=== PATIENT | female | born 1950 | race Caucasian/White ===

== ENCOUNTER 2017-05-02 19:11 | Emergency (ER) | payer MEDICARE ==
[~2017-05-02] VITALS: Ht 154.9 cm; Wt 72.1 kg
[~2017-05-02 19:11] MED LIST: ALPR.5T PO; ASPI-875 PO; ATEN25TA PO; BETA50CR5 TP; CEFD300C3 PO; CEFU500T5 PO; CHOL200035 PO; CLOT45CR46 TOP; CPR500T PO; CTLP20T PO; DOXY100C2 PO; ERGO400C PO; FAMO20TA5 PO; GBPN100C PO; HYDR-2889 PO; HYDR-3820 PO; HYDR-91 PO; HYOS0.1216 PO; METF-380 PO; MTF500T PO; NABU750T PO; OMEP10CA4 PO; OMG1KC; PHEN200T16 PO; PRAM0.257 PO; PRAS10TA6 PO; PRD10T PO; PRD20T PO; ROPI2TAB28 PO; ROPI3TAB2 PO; SLMFT1E INH; SULF1TAB35 PO; SULF1TAB38 PO; TEMA30CA PO; TRAM50TA2 PO; TRAZ150T42 PO; TRIA1CAP4 PO
[2017-05-02] MEDS ORDERED: RX-TRIMETH/SULFA. 160-800 MG (BACTRIM DS) TAB PPK#2 PO STA (20:46)
[2017-05-02] MEDS ORDERED: morphine INJ 10 MG/ML 1ML (SYR OR VIAL) IM STA (20:46)
[2017-05-02] MEDS ORDERED: CLINDAMYCIN 150 MG (CLEOCIN) CAP PO STA (20:46)
[2017-05-02] MEDS ORDERED: CLIN300C3 PO (20:52)
[2017-05-02] MEDS ORDERED: OXYC-197 PO (20:52)
[2017-05-02] MEDS ORDERED: SULF1TAB35 PO (20:52)
--- NOTE | 2017-05-02 20:53 | ED Integumentary General ---
General Chief Complaint: Skin/Wound Problems Stated Complaint: STOMACH RASH Nursing Triage Note: Pt. advises she has had a wound on her abdomen for approximately one week that is not improving. Source: patient Exam Limitations: no limitations History of Present Illness Time seen by provider: 20:51 Initial Comments 67-year-old female patient presents to the emergency department complains of abdominal wound for approximately one week. reports giving patient 300 mg cleocin this afternoon as well as hydrocodone 10/325 with improvement in symptoms. Denies fever. Timing/Duration: week, getting worse Location: torso (abdomen) Possible Cause: no cause identified Modifying Factors: worse with other (worse with palpation) Allergies and Home Medications Allergies Coded Allergies: No Known Drug Allergies (Unverified , 06/07/09) Home Medications Alprazolam 0.5 Mg Tablet, 1 TAB PO TID PRN, (Reported) Aspirin 81 Mg Tablet.dr, 81 MG PO HS, (Reported) Atenolol 25 Mg Tablet, 1 EACH PO HS, (Reported) Betamet Diprop/Prop Gly 50 Gm Cream.gm., 50 GM TP BID, #1 Prescribed by: ATUL MELENDEZ on 05/18/152103 Cholecalciferol (Vitamin D3) 2,000 Unit Capsule, 1,000 UNIT PO BID, (Reported) AT 1200 AND 2100 Clindamycin HCl 300 Mg Capsule, 300 MG PO QID, #40 Ref 0 Prescribed by: KEO COYLE on 05/02/172051 Gabapentin 100 Mg Cap, 300 MG PO 1200 AND 2100, (Reported) AT NOON AND 2100 Hydrocodone/Acetaminophen 1 Each Tablet, 1 EACH PO Q6H PRN for PAIN, #14 Ref 0 Prescribed by: KEO COYLE on 04/28/16 1514 Metformin Hcl 500 Mg Tablet, 2 TAB PO 0700 & 1700, (Reported) Omeprazole 10 Mg Capsule.dr, 20 MG PO DAILY, (Reported) Oxycodone HCl/Acetaminophen 1 Each Tablet, 1 EACH PO Q6H PRN for pain, #10 Ref 0 Prescribed by: KEO COYLE on 05/02/172051 Pramipexole Di-HCl 0.25 Mg Tablet, 0.25 MG PO QID, #180 (Reported) Salmeterol Xinaf/Fluticasone 1 Diskus Inhp, 1 PUFF INH BID, (Reported) Sulfamethoxazole/Trimethoprim 1 Each Tablet, 1 EACH PO BID, #20 Ref 0 Prescribed by: KEO COYLE on 05/02/172051 Triamterene/Hydrochlorothiazid 1 Each Capsule, 0.5 TAB PO HS, (Reported) Constitutional: No dizziness, No fever, No malaise, No weakness Respiratory: no symptoms reported Cardiovascular: no symptoms reported Gastrointestinal: see HPI, No abdominal pain, No diarrhea, No nausea, No vomiting, other (redness, swelling and wound of the abdominal wall) Genitourinary: no symptoms reported Skin: see HPI Psychiatric/Neurological: No Symptoms Reported All Other Systems Reviewed Negative Unless Noted: Yes (Negative excepted noted.) Past Qdrcuyk-Hylzkp-Hyholp Hx Patient Social History Alcohol Use: Denies Use Recreational Drug Use: No Smoking Status: Current Everyday Smoker Type Used: Cigars Recent Foreign Travel: No Contact w/Someone Who Travel: No Recent Infectious Disease Expo: No Recent Hopitalizations: No Immunizations Up To Date Tetanus Booster (TDap): Less than 5yrs Date of Pneumonia Vaccine: Oct 30, 2012 Date of Influenza Vaccine: Oct 19, 2013 Seasonal Allergies Seasonal Allergies: No Surgeries HX Surgeries: Yes Surgeries: CABG, Thyroidectomy Respiratory Hx Respiratory Disorders: Yes Respiratory Disorders: Asthma, Chronic Bronchitis, COPD Cardiovascular Hx Cardiac Disorders: Yes (CABG/STENTS. 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 Genitourinary Hx Genitourinary Disorders: No Gastrointestinal Hx Gastrointestinal Disorders: Yes Gastrointestinal Disorders: Gastroesophageal Reflux, Hiatal Hernia Musculoskeletal Hx Musculoskeletal Disorders: Yes (ARTHRITIS IN KNEES) Musculoskeletal Disorders: Arthritis Endocrine Hx Endocrine Disorders: Yes Endocrine Disorders: Hypothyroidsim, Diabetes, Non-Insulin dep HEENT HX ENT Disorders: No Cancer Hx Cancer: No Psychosocial Hx Psychiatric Problems: Yes Behavioral Health Disorders: Anxiety Integumentary HX Skin/Integumentary Disorder: Yes Skin/Integumentary Disorders: Eczema Blood Transfusions Hx Blood Disorders: No Reviewed Nursing Assessment Reviewed/Agree w Nursing PMH: Yes Family Medical History Significant Family History: No Pertinent Family Hx Physical Exam Vital Signs Vital Sign - Last 12Hours 05/02/17 05/02/17 20:38 21:52 Temp 98.8 Pulse 84 Resp 14 B/P (MAP) 138/64 Pulse Ox 98 O2 Delivery Room Air Capillary Refill : Less Than 3 Seconds General Appearance: WD/WN, no apparent distress Cardiovascular: regular rate, rhythm, no murmur Respiratory: lungs clear, normal breath sounds, no respiratory distress Gastrointestinal: normal bowel sounds, soft, other (supraumbilical region shows a 6x14 cm area of erythema, swelling, tenderness, and warmth with central ulcer. soft tissue tenderness noted.) Extremities: no pedal edema, normal capillary refill Neurologic/Psychiatric: alert, normal mood/affect, oriented x 3 Skin: warm/dry, No cyanosis, No cool, No diaphoresis, No damp, other ( supraumbilical region shows a 6x14 cm area of erythema, swelling, tenderness, and warmth with central ulcer. soft tissue tenderness noted.) Skin Problem Location: other (supraumbilical) Skin Problem Character: erythema, swelling, tenderness, warm, other (central ulcer with eschar) Progress/Results/Core Measures Results/Orders Micro Results Microbiology 05/02/17 Gram Stain - Final, Resulted 05/02/17 Wound Culture - Preliminary, Resulted Staphylococcus Aureus My Orders Orders - KEO COYLE Morphine Injection (Morphine Injection (05/02/17 20:46) Clindamycin Capsule (Cleocin Capsule) (05/02/17 20:46) Rx-Trimeth/Sulfameth Ds Tab (Rx-Bactrim/ (05/02/17 20:46) Wound Culture (05/02/17 20:48) Vital Signs/I&O Vital Sign - Last 12Hours 05/02/17 05/02/17 20:38 21:52 Temp 98.8 Pulse 84 89 Resp 14 14 B/P (MAP) 138/64 Pulse Ox 98 O2 Delivery Room Air Blood Pressure Mean: 88 Departure Communication Progress Notes Patient seen and evaluated. Plan for discharge to home with oral Cleocin, Bactrim, and Percocet for pain. Patient follow-up with her primary care physician Thursday or Thursday for recheck. Impression Impression: Primary Impression: Cellulitis Qualified Codes: L03.311 - Cellulitis of abdominal wall Disposition: HOME, SELF-CARE Condition: Improved Departure-Patient Inst. Decision time for Depature: 20:51 Referrals: KENDY MADISON DO (PCP/Family) Primary Care Physician Patient Instructions: Cellulitis (Skin Infection), Adult (DC) Add. Discharge Instructions: All discharge instructions reviewed with patient and/or family. Voiced understanding. Medications as instructed. Continue usual home medications. Ice pack or heating pad as needed for pain. Shower with antibacterial soap. Cover with a bandage. Follow-up with your primary care physician Thursday or Thursday for recheck, call first thing Thursday morning for appointment time. Return to the emergency department for worsened symptoms or any other concerns. Scripts Oxycodone HCl/Acetaminophen (Percocet 5-325 mg Tablet) 1 Each Tablet 1 EACH PO Q6H Y for pain, #10 TAB 0 Refills Prov: KEO COYLE 05/02/17 Sulfamethoxazole/Trimethoprim (Bactrim Ds Tablet) 1 Each Tablet 1 EACH PO BID, #20 TAB 0 Refills Prov: KEO COYLE 05/02/17 Clindamycin HCl (Cleocin HCl) 300 Mg Capsule 300 MG PO QID, #40 CAP 0 Refills Prov: KEO COYLE 05/02/17 KEO COYLE May 02, 2017 20:53
[2017-05-02 21:52] VITALS: BP 137/62
== END 2017-05-02 22:01 | disposition home or self-care (01) ==
LOC: EDUNIT# 19:11 → ER 19:13
DX: L03.311 Cellulitis of abdominal wall (principal); E11.9 Type 2 diabetes mellitus without complications; F17.210 Nicotine dependence, cigarettes, uncomplicated; Z79.84 Long term (current) use of oral hypoglycemic drugs; Z79.82 Long term (current) use of aspirin; Z79.899 Other long term (current) drug therapy
CPT/HCPCS: 87070; 87077; 87186; 87205; 96372; 99282

== ENCOUNTER 2017-05-05 05:56 | Day surgery (SDC) | payer MEDICARE ==
[~2017-05-05] VITALS: Ht 154.9 cm; Wt 72.1 kg
[~2017-05-05 05:56] MED LIST changes: +CLIN300C3 PO; +OXYC-197 PO
[2017-05-05 06:45] VITALS: BP 99/51
[2017-05-05] MEDS ORDERED: RT-ALBUTEROL SULF 2.5 MG/3 ML PRE-MIX VIAL ONE (06:46)
[2017-05-05] MEDS ORDERED: ceFAZolin 1,000 MG (ANCEF) VIAL ONE (06:51)
[2017-05-05] MEDS ORDERED: NS (IVPB) 0 ML ONE (06:51)
[2017-05-05] MEDS ORDERED: FAMOTIDINE 20MG/2ML IV (PEPCID) ONE (06:51)
[2017-05-05] MEDS ORDERED: proPOfol 200 MG/20 ML (DIPRIVAN) VIAL IV ONE (07:00)
[2017-05-05] MEDS ORDERED: fentaNYL INJECTION 100 MCG/2 ML AMP ONE (07:00)
[2017-05-05] MEDS ORDERED: ceFAZolin 1 GM/NS 50 ML IVPB IV ONE ×2 (07:30)
--- NOTE | 2017-05-05 07:40 | Progress Note-Pre Operative ---
Pre-Operative Progress Note H&P Reviewed The H&P was reviewed, patient examined and no changes noted. Date Seen by Provider: May 05, 2017 Time Seen by Provider: 07:39 Date H&P Reviewed: May 05, 2017 Time H&P Reviewed: 07:39 Pre-Operative Diagnosis: Abscess of abdominal wall JANESSA FLORES MD May 05, 2017 7:39 am
[2017-05-05] MEDS ORDERED: ONDANSETRON 4 MG/2 ML (SDV) Z0FRAN ONE (08:03)
[2017-05-05] MEDS ORDERED: LACTATED RINGERS 1,000 ML IV PRN (08:03)
[2017-05-05] MEDS ORDERED: SEVOFLURANE (ULTANE) 15 ML INHAL SOLN ONE (08:03)
[2017-05-05] MEDS ORDERED: FAMOTIDINE 20MG/2ML IV (PEPCID) IV ONE (08:15)
[2017-05-05] MEDS ORDERED: RT-ALBUTEROL SULF 2.5 MG/3 ML PRE-MIX VIAL INH ONE (08:15)
--- NOTE | 2017-05-05 08:28 | Progress Note-Post Operative ---
Post-Operative Progess Note Surgeon (s)/Career Coordinator (s) Surgeon JANESSA FLORES MD Career Coordinator: not applicable Pre-Operative Diagnosis Abscess of abdominal wall Post-Operative Diagnosis same Procedure & Operative Findings Date of Procedure 05/05/17 Procedure Performed/Findings incision and drainage Anesthesia Type Gen. Estimated Blood Loss Estimated blood loss (mL): minimal Specimens/Packing Specimens Removed pus for culture JANESSA FLORES MD May 05, 2017 8:28 am
--- NOTE | 2017-05-05 08:31 | Discharge Inst-Simple/Standard ---
Discharge Inst-Standard Discharge Medications New, Converted or Re-Newed RX: Other Patient Instructions/Follow Up Plan of Care/Instructions/FU: change dressing with ABDs pad once a day. May shower. Follow-up with me in a week Activity as Tolerated: Yes Discharge Diet: No Restrictions JANESSA FLORES MD May 05, 2017 8:31 am
--- NOTE | 2017-05-05 08:41 | Anesthesia-General Post-Op ---
General Patient Condition Mental Status/LOC: Same as Preop Cardiovascular: Satisfactory Nausea/Vomiting: Absent Respiratory: Satisfactory Pain: Controlled Complications: Absent Post Op Complications Complications None Follow Up Care/Instructions Patient Instructions None needed. Anesthesia/Patient Condition Patient Condition Patient is doing well, no complaints, stable vital signs, no apparent adverse anesthesia problems. No complications reported per nursing. D/C home per [facility] Criteria: CAS Israel DO May 05, 2017 08:41
--- NOTE | 2017-05-05 08:58 | OPERATIVE REPORT ---
DATE OF SERVICE: 05/05/2017 PREOPERATIVE DIAGNOSIS: Abscess, abdominal wall. POSTOPERATIVE DIAGNOSIS: Abscess, abdominal wall. OPERATION: Incision and drainage of abscess, abdominal wall. SURGEON: Janessa Flores MD ANESTHESIA: General anesthesia. BLOOD LOSS: Minimal. FLUIDS: 300 mL of crystalloid. TYPE OF WOUND: Type 4 (dirty wound). INDICATION FOR PROCEDURE: This lady presented with an area of cellulitis superior to the umbilicus with an early abscess formation. She was offered formal incision and drainage. Informed consent was obtained after reviewing the procedure in detail. DESCRIPTION OF PROCEDURE: She was placed supine on the operating room where general anesthesia was induced. A gram of Ancef was administered intravenously. After adequate antiseptic preparation, a 5 cm elliptical incision was made and the necrotic skin excised. The abscess cavity was entered and pus sent for culture and sensitivity. The cavity was then irrigated with saline and hemostasis was achieved using cautery. Two separate Callao drains were left in the cavity and secured with 2-0 silk sutures. A nonadherent dressing was then applied. She tolerated the procedure well, was extubated in the operating room and taken to the recovery room in stable condition. [place], sponges and instruments were correct at the end of the operation. Job ID: [id number] DocumentID: [id number] Dictated Date: 05/05/2017 08:23:49 Clinical Pharmacologist Date: 05/05/2017 08:57:41 Dictated By: JANESSA FLORES MD [facility]
[2017-05-05 09:10] VITALS: BP 111/48
[2017-05-05 09:40] VITALS: BP 108/50
[2017-05-05 10:00] VITALS: BP 108/50
== END 2017-05-05 10:00 | disposition home or self-care (01) ==
LOC: SDC 05:56
PROVIDERS: ATTEND Surgery
DX: L03.311 Cellulitis of abdominal wall (principal); E11.9 Type 2 diabetes mellitus without complications; K21.9 Gastro-esophageal reflux disease without esophagitis; J44.9 Chronic obstructive pulmonary disease, unspecified; G47.33 Obstructive sleep apnea (adult) (pediatric); F17.210 Nicotine dependence, cigarettes, uncomplicated; Z79.84 Long term (current) use of oral hypoglycemic drugs; Z79.82 Long term (current) use of aspirin; Z79.899 Other long term (current) drug therapy; Z95.1 Presence of aortocoronary bypass graft
CPT/HCPCS: 87070; 87075; 87077; 87081; 87186; 87205; 94640

== ENCOUNTER → 2017-12-23 | Outpatient (CLI) | payer MEDICARE, OTHER ==
--- NOTE | 2017-12-23 14:09 | Diagnostic Imaging Report ---
PROCEDURE: MRI lumbar spine. TECHNIQUE: Multiplanar, multisequence MRI of the lumbar spine was performed without contrast. INDICATION: Low back pain. COMPARISON: No prior studies are available for comparison. FINDINGS: Curvature of the lumbar spine is normal. There is minimal anterolisthesis of L3 on L4. The vertebral body heights are maintained. No acute compression fracture or geographic marrow lesion is identified. There is some generalized lumbar degenerative disc disease with variable disc space narrowing and desiccation. The conus is unremarkable at the L1 level. T12-L1: No central canal or neuroforaminal stenosis is identified. L1-L2: Unremarkable. L2-L3: No significant central canal or neuroforaminal stenosis is identified. L3-L4: There are hypertrophic facet degenerative changes and ligamentous thickening. There is also broad-based disc/osteophyte complex. Moderate narrowing of the central canal is identified to approximately 7 mm AP diameter. No significant neuroforaminal stenosis is seen. L4-L5: Broad-based disc/osteophyte complex is noted. There does appear to be mild central canal stenosis. There is also mild bilateral neuroforaminal narrowing due to far lateral disc/osteophyte complexes. L5-S1: Central canal is patent. No significant neuroforaminal stenosis is seen. The paraspinous tissues are unremarkable. IMPRESSION: Mild generalized lumbar degenerative disc and facet disease with mild central canal or neuroforaminal narrowing described level by level above. No acute compression fracture is detected. Dictated by: Dictated on workstation # [id number]
== END ==
LOC: RAD 11:32
PROVIDERS: ATTEND Internal Medicine
DX: M48.061 Spinal stenosis, lumbar region without neurogenic claudication (principal); M51.36 Other intervertebral disc degeneration, lumbar region; M51.26 Other intervertebral disc displacement, lumbar region; M89.38 Hypertrophy of bone, other site; M47.816 Spondylosis without myelopathy or radiculopathy, lumbar region
CPT/HCPCS: 72148

== ENCOUNTER → 2018-03-18 | Outpatient (CLI) | payer MEDICARE, OTHER ==
--- NOTE | 2018-03-18 14:30 | Diagnostic Imaging Report ---
INDICATION: Nodular thyroid disease. History of right-sided thyroidectomy. TECHNIQUE: Grayscale sonographic images of the thyroid gland. CORRELATION STUDY: None FINDINGS: RIGHT LOBE: Surgically absent. LEFT LOBE: 4.4 x 1.8 x 2.0 cm. In the mid aspect is a complex mixed solid and cystic perhaps multiseptated nodule measuring 15 x 11 x 14 mm. Vascular flow is symmetric to the solid component. There is slight more asymmetric solid component along its lateral aspect. A mixed heterogeneous but more solid appearing nodule is noted in the posterior mid aspect measuring 13 x 7 x 10 mm. In the mid aspect posteriorly and laterally is additional mixed solid cystic nodule measuring 12 x 12 x 10 mm. IMPRESSION: 1. Absent right lobe. 2. Mildly enlarged left lobe of thyroid gland. There are at least 3 nodules present. These demonstrate fairly similar echotexture and or mixed complex and cystic in nature. Slightly more dominant one noted centrally at 15 mm in size. Given multiplicity favors probable multinodular thyroid gland. However, given no priors for comparison, followup imaging in approximately 3-4 months would be recommended. 3. Addition, correlation with indication and findings for why the right lobe was resected would be helpful as well. (Normal gland size: 4-5 x 2 x 2 cm) Dictated by: Dictated on workstation # [id number]
== END ==
LOC: RAD 12:01
PROVIDERS: ATTEND Internal Medicine Endocrinology, Diabetes & Metabolism
DX: E04.2 Nontoxic multinodular goiter (principal); E89.0 Postprocedural hypothyroidism
CPT/HCPCS: 76536

== ENCOUNTER 2018-10-22 12:11 | Emergency (ER) | payer MEDICARE, OTHER ==
[~2018-10-22] VITALS: Ht 154.9 cm; Wt 62.1 kg
[~2018-10-22 12:11] MED LIST changes: -OXYC-197 PO; +OXYC1TAB87 PO
--- OUTSIDE RECORDS SUMMARY | 2018-10-22 12:17 | XMS REPORT | Continuity of Care Document ---
Author Author [facility] Organization [facility] Address Unknown Phone Unavailable Allergies Active Description Code Type Severity Reaction Onset Reported/Identified Relationship to Patient Clinical Status Yes No Known Drug Allergies [id number] Drug Allergy Mild N/A 06/07/2009 Yes No Known Allergies No Known Allergies Drug Allergy Unknown N/A 2013 Medications There is no data. Problems Date Dx Coded Attending Type Code Diagnosis Diagnosed By 12/16/2008 Ot 278.00 12/16/2008 Ot 327.23 12/16/2008 Ot 327.51 12/16/2008 Ot 496 05/27/2011 Ot 327.23 06/08/2011 Ot V45.81 06/08/2011 Ot V57.89 06/14/2011 Ot 327.23 11/17/2011 Ot 592.0 11/17/2011 Ot 599.0 11/17/2011 Ot 788.1 02/22/2012 Ot 346.90 02/22/2012 Ot 784.0 10/04/2012 Ot 211.3 BENIGN NEOPLASM LG BOWEL 10/04/2012 Ot 562.10 DIVERTICULOSIS COLON (W/O MENT OF HEMORR 10/04/2012 Ot V76.51 SCREEN MAL NEOP-COLON 12/11/2013 KEO DIANA Ot 692.9 DERMATITIS NOS 12/11/2013 KEO DIANA Ot 729.81 SWELLING OF LIMB 12/23/2013 JAS MCKNIGHT DO Ot 414.01 CORONARY ATHEROSCLEROSIS OF [place] CORON 12/23/2013 JAS MCKNIGHT DO Ot 786.50 CHEST PAIN NOS 03/30/2014 ALEX GUY MD Ot 724.9 BACK DISORDER NOS 03/30/2014 ALEX GUY MD Ot V57.1 PHYSICAL THERAPY NEC 10/12/2014 CARLTON MADISON CHAIN TESTING MACHINE OPERATOR Ot 486 11/06/2014 Ot V76.12 11/06/2014 Ot V76.12 11/06/2014 Ot V45.81 11/06/2014 Ot V57.89 11/06/2014 Ot 573.9 11/06/2014 Ot 592.0 11/06/2014 Ot 573.8 11/06/2014 Ot 592.0 11/06/2014 Ot V76.12 11/06/2014 Ot V72.84 11/06/2014 Ot 433.30 11/06/2014 CARLTON MADISON CHAIN TESTING MACHINE OPERATOR Ot 486 12/04/2014 TRINO BASHIR MD Ot 414.01 12/04/2014 TRINO BASHIR MD Ot 440.20 12/04/2014 TRINO BASHIR MD Ot 724.02 04/02/2015 JENNIFER ALMAGUER, MAHENDRA Redd Ot 682.2 CELLULITIS OF TRUNK 04/02/2015 JENNIFER ALMAGUER, MAHENDRA Redd Ot 911.4 INSECT BITE TRUNK 04/02/2015 MAHENDRA RODRIGUEZ MD Ot 919.4 INSECT BITE NEC 04/02/2015 JENNIFER ALMAGUER, MAHENDRA Redd Ot E000.8 OTHER EXTERNAL CAUSE STATUS 04/02/2015 JENNIFER ALMAGUER, MAHENDRA Redd Ot E906.4 NONVENOM ARTHROPOD BITE 04/30/2015 KENDY MADISON DO Ot V76.12 05/18/2015 ATUL MELENDEZ HEALTH INFORMATION TECH Ot 041.9 BACTERIAL INFECTION NOS 05/18/2015 ATUL MELENDEZ HEALTH INFORMATION TECH Ot 244.9 HYPOTHYROIDISM NOS 05/18/2015 ATUL MELENDEZ HEALTH INFORMATION TECH Ot 250.00 DIAB ABIODUN WO COMPL, TYPE II OR UNSPEC TY 05/18/2015 ATUL MELENDEZ HEALTH INFORMATION TECH Ot 305.1 TOBACCO USE DISORDER 05/18/2015 ATUL MELENDEZ APRN Ot 491.20 OBSTR CHRONIC BRONCHITIS, W/O EXACERBATI 05/18/2015 ATUL MELENDEZ HEALTH INFORMATION TECH Ot 493.20 CHRONIC OBSTRUCTIVE ASTHMA, NOS 05/18/2015 ATUL MELENDEZ APRN Ot 530.81 ESOPHAGEAL REFLUX 05/18/2015 ATUL MELENDEZ APRN Ot 553.3 DIAPHRAGMATIC HERNIA 05/18/2015 ATUL MELENDEZ HEALTH INFORMATION TECH Ot 686.9 LOCAL SKIN INFECTION NOS 05/18/2015 ATUL MELENDEZ HEALTH INFORMATION TECH Ot 690.10 SEBORRHEIC DERMATITIS,NOS 05/18/2015 ATUL MELENDEZ HEALTH INFORMATION TECH Ot 782.1 NONSPECIF SKIN ERUPT NEC 05/22/2015 Ot V76.12 05/22/2015 Ot 401.9 05/22/2015 Ot 496 05/22/2015 Ot 611.8 05/22/2015 Ot V76.12 05/22/2015 Ot V76.12 05/22/2015 Ot V76.12 05/22/2015 Ot V76.12 05/22/2015 Ot V45.81 05/22/2015 Ot V57.89 05/22/2015 Ot V72.84 05/22/2015 Ot 592.9 05/23/2015 KENDY MADISON DO Ot V76.12 08/05/2015 ATUL MELENDEZ HEALTH INFORMATION TECH Ot 682.2 CELLULITIS OF TRUNK 08/15/2015 KENDY MADISON DO Ot V76.12 08/15/2015 KENDY MADISON DO Ot V76.12 08/15/2015 KENDY MADISON DO Ot V76.12 08/21/2015 KENDY MADISON DO Ot V76.12 04/28/2016 KENDY MADISON DO Ot V76.12 OTH SCREEN MAMMO-MALIGN NEOPLASM OF [place] 04/28/2016 KEO DIANA Ot G89.29 OTHER CHRONIC PAIN 04/28/2016 KEO DIANA Ot M25.561 PAIN IN RIGHT KNEE 04/28/2016 KEO DIANA Ot Z76.0 ENCOUNTER FOR ISSUE OF REPEAT PRESCRIPTI 05/01/2016 KEO DIANA Ot G89.29 OTHER CHRONIC PAIN 05/01/2016 KEO DIANA Ot M25.561 PAIN IN RIGHT KNEE 05/01/2016 KEO DIANA Ot Z76.0 ENCOUNTER FOR ISSUE OF REPEAT PRESCRIPTI 08/01/2016 KEO DIANA Ot G89.29 OTHER CHRONIC PAIN 08/01/2016 KEO DIANA Ot M25.561 PAIN IN RIGHT KNEE 08/01/2016 KEO DIANA Ot Z76.0 ENCOUNTER FOR ISSUE OF REPEAT PRESCRIPTI 08/02/2016 KEO DIANA Ot G89.29 OTHER CHRONIC PAIN 08/02/2016 KEO DIANA Ot M25.561 PAIN IN RIGHT KNEE 08/02/2016 KEO DIANA Ot Z76.0 ENCOUNTER FOR ISSUE OF REPEAT PRESCRIPTI 11/04/2016 KENDY MADISON DO Ot V76.12 OTH SCREEN MAMMO-MALIGN NEOPLASM OF [place] 11/05/2016 KENDY MADISON DO, Ot M17.0 BILATERAL PRIMARY OSTEOARTHRITIS OF KNEE 11/18/2016 KENDY MADISON DO Ot M17.0 BILATERAL PRIMARY OSTEOARTHRITIS OF KNEE 05/02/2017 KEO DIANA Ot E11.9 TYPE 2 DIABETES MELLITUS WITHOUT COMPLIC 05/02/2017 KEO DIANA Ot F17.210 NICOTINE DEPENDENCE, CIGARETTES, UNCOMPL 05/02/2017 KEO DIANA Ot L03.311 CELLULITIS OF ABDOMINAL WALL 05/02/2017 KEO DIANA Ot R21 RASH AND OTHER NONSPECIFIC SKIN ERUPTION 05/02/2017 KEO DIANA Ot Z79.82 SOFTWARE TEST MANAGER (CURRENT) USE OF ASPIRIN 05/02/2017 KEO DIANA Ot Z79.84 SOFTWARE TEST MANAGER (CURRENT) USE OF ORAL HYPOGLYC 05/02/2017 KEO DIANA Ot Z79.899 OTHER GROUP HOME (CURRENT) DRUG THERAPY 05/05/2017 JANESSA FLORES MD Ot E11.9 TYPE 2 DIABETES MELLITUS WITHOUT COMPLIC 05/05/2017 JANESSA FLORES MD Ot F17.210 NICOTINE DEPENDENCE, CIGARETTES, UNCOMPL 05/05/2017 JANESSA FLORES MD Ot G47.33 OBSTRUCTIVE SLEEP APNEA (ADULT) (PEDIATR 05/05/2017 JANESSA FLORES MD Ot J44.9 CHRONIC OBSTRUCTIVE PULMONARY DISEASE, U 05/05/2017 JANESSA FLORSE MD Ot K21.9 GASTRO-ESOPHAGEAL REFLUX DISEASE WITHOUT 05/05/2017 JANESSA FLORES MD Ot L03.311 CELLULITIS OF ABDOMINAL WALL 05/05/2017 JANESSA FLORES MD Ot Z79.82 GROUP HOME (CURRENT) USE OF ASPIRIN 05/05/2017 JANESSA FLORES MD Ot Z79.84 GROUP HOME (CURRENT) USE OF ORAL HYPOGLYC 05/05/2017 JANESSA FLORES MD Ot Z79.899 OTHER GROUP HOME (CURRENT) DRUG THERAPY 05/05/2017 JANESSA FLORES MD Ot Z95.1 PRESENCE OF AORTOCORONARY BYPASS GRAFT 05/07/2017 KEO DIANA Ot E11.9 TYPE 2 DIABETES MELLITUS WITHOUT COMPLIC 05/07/2017 KEO DIANA Ot F17.210 NICOTINE DEPENDENCE, CIGARETTES, UNCOMPL 05/07/2017 KEO DIANA Ot L03.311 CELLULITIS OF ABDOMINAL WALL 05/07/2017 KEO DIANA Ot R21 RASH AND OTHER NONSPECIFIC SKIN ERUPTION 05/07/2017 KEO DIANA Ot Z79.82 SOFTWARE TEST MANAGER (CURRENT) USE OF ASPIRIN 05/07/2017 KEO DIANA Ot Z79.84 GROUP HOME (CURRENT) USE OF ORAL HYPOGLYC 05/07/2017 KEO DIANA Ot Z79.899 OTHER GROUP HOME (CURRENT) DRUG THERAPY 05/08/2017 KEO DIANA Ot E11.9 TYPE 2 DIABETES MELLITUS WITHOUT COMPLIC 05/08/2017 KEO DIANA Ot F17.210 NICOTINE DEPENDENCE, CIGARETTES, UNCOMPL 05/08/2017 KEO DIANA Ot L03.311 CELLULITIS OF ABDOMINAL WALL 05/08/2017 KEO DIANA Ot R21 RASH AND OTHER NONSPECIFIC SKIN ERUPTION 05/08/2017 KEO DIANA Ot Z79.82 SOFTWARE TEST MANAGER (CURRENT) USE OF ASPIRIN 05/08/2017 KEO DIANA Ot Z79.84 SOFTWARE TEST MANAGER (CURRENT) USE OF ORAL HYPOGLYC 05/08/2017 EKO DIANA Ot Z79.899 OTHER SOFTWARE TEST MANAGER (CURRENT) DRUG THERAPY 06/05/2017 JANESSA FLORES MD Ot E11.9 TYPE 2 DIABETES MELLITUS WITHOUT COMPLIC 06/05/2017 JANESSA FLORES MD Ot F17.210 NICOTINE DEPENDENCE, CIGARETTES, UNCOMPL 06/05/2017 JANESSA FLORES MD Ot G47.33 OBSTRUCTIVE SLEEP APNEA (ADULT) (PEDIATR 06/05/2017 SANDRA ALMAGUER, JANESSA Ibanez Ot J44.9 CHRONIC OBSTRUCTIVE PULMONARY DISEASE, U 06/05/2017 JANESSA FLORES MD Ot K21.9 GASTRO-ESOPHAGEAL REFLUX DISEASE WITHOUT 06/05/2017 JANESSA FLORES MD Ot L03.311 CELLULITIS OF ABDOMINAL WALL 06/05/2017 JANESSA FLORES MD Ot Z79.82 SOFTWARE TEST MANAGER (CURRENT) USE OF ASPIRIN 06/05/2017 JANESSA FLORES MD Ot Z79.84 SOFTWARE TEST MANAGER (CURRENT) USE OF ORAL HYPOGLYC 06/05/2017 JANESSA FLORES MD, Ot Z79.899 OTHER SOFTWARE TEST MANAGER (CURRENT) DRUG THERAPY 06/05/2017 JANESSA FLORES MD Ot Z95.1 PRESENCE OF AORTOCORONARY BYPASS GRAFT 07/01/2017 JANESSA FLORES MD Ot E11.9 TYPE 2 DIABETES MELLITUS WITHOUT COMPLIC 07/01/2017 JANESSA FLORES MD Ot F17.210 NICOTINE DEPENDENCE, CIGARETTES, UNCOMPL 07/01/2017 JANESSA FLORES MD, Ot G47.33 OBSTRUCTIVE SLEEP APNEA (ADULT) (PEDIATR 07/01/2017 JANESSA FLORES MD, Ot J44.9 CHRONIC OBSTRUCTIVE PULMONARY DISEASE, U 07/01/2017 JANESSA FLORES MD, Ot K21.9 GASTRO-ESOPHAGEAL REFLUX DISEASE WITHOUT 07/01/2017 JANESSA FLORES MD Ot L03.311 CELLULITIS OF ABDOMINAL WALL 07/01/2017 JANESSA FLORES MD Ot Z79.82 SOFTWARE TEST MANAGER (CURRENT) USE OF ASPIRIN 07/01/2017 JANESSA FLORES MD Ot Z79.84 GROUP HOME (CURRENT) USE OF ORAL HYPOGLYC 07/01/2017 JANESSA FLORES MD, Ot Z79.899 OTHER GROUP HOME (CURRENT) DRUG THERAPY 07/01/2017 JANESSA FLORES MD Ot Z95.1 PRESENCE OF AORTOCORONARY BYPASS GRAFT 08/18/2017 Thania ALMAGUER, Jasen Redd R93.6 ABNORMAL FINDINGS ON DIAGNOSTIC IMAGING 12/22/2017 Ot V76.12 OTH SCREEN MAMMO-MALIGN NEOPLASM OF [place] 12/22/2017 Ot V72.84 EXAM PRE- OPERATIVE NOS 12/22/2017 Ot 433.30 MULT BILTRAL ARTERY OCCLUSION WO CEREBRA 12/22/2017 CARLTON MADISON Ot 486 PNEUMONIA, ORGANISM NOS 12/22/2017 TRINO BASHIR MD Ot 414.01 CORONARY ATHEROSCLEROSIS OF [place] CORON 12/22/2017 TRINO BASHIR MD Ot 440.20 ATHEROSCLEROSIS [place] ARTERIES EXTREMIT 12/22/2017 TRINO BASHIR MD Ot 724.02 SPINAL STENOSIS, LUMBAR REG, W/OUT NEURO 12/22/2017 KENDY MADISON DO Ot V76.12 OTH SCREEN MAMMO-MALIGN NEOPLASM OF [place] 12/22/2017 KENDY MADISON DO Ot M17.0 BILATERAL PRIMARY OSTEOARTHRITIS OF KNEE 12/24/2017 KENDY MADISON DO Ot M47.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/O MYELOPATHY OR RADICULOPA 12/24/2017 KENDY MADISON DO Ot M48.061 SPINAL STENOSIS, LUMBAR REGION WITHOUT N 12/24/2017 KENDY MADISON DO Ot M51.26 OTHER INTERVERTEBRAL DISC DISPLACEMENT, 12/24/2017 MADISON DOKENDY Ot M51.36 OTHER INTERVERTEBRAL DISC DEGENERATION, 12/24/2017 KENDY MADISON DO Ot M89.38 HYPERTROPHY OF BONE, OTHER SITE 12/29/2017 KENDY MADISON DO Ot M47.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/O MYELOPATHY OR RADICULOPA 12/29/2017 KENDY MADISON DO Ot M48.061 SPINAL STENOSIS, LUMBAR REGION WITHOUT N 12/29/2017 KENDY MADISON DO Ot M51.26 OTHER INTERVERTEBRAL DISC DISPLACEMENT, 12/29/2017 MADISON DOKENDY Ot M51.36 OTHER INTERVERTEBRAL DISC DEGENERATION, 12/29/2017 MADISON DOKENDY Ot M89.38 HYPERTROPHY OF BONE, OTHER SITE 01/13/2018 GRICELDA DOKENDY Ot M47.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/O MYELOPATHY OR RADICULOPA 01/13/2018 KENDY MADISON DO Ot M48.061 SPINAL STENOSIS, LUMBAR REGION WITHOUT N 01/13/2018 MADISON KENDY MANUEL Ot M51.26 OTHER INTERVERTEBRAL DISC DISPLACEMENT, 01/13/2018 MADISON DOKENDY Ot M51.36 OTHER INTERVERTEBRAL DISC DEGENERATION, 01/13/2018 KENDY MADISON DO Ot M89.38 HYPERTROPHY OF BONE, OTHER SITE 01/13/2018 KENDY MADISON DO Ot M47.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/O MYELOPATHY OR RADICULOPA 01/13/2018 GRICELDA DOKENDY Ot M48.061 SPINAL STENOSIS, LUMBAR REGION WITHOUT N 01/13/2018 MADISON DOKENDY Ot M51.26 OTHER INTERVERTEBRAL DISC DISPLACEMENT, 01/13/2018 MADISON KENDY MANUEL Ot M51.36 OTHER INTERVERTEBRAL DISC DEGENERATION, 01/13/2018 KENDY MADISON DO Ot M89.38 HYPERTROPHY OF BONE, OTHER SITE 02/17/2018 KENDY MADISON DO, Ot M47.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/O MYELOPATHY OR RADICULOPA 02/17/2018 KENDY MADISON DO Ot M48.061 SPINAL STENOSIS, LUMBAR REGION WITHOUT N 02/17/2018 KENDY MADISON DO Ot M51.26 OTHER INTERVERTEBRAL DISC DISPLACEMENT, 02/17/2018 KENDY MADISON DO Ot M51.36 OTHER INTERVERTEBRAL DISC DEGENERATION, 02/17/2018 KENDY MADISON DO Ot M89.38 HYPERTROPHY OF BONE, OTHER SITE 02/17/2018 KENDY MADISON DO, Ot M47.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/O MYELOPATHY OR RADICULOPA 02/17/2018 KENDY MADISON DO, Ot M48.061 SPINAL STENOSIS, LUMBAR REGION WITHOUT N 02/17/2018 KENDY MDAISON DO, Ot M51.26 OTHER INTERVERTEBRAL DISC DISPLACEMENT, 02/17/2018 KENDY MADISON DO, Ot M51.36 OTHER INTERVERTEBRAL DISC DEGENERATION, 02/17/2018 KENDY MADISON DO, Ot M89.38 HYPERTROPHY OF BONE, OTHER SITE 03/19/2018 CHERY JORDAN MD Ot E04.2 NONTOXIC MULTINODULAR GOITER 03/19/2018 CHERY JORDAN MD Ot E89.0 POSTPROCEDURAL HYPOTHYROIDISM 03/30/2018 CHERY JORDAN MD Ot E04.2 NONTOXIC MULTINODULAR GOITER 03/30/2018 CHERY JORDAN MD Ot E89.0 POSTPROCEDURAL HYPOTHYROIDISM 03/30/2018 Ot V76.12 03/30/2018 Ot 592.9 URINARY CALCULUS NOS 03/30/2018 CHERY JORDAN MD Ot E04.2 NONTOXIC MULTINODULAR GOITER 03/30/2018 CHERY JORDAN MD Ot E89.0 POSTPROCEDURAL HYPOTHYROIDISM 07/29/2018 KENDY MADISON DO Ot M47.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/O MYELOPATHY OR RADICULOPA 07/29/2018 KENDY MADISON DO Ot M48.061 SPINAL STENOSIS, LUMBAR REGION WITHOUT N 07/29/2018 KENDY MADISON DO Ot M51.26 OTHER INTERVERTEBRAL DISC DISPLACEMENT, 07/29/2018 KENDY MADISON DO Ot M51.36 OTHER INTERVERTEBRAL DISC DEGENERATION, 07/29/2018 KENDY MADISON DO Ot M89.38 HYPERTROPHY OF BONE, OTHER SITE 07/29/2018 KENDY MADISON DO Ot M47.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/O MYELOPATHY OR RADICULOPA 07/29/2018 KENDY MADISON DO Ot M48.061 SPINAL STENOSIS, LUMBAR REGION WITHOUT N 07/29/2018 KENDY MADISON DO Ot M51.26 OTHER INTERVERTEBRAL DISC DISPLACEMENT, 07/29/2018 KENDY MADISON DO Ot M51.36 OTHER INTERVERTEBRAL DISC DEGENERATION, 07/29/2018 KENDY MADISON DO Ot M89.38 HYPERTROPHY OF BONE, OTHER SITE 10/04/2018 KENDY MADISON DO Ot M47.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/O MYELOPATHY OR RADICULOPA 10/04/2018 KENDY MADISON DO Ot M48.061 SPINAL STENOSIS, LUMBAR REGION WITHOUT N 10/04/2018 KENDY MADISON DO Ot M51.26 OTHER INTERVERTEBRAL DISC DISPLACEMENT, 10/04/2018 KENDY MADISON DO Ot M51.36 OTHER INTERVERTEBRAL DISC DEGENERATION, 10/04/2018 KENDY MADISON DO Ot M89.38 HYPERTROPHY OF BONE, OTHER SITE Procedures Code Description [place] [address] ULTRASOUND SOFT TISSUES HEAD & NECK JEANETTE MARSH 10/02/2016 Results Test Result Range Gram stain microscopy - 05/02/17 20:40 GRAM STAIN RESULT NO WBC'S OR BACTERIA OBSERVED NRG Bacteria identification in wound by culture - 05/02/17 20:40 Bacteria identification in wound by culture [id number] NRG FREE TEXT EXTERNAL SENSITIVITY REPORTED 05/04/17 8:05 NRG QUANTITY OF GROWTH Moderate Growth NRG CALL POSITIVES (F1 HELP) CALLED TO [facility]/ JOEY SPARKS 05/04/17 8:10 BY [facility] Bacterial susceptibility panel - 05/02/17 20:40 Oxacillin susceptibility test by minimum inhibitory concentration > = NRG Gentamicin susceptibility test by minimum inhibitory concentration < = NRG Clindamycin susceptibility test by minimum inhibitory concentration <= NRG Erythromycin susceptibility test by minimum inhibitory concentration >= NRG Trimethoprim/sulfamethoxazole susceptibility test by minimum inhibitoryconcentration <= NRG Vancomycin susceptibility test by minimum inhibitory concentration 1 NRG Levofloxacin susceptibility test by minimum inhibitory concentration <= NRG Rifampin susceptibility test by minimum inhibitory concentration <= NRG Tetracycline susceptibility test by minimum inhibitory concentration <= NRG Methicillin resistant Staphylococcus aureus (MRSA) screening culture - 06:30 Methicillin resistant Staphylococcus aureus (MRSA) screening culture NEG NRG Bacteria identification in isolate by anaerobe culture - 05/05/17 08:05 Bacteria identification in isolate by anaerobe culture NOANA NRG Gram stain microscopy - 05/05/17 08:05 GRAM STAIN RESULT MODERATE # WBC'S, NO BACTERIA OBSERVED NRG Bacteria identification in wound by culture - 05/05/17 08:05 Bacteria identification in wound by culture [id number] NRG FREE TEXT EXTERNAL SENSITIVITY REPORTED 05/06 16:10 NRG QUANTITY OF GROWTH Abundant Growth NRG MRSA AGAR MRSA isolated (Screening test for MRSA is positive) NRG CALL POSITIVES (F1 HELP) CALLED TO [facility] 05/06 14:10 NRG Bacterial susceptibility panel - 05/05/17 08:05 Oxacillin susceptibility test by minimum inhibitory concentration > = NRG Gentamicin susceptibility test by minimum inhibitory concentration < = NRG Clindamycin susceptibility test by minimum inhibitory concentration <= NRG Erythromycin susceptibility test by minimum inhibitory concentration >= NRG Trimethoprim/sulfamethoxazole susceptibility test by minimum inhibitoryconcentration <= NRG Vancomycin susceptibility test by minimum inhibitory concentration 1 NRG Levofloxacin susceptibility test by minimum inhibitory concentration 0.25 NRG Rifampin susceptibility test by minimum inhibitory concentration <= NRG Tetracycline susceptibility test by minimum inhibitory concentration <= NRG CREATININE BEDSIDE - 08/18/17 11:03 METHOD Bedside CREATININE 1.1 mg/dL 0.6-1.0 CBC W/DIFF - 08/31/17 09:15 EOSINOPHIL # 0.1 k/cumm 0.1-0.5 EOSINOPHIL % 2 % 2-4 GRANULOCYTE # 5.2 k/cumm 2.0-9.0 GRANULOCYTE % 72 % 50-75 LYMPHOCYTE # 1.3 k/cumm 1.0-4.0 LYMPHOCYTE % 17 % 20-30 MEAN CELL HGB 29.1 pg 27.0-33.0 MEAN CELL HGB CONCENTRATION 31.4 g/dL 32.0-37.0 MEAN CELL VOLUME 92.8 fl 80.0-100.0 MONOCYTE # 0.7 k/cumm 0.1-1.0 MONOCYTE % 9 % 4-6 RED BLOOD CELL 4.46 m/cumm 4.00-6.00 RED CELL DISTRIBUTION WIDTH 14.2 % 11.0-15.6 WHITE BLOOD CELL 7.3 k/cumm 5.0-10.0 HEMOGLOBIN 13.0 gm/dL 12.0-16.0 HEMATOCRIT 41.4 % 37.0-47.0 PLATELET COUNT 160 k/cumm 150-450 PROTHROMBIN TIME WITH INR - 08/31/17 09:15 INTERNATIONAL NORMAL RATIO 1.1 0.9-1.1 PROTHROMBIN TIME 12.5 sec 10.0-12.8 METABOLIC PANEL, BASIC - 08/31/17 09:15 POTASSIUM 4.0 mmol/L 3.5-5.3 EST GFR (MDRD) 50 mL/min > 59 ANION GAP 8 mmol/L 5-15 EST CrCl (CG) 47 mL/min > 59 GLUCOSE 105 mg/dL 70-99 CALCIUM 9.7 mg/dL 8.5-10.1 BLOOD UREA NITROGEN 28 mg/dL 7-20 CREATININE 1.1 mg/dL 0.6-1.0 SODIUM 141 mmol/L 135-148 CHLORIDE 104 mmol/L 98-110 CARBON DIOXIDE 29 mmol/L 21-32 LIPID PANEL - 08/31/17 09:15 CHOLESTEROL/HDL RATIO 3.3 < 5.0 LDL CHOLESTEROL 120 mg/dL < 100 VLDL CHOLESTEROL 28 mg/dL < 30 TRIGLYCERIDES 140 mg/dL < 150 CHOLESTEROL 212 mg/dL < 200 HDL CHOLESTEROL 64 mg/dL > 39 Encounters ACCT No. Visit Date/Time Discharge Status Pt. Type Provider Facility Loc./Unit Complaint [id number] 08/31/2017 07:51:00 08/31/2017 16:00:00 DIS Outpatient Casandra ALMAGUER, Dimitry Barbosa [facility] E.CVLO [id number] 08/18/2017 10:29:00 08/18/2017 10:29:00 DIS Outpatient Thania ALMAGUER, Jasen Jesus [facility] E.RAC [id number] 05/18/2017 11:00:36 05/18/2017 23:59:59 CLS Outpatient Yanira Martínez [facility] [id number] 03/18/2018 12:01:00 03/18/2018 23:59:59 CLS Outpatient CHERY JORDAN MD [facility] RAD NODULAR THYROID DESEASE [id number] 12/23/2017 11:32:00 12/23/2017 23:59:59 CLS Outpatient GRICELDA MANUEL KENDY Fawad [facility] RAD M54.5 [id number] 08/04/2017 07:36:00 08/04/2017 23:59:59 CLS Preadmit KENDY MADISON DO [facility] RAD VERIFY DX [id number] 05/05/2017 05:56:00 05/05/2017 10:00:00 DIS Outpatient SANDRA ALMAGUER, JANESSA Ibanez [facility] ABDOMINAL WOUND ABSCESS [id number] 05/02/2017 19:13:00 05/02/2017 22:01:00 DIS Emergency KEO DIANA [facility] ER STOMACH RASH POSS SPIDER BITE [id number] 11/04/2016 09:54:00 11/04/2016 23:59:59 CLS Outpatient KENDY MADISON DO [facility] RAD M17.0 [id number] 04/28/2016 12:57:00 04/28/2016 15:29:00 DIS Emergency KEO DIANA [facility] ER PAIN IN LEGS [id number] 08/05/2015 10:53:00 08/05/2015 11:40:00 DIS Emergency ATUL MELENDEZ HEALTH INFORMATION TECH [facility] ER ABSCESS [id number] 05/18/2015 20:38:00 05/18/2015 21:23:00 DIS Emergency ATUL MELENDEZ HEALTH INFORMATION TECH [facility] ER RASH [id number] 04/26/2015 09:10:00 04/26/2015 23:59:59 CLS Outpatient KENDY MADISON DO [facility] RAD SCREENING [id number] 04/02/2015 14:22:00 04/02/2015 15:12:00 DIS Emergency MAHENDRA RODRIGUEZ MD [facility] ER TICK BITE [id number] 11/09/2014 06:46:00 11/09/2014 23:59:59 CLS Outpatient TRINO BASHIR MD [facility] RAD CAD,PVD,BP [id number] 09/18/2014 17:04:00 09/18/2014 23:59:59 CLS Outpatient CARLTON MADISON CHAIN TESTING MACHINE OPERATOR [facility] RAD PNEUMONIA [id number] 03/14/2014 10:43:00 03/30/2014 15:50:00 DIS Outpatient ALEX GUY MD [facility] REHAB BACK PAIN [id number] 12/23/2013 06:45:00 12/23/2013 09:17:00 DIS Emergency JAS MCKNIGHT DO K [facility] ER CP [id number] 12/11/2013 10:45:00 12/11/2013 13:03:00 DIS Emergency LEONIDES PAKEO [facility] ER SWOLLEN HANDS [id number] 05/22/2015 14:25:00 Document Registration [id number] 05/22/2015 14:25:00 Document Registration [id number] 05/22/2015 14:25:00 Document Registration [id number] 05/22/2015 14:25:00 Document Registration [id number] 05/22/2015 14:25:00 Document Registration [id number] 05/22/2015 14:25:00 Document Registration [id number] 05/11/2013 14:25:00 Document Registration [id number] 11/18/2012 09:00:00 Document Registration [id number] 10/04/2012 14:18:00 Document Registration [id number] 09/30/2012 07:18:00 Document Registration [id number] 09/15/2012 09:09:00 Document Registration [id number] 04/08/2012 08:54:00 Document Registration [id number] 03/04/2012 08:30:00 Document Registration [id number] 02/22/2012 17:41:00 Document Registration [id number] 11/17/2011 11:56:00 Document Registration [id number] 06/13/2011 21:07:00 Document Registration [id number] 06/09/2011 09:00:00 Document Registration [id number] 05/26/2011 20:28:00 Document Registration [id number] 05/16/2011 09:35:00 Document Registration [id number] 04/02/2011 11:36:00 Document Registration [id number] 03/07/2010 09:11:00 Document Registration [id number] 02/22/2009 09:07:00 Document Registration [id number] 12/15/2008 19:12:00 Document Registration [id number] 11/19/2006 06:03:00 Document Registration [id number] 10/08/2016 00:00:00 DIS Document Registration
--- NOTE | 2018-10-22 12:23 | ED General ---
General Stated Complaint: DIZZINESS/NOT EATING Source of Information: Patient, Family Exam Limitations: No Limitations History of Present Illness Date Seen by Provider: Oct 22, 2018 Time Seen by Provider: 12:21 Initial Comments To ER by private vehicle accompanied by family with reports of 1 month of poor appetite, sleeping "all the time", intermittent nausea without vomiting. Just prior to this her sister and her states that he feels as though she is depressed because she does not leave her bedroom and he has to force fluids down her to keep her from getting hydrated but she otherwise has no appetite. Patient does report that she feels depressed. Timing/Duration: Constant, Other (one month) Severity: Moderate Allergies and Home Medications Allergies Coded Allergies: No Known Drug Allergies (Unverified , 06/07/09) Home Medications Aspirin 81 Mg Tablet.dr, 81 MG PO HS, (Reported) Atenolol 25 Mg Tablet, 1 EACH PO HS, (Reported) Cholecalciferol (Vitamin D3) 2,000 Unit Capsule, 1,000 UNIT PO BID, (Reported) AT 1200 AND 2100 Gabapentin 100 Mg Cap, 300 MG PO 1200 AND 2100, (Reported) AT NOON AND 2100 Hydrocodone/Acetaminophen 1 Each Tablet, 1 EACH PO Q6H PRN for PAIN Prescribed by: KEO COYLE on 04/28/16 1514 Metformin Hcl 500 Mg Tablet, 2 TAB PO 0700 & 1700, (Reported) Omeprazole 10 Mg Capsule.dr, 20 MG PO DAILY, (Reported) Ondansetron 4 Mg Tab.rapdis, 4 MG PO Q4H PRN for NAUSEA/VOMITING Prescribed by: ATUL MELENDEZ on 10/22/18 1414 Sulfamethoxazole/Trimethoprim 1 Each Tablet, 1 EACH PO BID Prescribed by: ATUL MELENDEZ on 10/22/18 1416 Triamterene/Hydrochlorothiazid 1 Each Capsule, 0.5 TAB PO HS, (Reported) Patient Home Medication List Home Medication List Reviewed: Yes Review of Systems Review of Systems Constitutional: see HPI, malaise EENTM: see HPI Respiratory: no symptoms reported Cardiovascular: no symptoms reported Gastrointestinal: nausea Genitourinary: no symptoms reported Musculoskeletal: no symptoms reported Skin: no symptoms reported Psychiatric/Neurological: No Symptoms Reported Past Gstjihg-Gsjjhm-Wnflvn Hx Patient Social History Type Used: Cigars Recent Foreign Travel: No Contact w/Someone Who Travel: No Recent Hopitalizations: No Immunizations Up To Date Tetanus Booster (TDap): Less than 5yrs Date of Pneumonia Vaccine: Oct 30, 2012 Date of Influenza Vaccine: Oct 19, 2013 Seasonal Allergies Seasonal Allergies: No Past Medical History Surgeries: Yes CABG, Thyroidectomy Respiratory: Yes Asthma, Chronic Bronchitis, COPD Cardiac: Yes (CABG/STENTS. 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 0.0oz. 72.666144gb; 30.0 BMI Method:Stated General Appearance: No Apparent Distress, WD/WN, Chronically ill (unkempt) Eyes: Bilateral Eye Normal Inspection, Bilateral Eye PERRL, Bilateral Eye EOMI HEENT: PERRL/EOMI, Normal ENT Inspection Respiratory: Normal Breath Sounds, No Accessory Muscle Use, No Respiratory Distress Cardiovascular: Regular Rate, Rhythm Gastrointestinal: Normal Bowel Sounds, Non Tender, Soft Extremity: Normal Capillary Refill, Normal Inspection Neurologic/Psychiatric: Alert, Oriented x3 Skin: Normal Color, Warm/Dry Progress/Results/Core Measures Suspected Sepsis SIRS Temperature: Pulse: Respiratory Rate: Laboratory Tests 10/22/18 12:25: White Blood Count 9.5 Blood Pressure / Mean: Laboratory Tests 10/22/18 12:25: Creatinine 2.01H, Platelet Count 220, Total Bilirubin 0.4 Results/Orders Lab Results Laboratory Tests Test 10/22/18 12:25 10/22/18 12:45 Range/Units White Blood Count 9.5 4.3-11.0 10^3/uL Red Blood Count 4.93 4.35-5.85 10^6/uL Hemoglobin 14.8 11.5-16.0 G/DL Hematocrit 45 35-52 % Mean Corpuscular Volume 91 80-99 FL Mean Corpuscular Hemoglobin 30 25-34 PG Mean Corpuscular Hemoglobin Concent 33 32-36 G/DL Red Cell Distribution Width 12.7 10.0-14.5 % Platelet Count 220 130-400 10^3/uL Mean Platelet Volume 12.6 H 7.4-10.4 FL Neutrophils (%) (Auto) 75 42-75 % Lymphocytes (%) (Auto) 14 12-44 % Monocytes (%) (Auto) 10 0-12 % Eosinophils (%) (Auto) 1 0-10 % Basophils (%) (Auto) 0 0-10 % Neutrophils # (Auto) 7.2 1.8-7.8 X 10^3 Lymphocytes # (Auto) 1.3 1.0-4.0 X 10^3 Monocytes # (Auto) 0.9 0.0-1.0 X 10^3 Eosinophils # (Auto) 0.1 0.0-0.3 10^3/uL Basophils # (Auto) 0.0 0.0-0.1 10^3/uL Sodium Level 139 135-145 MMOL/L Potassium Level 4.7 3.6-5.0 MMOL/L Chloride Level 102 98-107 MMOL/L Carbon Dioxide Level 20 L 21-32 MMOL/L Anion Gap 17 H 5-14 MMOL/L Blood Urea Nitrogen 38 H 7-18 MG/DL Creatinine 2.01 H 0.60-1.30 MG/DL Estimat Glomerular Filtration Rate 25 BUN/Creatinine Ratio 19 Glucose Level 111 H 70-105 MG/DL Calcium Level 10.4 H 8.5-10.1 MG/DL Corrected Calcium 8.5-10.1 MG/DL Total Bilirubin 0.4 0.1-1.0 MG/DL Aspartate Amino Transf (AST/SGOT) 13 5-34 U/L Alanine Aminotransferase (ALT/SGPT) 18 0-55 U/L Alkaline Phosphatase 75 40-136 U/L Total Protein 7.5 6.4-8.2 GM/DL Albumin 4.7 H 3.2-4.5 GM/DL Lipase 37 8-78 U/L Urine Color YELLOW Urine Clarity CLEAR Urine pH 5 5-9 Urine Specific [place] 1.020 1.016-1.022 Urine Protein 1+ H NEGATIVE Urine Glucose (UA) NEGATIVE NEGATIVE Urine Ketones NEGATIVE NEGATIVE Urine Nitrite NEGATIVE NEGATIVE Urine Bilirubin NEGATIVE NEGATIVE Urine Urobilinogen NORMAL NORMAL MG/DL Urine Leukocyte Esterase 2+ H NEGATIVE Urine RBC (Auto) 1+ H NEGATIVE Urine RBC RARE /HPF Urine WBC 10-25 H /HPF Urine Squamous Epithelial Cells 25-50 H /HPF Urine Renal Epithelial Cells NONE /HPF Urine Crystals NONE /LPF Urine Bacteria MODERATE H /HPF Urine Casts PRESENT /LPF Urine Hyaline Casts 10-25 H /LPF Urine Mucus NEGATIVE /LPF Urine Culture Indicated YES My Orders Orders - ATUL MELENDEZ BUSINESS OBJECTS ARCHITECT Cbc With Automated Diff (10/22/18 12:19) Comprehensive Metabolic Panel (10/22/18 12:19) Lipase (10/22/18 12:19) Ua Culture If Indicated (10/22/18 12:19) Iv Heplock-Insert (Order) (10/22/18 12:19) Ns Iv 1000 Ml (Sodium Chloride 0.9%) (10/22/18 12:30) Ondansetron Injection (Zofran Injectio (10/22/18 12:30) Ct Abdomen/Pelvis Wo (10/22/18 13:08) Lactated Ringers (Lr 1000 Ml Iv Solution (10/22/18 13:15) Urine Culture (10/22/18 12:45) Sulfamethoxazole/Trimet Ds Tab (Bactrim (10/22/18 14:15) Medications Given in ED Current Medications Medications Dose Ordered Sig/Alejandra Route Start Time Stop Time Status Last Admin Dose Admin Ondansetron HCl 8 mg ONCE ONCE IVP 10/22/18 12:30 10/22/18 12:31 DC 10/22/18 12:36 8 MG Trimethoprim/ Sulfamethoxazole 1 ea ONCE ONCE PO 10/22/18 14:15 10/22/18 14:16 DC 10/22/18 14:40 1 EA Vital Signs/I&O 10/22/18 10/22/18 12:15 14:55 Temp 97.2 Pulse 71 67 Resp 22 14 B/P (MAP) 114/91 (99) 126/58 (80) Pulse Ox 98 96 O2 Delivery Room Air Capillary Refill : Diagnostic Imaging Diagonstic Imaging: Xray Plain Films/CT/US/NM/MRI: chest Comments NAME: [facility] REC#: [id number] PT STATUS: REG ER : 1950 PHYSICIAN: ATUL MELENDEZ BUSINESS OBJECTS ARCHITECT ADMIT DATE: 10/22/18/ER Draft Date of Exam:10/22/18 CT ABDOMEN/PELVIS WO PROCEDURE: CT abdomen and pelvis without contrast. TECHNIQUE: Multiple contiguous axial images were obtained through the abdomen and pelvis without the use of intravenous contrast. INDICATION: Mid-upper abdominal pain. Inability to eat. COMPARISON: Multiple priors, most recent is a CTA performed on 11/09/2014. FINDINGS: Absence of intravenous contrast decreases sensitivity for detection of focal lesions and vascular pathology. LOWER THORAX: Unchanged scarring in the lateral right lung base and lingula. No change in 3 mm left lower lobe pulmonary nodule dating back to 2012, thus presumed benign. No pleural effusion. Visualized heart is normal in size. Patient is status post CABG. LIVER: No suspicious change in 2.1 cm low-attenuation lesion in the posterior right hepatic lobe, previously characterized as an hemangioma on contrast-enhanced CT. The liver is otherwise normal. GALLBLADDER: Normal CT appearance. BILE DUCTS: No biliary ductal dilatation. SPLEEN: Unchanged calcified granuloma in the central spleen. PANCREAS: Mildly atrophic, otherwise unremarkable. No pancreatic ductal dilatation. ADRENAL GLANDS: No nodules. KIDNEYS AND URETERS: No hydronephrosis. There is a 7 mm calculus in the lower pole of the right kidney. There is a punctate somewhat amorphous calcification in the lower pole the left kidney, also likely representing a calyceal calculus. The visualized ureters are normal. STOMACH AND BOWEL: Stomach is physiologically-distended. No bowel obstruction. No inflammatory changes. APPENDIX: Not visualized. No pericecal inflammation. PELVIC ORGANS/BLADDER: Bladder appears normal, within limits of underdistension. Uterus Is absent. No pelvic mass. PERITONEUM AND RETROPERITONEUM: No pneumoperitoneum. No abdominal free fluid or loculated collection. LYMPH NODES: No lymphadenopathy. VESSELS: Severe atherosclerotic calcification. Abdominal aorta is nonaneurysmal. ABDOMINAL WALL: Unremarkable. BONES: Multilevel degenerative changes involve the spine. No acute osseous abnormality. IMPRESSION: No acute abdominal or pelvic pathology to account for the patient's pain. Nonobstructing bilateral renal stones, as detailed above. Dictated on workstation # [id number] Dict: 10/22/18 1321 Trans: 10/22/18 1343 [facility] [id number] Interpreted by: MUSTAPHA MILLER DO Electronically signed by: Departure Communication (Admissions) [id number]-she is feeling much better at this time, no nausea. I'll prescribe Zofran ODT at home. She received 1 L of normal saline bolus, I'll give another liter of LR as a bolus then we will discharge to home and encourage fluids. I will provide her with the number to [facility] in case she is interested in pursuing [facility] behavioral health treatment. She and her family are all in agreement with this plan. Impression Primary Impression: Nausea Additional Impressions: Depression Qualified Codes: F32.9 - Major depressive disorder, single episode, unspecified Acute renal insufficiency Urinary tract infection Qualified Codes: N30.01 - Acute cystitis with hematuria Disposition: HOME, SELF-CARE Condition: Stable Departure-Patient Inst. Referrals: KENDY MADISON DO (PCP/Family) Primary Care Physician Patient Instructions: Depression, Adult (DC), Urinary Tract Infection, Adult ( DC) Add. Discharge Instructions: 1. Use the nausea medication as directed. If you're interested in pursuing inpatient mental health treatment for your depression at [facility] Senior behavioral health unit, call and asked to speak with the senior behavioral health unit to make an appointment for evaluation. Return to the emergency room for any concerns. Drink plenty of fluids over the next few days. Scripts Sulfamethoxazole/Trimethoprim (Bactrim Ds Tablet) 1 Each Tablet 1 EACH PO BID, #10 TAB Prov: ATUL MELENDEZ APRN 10/22/18 Ondansetron (Ondansetron Odt) 4 Mg Tab.rapdis 4 MG PO Q4H PRN for NAUSEA/VOMITING, #14 TAB Prov: TAUL MELENDEZ APRN 10/22/18 Copy Copies To 1: KENDY MADISON PETER J APRN Oct 22, 2018 12:23
[2018-10-22] MEDS ORDERED: ONDANSETRON 4 MG/2 ML (SDV) Z0FRAN IVP ONE (12:30)
[2018-10-22] MEDS ORDERED: NS IV 1000 ML 1,000 ML IV SCH (12:30)
[2018-10-22 12:44] LABS: BASOPHILS % (AUTO) 0 % (0-10); EOSINOPHILS # (AUTO) 0.1 10^3/uL (0.0-0.3); EOSINOPHILS % (AUTO) 1 % (0-10); HEMATOCRIT 45 % (35-52); HEMOGLOBIN 14.8 G/DL (11.5-16.0); LYMPHOCYTES # (AUTO) 1.3 X 10^3 (1.0-4.0); LYMPHOCYTES % (AUTO) 14 % (12-44); MEAN CORPUSCULAR HEMOGLOBIN 30 PG (25-34); MEAN CORPUSCULAR HGB CONC 33 G/DL (32-36); MEAN CORPUSCULAR VOLUME 91 FL (80-99); MEAN PLATELET VOLUME 12.6 FL (7.4-10.4); MONOCYTES # (AUTO) 0.9 X 10^3 (0.0-1.0); MONOCYTES % (AUTO) 10 % (0-12); NEUTROPHILS # (AUTO) 7.2 X 10^3 (1.8-7.8); NEUTROPHILS % (AUTO) 75 % (42-75); PLATELET COUNT 220 10^3/uL (130-400); RED BLOOD COUNT 4.93 10^6/uL (4.35-5.85); RED CELL DISTRIBUTION WIDTH 12.7 % (10.0-14.5); WHITE BLOOD COUNT 9.5 10^3/uL (4.3-11.0)
[2018-10-22 13:05] LABS: BILIRUBIN,URINE NEGATIVE (NEGATIVE); CLARITY,URINE CLEAR; COLOR,URINE YELLOW; GLUCOSE, URINE (UA) NEGATIVE (NEGATIVE); KETONES,URINE NEGATIVE (NEGATIVE); LEUKOCYTE ESTERASE ,URINE 2+ (NEGATIVE); NITRITE,URINE NEGATIVE (NEGATIVE); PH,URINE 5 (5-9); PROTEIN,URINE 1+ (NEGATIVE); UROBILINOGEN,URINE NORMAL (NORMAL)
[2018-10-22 13:07] LABS: ALANINE AMINOTRANSFERASE 18 U/L (0-55); ALBUMIN 4.7 GM/DL (3.2-4.5); ALKALINE PHOSPHATASE 75 U/L (40-136); BILIRUBIN,TOTAL 0.4 MG/DL (0.1-1.0); BUN/CREATININE RATIO 19; CALCIUM 10.4 MG/DL (8.5-10.1); CARBON DIOXIDE 20 MMOL/L (21-32); CHLORIDE 102 MMOL/L (98-107); CREATININE SERUM 2.01 MG/DL (0.60-1.30); GFR ESTIMATED 25; GLUCOSE 111 MG/DL (70-105); LIPASE 37 U/L (8-78); POTASSIUM 4.7 MMOL/L (3.6-5.0); SODIUM 139 MMOL/L (135-145); TOTAL PROTEIN 7.5 GM/DL (6.4-8.2)
[2018-10-22] MEDS ORDERED: LACTATED RINGERS 1,000 ML IV SCH (13:15)
[2018-10-22 13:29] LABS: BACTERIA,URINE MODERATE /HPF; RBC,URINE RARE /HPF; SQUAMOUS EPITHELIAL CELL,UR 25-50 /HPF
--- NOTE | 2018-10-22 13:43 | Diagnostic Imaging Report ---
PROCEDURE: CT abdomen and pelvis without contrast. TECHNIQUE: Multiple contiguous axial images were obtained through the abdomen and pelvis without the use of intravenous contrast. INDICATION: Mid-upper abdominal pain. Inability to eat. COMPARISON: Multiple priors, most recent is a CTA performed on 11/09/2014. FINDINGS: Absence of intravenous contrast decreases sensitivity for detection of focal lesions and vascular pathology. LOWER THORAX: Unchanged scarring in the lateral right lung base and lingula. No change in 3 mm left lower lobe pulmonary nodule dating back to 2012, thus presumed benign. No pleural effusion. Visualized heart is normal in size. Patient is status post CABG. LIVER: Unchanged 2.1 cm low-attenuation lesion in the posterior right hepatic lobe, previously characterized as an hemangioma on contrast-enhanced CT. The liver is otherwise normal. GALLBLADDER: Normal CT appearance. BILE DUCTS: No biliary ductal dilatation. SPLEEN: Unchanged calcified granuloma in the central spleen. PANCREAS: Mildly atrophic, otherwise unremarkable. No pancreatic ductal dilatation. ADRENAL GLANDS: No nodules. KIDNEYS AND URETERS: No hydronephrosis. There is a 7 mm calculus in the lower pole of the right kidney. There is a punctate somewhat amorphous calcification in the lower pole the left kidney, also likely representing a calyceal calculus. The visualized ureters are normal. STOMACH AND BOWEL: Stomach is physiologically-distended. No bowel obstruction. No inflammatory changes. APPENDIX: Not visualized. No pericecal inflammation. PELVIC ORGANS/BLADDER: Bladder appears normal, within limits of underdistension. Uterus Is absent. No pelvic mass. PERITONEUM AND RETROPERITONEUM: No pneumoperitoneum. No abdominal free fluid or loculated collection. LYMPH NODES: No lymphadenopathy. VESSELS: Severe atherosclerotic calcification. Abdominal aorta is nonaneurysmal. ABDOMINAL WALL: Unremarkable. BONES: Multilevel degenerative changes involve the spine. No acute osseous abnormality. IMPRESSION: No acute abdominal or pelvic pathology to account for the patient's pain. Nonobstructing bilateral renal stones, as detailed above. Dictated by: Dictated on workstation # [id number]
[2018-10-22] MEDS ORDERED: ONDA4TAB11 PO (14:14)
[2018-10-22] MEDS ORDERED: TRIM/SULFAMETH 160/800 (SEPTRA DS) TAB PO ONE (14:15)
[2018-10-22] MEDS ORDERED: SULF1TAB35 PO (14:16)
[2018-10-22 14:55] VITALS: BP 126/58
== END 2018-10-22 15:07 | disposition home or self-care (01) ==
LOC: EDUNIT# 12:11 → ER 12:11
DX: J44.9 Chronic obstructive pulmonary disease, unspecified (principal); F32.9 Major depressive disorder, single episode, unspecified; N39.0 Urinary tract infection, site not specified; N28.9 Disorder of kidney and ureter, unspecified; K21.9 Gastro-esophageal reflux disease without esophagitis; M17.0 Bilateral primary osteoarthritis of knee; E03.9 Hypothyroidism, unspecified; E11.9 Type 2 diabetes mellitus without complications; F41.9 Anxiety disorder, unspecified; Z87.19 Personal history of other diseases of the digestive system; Z79.82 Long term (current) use of aspirin; Z95.5 Presence of coronary angioplasty implant and graft; Z90.710 Acquired absence of both cervix and uterus; Z79.84 Long term (current) use of oral hypoglycemic drugs; Z95.1 Presence of aortocoronary bypass graft; Z90.89 Acquired absence of other organs
CPT/HCPCS: 36415; 74176; 80053; 81000; 83690; 85025; 87088; 96361; 96374

== ENCOUNTER 2018-11-01 16:49 | Emergency (ER) | payer MEDICARE ==
[~2018-11-01] VITALS: Ht 154.9 cm; Wt 64.9 kg
[~2018-11-01 16:49] MED LIST changes: +ONDA4TAB11 PO
--- NOTE | 2018-11-01 17:13 | ED Fall/Injury ---
General Chief Complaint: Trauma-Non Activation Stated Complaint: FALL/TAILBONE PAIN Nursing Triage Note: PATIENT HERE WITH FAMILY WITH CONCERNS AFTER A FALL THAT TOOK PLACE SOMETIME LAST WEEK. SHE FELL BACKWARDS ON TO A CONCRETE FLOOR AND HAS HAD PAIN IN HER LOWER BACK/TAILBONE REGION EVER SINCE. THEY ARE CONCERNS SOMETHING IS BROKEN. Source: patient, family Exam Limitations: no limitations History of Present Illness Date Seen by Provider: Nov 01, 2018 Time Seen by Provider: 17:10 Initial Comments To ER by family with reports of a fall last week and subsequent sacral pain. She was seen here a week ago for frequent falls, poor appetite and diagnosed with depression and urinary tract infection. Since being evaluated she has not yet fallen again, she does have some new bruising to the sacral area from one of the previous falls and pain. Occurred: last week Severity: moderate Injuries/Pain Location: back Context: lost balance Loss of Consciousness: no loss of consciousness Allergies and Home Medications Allergies Coded Allergies: No Known Drug Allergies (Unverified , 06/07/09) Home Medications Aspirin 81 Mg Tablet.dr, 81 MG PO HS, (Reported) Atenolol 25 Mg Tablet, 1 EACH PO HS, (Reported) Cholecalciferol (Vitamin D3) 2,000 Unit Capsule, 1,000 UNIT PO BID, (Reported) AT 1200 AND 2100 Gabapentin 100 Mg Cap, 300 MG PO 1200 AND 2100, (Reported) AT NOON AND 2100 Hydrocodone/Acetaminophen 1 Each Tablet, 1 EACH PO Q6H PRN for PAIN Prescribed by: KEO COYLE on 04/28/16 1514 Metformin Hcl 500 Mg Tablet, 2 TAB PO 0700 & 1700, (Reported) Omeprazole 10 Mg Capsule.dr, 20 MG PO DAILY, (Reported) Ondansetron 4 Mg Tab.rapdis, 4 MG PO Q4H PRN for NAUSEA/VOMITING Prescribed by: ATUL MELENDEZ on 10/22/18 1414 Sulfamethoxazole/Trimethoprim 1 Each Tablet, 1 EACH PO BID Prescribed by: ATUL MELENDEZ on 10/22/18 1416 Triamterene/Hydrochlorothiazid 1 Each Capsule, 0.5 TAB PO HS, (Reported) Patient Home Medication List Home Medication List Reviewed: Yes Review of Systems Review of Systems Constitutional: see HPI Eyes: No Symptoms Reported Ears, Nose, Mouth, Throat: no symptoms reported Respiratory: no symptoms reported Cardiovascular: no symptoms reported Genitourinary: no symptoms reported Musculoskeletal: see HPI, back pain Skin: no symptoms reported Psychiatric/Neurological: No Symptoms Reported Past Cglmjqj-Leyowu-Hnpxaz Hx Patient Social History Alcohol Use: Denies Use Recreational Drug Use: No Smoking Status: Former Smoker Type Used: Cigarettes 2nd Hand Smoke Exposure: Yes Recent Foreign Travel: No Contact w/Someone Who Travel: No Recent Infectious Disease Expo: No Recent Hopitalizations: No Immunizations Up To Date Tetanus Booster (TDap): Less than 5yrs Date of Pneumonia Vaccine: Oct 30, 2012 Date of Influenza Vaccine: Oct 19, 2013 Seasonal Allergies Seasonal Allergies: No Past Medical History Surgeries: Yes CABG, Thyroidectomy Respiratory: Yes Asthma, Chronic Bronchitis, COPD Cardiac: Yes (CABG/STENTS. 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 0oz. 64.637382qo; 30.0 BMI Method:Stated General Appearance: WD/WN, no apparent distress HEENT: PERRL/EOMI, normal ENT inspection Respiratory: no respiratory distress, no accessory muscle use Gastrointestinal: normal bowel sounds, soft Extremities: other (there is a palm sized area of ecchymosis purplish in color to the left sacroiliac region with tenderness to palpation.) Neurologic/Psychiatric: alert, normal mood/affect, oriented x 3 Skin: normal color, warm/dry [place] Coma Score Best Eye Response: (4) Open Spontaneously Best Verbal Response: (5) Oriented Best Motor Response: (6) Obeys Commands [place] Total: 15 Progress/Results/Core Measures Results/Orders My Orders Orders - ATUL MELENDEZ APRN Ct Lumbar Spine Wo (11/01/18 16:56) Vital Signs/I&O 11/01/18 16:59 Temp 98.0 Pulse 90 Resp 20 B/P (MAP) 138/97 (111) Pulse Ox 97 Blood Pressure Mean: 111 Departure Impression Primary Impression: Sacral contusion Qualified Codes: S30.0XXA - Contusion of lower back and pelvis, initial encounter Disposition: 01 HOME, SELF-CARE Condition: Stable Departure-Patient Inst. Decision time for Depature: 17:34 Referrals: KENDY MADISON DO (PCP/Family) Primary Care Physician Patient Instructions: Contusion (DC) Add. Discharge Instructions: 1. Return to ER for any concerns 2. Follow-up with your doctor next week. All discharge instructions reviewed with patient and/or family. Voiced understanding. ATUL MELNEDEZ WASH BOX OPERATOR Nov 01, 2018 17:13
--- NOTE | 2018-11-01 17:42 | Diagnostic Imaging Report ---
PROCEDURE: CT lumbar spine without contrast. TECHNIQUE: Multiple contiguous axial images were obtained through the lumbar spine without the use of intravenous contrast. Sagittal and coronal reformations were then performed. INDICATION: Fall one week prior, low back pain. COMPARISON: Comparison is made with a CT of the abdomen and pelvis from October 22, 2018. FINDINGS: There is a grade 1 anterolisthesis demonstrated of L3 on L4, which appears secondary to facet arthropathy. There is no evidence of a pars defect. Alignment is otherwise normal. The vertebral body heights appear maintained. There are no CT findings of an acute lumbar fracture. The visualized bones of the pelvis also are unremarkable. By CT imaging, there is no significant lower thoracic canal stenosis. Within the lumbar spine, there appears to be a likely moderate if not severe canal stenosis at L3-4 due to a disc extrusion, facet arthropathy, and ligamentous thickening. At L4-5, there appears to be bsxq-[id number]-ybeopned central canal stenosis. There is no significant canal stenosis at L5-S1. No findings of high-grade neural foraminal stenosis evident. Paraspinal soft tissues are unremarkable. There are advanced atherosclerotic calcifications present within the aorta which is normal in caliber. The kidneys appear nonobstructed. There is a nonobstructive stone in the right kidney. Lung bases appear clear. IMPRESSION: 1. Grade 1 anterolisthesis of L3 on L4 secondary to facet arthropathy. Alignment is otherwise normal. The vertebral body heights are maintained. There is no acute lumbar spine fracture evident. 2. Degenerative disc disease and facet arthropathy with most significant canal and lateral recess stenosis appearing at L3-4 and L4-5. This could be further assessed with MRI if clinically indicated and if the patient has no clinical contraindications. 3. Advanced aortic atherosclerosis. Nonobstructive right renal calculi are present. Dictated by: Dictated on workstation # [id number]
[2018-11-01 17:50] VITALS: BP 138/97
--- OUTSIDE RECORDS SUMMARY | 2018-11-01 21:31 | XMS REPORT | Continuity of Care Document ---
Author Author [facility] Organization [facility] Address Unknown Phone Unavailable Allergies Active Description Code Type Severity Reaction Onset Reported/Identified Relationship to Patient Clinical Status Yes No Known Drug Allergies [id number] Drug Allergy Mild N/A 06/07/2009 Yes No [...] MCKNIGHT DO Ot 414.01 CORONARY ATHEROSCLEROSIS OF [place] CORON 12/23/2013 JAS MCKNIGHT DO Ot 786.50 CHEST PAIN NOS 03/30/2014 ALEX GUY MD Ot 724.9 BACK DISORDER NOS 03/30/2014 ALEX GUY MD Ot V57.1 PHYSICAL THERAPY NEC 10/12/2014 CARLTON MADISON EMT DISPATCHER Ot 486 11/06/2014 Ot V76.12 11/06/2014 Ot V76.12 11/06/2014 Ot V45.81 11/06/2014 Ot V57.89 11/06/2014 Ot 573.9 11/06/2014 Ot 592.0 11/06/2014 Ot 573.8 11/06/2014 Ot 592.0 11/06/2014 Ot V76.12 11/06/2014 Ot V72.84 11/06/2014 Ot 433.30 11/06/2014 CARLTON MADISON EMT DISPATCHER Ot 486 12/04/2014 TRINO BASHIR MD Ot [...] MADISON DO Ot V76.12 05/18/2015 ATUL MELENDEZ SPECIALIZED DEVELOPER Ot 041.9 BACTERIAL INFECTION NOS 05/18/2015 ATUL MELENDEZ SPECIALIZED DEVELOPER Ot 244.9 HYPOTHYROIDISM NOS 05/18/2015 ATUL MELENDEZ SPECIALIZED DEVELOPER Ot 250.00 DIAB ABIODUN WO COMPL, TYPE II OR UNSPEC TY 05/18/2015 ATUL MELENDEZ SPECIALIZED DEVELOPER Ot 305.1 TOBACCO USE DISORDER 05/18/2015 ATUL MELENDEZ APRN Ot 491.20 OBSTR CHRONIC BRONCHITIS, W/O EXACERBATI 05/18/2015 ATUL MELENDEZ SPECIALIZED DEVELOPER Ot 493.20 CHRONIC OBSTRUCTIVE ASTHMA, NOS 05/18/2015 ATUL MELENDEZ APRN Ot 530.81 ESOPHAGEAL REFLUX 05/18/2015 ATUL MELENDEZ APRN Ot 553.3 DIAPHRAGMATIC HERNIA 05/18/2015 ATUL MELENDEZ SPECIALIZED DEVELOPER Ot 686.9 LOCAL SKIN INFECTION NOS 05/18/2015 ATUL MELENDEZ SPECIALIZED DEVELOPER Ot 690.10 SEBORRHEIC DERMATITIS,NOS 05/18/2015 ATUL MELENDEZ SPECIALIZED DEVELOPER Ot 782.1 NONSPECIF SKIN ERUPT NEC 05/22/2015 Ot V76.12 05/22/2015 Ot 401.9 05/22/2015 Ot 496 05/22/2015 Ot 611.8 05/22/2015 Ot V76.12 05/22/2015 Ot V76.12 05/22/2015 Ot V76.12 05/22/2015 Ot V76.12 05/22/2015 Ot V45.81 05/22/2015 Ot V57.89 05/22/2015 Ot V72.84 05/22/2015 Ot 592.9 05/23/2015 KENDY MADISON DO Ot V76.12 08/05/2015 ATUL MELENDEZ SPECIALIZED DEVELOPER Ot 682.2 CELLULITIS OF TRUNK 08/15/2015 KENDY [...] SKIN ERUPTION 05/02/2017 KEO DIANA Ot Z79.82 NURSE INFORMATICS EDUCATOR (CURRENT) USE OF ASPIRIN 05/02/2017 KEO DIANA Ot Z79.84 NURSE INFORMATICS EDUCATOR (CURRENT) USE OF ORAL HYPOGLYC 05/02/2017 KEO DIANA Ot Z79.899 OTHER PENITENTIARY (CURRENT) DRUG THERAPY 05/05/2017 JANESSA FLORES MD Ot E11.9 TYPE 2 DIABETES MELLITUS WITHOUT COMPLIC 05/05/2017 JANESSA FLORES MD Ot F17.210 NICOTINE DEPENDENCE, CIGARETTES, UNCOMPL 05/05/2017 JANESSA FLORES MD Ot G47.33 OBSTRUCTIVE SLEEP APNEA (ADULT) (PEDIATR 05/05/2017 JANESSA FLORES MD Ot J44.9 CHRONIC OBSTRUCTIVE PULMONARY DISEASE, U 05/05/2017 JANESSA FLORES MD Ot K21.9 GASTRO-ESOPHAGEAL REFLUX DISEASE WITHOUT 05/05/2017 JANESSA FLORES MD Ot L03.311 CELLULITIS OF ABDOMINAL WALL 05/05/2017 JANESSA FLORES MD Ot Z79.82 PENITENTIARY (CURRENT) USE OF ASPIRIN 05/05/2017 JANESSA FLORES MD Ot Z79.84 PENITENTIARY (CURRENT) USE OF ORAL HYPOGLYC 05/05/2017 JANESSA FLORES MD Ot Z79.899 OTHER PENITENTIARY (CURRENT) DRUG THERAPY 05/05/2017 JANESSA FLORES MD Ot Z95.1 PRESENCE OF AORTOCORONARY BYPASS GRAFT 05/07/2017 KEO DIANA Ot E11.9 TYPE 2 DIABETES MELLITUS WITHOUT COMPLIC 05/07/2017 KEO DIANA Ot F17.210 NICOTINE DEPENDENCE, CIGARETTES, UNCOMPL 05/07/2017 KEO DIANA Ot L03.311 CELLULITIS OF ABDOMINAL WALL 05/07/2017 KEO DIANA Ot R21 RASH AND OTHER NONSPECIFIC SKIN ERUPTION 05/07/2017 KEO DIANA Ot Z79.82 NURSE INFORMATICS EDUCATOR (CURRENT) USE OF ASPIRIN 05/07/2017 KEO DIANA Ot Z79.84 PENITENTIARY (CURRENT) USE OF ORAL HYPOGLYC 05/07/2017 KEO DIANA Ot Z79.899 OTHER PENITENTIARY (CURRENT) DRUG THERAPY 05/08/2017 KEO DIANA Ot E11.9 TYPE 2 DIABETES MELLITUS WITHOUT COMPLIC 05/08/2017 KEO DIANA Ot F17.210 NICOTINE DEPENDENCE, CIGARETTES, UNCOMPL 05/08/2017 KEO DIANA Ot L03.311 CELLULITIS OF ABDOMINAL WALL 05/08/2017 KEO DIANA Ot R21 RASH AND OTHER NONSPECIFIC SKIN ERUPTION 05/08/2017 KEO DIANA Ot Z79.82 NURSE INFORMATICS EDUCATOR (CURRENT) USE OF ASPIRIN 05/08/2017 KEO DIANA Ot Z79.84 NURSE INFORMATICS EDUCATOR (CURRENT) USE OF ORAL HYPOGLYC 05/08/2017 KEO DIANA Ot Z79.899 OTHER NURSE INFORMATICS EDUCATOR (CURRENT) DRUG THERAPY 06/05/2017 JANESSA FLORES MD [...] WALL 06/05/2017 JANESSA FLORES MD Ot Z79.82 NURSE INFORMATICS EDUCATOR (CURRENT) USE OF ASPIRIN 06/05/2017 JANESSA FLORES MD Ot Z79.84 NURSE INFORMATICS EDUCATOR (CURRENT) USE OF ORAL HYPOGLYC 06/05/2017 JANESSA FLORES MD, Ot Z79.899 OTHER NURSE INFORMATICS EDUCATOR (CURRENT) DRUG THERAPY 06/05/2017 JANESSA FLORES MD [...] WALL 07/01/2017 JANESSA FLORES MD Ot Z79.82 NURSE INFORMATICS EDUCATOR (CURRENT) USE OF ASPIRIN 07/01/2017 JANESSA FLORES MD Ot Z79.84 PENITENTIARY (CURRENT) USE OF ORAL HYPOGLYC 07/01/2017 JANESSA FLORES MD, Ot Z79.899 OTHER PENITENTIARY (CURRENT) DRUG THERAPY 07/01/2017 JANESSA FLORES MD [...] BASHIR MD Ot 414.01 CORONARY ATHEROSCLEROSIS OF [place] CORON 12/22/2017 TRINO BASHIR MD Ot 440.20 ATHEROSCLEROSIS [place] ARTERIES EXTREMIT 12/22/2017 TRINO BASHIR MD Ot [...] LUMBAR REGION WITHOUT N 02/17/2018 KENDY MADISON DO, Ot M51.26 OTHER INTERVERTEBRAL DISC DISPLACEMENT, [...] Procedures Code [place] [address] ULTRASOUND SOFT TISSUES HEAD & NECK JEANETTE MARSH 10/02/2016 Results Test Result Range Gram stain microscopy - 05/02/17 20:40 GRAM STAIN RESULT NO WBC'S OR BACTERIA OBSERVED NRG Bacteria identification in wound by culture - 05/02/17 20:40 Bacteria identification in wound by culture [id number] NRG FREE TEXT EXTERNAL SENSITIVITY REPORTED 05/04/17 8:05 NRG QUANTITY OF GROWTH Moderate Growth NRG CALL POSITIVES (F1 HELP) CALLED TO [facility]/ JOEY SPARKS 05/04/17 8:10 BY [facility] Bacterial susceptibility panel - 05/02/17 20:40 Oxacillin [...] 08:05 Bacteria identification in wound by culture [id number] NRG FREE TEXT EXTERNAL SENSITIVITY REPORTED 05/06 [...] 200 HDL CHOLESTEROL 64 mg/dL > 39 Complete blood count (CBC) with automated white blood cell (WBC) differential - 10/22/18 12:25 Blood leukocytes automated count (number/volume) 9.5 10*3/uL 4.3-11.0 Blood erythrocytes automated count (number/volume) 4.93 10*6/uL 4.35-5.85 Venous blood hemoglobin measurement (mass/volume) 14.8 g/dL 11.5-16.0 Blood hematocrit (volume fraction) 45 % 35-52 Automated erythrocyte mean corpuscular volume 91 [foz_us] 80-99 Automated erythrocyte mean corpuscular hemoglobin (mass per erythrocyte) 30 pg 25-34 Automated erythrocyte mean corpuscular hemoglobin concentration measurement ( mass/volume) 33 g/dL 32-36 Automated erythrocyte distribution width ratio 12.7 % 10.0-14.5 Automated blood platelet count (count/volume) 220 10*3/uL 130-400 Automated blood platelet mean volume measurement 12.6 [foz_us] 7.4-10.4 Automated blood neutrophils/100 leukocytes 75 % 42-75 Automated blood lymphocytes/100 leukocytes 14 % 12-44 Blood monocytes/100 leukocytes 10 % 0-12 Automated blood eosinophils/100 leukocytes 1 % 0-10 Automated blood basophils/100 leukocytes 0 % 0-10 Blood neutrophils automated count (number/volume) 7.2 10*3 1.8-7.8 Blood lymphocytes automated count (number/volume) 1.3 10*3 1.0-4.0 Blood monocytes automated count (number/volume) 0.9 10*3 0.0-1.0 Automated eosinophil count 0.1 10*3/uL 0.0-0.3 Automated blood basophil count (count/volume) 0.0 10*3/uL 0.0-0.1 Comprehensive metabolic panel - 10/22/18 12:25 Serum or plasma sodium measurement (moles/volume) 139 mmol/L 135-145 Serum or plasma potassium measurement (moles/volume) 4.7 mmol/L 3.6-5.0 Serum or plasma chloride measurement (moles/volume) 102 mmol/L 98-107 Carbon dioxide 20 mmol/L 21-32 Serum or plasma anion gap determination (moles/volume) 17 mmol/L 5-14 Serum or plasma urea nitrogen measurement (mass/volume) 38 mg/dL 7-18 Serum or plasma creatinine measurement (mass/volume) 2.01 mg/dL 0.60-1.30 Serum or plasma urea nitrogen/creatinine mass ratio 19 NRG Serum or plasma creatinine measurement with calculation of estimated glomerular filtration rate 25 NRG Serum or plasma glucose measurement (mass/volume) 111 mg/dL 70-105 Serum or plasma calcium measurement (mass/volume) 10.4 mg/dL 8.5-10.1 Serum or plasma total bilirubin measurement (mass/volume) 0.4 mg/dL 0.1-1.0 Serum or plasma alkaline phosphatase measurement (enzymatic activity/volume) 75 U/L 40-136 Serum or plasma aspartate aminotransferase measurement (enzymatic activity/ volume) 13 U/L 5-34 Serum or plasma alanine aminotransferase measurement (enzymatic activity/volume ) 18 U/L 0-55 Serum or plasma protein measurement (mass/volume) 7.5 g/dL 6.4-8.2 Serum or plasma albumin measurement (mass/volume) 4.7 g/dL 3.2-4.5 Lipase - 10/22/18 12:25 Lipase 37 U/L 8-78 Complete urinalysis with reflex to culture - 10/22/18 12:45 Urine color determination YELLOW NRG Urine clarity determination CLEAR NRG Urine pH measurement by test strip 5 5-9 Specific gravity of urine by test strip 1.020 1.016- 1.022 Urine protein assay by test strip, semi-quantitative 1+ NEGATIVE Urine glucose detection by automated test strip NEGATIVE NEGATIVE Erythrocytes detection in urine sediment by light microscopy 1+ NEGATIVE Urine ketones detection by automated test strip NEGATIVE NEGATIVE Urine nitrite detection by test strip NEGATIVE NEGATIVE Urine total bilirubin detection by test strip NEGATIVE NEGATIVE Urine urobilinogen measurement by automated test strip (mass/volume) NORMAL NORMAL Urine leukocyte esterase detection by dipstick 2+ NEGATIVE Automated urine sediment erythrocyte count by microscopy (number/high power field) RARE NRG Automated urine sediment leukocyte count by microscopy (number/high power field ) [HPF] NRG Bacteria detection in urine sediment by light microscopy MODERATE NRG Squamous epithelial cells detection in urine sediment by light microscopy 25-50 NRG Crystals detection in urine sediment by light microscopy NONE NRG Casts detection in urine sediment by light microscopy PRESENT NRG Mucus detection in urine sediment by light microscopy NEGATIVE NRG Complete urinalysis with reflex to culture YES NRG Hyaline casts detection in urine sediment by light microscopy 10-25 NRG Renal epithelial cells detection in urine sediment by light microscopy NONE NRG Bacterial urine culture - 10/22/18 12:45 Bacterial urine culture NG NRG Encounters ACCT No. Visit Date/Time Discharge Status Pt. Type Provider Facility Loc./Unit Complaint [id number] 08/31/2017 07:51:00 08/31/2017 16:00:00 DIS Outpatient Casandra ALMAGUER, Dimitry Barbosa [facility] E.RAMIROLO [id number] 08/18/2017 10:29:00 08/18/2017 10:29:00 DIS Outpatient Thania ALMAGUER, Jasen Lee [facility] ELINA [id number] 05/18/2017 11:00:36 05/18/2017 23:59:59 CLS Outpatient Yanira Martínez [facility] [id number] 03/18/2018 12:01:00 03/18/2018 23:59:59 CLS Outpatient CHERY JORDAN MD [facility] RAD NODULAR THYROID DESEASE [id number] 12/23/2017 11:32:00 12/23/2017 23:59:59 CLS Outpatient KENDY MADISON DO [facility] RAD M54.5 [id number] 08/04/2017 07:36:00 08/04/2017 23:59:59 CLS Preadmit KENDY MADISON DO [facility] RAD VERIFY DX [id number] 05/05/2017 05:56:00 05/05/2017 10:00:00 DIS Outpatient SANDRA ALMAGUER, JANESSA Ibanez [facility] ABDOMINAL WOUND ABSCESS [id number] 05/02/2017 19:13:00 05/02/2017 22:01:00 DIS Emergency KEO DIANA [facility] ER STOMACH RASH POSS SPIDER BITE [id number] 11/04/2016 09:54:00 11/04/2016 23:59:59 CLS Outpatient KENDY MADISON DO [facility] RAD M17.0 [id number] 04/28/2016 12:57:00 04/28/2016 15:29:00 DIS Emergency KEO DIANA [facility] ER PAIN IN LEGS [id number] 08/05/2015 10:53:00 08/05/2015 11:40:00 DIS Emergency ATUL MELENDEZ SPECIALIZED DEVELOPER [facility] ER ABSCESS [id number] 05/18/2015 20:38:00 05/18/2015 21:23:00 DIS Emergency ATUL MELENDEZ SPECIALIZED DEVELOPER [facility] ER RASH [id number] 04/26/2015 09:10:00 04/26/2015 23:59:59 CLS Outpatient KENDY MADISON DO [facility] RAD SCREENING [id number] 04/02/2015 14:22:00 04/02/2015 15:12:00 DIS Emergency JENNIFER ALMAGUER, MAHENDRA Redd [facility] ER TICK BITE [id number] 11/09/2014 06:46:00 11/09/2014 23:59:59 CLS Outpatient MCKAY ALMAGUER, TRINO Conn [facility] RAD CAD,PVD,BP [id number] 09/18/2014 17:04:00 09/18/2014 23:59:59 CLS Outpatient CARLTON MADISON EMT DISPATCHER [facility] RAD PNEUMONIA [id number] 03/14/2014 10:43:00 03/30/2014 15:50:00 DIS Outpatient MALENA ALMAGUER, ALEX Simmons [facility] REHAB BACK PAIN [id number] 12/23/2013 06:45:00 12/23/2013 09:17:00 DIS Emergency JAS MCKNIGHT DO [facility] ER CP [id number] 12/11/2013 10:45:00 12/11/2013 13:03:00 DIS Emergency KEO DIANA [facility] ER SWOLLEN HANDS [id number] 10/22/2018 12:47:00 Document Registration [id number] 05/22/2015 14:25:00 Document Registration [id number] 05/22/2015 14:25:00 Document Registration [id number] 05/22/2015 14:25:00 Document Registration [id number] 05/22/2015 14:25:00 Document Registration [id number] 05/22/2015 14:25:00 Document Registration [id number] 05/22/2015 14:25:00 Document Registration [id number] 05/11/2013 14:25:00 Document Registration [id number] 11/18/2012 09:00:00 Document Registration [id number] 10/04/2012 14:18:00 Document Registration [id number] 09/30/2012 07:18:00 Document Registration [id number] 09/15/2012 09:09:00 Document Registration [id number] 04/08/2012 08:54:00 Document Registration [id number] 03/04/2012 08:30:00 Document Registration [id number] 02/22/2012 17:41:00 Document Registration [id number] 11/17/2011 11:56:00 Document Registration [id number] 06/13/2011 21:07:00 Document Registration [id number] 06/09/2011 09:00:00 Document Registration [id number] 05/26/2011 20:28:00 Document Registration [id number] 05/16/2011 09:35:00 Document Registration [id number] 04/02/2011 11:36:00 Document Registration [id number] 03/07/2010 09:11:00 Document Registration [id number] 02/22/2009 09:07:00 Document Registration [id number] 12/15/2008 19:12:00 Document Registration [id number] 11/19/2006 06:03:00 Document Registration [id number] 10/08/2016 00:00:00 DIS Document Registration
== END 2018-11-01 17:50 | disposition home or self-care (01) ==
LOC: EDUNIT# 16:49 → ER 16:50
DX: S30.0XXA Contusion of lower back and pelvis, initial encounter (principal); J44.9 Chronic obstructive pulmonary disease, unspecified; K21.9 Gastro-esophageal reflux disease without esophagitis; E03.9 Hypothyroidism, unspecified; R40.2142 Coma scale, eyes open, spontaneous, at arrival to emergency department; R40.2252 Coma scale, best verbal response, oriented, at arrival to emergency department; R40.2362 Coma scale, best motor response, obeys commands, at arrival to emergency department; E11.9 Type 2 diabetes mellitus without complications; Z90.710 Acquired absence of both cervix and uterus; Z95.5 Presence of coronary angioplasty implant and graft; Z79.82 Long term (current) use of aspirin; Z79.84 Long term (current) use of oral hypoglycemic drugs; Z87.891 Personal history of nicotine dependence; Z95.1 Presence of aortocoronary bypass graft; Z90.89 Acquired absence of other organs; Z91.81 History of falling; W19.XXXA Unspecified fall, initial encounter
CPT/HCPCS: 72131

== ENCOUNTER 2019-02-06 21:47 | Inpatient (IN) | payer MEDICARE ==
[~2019-02-06] VITALS: Ht 154.9 cm; Wt 60.8 kg
--- OUTSIDE RECORDS SUMMARY | 2019-02-06 21:53 | XMS REPORT | Continuity of Care Document ---
Author Author [facility] Organization [facility] Address Unknown Phone Unavailable Allergies Active Description Code Type Severity Reaction Onset Reported/Identified Relationship to Patient Clinical Status Yes No Known Drug Allergies [id number] Drug Allergy Mild N/A 06/07/2009 Yes No [...] MCKNIGHT DO Ot 414.01 CORONARY ATHEROSCLEROSIS OF [place] CORON 12/23/2013 JAS MCKNIGHT DO Ot 786.50 CHEST PAIN NOS 03/30/2014 ALEX GUY MD Ot 724.9 BACK DISORDER NOS 03/30/2014 ALEX GUY MD Ot V57.1 PHYSICAL THERAPY NEC 10/12/2014 CARLTON MADISON PACKAGING SUPERVISOR Ot 486 11/06/2014 Ot V76.12 11/06/2014 Ot V76.12 11/06/2014 Ot V45.81 11/06/2014 Ot V57.89 11/06/2014 Ot 573.9 11/06/2014 Ot 592.0 11/06/2014 Ot 573.8 11/06/2014 Ot 592.0 11/06/2014 Ot V76.12 11/06/2014 Ot V72.84 11/06/2014 Ot 433.30 11/06/2014 CARLTON MADISON PACKAGING SUPERVISOR Ot 486 12/04/2014 TRINO BASHIR MD Ot [...] MADISON DO Ot V76.12 05/18/2015 ATUL MELENDEZ CHAIRMAN AND CHIEF EXECUTIVE OFFICER Ot 041.9 BACTERIAL INFECTION NOS 05/18/2015 ATUL MELENDEZ CHAIRMAN AND CHIEF EXECUTIVE OFFICER Ot 244.9 HYPOTHYROIDISM NOS 05/18/2015 ATUL MELENDEZ CHAIRMAN AND CHIEF EXECUTIVE OFFICER Ot 250.00 DIAB ABIODUN WO COMPL, TYPE II OR UNSPEC TY 05/18/2015 ATUL MELENDEZ CHAIRMAN AND CHIEF EXECUTIVE OFFICER Ot 305.1 TOBACCO USE DISORDER 05/18/2015 ATUL MELENDEZ APRN Ot 491.20 OBSTR CHRONIC BRONCHITIS, W/O EXACERBATI 05/18/2015 ATUL MELENDEZ CHAIRMAN AND CHIEF EXECUTIVE OFFICER Ot 493.20 CHRONIC OBSTRUCTIVE ASTHMA, NOS 05/18/2015 ATUL MELENDEZ APRN Ot 530.81 ESOPHAGEAL REFLUX 05/18/2015 ATUL MELENDEZ APRN Ot 553.3 DIAPHRAGMATIC HERNIA 05/18/2015 ATUL EMLENDEZ CHAIRMAN AND CHIEF EXECUTIVE OFFICER Ot 686.9 LOCAL SKIN INFECTION NOS 05/18/2015 ATUL MELENDEZ CHAIRMAN AND CHIEF EXECUTIVE OFFICER Ot 690.10 SEBORRHEIC DERMATITIS,NOS 05/18/2015 ATUL MELENDEZ CHAIRMAN AND CHIEF EXECUTIVE OFFICER Ot 782.1 NONSPECIF SKIN ERUPT NEC 05/22/2015 Ot V76.12 05/22/2015 Ot 401.9 05/22/2015 Ot 496 05/22/2015 Ot 611.8 05/22/2015 Ot V76.12 05/22/2015 Ot V76.12 05/22/2015 Ot V76.12 05/22/2015 Ot V76.12 05/22/2015 Ot V45.81 05/22/2015 Ot V57.89 05/22/2015 Ot V72.84 05/22/2015 Ot 592.9 05/23/2015 KENDY MADISON DO Ot V76.12 08/05/2015 ATUL MELENDEZ CHAIRMAN AND CHIEF EXECUTIVE OFFICER Ot 682.2 CELLULITIS OF TRUNK 08/15/2015 KENDY [...] SKIN ERUPTION 05/02/2017 KEO DIANA Ot Z79.82 RESTAURANT CREW MEMBER (CURRENT) USE OF ASPIRIN 05/02/2017 KEO DIANA Ot Z79.84 RESTAURANT CREW MEMBER (CURRENT) USE OF ORAL HYPOGLYC 05/02/2017 KEO DIANA Ot Z79.899 OTHER LONG-TERM (CURRENT) DRUG THERAPY 05/05/2017 JANESSA FLORES MD [...] WALL 05/05/2017 JANESSA FLORES MD Ot Z79.82 LONG-TERM (CURRENT) USE OF ASPIRIN 05/05/2017 JANESSA FLORES MD Ot Z79.84 LONG-TERM (CURRENT) USE OF ORAL HYPOGLYC 05/05/2017 JANESSA FLORES MD Ot Z79.899 OTHER LONG-TERM (CURRENT) DRUG THERAPY 05/05/2017 JANESSA FLORES MD Ot Z95.1 PRESENCE OF AORTOCORONARY BYPASS GRAFT 05/07/2017 KEO DIANA Ot E11.9 TYPE 2 DIABETES MELLITUS WITHOUT COMPLIC 05/07/2017 KEO DIANA Ot F17.210 NICOTINE DEPENDENCE, CIGARETTES, UNCOMPL 05/07/2017 KEO DIANA Ot L03.311 CELLULITIS OF ABDOMINAL WALL 05/07/2017 KEO DIANA Ot R21 RASH AND OTHER NONSPECIFIC SKIN ERUPTION 05/07/2017 KEO DIANA Ot Z79.82 RESTAUR[employer]W MEMBER (CURRENT) USE OF ASPIRIN 05/07/2017 KEO DIANA Ot Z79.84 LONG-TERM (CURRENT) USE OF ORAL HYPOGLYC 05/07/2017 KEO DIANA Ot Z79.899 OTHER LONG-TERM (CURRENT) DRUG THERAPY 05/08/2017 KEO DIANA Ot E11.9 TYPE 2 DIABETES MELLITUS WITHOUT COMPLIC 05/08/2017 KEO DIANA Ot F17.210 NICOTINE DEPENDENCE, CIGARETTES, UNCOMPL 05/08/2017 KEO DIANA Ot L03.311 CELLULITIS OF ABDOMINAL WALL 05/08/2017 KEO DIANA Ot R21 RASH AND OTHER NONSPECIFIC SKIN ERUPTION 05/08/2017 KEO DIANA Ot Z79.82 RESTAURANT CREW MEMBER (CURRENT) USE OF ASPIRIN 05/08/2017 EKO DIANA Ot Z79.84 RESTAURANT CREW MEMBER (CURRENT) USE OF ORAL HYPOGLYC 05/08/2017 KEO DIANA Ot Z79.899 OTHER RESTAURANT CREW MEMBER (CURRENT) DRUG THERAPY 06/05/2017 JANESSA FLORES MD [...] WALL 06/05/2017 JANESSA FLORES MD Ot Z79.82 RESTAURANT CREW MEMBER (CURRENT) USE OF ASPIRIN 06/05/2017 JANESSA FLORES MD Ot Z79.84 RESTAURANT CREW MEMBER (CURRENT) USE OF ORAL HYPOGLYC 06/05/2017 JANESSA FLORES MD, Ot Z79.899 OTHER RESTAURANT CREW MEMBER (CURRENT) DRUG THERAPY 06/05/2017 JANESSA FLORES MD [...] WALL 07/01/2017 JANESSA FLORES MD Ot Z79.82 RESTAURANT CREW MEMBER (CURRENT) USE OF ASPIRIN 07/01/2017 JANESSA FLORES MD Ot Z79.84 LONG-TERM (CURRENT) USE OF ORAL HYPOGLYC 07/01/2017 JANESSA FLORES MD, Ot Z79.899 OTHER LONG-TERM (CURRENT) DRUG THERAPY 07/01/2017 JANESSA FLORES MD [...] BASHIR MD Ot 414.01 CORONARY ATHEROSCLEROSIS OF [place] CORON 12/22/2017 TRINO BASHIR MD Ot 440.20 ATHEROSCLEROSIS [place] ARTERIES EXTREMIT 12/22/2017 TRINO BASHIR MD Ot [...] Ot M51.26 OTHER INTERVERTEBRAL DISC DISPLACEMENT, 07/29/2018 MADISON DOKENDY Ot M51.36 OTHER INTERVERTEBRAL DISC DEGENERATION, 07/29/2018 KENDY MADISON DO Ot M89.38 HYPERTROPHY OF BONE, OTHER SITE 07/29/2018 KENDY MADISON DO Ot M47.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/O MYELOPATHY OR RADICULOPA 07/29/2018 KENDY MADISON DO Ot M48.061 SPINAL STENOSIS, LUMBAR REGION WITHOUT N 07/29/2018 KENDY MADISON DO Ot M51.26 OTHER INTERVERTEBRAL DISC DISPLACEMENT, 07/29/2018 MADISONKENDY RAM DO Ot M51.36 OTHER INTERVERTEBRAL DISC DEGENERATION, 07/29/2018 MADISONKENDY RAM DO Ot M89.38 HYPERTROPHY OF BONE, OTHER SITE 10/04/2018 MADISONKENDY RAM DO Ot M47.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/O MYELOPATHY OR RADICULOPA 10/04/2018 KENDY MADISON DO Ot M48.061 SPINAL STENOSIS, LUMBAR REGION WITHOUT N 10/04/2018 KENDY MADISON DO Ot M51.26 OTHER INTERVERTEBRAL DISC DISPLACEMENT, 10/04/2018 KENDY MADISON DO Ot M51.36 OTHER INTERVERTEBRAL DISC DEGENERATION, 10/04/2018 KENDY MADISON DO Ot M89.38 HYPERTROPHY OF BONE, OTHER SITE 10/22/2018 ATUL MELENDEZ APRN Ot E03.9 HYPOTHYROIDISM, UNSPECIFIED 10/22/2018 ATUL MELENDEZ APRN Ot E11.9 TYPE 2 DIABETES MELLITUS WITHOUT COMPLIC 10/22/2018 ATUL MELENDEZ APRN Ot F32.9 MAJOR DEPRESSIVE DISORDER, SINGLE EPISOD 10/22/2018 ATUL MELENDEZ APRN Ot F41.9 ANXIETY DISORDER, UNSPECIFIED 10/22/2018 ATUL MELENDEZ APRN Ot J44.9 CHRONIC OBSTRUCTIVE PULMONARY DISEASE, U 10/22/2018 ATUL MELENDEZ APRN Ot K21.9 GASTRO-ESOPHAGEAL REFLUX DISEASE WITHOUT 10/22/2018 ATUL MELENDEZ APRN Ot M17.0 BILATERAL PRIMARY OSTEOARTHRITIS OF KNEE 10/22/2018 ATUL MELENDEZ APRN Ot N28.9 DISORDER OF KIDNEY AND URETER, UNSPECIFI 10/22/2018 ATUL MELENDEZ APRN Ot N39.0 URINARY TRACT INFECTION, SITE NOT SPECIF 10/22/2018 ATUL MELENDEZ APRN Ot R11.0 NAUSEA 10/22/2018 ATUL MELENDEZ APRN Ot Z79.82 LONG-TERM (CURRENT) USE OF ASPIRIN 10/22/2018 ATUL MELENDEZ APRN Ot Z79.84 LONG-TERM (CURRENT) USE OF ORAL HYPOGLYC 10/22/2018 ATUL MELENDEZ APRN Ot Z87.19 PERSONAL HISTORY OF OTHER DISEASES OF 10/22/2018 ATUL MELENDEZ APRN Ot Z90.710 ACQUIRED ABSENCE OF BOTH CERVIX AND UTER 10/22/2018 ATUL MELENDEZ APRN Ot Z90.89 ACQUIRED ABSENCE OF OTHER ORGANS 10/22/2018 ATUL MELENDEZ APRN Ot Z95.1 PRESENCE OF AORTOCORONARY BYPASS GRAFT 10/22/2018 ATUL MELENDEZ APRN Ot Z95.5 PRESENCE OF CORONARY ANGIOPLASTY IMPLANT 10/26/2018 ATUL MELENDEZ APRN Ot E03.9 HYPOTHYROIDISM, UNSPECIFIED 10/26/2018 ATUL MELENDEZ APRN Ot E11.9 TYPE 2 DIABETES MELLITUS WITHOUT COMPLIC 10/26/2018 ATUL MELENDEZ APRN Ot F32.9 MAJOR DEPRESSIVE DISORDER, SINGLE EPISOD 10/26/2018 ATUL MELENDEZ APRN Ot F41.9 ANXIETY DISORDER, UNSPECIFIED 10/26/2018 ATUL MELENDEZ APRN Ot J44.9 CHRONIC OBSTRUCTIVE PULMONARY DISEASE, U 10/26/2018 ATUL MELENDEZ APRN Ot K21.9 GASTRO-ESOPHAGEAL REFLUX DISEASE WITHOUT 10/26/2018 ATUL MELENDEZ APRN Ot M17.0 BILATERAL PRIMARY OSTEOARTHRITIS OF KNEE 10/26/2018 ATUL MELENDEZ APRN Ot N28.9 DISORDER OF KIDNEY AND URETER, UNSPECIFI 10/26/2018 ATUL MELENDEZ APRN Ot N39.0 URINARY TRACT INFECTION, SITE NOT SPECIF 10/26/2018 ATUL MELENDEZ APRN Ot R11.0 NAUSEA 10/26/2018 ATUL MELENDEZ APRN Ot Z79.82 LONG-TERM (CURRENT) USE OF ASPIRIN 10/26/2018 ATUL MELENDEZ APRN Ot Z79.84 LONG-TERM (CURRENT) USE OF ORAL HYPOGLYC 10/26/2018 ATUL MELENDEZ APRN Ot Z87.19 PERSONAL HISTORY OF OTHER DISEASES OF 10/26/2018 ATUL MELENDEZ APRN Ot Z90.710 ACQUIRED ABSENCE OF BOTH CERVIX AND UTER 10/26/2018 ATUL MELENDEZ APRN Ot Z90.89 ACQUIRED ABSENCE OF OTHER ORGANS 10/26/2018 ATUL MELENDEZ APRN Ot Z95.1 PRESENCE OF AORTOCORONARY BYPASS GRAFT 10/26/2018 ATUL MELENDEZ APRN Ot Z95.5 PRESENCE OF CORONARY ANGIOPLASTY IMPLANT 11/01/2018 ATUL MELENDEZ APRN Ot E03.9 HYPOTHYROIDISM, UNSPECIFIED 11/01/2018 ATUL MELENDEZ APRN Ot E11.9 TYPE 2 DIABETES MELLITUS WITHOUT COMPLIC 11/01/2018 ATUL MELENDEZ APRN Ot F32.9 MAJOR DEPRESSIVE DISORDER, SINGLE EPISOD 11/01/2018 ATUL MELENDEZ APRN Ot F41.9 ANXIETY DISORDER, UNSPECIFIED 11/01/2018 ATUL MELENDEZ APRN Ot J44.9 CHRONIC OBSTRUCTIVE PULMONARY DISEASE, U 11/01/2018 ATUL MELENDEZ APRN Ot K21.9 GASTRO-ESOPHAGEAL REFLUX DISEASE WITHOUT 11/01/2018 ATUL MELENDEZ APRN Ot M17.0 BILATERAL PRIMARY OSTEOARTHRITIS OF KNEE 11/01/2018 ATUL MELENDEZ APRN Ot N28.9 DISORDER OF KIDNEY AND URETER, UNSPECIFI 11/01/2018 ATUL MELENDEZ APRN Ot N39.0 URINARY TRACT INFECTION, SITE NOT SPECIF 11/01/2018 ATUL MELENDEZ APRN Ot R11.0 NAUSEA 11/01/2018 ATUL MELENDEZ APRN Ot Z79.82 RESTAUR[employer] MEMBER (CURRENT) USE OF ASPIRIN 11/01/2018 ATUL MELENDEZ APRN Ot Z79.84 RESTAURANT CREW MEMBER (CURRENT) USE OF ORAL HYPOGLYC 11/01/2018 ATUL MELENDEZ APRN Ot Z87.19 PERSONAL HISTORY OF OTHER DISEASES OF TH 11/01/2018 ATUL MELENDEZ APRN Ot Z90.710 ACQUIRED ABSENCE OF BOTH CERVIX AND UTER 11/01/2018 ATUL MELENDEZ APRN Ot Z90.89 ACQUIRED ABSENCE OF OTHER ORGANS 11/01/2018 ATUL MELENDEZ APRN Ot Z95.1 PRESENCE OF AORTOCORONARY BYPASS GRAFT 11/01/2018 ATUL MELENDEZ APRN Ot Z95.5 PRESENCE OF CORONARY ANGIOPLASTY IMPLANT 11/01/2018 ATUL MELENDEZ APRN Ot E03.9 HYPOTHYROIDISM, UNSPECIFIED 11/01/2018 ATUL MELENDEZ APRN Ot E11.9 TYPE 2 DIABETES MELLITUS WITHOUT COMPLIC 11/01/2018 ATUL MELENDEZ APRN Ot J44.9 CHRONIC OBSTRUCTIVE PULMONARY DISEASE, U 11/01/2018 ATUL MELENDEZ APRN Ot K21.9 GASTRO-ESOPHAGEAL REFLUX DISEASE WITHOUT 11/01/2018 ATUL MELENDEZ APRN Ot M53.3 SACROCOCCYGEAL DISORDERS, NOT ELSEWHERE 11/01/2018 ATUL MELENDEZ APRN Ot R40.2142 COMA SCALE, EYES OPEN, SPONTANEOUS, EMR 11/01/2018 ATUL MELENDEZ APRN Ot R40.2252 COMA SCALE, BEST VERBAL RESPONSE, ORIENT 11/01/2018 ATUL MELENDEZ APRN Ot R40.2362 COMA SCALE, BEST MOTOR RESPONSE, OBEYS C 11/01/2018 ATUL MELENDEZ APRN Ot S30.0XXA CONTUSION OF LOWER BACK AND PELVIS, INIT 11/01/2018 ATUL MELENDEZ APRN Ot W19.XXXA UNSPECIFIED FALL, INITIAL ENCOUNTER 11/01/2018 ATUL MELENDEZ APRN Ot Z79.82 RESTAUR[employer]BER (CURRENT) USE OF ASPIRIN 11/01/2018 ATUL MELENDEZ APRN Ot Z79.84 LONG-TERM (CURRENT) USE OF ORAL HYPOGLYC 11/01/2018 ATUL MELENDEZ APRN Ot Z87.891 PERSONAL HISTORY OF NICOTINE DEPENDENCE 11/01/2018 ATUL MELENDEZ APRN Ot Z90.710 ACQUIRED ABSENCE OF BOTH CERVIX AND UTER 11/01/2018 ATUL MELENDEZ APRN Ot Z90.89 ACQUIRED ABSENCE OF OTHER ORGANS 11/01/2018 ATUL MELENDEZ APRN Ot Z91.81 HISTORY OF FALLING 11/01/2018 ATUL MELENDEZ APRN Ot Z95.1 PRESENCE OF AORTOCORONARY BYPASS GRAFT 11/01/2018 ATUL MELENDEZ APRN Ot Z95.5 PRESENCE OF CORONARY ANGIOPLASTY IMPLANT Procedures Code [place] [address] ULTRASOUND SOFT TISSUES HEAD & NECK JEANETTE MARSH 10/02/2016 Results Test Result Range Gram stain microscopy - 05/02/17 20:40 GRAM STAIN RESULT NO WBC'S OR BACTERIA OBSERVED NRG Bacteria identification in wound by culture - 05/02/17 20:40 Bacteria identification in wound by culture [id number] NRG FREE TEXT EXTERNAL SENSITIVITY REPORTED 05/04/17 8:05 NRG QUANTITY OF GROWTH Moderate Growth NRG CALL POSITIVES (F1 HELP) CALLED TO [place]/ JOEY SPARKS 05/04/17 8:10 BY ABRAHAM NRG Bacterial susceptibility panel - 05/02/17 20:40 Oxacillin [...] 08:05 Bacteria identification in wound by culture [id number] NRG FREE TEXT EXTERNAL SENSITIVITY REPORTED 05/06 16:10 NRG QUANTITY OF GROWTH Abundant Growth NRG MRSA AGAR MRSA isolated (Screening test for MRSA is positive) NRG CALL POSITIVES (F1 HELP) CALLED TO RESERVE 05/06 14:10 NRG Bacterial susceptibility panel - [...] Status Pt. Type Provider Facility Loc./Unit Complaint [id number] 08/31/2017 07:51:00 08/31/2017 16:00:00 DIS Outpatient Casandra ALMAGUER, Dimitry Barbosa [facility] E.CVLO [id number] 08/18/2017 10:29:00 08/18/2017 10:29:00 DIS Outpatient Thania ALMAGUER, Jasen Lee [facility] E.RAC [id number] 05/18/2017 11:00:36 05/18/2017 23:59:59 CLS Outpatient Yanira Martínez [facility] [id number] 11/01/2018 16:50:00 11/01/2018 17:50:00 DIS Emergency ATUL MELENDEZ APRN [facility] ER FALL/TAILBONE PAIN [id number] 10/22/2018 12:11:00 10/22/2018 15:07:00 DIS Emergency ATUL MELENDEZ CHAIRMAN AND CHIEF EXECUTIVE OFFICER [facility] ER DIZZINESS/NOT EATING [id number] 03/18/2018 12:01:00 03/18/2018 23:59:59 CLS Outpatient CHERY JORDAN MD [facility] RAD NODULAR THYROID DESEASE [id number] 12/23/2017 11:32:00 12/23/2017 23:59:59 CLS Outpatient KENDY MADISON DO [facility] RAD M54.5 [id number] 08/04/2017 07:36:00 08/04/2017 23:59:59 CLS Preadmit KENDY MADISON DO [facility] RAD VERIFY DX [id number] 05/05/2017 05:56:00 05/05/2017 10:00:00 DIS Outpatient SANDRA ALMAGUER, [facility] ABSCESS [id number] 05/02/2017 19:13:00 05/02/2017 22:01:00 DIS Emergency KEO DIANA [facility] ER STOMACH RASH POSS SPIDER BITE [id number] 11/04/2016 09:54:00 11/04/2016 23:59:59 CLS Outpatient GRICELDA MANUEL, KENDY Celestin [facility] RAD M17.0 [id number] 04/28/2016 12:57:00 04/28/2016 15:29:00 DIS Emergency KEO DIANA [facility] ER PAIN IN LEGS [id number] 08/05/2015 10:53:00 08/05/2015 11:40:00 DIS Emergency ATUL MELENDEZ CHAIRMAN AND CHIEF EXECUTIVE OFFICER [facility] ER ABSCESS [id number] 05/18/2015 20:38:00 05/18/2015 21:23:00 DIS Emergency ATUL MELENDEZ CHAIRMAN AND CHIEF EXECUTIVE OFFICER [facility] ER RASH [id number] 04/26/2015 09:10:00 04/26/2015 23:59:59 CLS Outpatient GRICELDA KENDY MANUEL Fawad [facility] RAD SCREENING [id number] 04/02/2015 14:22:00 04/02/2015 15:12:00 DIS Emergency MAHENDRA RODRIGUEZ MD [facility] ER TICK BITE [id number] 11/09/2014 06:46:00 11/09/2014 23:59:59 CLS Outpatient TRINO BASHIR MD [facility] RAD CAD,PVD,BP [id number] 09/18/2014 17:04:00 09/18/2014 23:59:59 CLS Outpatient CARLTON MADISON PACKAGING SUPERVISOR [facility] RAD PNEUMONIA [id number] 03/14/2014 10:43:00 03/30/2014 15:50:00 DIS Outpatient ALEX GUY MD [facility] REHAB BACK PAIN [id number] 12/23/2013 06:45:00 12/23/2013 09:17:00 DIS Emergency JAS MCKNIGHT DO [facility] ER CP [id number] 12/11/2013 10:45:00 12/11/2013 13:03:00 DIS Emergency KEO DIANA [facility] ER SWOLLEN HANDS [id number] 05/22/2015 14:25:00 Document Registration [id number] 05/22/2015 14:25:00 Document Registration [id number] 05/22/2015 14:25:00 Document Registration [id number] 05/22/2015 14:25:00 Document Registration [id number] 05/22/2015 14:25:00 Document Registration [id number] 05/22/2015 14:25:00 Document Registration [id number] 05/11/2013 14:25:00 Document Registration [id number] 11/18/2012 09:00:00 Document Registration [id number] 10/04/2012 14:18:00 Document Registration [id number] 09/30/2012 07:18:00 Document Registration [id number] 09/15/2012 09:09:00 Document Registration [id number] 04/08/2012 08:54:00 Document Registration [id number] 03/04/2012 08:30:00 Document Registration [id number] 02/22/2012 17:41:00 Document Registration [id number] 11/17/2011 11:56:00 Document Registration [id number] 06/13/2011 21:07:00 Document Registration [id number] 06/09/2011 09:00:00 Document Registration [id number] 05/26/2011 20:28:00 Document Registration [id number] 05/16/2011 09:35:00 Document Registration [id number] 04/02/2011 11:36:00 Document Registration [id number] 03/07/2010 09:11:00 Document Registration [id number] 02/22/2009 09:07:00 Document Registration [id number] 12/15/2008 19:12:00 Document Registration [id number] 11/19/2006 06:03:00 Document Registration [id number] 10/08/2016 00:00:00 DIS Document Registration
[2019-02-06 22:36] LABS: BASOPHILS % (AUTO) 0 % (0-10); EOSINOPHILS % (AUTO) 0 % (0-10); HEMATOCRIT 40 % (35-52); HEMOGLOBIN 13.2 G/DL (11.5-16.0); LYMPHOCYTES # (AUTO) 0.4 X 10^3 (1.0-4.0); LYMPHOCYTES % (AUTO) 7 % (12-44); MEAN CORPUSCULAR HEMOGLOBIN 30 PG (25-34); MEAN CORPUSCULAR HGB CONC 33 G/DL (32-36); MEAN CORPUSCULAR VOLUME 91 FL (80-99); MEAN PLATELET VOLUME 12.7 FL (7.4-10.4); MONOCYTES # (AUTO) 0.7 X 10^3 (0.0-1.0); MONOCYTES % (AUTO) 11 % (0-12); NEUTROPHILS % (AUTO) 82 % (42-75); PLATELET COUNT 160 10^3/uL (130-400); RED CELL DISTRIBUTION WIDTH 14.4 % (10.0-14.5)
[2019-02-06 22:46] LABS: ALBUMIN 4.3 GM/DL (3.2-4.5); BILIRUBIN,TOTAL 0.3 MG/DL (0.1-1.0); CREATININE SERUM 2.3 MG/DL (0.60-1.30); POTASSIUM 3.6 MMOL/L (3.6-5.0); TOTAL PROTEIN 6.9 GM/DL (6.4-8.2)
[2019-02-06 22:58] LABS: BAND NEUTROPHILS 5 %; BASOPHILS % (MANUAL) 0 %; EOSINOPHILS % (MANUAL) 0 %; LYMPHOCYTES % (MANUAL) 2 %; MONOCYTES % (MANUAL) 8 %; NEUTROPHILS % (MANUAL) 81 %; RBC MORPH NORMAL; REACTIVE LYMPHOCYTES 4 %
--- NOTE | 2019-02-06 23:18 | NUR ---
Pt up to bedside commode x1 assist
[2019-02-06 23:47] LABS: BILIRUBIN,URINE NEGATIVE (NEGATIVE); CLARITY,URINE VERY CLOUDY; COLOR,URINE YELLOW; GLUCOSE, URINE (UA) NEGATIVE (NEGATIVE); KETONES,URINE NEGATIVE (NEGATIVE); LEUKOCYTE ESTERASE ,URINE 3+ (NEGATIVE); NITRITE,URINE NEGATIVE (NEGATIVE); PH,URINE 5 (5-9); PROTEIN,URINE 2+ (NEGATIVE); UROBILINOGEN,URINE NORMAL (NORMAL)
[2019-02-06 23:58] LABS: BACTERIA,URINE MODERATE /HPF
[2019-02-06 23:59] LABS: AMORPHOUS SEDIMENT,UR FEW AMOR URATES /LPF; YEAST,URINE FEW /HPF
[2019-02-07] VITALS (8 sets, daily range): BP systolic 93–130; BP diastolic 50–65
[2019-02-07] MEDS ORDERED: ACETAMINOPHEN 500 MG TAB (TYLENOL) PO STA (00:11)
[2019-02-07] MEDS ORDERED: OSELTAMIVIR 30 MG (TAMIFLU) CAPSULE PO ONE (00:15)
--- NOTE | 2019-02-07 00:23 | NUR ---
PER DR NUÑEZ PT TOOK OWN HOME MEDS INCLUDING TYLENOL.
--- NOTE | 2019-02-07 00:28 | ED General ---
General Chief Complaint: Fever-Adult/Adol Stated Complaint: WEAKNESS Nursing Triage Note: PT C/O FEVER AND TWO FALLS TODAY. PT DENIES LOC, PAIN, AND HITTING HEAD. PT IS A/O TO PERSON AND PLACE. Nursing Sepsis Screen: No Definite Risk Source of Information: Patient, EMS, Family Exam Limitations: No Limitations History of Present Illness Date Seen by Provider: Feb 06, 2019 Time Seen by Provider: 22:29 Initial Comments Here by EMS with report of 2 falls today. Denies loss of consciousness or hitting her head. Also noted to have fever of 103. Apparently is very weak and has been intermittently confused. is concerned. She has been increasingly incontinent over the last week of urine. Does have foul-smelling urine odor. No report of vomiting or diarrhea. No report of chest pain. Timing/Duration: 1-2 Days Severity: Moderate Modifying Factors: improves with Rest Associated Systoms: No Chest Pain; Cough, Fever/Chills; No Headaches, No Nausea /Vomiting; Shortness of Air, Weakness Allergies and Home Medications Allergies Coded Allergies: No Known Drug Allergies (Unverified , 06/07/09) Home Medications Acetaminophen 500 Mg Tablet, 1,000 MG PO BID, (Reported) Albuterol Sulfate 2.5 Mg/3 Ml Vial.neb, 2.5 MG NEB Q4H PRN for SHORTNESS OF BREATH, (Reported) Alprazolam 0.5 Mg Tablet, 0.5 MG PO TID PRN for ANXIETY, (Reported) Aspirin 81 Mg Tablet.dr, 81 MG PO HS, (Reported) Atenolol 25 Mg Tablet, 25 MG PO HS, (Reported) Atorvastatin Calcium 20 Mg Tablet, 20 MG PO HS, (Reported) Clopidogrel Bisulfate 75 Mg Tablet, 75 MG PO HS, (Reported) Cyanocobalamin (Vitamin B-12) 1,000 Mcg Tablet, 1,000 MCG PO DAILY, (Reported) Fluticasone/Salmeterol 1 Each Blst.w.dev, 1 PUFF INH BID, (Reported) Gabapentin 300 Mg Capsule, 300 MG PO BID, (Reported) Hydrocodone/Acetaminophen 1 Each Tablet, 1 TAB PO Q6H PRN for PAIN-MODERATE, ( Reported) Metformin HCl 500 Mg Tablet, 1,000 MG PO BID, (Reported) TAKES 2 (500MG) TABLETS Omeprazole 20 Mg Capsule.dr, 20 MG PO DAILY, (Reported) Sertraline HCl 50 Mg Tablet, 50 MG PO DAILY, (Reported) Triamterene/Hydrochlorothiazid 1 Each Tablet, 1 TAB PO HS, (Reported) Patient Home Medication List Home Medication List Reviewed: Yes Review of Systems Review of Systems Constitutional: see HPI, chills, fever EENTM: nose congestion; No throat pain Respiratory: cough (mild); No short of breath Cardiovascular: No chest pain, No edema Gastrointestinal: No abdominal pain, No nausea, No vomiting Genitourinary: frequency, incontinence : No Musculoskeletal: joint pain, muscle pain Skin: No change in color, No lesions Psychiatric/Neurological: Denies Headache; Weakness Hematologic/Lymphatic: No Symptoms Reported All Other Systems Reviewed Negative Unless Noted: Yes Past Sbydqfs-Boeduj-Bvuheo Hx Past Med/Social Hx: Reviewed Nursing Past Med/Soc Hx Patient Social History Alcohol Use: Denies Use Recreational Drug Use: No Smoking Status: Current Everyday Smoker Type Used: Cigarettes 2nd Hand Smoke Exposure: Yes Recent Foreign Travel: No Contact w/Someone Who Travel: No Recent Infectious Disease Expo: Yes Recent Hopitalizations: No Immunizations Up To Date Tetanus Booster (TDap): Less than 5yrs Date of Pneumonia Vaccine: Oct 30, 2012 Date of Influenza Vaccine: Oct 19, 2013 Seasonal Allergies Seasonal Allergies: No Past Medical History Surgeries: Yes CABG, Thyroidectomy Respiratory: Yes Asthma, Chronic Bronchitis, COPD Cardiac: Yes (CABG/STENTS. 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 Gastrointestinal: Yes Gastroesophageal Reflux, Hiatal Hernia Musculoskeletal: Yes (ARTHRITIS IN KNEES) Arthritis Endocrine: Yes Hypothyroidsim, Diabetes, Non-Insulin dep Cancer: No Psychosocial: Yes Anxiety Integumentary: Yes Eczema Blood Disorders: No Family Medical History Reviewed Nursing Family Hx No Pertinent Family Hx Physical Exam-Suspected Sepsis Physical Exam Vital Signs Vital Signs - First Documented 02/06/19 02/07/19 21:52 16:30 Temp 102.6 Pulse 87 Resp 18 B/P (MAP) 142/80 (100) Pulse Ox 96 O2 Delivery Room Air FiO2 28 Capillary Refill : Less Than 3 Seconds Blood Pressure Mean: 100 Height, Weight, BMI Height: 5'1.00" Weight: 160lbs. 0oz. 72.698192pd; 30.0 BMI Method:Stated General Appearance: No Apparent Distress, WD/WN HEENT: PERRL/EOMI, TMs Normal, Pharyngeal Erythema, Other (bilateral nasal congestion) Neck: Non Tender, Supple Respiratory: Lungs Clear, Normal Breath Sounds Cardiovascular: Regular Rate, Rhythm, No Murmur Gastrointestinal: Non Tender, Soft Back: Normal Inspection, No CVA Tenderness, No Vertebral Tenderness Extremity: Normal Range of Motion, Non Tender Neurologic/Psychiatric: Alert, Oriented x3, Motor Weakness (global) Skin: normal color, warm/dry Focused Exam Lactate Level 02/06/19 21:58: Lactic Acid Level 1.54 Lactic Acid Level Progress/Results/Core Measures Suspected Sepsis Recent Fever Within 48 Hours: Yes Infection Criteria Present: Suspected New Infection New/Unexplained Altered Menta: Yes Sepsis Screen: No Definite Risk SIRS Temperature:102.6 Pulse: 87 Respiratory Rate: 18 Laboratory Tests 02/06/19 21:58: White Blood Count 6.0 02/07/19 05:41: White Blood Count 4.8 02/08/19 05:43: White Blood Count 1.8L Blood Pressure 142 /80 Mean: 100 02/06/19 21:58: Lactic Acid Level 1.54 Laboratory Tests 02/06/19 21:58: Creatinine 2.30H, Platelet Count 160, Total Bilirubin 0.3 02/07/19 05:41: Creatinine 2.05H, Platelet Count 140, Total Bilirubin 0.2 02/08/19 05:43: Creatinine 1.10, Platelet Count 104L Results/Orders Lab Results Laboratory Tests Test 02/06/19 21:58 02/06/19 23:33 02/07/19 05:30 02/07/19 05:41 Range/Units White Blood Count 6.0 4.8 4.3-11.0 10^3/uL Red Blood Count 4.40 3.81 L 4.35-5.85 10^6/uL Hemoglobin 13.2 11.5 11.5-16.0 G/DL Hematocrit 40 35 35-52 % Mean Corpuscular Volume 91 92 80-99 FL Mean Corpuscular Hemoglobin 30 30 25-34 PG Mean Corpuscular Hemoglobin Concent 33 33 32-36 G/DL Red Cell Distribution Width 14.4 14.1 10.0-14.5 % Platelet Count 160 140 130-400 10^3/uL Mean Platelet Volume 12.7 H 12.3 H 7.4-10.4 FL Neutrophils (%) (Auto) 82 H 77 H 42-75 % Lymphocytes (%) (Auto) 7 L 11 L 12-44 % Monocytes (%) (Auto) 11 12 0-12 % Eosinophils (%) (Auto) 0 0 0-10 % Basophils (%) (Auto) 0 0 0-10 % Neutrophils # (Auto) 5.0 3.7 1.8-7.8 X 10^3 Lymphocytes # (Auto) 0.4 L 0.5 L 1.0-4.0 X 10^3 Monocytes # (Auto) 0.7 0.6 0.0-1.0 X 10^3 Eosinophils # (Auto) 0.0 0.0 0.0-0.3 10^3/uL Basophils # (Auto) 0.0 0.0 0.0-0.1 10^3/uL Neutrophils % (Manual) 81 % Lymphocytes % (Manual) 2 % Monocytes % (Manual) 8 % Eosinophils % (Manual) 0 % Basophils % (Manual) 0 % Band Neutrophils 5 % Reactive Lymphocytes 4 % Blood Morphology Comment NORMAL Sodium Level 136 138 135-145 MMOL/L Potassium Level 3.6 3.6 3.6-5.0 MMOL/L Chloride Level 102 108 H 98-107 MMOL/L Carbon Dioxide Level 19 L 17 L 21-32 MMOL/L Anion Gap 15 H 13 5-14 MMOL/L Blood Urea Nitrogen 34 H 34 H 7-18 MG/DL Creatinine 2.30 H 2.05 H 0.60-1.30 MG/DL Estimat Glomerular Filtration Rate 21 24 BUN/Creatinine Ratio 15 17 Glucose Level 101 94 70-105 MG/DL Lactic Acid Level 1.54 0.50-2.00 MMOL/L Calcium Level 9.0 8.2 L 8.5-10.1 MG/DL Corrected Calcium 8.8 8.4 L 8.5-10.1 MG/DL Total Bilirubin 0.3 0.2 0.1-1.0 MG/DL Aspartate Amino Transf (AST/SGOT) 21 16 5-34 U/L Alanine Aminotransferase (ALT/SGPT) 11 9 0-55 U/L Alkaline Phosphatase 79 65 40-136 U/L C-Reactive Protein High Sensitivity 3.64 H 0.00-0.50 MG/DL Total Protein 6.9 5.7 L 6.4-8.2 GM/DL Albumin 4.3 3.7 3.2-4.5 GM/DL Urine Color YELLOW Urine Clarity VERY CLOUDY H Urine pH 5 5-9 Urine Specific [place] 1.015 L 1.016-1.022 Urine Protein 2+ H NEGATIVE Urine Glucose (UA) NEGATIVE NEGATIVE Urine Ketones NEGATIVE NEGATIVE Urine Nitrite NEGATIVE NEGATIVE Urine Bilirubin NEGATIVE NEGATIVE Urine Urobilinogen NORMAL NORMAL MG/DL Urine Leukocyte Esterase 3+ H NEGATIVE Urine RBC (Auto) 3+ H NEGATIVE Urine RBC 2-5 H /HPF Urine WBC 2-5 /HPF Urine Squamous Epithelial Cells 5-10 /HPF Urine Crystals PRESENT H /LPF Urine Amorphous Sediment FEW KELVIN URATES H /LPF Urine Bacteria MODERATE H /HPF Urine Casts NONE /LPF Urine Mucus MODERATE H /LPF Urine Yeast FEW H /HPF Urine Culture Indicated YES Glucometer 96 70-110 MG/DL Test 02/07/19 11:24 02/07/19 14:32 02/07/19 15:56 02/07/19 22:17 Range/Units Glucometer 105 97 111 H 193 H 70-110 MG/DL Test 02/08/19 02:16 02/08/19 05:43 Range/Units Glucometer 185 H 70-110 MG/DL White Blood Count 1.8 L 4.3-11.0 10^3/uL Red Blood Count 3.99 L 4.35-5.85 10^6/uL Hemoglobin 11.9 11.5-16.0 G/DL Hematocrit 37 35-52 % Mean Corpuscular Volume 92 80-99 FL Mean Corpuscular Hemoglobin 30 25-34 PG Mean Corpuscular Hemoglobin Concent 33 32-36 G/DL Red Cell Distribution Width 13.7 10.0-14.5 % Platelet Count 104 L 130-400 10^3/uL Mean Platelet Volume 12.4 H 7.4-10.4 FL Neutrophils (%) (Auto) 79 H 42-75 % Lymphocytes (%) (Auto) 17 12-44 % Monocytes (%) (Auto) 5 0-12 % Eosinophils (%) (Auto) 0 0-10 % Basophils (%) (Auto) 0 0-10 % Neutrophils # (Auto) 1.4 L 1.8-7.8 X 10^3 Lymphocytes # (Auto) 0.3 L 1.0-4.0 X 10^3 Monocytes # (Auto) 0.1 0.0-1.0 X 10^3 Eosinophils # (Auto) 0.0 0.0-0.3 10^3/uL Basophils # (Auto) 0.0 0.0-0.1 10^3/uL Sodium Level 144 135-145 MMOL/L Potassium Level 3.5 L 3.6-5.0 MMOL/L Carbon Dioxide Level 18 L 21-32 MMOL/L Anion Gap 15 H 5-14 MMOL/L Blood Urea Nitrogen 24 H 7-18 MG/DL Creatinine 1.10 0.60-1.30 MG/DL Estimat Glomerular Filtration Rate 49 BUN/Creatinine Ratio 22 Glucose Level 145 H 70-105 MG/DL Calcium Level 8.6 8.5-10.1 MG/DL Micro Results Microbiology 02/06/19 Blood Culture - Preliminary, Resulted No growth 02/06/19 Blood Culture - Preliminary, Resulted No growth 02/06/19 Influenza Types A,B Antigen (SCOTTY) - Final, Complete My Orders Orders - CLAUS NUÑEZ MD Cbc With Automated Diff (02/06/19 22:29) Comprehensive Metabolic Panel (02/06/19 22:29) Hs C Reactive Protein (02/06/19 22:29) Ua Culture If Indicated (02/06/19 22:29) Influenza A And B Antigens (02/06/19 22:29) Ct Head Wo (02/06/19 22:29) Lactic Acid Analyzer (02/06/19 22:32) Blood Culture (02/06/19 22:32) Manual Differential (02/06/19 21:58) Urine Culture (02/06/19 23:33) Oseltamivir 30 Mg Capsule (Tamiflu 30 Mg (02/07/19 00:15) Acetaminophen Tablet (Tylenol Tablet) (02/07/19 00:11) Ceftriaxone For Iv Use (Rocephin For I (02/07/19 00:30) Chest 1 View, Ap/Pa Only (02/07/19 00:28) Ns Iv 1000 Ml (Sodium Chloride 0.9%) (02/07/19 00:32) Medications Given in ED Vital Signs/I&O 02/07/19 02/07/19 02/07/19 02/07/19 19:02 20:30 22:54 23:50 Temp 97.1 96.7 Pulse 60 56 Resp 16 20 B/P (MAP) 103/55 (71) 130/61 (84) Pulse Ox 94 97 95 O2 Delivery Nasal Cannula Nasal Cannula Nasal Cannula Nasal Cannula O2 Flow Rate 2.00 2.00 2.00 2.00 02/08/19 02/08/19 02:20 02:35 Temp 97.2 Pulse 61 Resp 16 B/P (MAP) 147/66 (93) Pulse Ox 96 96 O2 Delivery Nasal Cannula Nasal Cannula O2 Flow Rate 2.00 2.00 Capillary Refill : Less Than 3 Seconds Blood Pressure Mean: 100 Progress Note : Progress Note Seen and evaluated. IV, labs, UA, CT head given that she is on Plavix and has history of 2 falls and influenza screen ordered. Blood cultures and lactic acid ordered due to elevated temperature. Monitor patient. Rocephin 1 g IV, Tamiflu 30 mg by mouth for renal dosing adjustments for positive influenza A and normal saline 1 L bolus ordered. Patient was to get Tylenol 1 g by mouth but had Tylenol and hydrocodone/APAP tablet from home that she is going to take with her night meds so this was not administered. We will hold her metformin given her renal dysfunction as well as her Mobic. Patient to be admitted. Initiated admission proceedings at 0023. Dr. Gui beebe. 0100 discussed case with her and she accepts patient for admission. Patient and family agree with plan. Diagnostic Imaging Diagonstic Imaging: CT Plain Films/CT/US/NM/MRI: head Comments No evidence of skull fracture or intracranial hemorrhage. There are ethmoid sinus opacities. Microvascular white matter disease most prominent in the left frontoparietal subcortical white matter and centrum semiovale region. Reviewed: Reviewed Night [facility] Study Departure Impression Primary Impression: Influenza Additional Impressions: UTI (urinary tract infection) Qualified Codes: N30.00 - Acute cystitis without hematuria Acute renal failure Qualified Codes: N17.9 - Acute kidney failure, unspecified Disposition: ADMITTED INPATIENT Condition: Stable Admissions Decision to Admit Reason: Admit from ER (General) Decision to Admit/Date: Feb 07, 2019 Time/Decision to Admit Time: 00:23 Departure-Patient Inst. Referrals: KENDY MADISON DO (PCP/Family) Primary Care Physician CLAUS NUÑEZ MD Feb 07, 2019 00:28
[2019-02-07] MEDS ORDERED: cefTRIAXone FOR IV USE 1,000 MG in WATER (STERILE) FOR INJECTION 10 ML IV ONE (00:30)
[2019-02-07] MEDS ORDERED: NS IV 1000 ML 1,000 ML IV ONE (00:32)
--- OUTSIDE RECORDS SUMMARY | 2019-02-07 01:17 | XMS REPORT | Continuity of Care Document ---
Author Author [facility] Organization [facility] Address Unknown Phone Unavailable Allergies Active Description Code Type Severity Reaction Onset Reported/Identified Relationship to Patient Clinical Status Yes No Known Drug Allergies [id number] Drug Allergy Mild N/A 06/07/2009 Yes No [...] MCKNIGHT DO Ot 414.01 CORONARY ATHEROSCLEROSIS OF [place] CORON 12/23/2013 JAS MCKNIGHT DO Ot 786.50 CHEST PAIN NOS 03/30/2014 ALEX GUY MD Ot 724.9 BACK DISORDER NOS 03/30/2014 ALEX GUY MD Ot V57.1 PHYSICAL THERAPY NEC 10/12/2014 CARLTON MADISON TERRAZZO MECHANIC HELPER Ot 486 11/06/2014 Ot V76.12 11/06/2014 Ot V76.12 11/06/2014 Ot V45.81 11/06/2014 Ot V57.89 11/06/2014 Ot 573.9 11/06/2014 Ot 592.0 11/06/2014 Ot 573.8 11/06/2014 Ot 592.0 11/06/2014 Ot V76.12 11/06/2014 Ot V72.84 11/06/2014 Ot 433.30 11/06/2014 CARLTON MADISON TERRAZZO MECHANIC HELPER Ot 486 12/04/2014 TRINO BASHIR MD Ot [...] MADISON DO Ot V76.12 05/18/2015 ATUL MELENDEZ ROBOT PROGRAMMER Ot 041.9 BACTERIAL INFECTION NOS 05/18/2015 ATUL MELENDEZ ROBOT PROGRAMMER Ot 244.9 HYPOTHYROIDISM NOS 05/18/2015 ATUL MELENDEZ ROBOT PROGRAMMER Ot 250.00 DIAB ABIODUN WO COMPL, TYPE II OR UNSPEC TY 05/18/2015 ATUL MELENDEZ ROBOT PROGRAMMER Ot 305.1 TOBACCO USE DISORDER 05/18/2015 ATUL MELENDEZ APRN Ot 491.20 OBSTR CHRONIC BRONCHITIS, W/O EXACERBATI 05/18/2015 ATUL MELENDEZ ROBOT PROGRAMMER Ot 493.20 CHRONIC OBSTRUCTIVE ASTHMA, NOS 05/18/2015 ATUL MELENDEZ APRN Ot 530.81 ESOPHAGEAL REFLUX 05/18/2015 ATUL MELENDEZ APRN Ot 553.3 DIAPHRAGMATIC HERNIA 05/18/2015 ATUL MELENDEZ ROBOT PROGRAMMER Ot 686.9 LOCAL SKIN INFECTION NOS 05/18/2015 ATUL MELENDEZ ROBOT PROGRAMMER Ot 690.10 SEBORRHEIC DERMATITIS,NOS 05/18/2015 ATUL MELENDEZ ROBOT PROGRAMMER Ot 782.1 NONSPECIF SKIN ERUPT NEC 05/22/2015 Ot V76.12 05/22/2015 Ot 401.9 05/22/2015 Ot 496 05/22/2015 Ot 611.8 05/22/2015 Ot V76.12 05/22/2015 Ot V76.12 05/22/2015 Ot V76.12 05/22/2015 Ot V76.12 05/22/2015 Ot V45.81 05/22/2015 Ot V57.89 05/22/2015 Ot V72.84 05/22/2015 Ot 592.9 05/23/2015 KENDY MADISON DO Ot V76.12 08/05/2015 ATUL MELENDEZ ROBOT PROGRAMMER Ot 682.2 CELLULITIS OF TRUNK 08/15/2015 KENDY MADISON DO Ot V76.12 08/15/2015 KENDY MADISON DO Ot V76.12 08/15/2015 KENDY MADISON DO Ot V76.12 08/21/2015 EKNDY MADISON DO Ot V76.12 04/28/2016 KENDY MADISON [...] SKIN ERUPTION 05/02/2017 KEO DIANA Ot Z79.82 [employer]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 [employer]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 PRESIDENT [employer] SAL[employer] (CURRENT) USE OF ASPIRIN 05/02/2017 KEO DIANA Ot 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 (CURRENT) USE OF ORAL HYPOGLYC 05/02/2017 KEO DIANA Ot Z79.899 OTHER [facility] (CURRENT) DRUG THERAPY 05/05/2017 JANESSA FLORES MD [...] WALL 05/05/2017 JANESSA FLORES MD Ot Z79.82 [facility] (CURRENT) USE OF ASPIRIN 05/05/2017 JANESSA FLORES MD Ot Z79.84 [facility] (CURRENT) USE OF ORAL HYPOGLYC 05/05/2017 JANESSA FLORES MD Ot Z79.899 OTHER [facility] (CURRENT) DRUG THERAPY 05/05/2017 JANESSA FLORES MD Ot Z95.1 PRESENCE OF AORTOCORONARY BYPASS GRAFT 05/07/2017 KEO DIANA Ot E11.9 TYPE 2 DIABETES MELLITUS WITHOUT COMPLIC 05/07/2017 KEO DIANA Ot F17.210 NICOTINE DEPENDENCE, CIGARETTES, UNCOMPL 05/07/2017 KEO DIANA Ot L03.311 CELLULITIS OF ABDOMINAL WALL 05/07/2017 KEO DIANA Ot R21 RASH AND OTHER NONSPECIFIC SKIN ERUPTION 05/07/2017 KEO DIANA Ot Z79.82 [employer]IONAL [employer]ICE [employer]IDENT [employer] SAL[employer] (CURRENT) USE OF ASPIRIN 05/07/2017 KEO DIANA Ot Z79.84 [facility] (CURRENT) USE OF ORAL HYPOGLYC 05/07/2017 KEO DIANA Ot Z79.899 OTHER [facility] (CURRENT) DRUG THERAPY 05/08/2017 KEO DIANA Ot E11.9 TYPE 2 DIABETES MELLITUS WITHOUT COMPLIC 05/08/2017 KEO DIANA Ot F17.210 NICOTINE DEPENDENCE, CIGARETTES, UNCOMPL 05/08/2017 KEO DIANA Ot L03.311 CELLULITIS OF ABDOMINAL WALL 05/08/2017 KEO DIANA Ot R21 RASH AND OTHER NONSPECIFIC SKIN ERUPTION 05/08/2017 KEO DIANA Ot Z79.82 [employer]IONAL [employer] (CURRENT) USE OF ASPIRIN 05/08/2017 KOE DIANA Ot 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[employer] (CURRENT) USE OF ORAL HYPOGLYC 05/08/2017 KEO DIANA Ot Z79.899 OTHER REGIONAL VICE [employer]IDENT [employer] SAL[employer] (CURRENT) DRUG THERAPY 06/05/2017 JANESSA FLORES MD [...] WALL 06/05/2017 JANESSA FLORES MD Ot Z79.82 REGIONAL VICE [employer] SAL[employer] (CURRENT) USE OF ASPIRIN 06/05/2017 JANESSA FLORES MD Ot 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[employer] (CURRENT) USE OF ORAL HYPOGLYC 06/05/2017 JANESSA FLORES MD, Ot Z79.899 OTHER REGIONAL VICE [employer]IDENT [employer] SAL[employer] (CURRENT) DRUG THERAPY 06/05/2017 JANESSA FLORES MD [...] WALL 07/01/2017 JANESSA FLORES MD Ot Z79.82 REGIONAL VICE [employer] (CURRENT) USE OF ASPIRIN 07/01/2017 JANESSA FLORES MD Ot Z79.84 [facility] (CURRENT) USE OF ORAL HYPOGLYC 07/01/2017 JANESSA FLORES MD, Ot Z79.899 OTHER [facility] (CURRENT) DRUG THERAPY 07/01/2017 JANESSA FLORES MD [...] BASHIR MD Ot 414.01 CORONARY ATHEROSCLEROSIS OF [place] CORON 12/22/2017 TRINO BASHIR MD Ot 440.20 ATHEROSCLEROSIS [place] ARTERIES EXTREMIT 12/22/2017 TRINO BASHIR MD Ot [...] NAUSEA 10/22/2018 ATUL MELENDEZ APRN Ot Z79.82 [facility] (CURRENT) USE OF ASPIRIN 10/22/2018 ATUL MELENDEZ APRN Ot Z79.84 [facility] (CURRENT) USE OF ORAL HYPOGLYC 10/22/2018 ATUL [...] NAUSEA 10/26/2018 ATUL MELENDEZ APRN Ot Z79.82 [facility] (CURRENT) USE OF ASPIRIN 10/26/2018 ATUL MELENDEZ APRN Ot Z79.84 [facility] (CURRENT) USE OF ORAL HYPOGLYC 10/26/2018 ATUL [...] NAUSEA 11/01/2018 ATUL MELENDEZ APRN Ot Z79.82 [employer]IONAL [employer] (CURRENT) USE OF ASPIRIN 11/01/2018 ATUL MELENDEZ APRN Ot 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[employer] (CURRENT) USE OF ORAL HYPOGLYC 11/01/2018 ATUL [...] ENCOUNTER 11/01/2018 ATUL MELENDEZ APRN Ot Z79.82 REGIONAL [employer]ICE [employer] (CURRENT) USE OF ASPIRIN 11/01/2018 ATUL MELENDEZ APRN Ot Z79.84 [facility] (CURRENT) USE OF ORAL HYPOGLYC 11/01/2018 ATUL [...] Procedures Code Description [place] [address] ULTRASOUND SOFT TISSUES HEAD & NECK JEANETTE MARSH 10/02/2016 Results Test Result Range Gram stain microscopy - 05/02/17 20:40 GRAM STAIN RESULT NO WBC'S OR BACTERIA OBSERVED NRG Bacteria identification in wound by culture - 05/02/17 20:40 Bacteria identification in wound by culture [id number] NRG FREE TEXT EXTERNAL SENSITIVITY REPORTED 05/04/17 [...] 08:05 Bacteria identification in wound by culture [id number] NRG FREE TEXT EXTERNAL SENSITIVITY REPORTED 05/06 16:10 NRG QUANTITY OF GROWTH Abundant Growth NRG MRSA AGAR MRSA isolated (Screening test for MRSA is positive) NRG CALL POSITIVES (F1 HELP) CALLED TO [facility] 05/06 14:10 NRG Bacterial susceptibility panel - [...] Status Pt. Type Provider Facility Loc./Unit Complaint [id number] 08/31/2017 07:51:00 08/31/2017 16:00:00 DIS Outpatient Casandra ALMAGUER, Dimitry Barbosa [facility] E.CVLO [id number] 08/18/2017 10:29:00 08/18/2017 10:29:00 DIS Outpatient Thania ALMAGUER, Jasen Lee [facility] E.RAC [id number] 05/18/2017 11:00:36 05/18/2017 23:59:59 CLS Outpatient Yanira Martínez [facility] [id number] 11/01/2018 16:50:00 11/01/2018 17:50:00 DIS Emergency ATUL MELENDEZ APRN [facility] ER FALL/TAILBONE PAIN [id number] 10/22/2018 12:11:00 10/22/2018 15:07:00 DIS Emergency ATUL MELENDEZ ROBOT PROGRAMMER [facility] ER DIZZINESS/NOT EATING [id number] 03/18/2018 12:01:00 03/18/2018 23:59:59 CLS Outpatient CHERY JORDAN MD [facility] RAD NODULAR THYROID DESEASE [id number] 12/23/2017 11:32:00 12/23/2017 23:59:59 CLS Outpatient KENDY MADISON DO [facility] RAD M54.5 [id number] 08/04/2017 07:36:00 08/04/2017 23:59:59 CLS Preadmit KENDY MADISON DO [facility] RAD VERIFY DX [id number] 05/05/2017 05:56:00 05/05/2017 10:00:00 DIS Outpatient SANDRA ALMAGUER[facility]SCESS [id number] 05/02/2017 19:13:00 05/02/2017 22:01:00 DIS Emergency KOE DIANA [facility] ER STOMACH RASH POSS SPIDER BITE [id number] 11/04/2016 09:54:00 11/04/2016 23:59:59 CLS Outpatient GRICELDA MANUEL, KENDY Celestin [facility] RAD M17.0 [id number] 04/28/2016 12:57:00 04/28/2016 15:29:00 DIS Emergency KEO DIANA [facility] ER PAIN IN LEGS [id number] 08/05/2015 10:53:00 08/05/2015 11:40:00 DIS Emergency ATUL MELENDEZ ROBOT PROGRAMMER [facility] ER ABSCESS [id number] 05/18/2015 20:38:00 05/18/2015 21:23:00 DIS Emergency ATUL MELENDEZ ROBOT PROGRAMMER [facility] ER RASH [id number] 04/26/2015 09:10:00 04/26/2015 23:59:59 CLS Outpatient GRICELDA KENDY MANUEL Fawad [facility] RAD SCREENING [id number] 04/02/2015 14:22:00 04/02/2015 15:12:00 DIS Emergency MAHENDRA RODRIGUEZ MD [facility] ER TICK BITE [id number] 11/09/2014 06:46:00 11/09/2014 23:59:59 CLS Outpatient TRINO BASHIR MD [facility] RAD CAD,PVD,BP [id number] 09/18/2014 17:04:00 09/18/2014 23:59:59 CLS Outpatient CARLTON MADISON TERRAZZO MECHANIC HELPER [facility] RAD PNEUMONIA [id number] 03/14/2014 10:43:00 03/30/2014 15:50:00 DIS Outpatient ALEX GUY MD [facility] REHAB BACK PAIN [id number] 12/23/2013 06:45:00 12/23/2013 09:17:00 DIS Emergency JAS MCKNIGHT DO [facility] ER CP [id number] 12/11/2013 10:45:00 12/11/2013 13:03:00 DIS Emergency KEO DIANA [facility] ER SWOLLEN HANDS [id number] 05/22/2015 14:25:00 Document Registration [id number] 05/22/2015 14:25:00 Document Registration [id number] 05/22/2015 14:25:00 Document Registration [id number] 05/22/2015 14:25:00 Document Registration [id number] 05/22/2015 14:25:00 Document Registration [id number] 05/22/2015 14:25:00 Document Registration [id number] 05/11/2013 14:25:00 Document Registration [id number] 11/18/2012 09:00:00 Document Registration [id number] 10/04/2012 14:18:00 Document Registration [id number] 09/30/2012 07:18:00 Document Registration [id number] 09/15/2012 09:09:00 Document Registration [id number] 04/08/2012 08:54:00 Document Registration [id number] 03/04/2012 08:30:00 Document Registration [id number] 02/22/2012 17:41:00 Document Registration [id number] 11/17/2011 11:56:00 Document Registration [id number] 06/13/2011 21:07:00 Document Registration [id number] 06/09/2011 09:00:00 Document Registration [id number] 05/26/2011 20:28:00 Document Registration [id number] 05/16/2011 09:35:00 Document Registration [id number] 04/02/2011 11:36:00 Document Registration [id number] 03/07/2010 09:11:00 Document Registration [id number] 02/22/2009 09:07:00 Document Registration [id number] 12/15/2008 19:12:00 Document Registration [id number] 11/19/2006 06:03:00 Document Registration [id number] 10/08/2016 00:00:00 DIS Document Registration
--- NOTE | 2019-02-07 01:25 | NUR ---
JAVIER FRANK Vern admitted to room 425-1, with an admitting diagnosis of UTI, INFLUENZA A; ACUTE RENAL FAILURE, on 02/07/19 from ER via BED, accompanied by [employer]. JAVIER FRANK introduced to surroundings, call light, bed controls, phone, TV, temperature control, lights, meal times, smoking policy, visitor policy, side rail policy, bathrooms and showers. Patient Rights given to patient in the handbook. JAVIER FRANK verbalizes understanding that [facility] is not responsible for the loss or damage to any personal effects or valuables that are kept in the patients possession during their hospitalization.
[2019-02-07] MEDS ORDERED: ONDANSETRON 4 MG/2 ML (SDV) Z0FRAN IV PRN (02:45)
[2019-02-07] MEDS ORDERED: fentaNYL INJECTION 100 MCG/2 ML AMP INJ PRN (02:45)
[2019-02-07] MEDS: NS IV 1000 ML 1,000 ML IV SCH ×3 (02:48→22:31)
[2019-02-07] MEDS: cefTRIAXone 1,000 MG/SWFI 10 ML IV PUSH IV SCH ×2 (02:48)
[2019-02-07] MEDS: inSUlin ASPART (NovoLOG) 1 UNIT/0.01 ML (CHARGE PER UNIT) SC SCH ×4 (05:34→22:27)
[2019-02-07 05:51] LABS: BASOPHILS % (AUTO) 0 % (0-10); EOSINOPHILS % (AUTO) 0 % (0-10); HEMATOCRIT 35 % (35-52); HEMOGLOBIN 11.5 G/DL (11.5-16.0); LYMPHOCYTES # (AUTO) 0.5 X 10^3 (1.0-4.0); LYMPHOCYTES % (AUTO) 11 % (12-44); MEAN CORPUSCULAR HEMOGLOBIN 30 PG (25-34); MEAN CORPUSCULAR HGB CONC 33 G/DL (32-36); MEAN CORPUSCULAR VOLUME 92 FL (80-99); MEAN PLATELET VOLUME 12.3 FL (7.4-10.4); MONOCYTES # (AUTO) 0.6 X 10^3 (0.0-1.0); MONOCYTES % (AUTO) 12 % (0-12); NEUTROPHILS # (AUTO) 3.7 X 10^3 (1.8-7.8); NEUTROPHILS % (AUTO) 77 % (42-75); PLATELET COUNT 140 10^3/uL (130-400); RED CELL DISTRIBUTION WIDTH 14.1 % (10.0-14.5); WHITE BLOOD COUNT 4.8 10^3/uL (4.3-11.0)
[2019-02-07 06:22] LABS: ALBUMIN 3.7 GM/DL (3.2-4.5); BILIRUBIN,TOTAL 0.2 MG/DL (0.1-1.0); CALCIUM 8.2 MG/DL (8.5-10.1); CREATININE SERUM 2.05 MG/DL (0.60-1.30); POTASSIUM 3.6 MMOL/L (3.6-5.0); TOTAL PROTEIN 5.7 GM/DL (6.4-8.2)
--- NOTE | 2019-02-07 06:45 | Diagnostic Imaging Report ---
INDICATION: Fall, chronic lung disease, coronary artery disease. COMPARISON: 09/18/2014. FINDINGS: Single view of the chest demonstrates chronic interstitial changes primarily in the lung bases. Chronic blunting of the right costophrenic angle is present. The heart is slightly enlarged without overt pulmonary edema. There is no pneumothorax, effusion or focal infiltrate. Sternal wires are midline. IMPRESSION: No acute cardiopulmonary findings. Dictated by: Dictated on workstation # [id number]
--- NOTE | 2019-02-07 09:20 | Diagnostic Imaging Report ---
PROCEDURE: CT head without contrast. TECHNIQUE: Multiple contiguous axial images were obtained through the brain without the use of intravenous contrast. INDICATION: Traumatic head injury sustained during fall. COMPARISON: None. FINDINGS: BRAIN: No parenchymal hemorrhage, midline shift or mass effect. [place]aman-white matter differentiation is intact. No acute infarct. Mild periventricular and subcortical low-density white matter changes. Mild prominence of the ventricles and sulci consistent with cortical and cerebellar parenchymal volume loss. EXTRA-AXIAL SPACES: No subdural or epidural collections. ORBITS AND PARANASAL SINUSES: Visualized orbits and globes are intact. There is mucosal thickening in the ethmoid air cells and an air-fluid in the right sphenoid sinus. Minimal mucosal thickening is also demonstrated in the left maxillary sinus. The remaining visualized paranasal sinuses and mastoid air cells are clear. CALVARIUM AND SOFT TISSUES: The calvarium is intact. No fractures or suspicious bony lesions. The extracranial soft tissues are unremarkable. IMPRESSION: No acute intracranial pathology. Chronic changes consisting of age-related volume loss and mild nonspecific white matter disease, most commonly attributed to small vessel ischemic change. Sinus disease as detailed above. Findings are in agreement with initial teleradiology report. Dictated by: Dictated on workstation # [id number]
[2019-02-07] MEDS: OSELTAMIVIR 30 MG (TAMIFLU) CAPSULE PO SCH ×2 (09:53→21:03)
[2019-02-07] MEDS: CLOPIDOGREL 75 MG (PLAVIX) TABLET PO SCH (09:53)
[2019-02-07] MEDS ORDERED: CHOL10003 PO (10:35)
[2019-02-07] MEDS ORDERED: ALBU2.5V4 NEB (10:35)
[2019-02-07] MEDS ORDERED: GABA-488 PO (10:35)
[2019-02-07] MEDS ORDERED: FLUT1DIS28 INH (10:35)
[2019-02-07] MEDS ORDERED: SERT50TA9 PO (10:35)
[2019-02-07] MEDS ORDERED: ASPI-983 PO (10:35)
[2019-02-07] MEDS ORDERED: TRIA1TAB5 PO (10:35)
[2019-02-07] MEDS ORDERED: OMEP20CA12 PO (10:35)
[2019-02-07] MEDS ORDERED: HYDR-3820 PO (10:35)
[2019-02-07] MEDS ORDERED: ATOR20TA66 PO (10:35)
[2019-02-07] MEDS ORDERED: ALPR0.5T7 PO (10:35)
[2019-02-07] MEDS ORDERED: ATEN25TA PO (10:35)
[2019-02-07] MEDS ORDERED: CLOP75TA28 PO (10:35)
[2019-02-07] MEDS ORDERED: METF-397 PO (10:35)
[2019-02-07] MEDS ORDERED: ACET-2267 PO (10:49)
[2019-02-07] MEDS ORDERED: CYAN10006 PO (10:49)
--- NOTE | 2019-02-07 10:51 | NUR ---
PATIENT HAD HER MEDICATIONS BOTTLES AND A PILL SADDLE LINING STITCHER IN HER ROOM. I UPDATED THE MED REC WITH THOSE WELL COMPARING WITH THE EXT MED HX. SHE TAKES TYLENOL, ASPIRIN, AND B12 OTC.
--- NOTE | 2019-02-07 11:21 | History & Physical-Hospitalist ---
History of Present Illness HPI/Chief Complaint Pt is 69yoCF with a PMH of NIDDMII, CKD, HTN, and COPD who presented to the ER with CC of weakness and falls. She is a very poor historian and most history comes from her son who is at bedside. He states that over the past 4-5 months she has been falling more about 1x/week. She states she has a walker but does not use and doesn't know why she doesn't use it. She does not use a cane either. She complains of significant weakness as well. She fell again yesterday and her called EMS to bring her to the ER for evaluation. She was found to be febrile on arrival and tested positive for the flu. She also had a UTI. This morning she states that she is feeling slightly better but still weak. She also complains of wheezing. Source: patient Exam Limitations: no limitations Date Seen 02/07/19 Time Seen by a Provider: 11:16 Attending Physician Gill Messer MD PCP Neo Mcgill DO Referring Physician Date of Admission Feb 07, 2019 at 00:23 Home Medications & Allergies Home Medications Reviewed patient Home Medication Reconciliation performed by pharmacy medication reconciliations tire and lube technician and/or nursing. Patients Allergies have been reviewed. Allergies Allergies Coded Allergies No Known Drug Allergies (Unverified06/07/09) Past Fyolwqp-Vvpcec-Rknrxg Hx Past Med/Social Hx: Reviewed Nursing Past Med/Soc Hx Patient Social History Marrital Status: Alcohol Use: Denies Use Recreational Drug Use: No Smoking Status: Current Everyday Smoker Cigaretts per day: 20 Type Used: Cigarettes 2nd Hand Smoke Exposure: Yes Recent Foreign Travel: No Contact w/other who traveled: No Recent Hopitalizations: No Recent Infectious Disease Expo: Yes (Influenza A) Immunizations Up To Date Tetanus Booster (TDap): Less than 5yrs Date of Pneumonia Vaccine: Oct 30, 2012 Date of Influenza Vaccine: Sep 30, 2018 Seasonal Allergies Seasonal Allergies: No Past Medical History Surgeries: CABG, Thyroidectomy Hysterectomy Gastrointestinal: Gastroesophageal Reflux, Hiatal Hernia Musculoskeletal: Arthritis Endocrine: Hypothyroidsim, Diabetes, Non-Insulin dep Psychosocial: Anxiety Skin/Integumentary: Eczema History of Blood Disorders: No Family History Reviewed Nursing Family Hx Alzheimer's disease 19 MOTHER FH: cancer G8 SISTER FH: heart disease 19 FATHER Kidney disease 19 MOTHER Myocardial infarction G8 BROTHER No Pertinent Family Hx Review of Systems Constitutional: fever, malaise, weakness EENTM: no symptoms reported Respiratory: cough, wheezing Cardiovascular: no symptoms reported Gastrointestinal: no symptoms reported Genitourinary: frequency, incontinence Musculoskeletal: muscle weakness Skin: no symptoms reported Psychiatric/Neurological: See HPI, Weakness All Other Systems Reviewed Negative Unless Noted: Yes (Negative excepted noted.) Physical Exam Physical Exam Vital Signs Vital Signs - First Documented 02/06/19 21:52 Temp 102.6 Pulse 87 Resp 18 B/P (MAP) 142/80 (100) Pulse Ox 96 O2 Delivery Room Air Capillary Refill : Less Than 3 Seconds Height, Weight, BMI Height: 5'1.00" Weight: 134lbs. 0.0oz. [id number]; 25.3 BMI Method:Stated General Appearance: No Apparent Distress, WD/WN, Chronically ill Eyes: Right Eye Normal Inspection, Right Eye PERRL HEENT: PERRL/EOMI, Moist Mucous Membranes; No Scleral Icterus (L), No Scleral Icterus (R) Neck: Full Range of Motion, Normal Inspection, Non Tender Respiratory: No Accessory Muscle Use, No Respiratory Distress, Wheezing Cardiovascular: Regular Rate, Rhythm, No JVD, No Murmur, Normal Peripheral Pulses Gastrointestinal: Normal Bowel Sounds, Non Tender, Soft Extremity: Normal Range of Motion, Non Tender, No Calf Tenderness, No Pedal Edema Neurologic/Psychiatric: Alert, Oriented x3 Skin: Normal Color, Warm/Dry Lymphatic: No Adenopathy Results Results/Procedures Labs Laboratory Tests 02/06/19 21:58 02/07/19 05:41 Patient resulted labs reviewed. Imaging: Reviewed Imaging Report Assessment/Plan Admission Diagnosis UTI and Influenza with LIBERTAD Admission Status: Inpatient Order (span 2 midnights) Reason for Inpatient Admission: Needs IV abx, await cultures Diagnosis/Problems Diagnosis/Problems (1) UTI (urinary tract infection) Status: Acute Assessment & Plan: Sepsis due to UTI Does not meet severe criteria Continue IV abx Await cultures Qualifiers: Urinary tract infection type: acute cystitis Hematuria presence: without hematuria Qualified Codes: N30.00 - Acute cystitis without hematuria (2) Influenza Status: Acute Assessment & Plan: Continue renally dosed Tamiflu (3) COPD (chronic obstructive pulmonary disease) Assessment & Plan: 1ppd smoker Continue home advair Significant wheezing with oxygen requirement Start steroids Consult pulm MAT protocol Qualifiers: COPD type: COPD with acute lower respiratory infection Qualified Codes: J44.0 - Chronic obstructive pulmonary disease with acute lower respiratory infection (4) CAD (coronary artery disease) Status: Chronic Assessment & Plan: Cotinue home ASA and Plavix Continue Statin Qualifiers: Coronary Disease-Associated Artery/Lesion type: [place] artery [place] vs. transplanted heart: [place] heart Associated angina: without angina Qualified Codes: I25.10 - Atherosclerotic heart disease of [place] coronary artery without angina pectoris (5) CKD (chronic kidney disease) Assessment & Plan: baseline Creatinine 2 in Novemeber Back to baseline today Trend Continue IVF Qualifiers: Chronic kidney disease stage: stage 3 (moderate) Qualified Codes: N18.3 - Chronic kidney disease, stage 3 (moderate) (6) Falls frequently Status: Chronic Assessment & Plan: Worsened over the past few months PT/OT consulted Has walker- but does not use it (7) Essential (primary) hypertension Assessment & Plan: BP well controlled Hold home meds (8) Non-insulin dependent type 2 diabetes mellitus Assessment & Plan: SSI ordered (9) Tobacco abuse Assessment & Plan: Smoking cessation encouraged Clinical Quality Measures DVT/VTE Risk/Contraindication: Risk Factor Score Per Nursin RFS Level Per Nursing on Admit: 4+=Very High EMERY DAUGHERTY MD Feb 07, 2019 11:20
[2019-02-07] MEDS ORDERED: ALPRAZolam 0.5 MG (XANAX) TAB PO PRN (11:30)
[2019-02-07] MEDS ORDERED: methylPREDNISolone 40 MG/ML (Solu-MEDROL) VIAL IV SCH (14:15)
--- NOTE | 2019-02-07 14:20 | Occupational Therapy Eval ---
OT Evaluation-General/PLF Medical Diagnosis Admission Date Feb 07, 2019 at 00:23 Medical Diagnosis: Sepsis secondary to UTI, flu Onset Date: Feb 07, 2019 Therapy Diagnosis Therapy Diagnosis: Weakness Height/Weight Height (Feet): 5 Height (Inches): 1.00 Weight (Pounds): 134 Weight (Ounces): 0.0 Precautions Precautions/Isolations: Fall Prevention, Standard Precautions, Pressure Ulcer Safety Interventions: Bed Exit Alarm Weight Bear Status Weight Bearing Restriction: Weight Bearing/Tolerated Referral Physician: Dr. Messer Referral Reason: Activity Tolerance, Self Care, Evaluation/Treatment, Strengthening/ROM Medical History Additional Medical History CABG, Thyroidectomy, hiatal hernia, arthritis, diabetes Current History Pt. became ill at home. Sustained two falls. Came to ER with UTI. Reviewed History: Yes Social History Home: Single Level Current Living Status: Spouse Entry Into Home: Level Entry ADL-Prior Level of Function Therapy Code Descriptions/Definitions Functional [place] Measure: 0=Not Assessed/NA 4=Minimal Assistance 1=Total Assistance 5=Supervision or Setup 2=Maximal Assistance 6=Modified [place] 3=Moderate Assistance 7=Complete [place] Therapy Quality Codes: 6 Independent with activity with or without an assistive device 5 Patient requires set up or clean up by helper. Patient completes activity by themselves 4 Supervision or touching assist (CGA). [place] provide cues , steadying assist 3 The helper provides less than half the effort to complete the activity 2 The helper provides more than half the effort to complete the activity 1 Dependent. The helper does all the effort to complete an activity 7 Patient refused to complete or attempt activity 9 The patient did not perform the activity before the current illness or injury 88 Not attempted due to Medical conditions or safety concerns Functional Abilities and Goals: Independent: Patient completed the activities by him/herself, with or without an assistive device, with no assistance from a helper. Needed Some Help: Patient needed partial assistance from another person to complete activities. Dependent: A helper completed the activities for the patient. Unknown: Not Applicable: ADL PLOF Comments Pt. was independent with daily tasks. Does not use walker for ambulation. Self Care: Independent Functional Cognition: Independent Drive Self: No OT Current Status Subjective Pt. states that she does not feel well. Does not report pain. Appearance Pt. in bed. Agrees to work with OT. Mental Status/Objective Patient Orientation: Person, Place Attachments: IV, Oxygen Current Hand Dominance: Right Upper Extremity ROM WFL ADL-Treatment Therapy Code Descriptions/Definitions Functional [place] Measure: 0=Not Assessed/NA 4=Minimal Assistance 1=Total Assistance 5=Supervision or Setup 2=Maximal Assistance 6=Modified [place] 3=Moderate Assistance 7=Complete [place] Therapy Quality Codes: 6 Independent with activity with or without an assistive device 5 Patient requires set up or clean up by helper. Patient completes activity by themselves 4 Supervision or touching assist (CGA). [place] provide cues , steadying assist 3 The helper provides less than half the effort to complete the activity 2 The helper provides more than half the effort to complete the activity 1 Dependent. The helper does all the effort to complete an activity 7 Patient refused to complete or attempt activity 9 The patient did not perform the activity before the current illness or injury 88 Not attempted due to Medical conditions or safety concerns Grooming (FIM): 3 (Pt. attempts to brush hair, but overall requires mod assist to do it adequately.) Lower Body Dressing (FIM): 1 (Dependent to don slipper socks.) Transfers (B, C, W/C) (FIM): 3 (Pt. requires mod assist for supine-sit. Pt. requires constant min assist for balance while seated on side of bed, as she is continually leaning. Mod assist for sit-stand and to take steps toward HOB. Min assist sit-supine.) Other Treatments OT offers to assist pt. with brushing teeth. Pt. states that she doesn't have teeth and declines cleaning mouth/brushing gums. Education OT Patient Education: Correct positioning, Energy conservation, Modified ADL techniques, Progress toward Goal/Update tx plan, Purpose of tx/functional activities, Reviewed precautions, Rehab process, Transfer techniques Teaching Recipient: Patient Teaching Methods: Demonstration, Discussion Response to Teaching: Verbalize Understanding, Return Demonstration OT Short Term Goals Short Term Goals Time Frame: Feb 14, 2019 Eating(FIM): 5 Grooming(FIM): 4 Bathing(FIM): 3 Upper Body Dressing(FIM): 4 Lower Body Dressing(FIM): 4 Toileting(FIM): 4 Transfers (B,C,W/C) (FIM): 4 Toilet/Commode Transfer(FIM): 4 Additional Short Term Goals: 1-Demonstrate ADL Tasks, 2-Verbalize Understanding , 3-ImproveStrength/Rafat 1=Demonstrate adherence to instructed precautions during ADL tasks. 2=Patient will verbalize/demonstrate understanding of assistive devices/ modifications for ADL. 3=Patient will improve strength/tolerance for activity to enable patient to perform ADL's. OT Prison Goals Prison Goals Time Frame: Feb 21, 2019 Eating (FIM): 7 Grooming(FIM): 5 Bathing(FIM): 4 Upper Body Dressing(FIM): 5 Lower Body Dressing(FIM): 5 Toileting(FIM): 6 Transfers (B,C,W/C) (FIM): 6 Toilet/Commode Transfer(FIM): 6 Shower Transfer(FIM): 4 Additional Goals: 1-Demonstrate ADL Tasks, 2-Verbalize Understanding, 3- ImproveStrength/Rafat 1=Demonstrate adherence to instructed precautions during ADL tasks. 2=Patient will verbalize/demonstrate understanding of assistive devices/ modifications for ADL. 3=Patient will improve strength/tolerance for activity to enable patient to perform ADL's. OT Education/Plan Problem List/Assessment Assessment: Decreased Activ Tolerance, Decreased UE Strength, Dependent Transfers, Impaired Bed Mobility, Impaired Funct Balance, Impaired I ADL's, Impaired Self-Care Skills Discharge Recommendations Plan/Recommendations: Continue POC Therapy D/C Recommendations: Home w/ Family Support, Occupational Therapy Home Care, Scheduled Assistance Equpiment Recommendations-D/C: Hip Kit Treatment Plan/Plan of Care Treatment,Training & Education: Yes Patient would benefit from OT for education, treatment and training to promote independence in ADL's, mobility, safety and/or upper extremity function for ADL' s. Plan of Care: ADL Retraining, Functional Mobility, UE Funct Exercise/Act Treatment Duration: Feb 21, 2019 Frequency: 5 times per week Estimated Hrs Per Day: .5 hour per day Agreement: Yes Rehab Potential: Fair Time/GCodes Start Time: 12:15 Stop Time: 12:37 Total Time Billed (hr/min): 22 Billed Treatment Time 1, RONAL SOOD OT Feb 07, 2019 14:20
--- NOTE | 2019-02-07 14:25 | NUR ---
Pastoral care visit.
--- NOTE | 2019-02-07 14:33 | Physical Therapy Evaluation ---
PT Evaluation-General Medical Diagnosis Admission Date Feb 07, 2019 at 00:23 Medical Diagnosis: UTI, influenza A, acute renal failure Onset Date: Feb 06, 2019 Therapy Diagnosis Therapy Diagnosis: impaired mobility, strength, endurance Height/Weight Height (Feet): 5 Height (Inches): 1.00 Weight (Pounds): 134 Weight (Ounces): 0.0 Precautions Precautions/Isolations: Fall Prevention, Standard Precautions, Pressure Ulcer Weight Bear Status Right Lower Extremity: Right Weight Bearing/Tolerated Left Lower Extremity: Left Weight Bearing/Tolerated Referral Physician: Gege Soni MD Reason for Referral: Evaluation/Treatment Medical History Pertinent Medical History: Arthritis, DM, GERD, Hypothroidism, Smoking Additional Medical History hiatal hernia, anxiety, eczema, surg (CABG, thyroidectomy, hysterectomy) Reviewed History: Yes Social History Current Living Status: Spouse Entry Into Home: Stairs With Railing PT Steps Into Home: 2 Prior/Core FIM Prior Level of Function Therapy Code Descriptions/Definitions Functional [place] Measure: 0=Not Assessed/NA 4=Minimal Assistance 1=Total Assistance 5=Supervision or Setup 2=Maximal Assistance 6=Modified [place] 3=Moderate Assistance 7=Complete [place] Therapy Quality Codes: 6 Independent with activity with or without an assistive device 5 Patient requires set up or clean up by helper. Patient completes activity by themselves 4 Supervision or touching assist (CGA). [place] provide cues , steadying assist 3 The helper provides less than half the effort to complete the activity 2 The helper provides more than half the effort to complete the activity 1 Dependent. The helper does all the effort to complete an activity 7 Patient refused to complete or attempt activity 9 The patient did not perform the activity before the current illness or injury 88 Not attempted due to Medical conditions or safety concerns Functional Abilities and Goals: Independent: Patient completed the activities by him/herself, with or without an assistive device, with no assistance from a helper. Needed Some Help: Patient needed partial assistance from another person to complete activities. Dependent: A helper completed the activities for the patient. Unknown: Not Applicable: Bed Mobility: 6 Transfers (B,C,W/C) (FIM): 6 Gait: 6 Indoor Mobility (Ambulation): Independent Stairs: Independent Patient stats she uses a rolling walker on occasion PT Evaluation-Current Subjective Patient in bed pre tx, agrees to PT, has no complaints of pain. Patient is emotional and weeping. Pt/Family Goals to be independent at home Objective Patient Orientation: Person, Confused Attachments: Oxygen, IV ROM/Strength ROM Lower Extremities WNL Strength Lower Extremities 4/5 gross bilateral lower extremities Neuromuscular (Tone, Coordination, Reflexes) NT Sensory Vision: Functional Hearing: Functional Sensation Right Lower Extremit: Intact Sensation Left Lower Extremity: Intact Transfers Therapy Code Descriptions/Definitions Functional [place] Measure: 0=Not Assessed/NA 4=Minimal Assistance 1=Total Assistance 5=Supervision or Setup 2=Maximal Assistance 6=Modified [place] 3=Moderate Assistance 7=Complete [place] Transfers (B, C, W/C) (FIM): 4 Scootin Rollin Supine to/from Sit: 4 Sit to/from Stand: 5 Gait Mode of Locomotion: Walk Anticipated Mode of Locomotion: Walk Gait (FIM): 1 Distance: 20' Gait Level of Assist: 4 Gait Persons Needed: 1 Gait Assistive Device: FWW Comments/Gait Description CGA, patient needs cues for safety and she tends to get out from behind the walker impulsively. Patient had to use the restroom, hurried to restroom. Needed brief changed and then back to bed. Balance Sitting Static: Fair Sitting Dynamic: Fair Standing Static: Fair Standing Dynamic: Fair Treatment supine exercises x15 (AP, HS) Assessment/Needs impaired mobility, strength, endurance, can be impulsive, needs cues for safety Rehab Potential: Fair PT Short Term Goals Short Term Goals Time Frame: Feb 14, 2019 Transfers (B,C,W/C) (FIM): 5 Gait (FIM): 2 Gait Distance Comment: 50' Gait Level of Assist: 5 Gait Assistive Device: FWW PT Plan Problem List Problem List: Activity Tolerance, Functional Strength, Safety, Balance, Gait, Transfer, Bed Mobility Treatment/Plan Treatment Plan: Continue Plan of Care Treatment Plan: Bed Mobility, Education, Functional Activity Rafat, Functional Strength, Gait, Safety, Therapeutic Exercise, Transfers Treatment Duration: Feb 14, 2019 Frequency: 6 times per week Estimated Hrs Per Day: .25 hour per day (15-30') Patient and/or Family Agrees t: Yes Safety Risks/Education Patient Education: Gait Training, Transfer Techniques, Correct Positioning, Safety Issues Teaching Recipient: Patient Teaching Methods: Demonstration, Discussion Response to Teaching: Reinforcement Needed Discharge Recommendations Plan Patient will perform bed mobility and transfer training, balance and endurance training, functional strengthening, stair training, gait training, and education , to improve functional mobility and independence at home. Therapy D/C Recommendations: Home w/ Family Support, Mcfp (TCU/NH) Time/GCodes Time In: 1320 Time Out: 1340 Total Billed Treatment Time: 20 Total Billed Treatment 1 visit JONATHAN Cohen' PATRICK MAIN PT Feb 07, 2019 14:33
[2019-02-07] MEDS: HYDROcodone/APAP 10 MG/325 MG (LORTAB) TAB PO PRN ×2 (15:00→21:15)
--- NOTE | 2019-02-07 16:35 | Pulmonary Consultation ---
History of Present Illness History of Present Illness Date of Consultation 02/07/19 16:29 Time Seen by Provider: 16:33 Date of Admission History of Present Illness 69yo poor historian with hx of NIDDM, CKD, HTN, COPD presented to ED secondary to worsening weakness leading to falls. Pt has been falling about 1 x /wk over the last 4-5mo. While in the ED pt was found to have influenza A and UTI. I am consulted for COPD and wheezing. Allergies and Home Medications Allergies Coded Allergies: No Known Drug Allergies (Unverified , 06/07/09) Home Medications Acetaminophen 500 Mg Tablet, 1,000 MG PO BID, (Reported) Albuterol Sulfate 2.5 Mg/3 Ml Vial.neb, 2.5 MG NEB Q4H PRN for SHORTNESS OF BREATH, (Reported) Alprazolam 0.5 Mg Tablet, 0.5 MG PO TID PRN for ANXIETY, (Reported) Aspirin 81 Mg Tablet.dr, 81 MG PO HS, (Reported) Atenolol 25 Mg Tablet, 25 MG PO HS, (Reported) Atorvastatin Calcium 20 Mg Tablet, 20 MG PO HS, (Reported) Clopidogrel Bisulfate 75 Mg Tablet, 75 MG PO HS, (Reported) Cyanocobalamin (Vitamin B-12) 1,000 Mcg Tablet, 1,000 MCG PO DAILY, (Reported) Fluticasone/Salmeterol 1 Each Blst.w.dev, 1 PUFF INH BID, (Reported) Gabapentin 300 Mg Capsule, 300 MG PO BID, (Reported) Hydrocodone/Acetaminophen 1 Each Tablet, 1 TAB PO Q6H PRN for PAIN-MODERATE, ( Reported) Metformin HCl 500 Mg Tablet, 1,000 MG PO BID, (Reported) TAKES 2 (500MG) TABLETS Omeprazole 20 Mg Capsule.dr, 20 MG PO DAILY, (Reported) Sertraline HCl 50 Mg Tablet, 50 MG PO DAILY, (Reported) Triamterene/Hydrochlorothiazid 1 Each Tablet, 1 TAB PO HS, (Reported) Past Hrqbenw-Tmrxnz-Ozscam Hx Past Med/Social Hx: Reviewed Nursing Past Med/Soc Hx Patient Social History Alcohol Use: Denies Use Recreational Drug Use: No Smoking Status: Current Everyday Smoker Type Used: Cigarettes 2nd Hand Smoke Exposure: Yes Recent Foreign Travel: No Contact w/Someone Who Travel: No Recent Infectious Disease Expo: Yes (Influenza A) Recent Hopitalizations: No Immunizations Up To Date Tetanus Booster (TDap): Less than 5yrs Date of Pneumonia Vaccine: Oct 30, 2012 Date of Influenza Vaccine: Sep 30, 2018 Seasonal Allergies Seasonal Allergies: No Past Medical History Surgeries: Yes CABG, Thyroidectomy Respiratory: Yes Asthma, Chronic Bronchitis, COPD Cardiac: Yes (CABG/STENTS. 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 0.0oz. 60.649828lt; 25.3 BMI Method:Stated Exam Exam Vital Signs Date Time Temp Pulse Resp B/P (MAP) Pulse Ox O2 Delivery O2 Flow Rate FiO2 02/07/19 15:58 97.6 69 16 116/56 (76) 94 Nasal Cannula 2.00 02/07/19 12:00 99.0 71 18 100/65 (77) 98 Nasal Cannula 2.00 02/07/19 09:27 Nasal Cannula 2.00 02/07/19 08:00 99.2 61 18 115/52 (73) 100 Nasal Cannula 2.00 02/07/19 03:50 98.2 66 18 102/50 (67) 97 Nasal Cannula 2.00 02/07/19 01:25 99.9 72 20 93/52 (66) 98 Nasal Cannula 2.00 02/07/19 01:25 98 Nasal Cannula 2.00 02/07/19 01:25 99.9 72 20 93/52 98 Nasal Cannula 2.00 02/06/19 21:52 102.6 87 18 142/80 (100) 96 Room Air I & O 02/07/19 07:00 Intake Total 1310 ml Output Total 100 ml Balance 1210 ml Height & Weight Height: 5'1.00" Weight: 134lbs. 0.0oz. 60.026260wp; 25.3 BMI Method:Stated General Appearance: No Apparent Distress, WD/WN, Chronically ill HEENT: PERRL/EOMI, Moist Mucous Membranes; No Scleral Icterus (L), No Scleral Icterus (R) Neck: Full Range of Motion, Normal Inspection, Non Tender Respiratory: No Accessory Muscle Use, No Respiratory Distress, Wheezing Cardiovascular: Regular Rate, Rhythm, No JVD, No Murmur, Normal Peripheral Pulses Capillary Refill: Less Than 3 Seconds Extremity: Normal Range of Motion, Non Tender, No Calf Tenderness, No Pedal Edema Neurologic/Psychiatric: Alert, Oriented x3 Skin: Normal Color, Warm/Dry Lymphatic: No Adenopathy Results Lab Laboratory Tests 02/06/19 21:58 02/07/19 05:41 Assessment/Plan Assessment/Plan COPDAE -Solumedrol -SVNS -Oxygen -Will have pt do out patient pulmonary rehab, PFT UTI -Continue Abx Influenza with dehydration -IVF Weakness/multiple falls - Tobacco use -Education CAD hx CKD -Monitor Debility/frequent falls -PT/OT NIDDM VANNESA GARNER DO Feb 07, 2019 16:35
[2019-02-07] MEDS: RT-ALBUTEROL/IPRATROPIUM 3 ML (DUONEB) VIAL INH PRN (16:59)
[2019-02-07] MEDS: RT-ALBUTEROL/IPRATROPIUM 3 ML (DUONEB) VIAL INH SCH ×2 (19:14→22:52)
[2019-02-07] MEDS ORDERED: ADVAIR HFA 45/21 MCG INHALER 8 GM IH SCH (20:00)
[2019-02-07] MEDS ORDERED: RT-ADVAIR HFA 115/21 MCG PER PUFF IH SCH (20:00)
[2019-02-07] MEDS ORDERED: CLOPIDOGREL 75 MG (PLAVIX) TABLET PO SCH (21:00)
[2019-02-07] MEDS ORDERED: TRIAMTERENE/HCTZ 75-50 (MAXZIDE,DYAZIDE) TABLET PO SCH (21:00)
[2019-02-07] MEDS: ATORVASTATIN 20 MG (LIPITOR) TABLET PO SCH (21:03)
[2019-02-07] MEDS: methylPREDNISolone 40 MG/ML (Solu-MEDROL) VIAL IV SCH (21:03)
[2019-02-07] MEDS: ATENOLOL 25 MG (TENORMIN) TAB PO SCH (21:03)
[2019-02-07] MEDS: ACETAMINOPHEN 500 MG TAB (TYLENOL) PO SCH ×2 (21:03→21:06)
[2019-02-07] MEDS: GABAPENTIN 300 MG (NEURONTIN) CAP PO SCH (21:03)
[2019-02-07] MEDS: ASPIRIN E.C. 81 MG (ECOTRIN) TAB PO SCH (21:03)
[2019-02-08] MEDS: cefTRIAXone 1,000 MG/SWFI 10 ML IV PUSH IV SCH ×2 (02:09)
[2019-02-08 02:20] VITALS: BP 147/66
[2019-02-08] MEDS: ATENOLOL 25 MG (TENORMIN) TAB PO SCH ×2 (02:26→20:08)
[2019-02-08] MEDS: methylPREDNISolone 40 MG/ML (Solu-MEDROL) VIAL IV SCH ×4 (02:29→20:01)
[2019-02-08] MEDS: RT-ALBUTEROL/IPRATROPIUM 3 ML (DUONEB) VIAL INH SCH ×6 (02:34→22:36)
[2019-02-08 06:08] LABS: BASOPHILS % (AUTO) 0 % (0-10); EOSINOPHILS % (AUTO) 0 % (0-10); HEMATOCRIT 37 % (35-52); HEMOGLOBIN 11.9 G/DL (11.5-16.0); LYMPHOCYTES # (AUTO) 0.3 X 10^3 (1.0-4.0); LYMPHOCYTES % (AUTO) 17 % (12-44); MEAN CORPUSCULAR HEMOGLOBIN 30 PG (25-34); MEAN CORPUSCULAR HGB CONC 33 G/DL (32-36); MEAN CORPUSCULAR VOLUME 92 FL (80-99); MEAN PLATELET VOLUME 12.4 FL (7.4-10.4); MONOCYTES # (AUTO) 0.1 X 10^3 (0.0-1.0); MONOCYTES % (AUTO) 5 % (0-12); NEUTROPHILS # (AUTO) 1.4 X 10^3 (1.8-7.8); NEUTROPHILS % (AUTO) 79 % (42-75); PLATELET COUNT 104 10^3/uL (130-400); RED CELL DISTRIBUTION WIDTH 13.7 % (10.0-14.5); WHITE BLOOD COUNT 1.8 10^3/uL (4.3-11.0)
[2019-02-08 06:19] LABS: CALCIUM 8.6 MG/DL (8.5-10.1); CREATININE SERUM 1.1 MG/DL (0.60-1.30); POTASSIUM 3.5 MMOL/L (3.6-5.0)
[2019-02-08] MEDS: inSUlin ASPART (NovoLOG) 1 UNIT/0.01 ML (CHARGE PER UNIT) SC SCH ×4 (06:30→21:49)
[2019-02-08 07:57] VITALS: BP 154/68
[2019-02-08] MEDS: RT-ALBUTEROL/IPRATROPIUM 3 ML (DUONEB) VIAL INH PRN (08:18)
[2019-02-08] MEDS: ADVAIR HFA 45/21 MCG INHALER 8 GM IH SCH ×2 (08:19→19:26)
--- NOTE | 2019-02-08 09:26 | Progress Note-Hospitalist ---
Subjective HPI/CC On Admission Date Seen by Provider: Feb 08, 2019 Time Seen by Provider: 09:20 Pt is 69yoCF with a PMH of NIDDMII, CKD, HTN, and COPD who presented to the ER with CC of weakness and falls. She is a very poor historian and most history comes from her son who is at bedside. He states that over the past 4-5 months she has been falling more about 1x/week. She states she has a walker but does not use and doesn't know why she doesn't use it. She does not use a cane either. She complains of significant weakness as well. She fell again yesterday and her called EMS to bring her to the ER for evaluation. She was found to be febrile on arrival and tested positive for the flu. She also had a UTI. This morning she states that she is feeling slightly better but still weak. She also complains of wheezing. Subjective/Events-last exam Pt reports feeling better today. Focused Exam Lactate Level 02/06/19 21:58: Lactic Acid Level 1.54 Objective Exam Vital Signs Vital Signs Date Time Temp Pulse Resp B/P (MAP) Pulse Ox O2 Delivery O2 Flow Rate FiO2 02/08/19 08:18 95 Nasal Cannula 2.00 02/08/19 07:57 97.8 57 18 154/68 (96) 02/07/19 16:30 28 Capillary Refill : Less Than 3 Seconds General Appearance: No Apparent Distress, WD/WN HEENT: Other Respiratory: Lungs Clear, Normal Breath Sounds Cardiovascular: Regular Rate, Rhythm, No Murmur Gastrointestinal: Normal Bowel Sounds, Non Tender, Soft Neurologic/Psychiatric: Alert, Oriented x3 (poor recall) Skin: Normal Color, Warm/Dry Lymphatic: No Adenopathy Results/Procedures Lab Laboratory Tests 02/08/19 05:43 Patient resulted labs reviewed. Imaging: Reviewed Imaging Report Assessment/Plan Assessment and Plan Assess & Plan/Chief Complaint UTI Diagnosis/Problems Diagnosis/Problems (1) UTI (urinary tract infection) Status: Acute Assessment & Plan: Sepsis due to UTI Does not meet severe criteria Continue IV abx BC with NGTD Urine culture with GNR- await ID and sensitivities Qualifiers: Urinary tract infection type: acute cystitis Hematuria presence: without hematuria Qualified Codes: N30.00 - Acute cystitis without hematuria (2) Influenza Status: Acute Assessment & Plan: Continue Tamiflu (3) COPD (chronic obstructive pulmonary disease) Assessment & Plan: 1ppd smoker Continue home advair Wheezing much improved Continue steroids Consulted pulm MAT protocol Qualifiers: COPD type: COPD with acute lower respiratory infection Qualified Codes: J44.0 - Chronic obstructive pulmonary disease with acute lower respiratory infection (4) CAD (coronary artery disease) Status: Chronic Assessment & Plan: Cotinue home ASA and Plavix Continue Statin Qualifiers: Coronary Disease-Associated Artery/Lesion type: [place] artery [place] vs. transplanted heart: [place] heart Associated angina: without angina Qualified Codes: I25.10 - Atherosclerotic heart disease of [place] coronary artery without angina pectoris (5) CKD (chronic kidney disease) Status: Chronic Assessment & Plan: Appears to have had LIBERTAD in Novemeber Creatinine now 1.1 Acute kidney injury resolved Will DC IVF Qualifiers: Chronic kidney disease stage: stage 2 (mild) Qualified Codes: N18.2 - Chronic kidney disease, stage 2 (mild) (6) Falls frequently Status: Chronic Assessment & Plan: Worsened over the past few months PT/OT consulted Has walker- but does not use it Discussed option for rehab with her today and at first she agreed if she were accepted and then immediately asked ot DC home I am unsure her ability to recall- may be due to acute illness ST consulted for cognitive assessment Was able to get to commode on her own today- may be able to go home with HH and family support if continues to improve (7) Essential (primary) hypertension Assessment & Plan: BP well controlled Hold home meds (8) Non-insulin dependent type 2 diabetes mellitus Assessment & Plan: SSI ordered (9) Tobacco abuse Assessment & Plan: Smoking cessation encouraged Clinical Quality Measures DVT/VTE Risk/Contraindication: Risk Factor Score Per Nursin RFS Level Per Nursing on Admit: 4+=Very High EMERY DAUGHERTY MD Feb 08, 2019 09:25
[2019-02-08] MEDS: GABAPENTIN 300 MG (NEURONTIN) CAP PO SCH ×2 (09:38→20:01)
[2019-02-08] MEDS: PANTOPRAZOLE 20 MG TABLET (PROTONIX) PO SCH (09:38)
[2019-02-08] MEDS: OSELTAMIVIR 30 MG (TAMIFLU) CAPSULE PO SCH ×2 (09:38→20:01)
[2019-02-08] MEDS: CLOPIDOGREL 75 MG (PLAVIX) TABLET PO SCH (09:39)
[2019-02-08] MEDS: ACETAMINOPHEN 500 MG TAB (TYLENOL) PO SCH ×2 (09:39→20:03)
[2019-02-08] MEDS: SERTRALINE 50 MG (ZOLOFT) TABLET PO SCH (09:39)
[2019-02-08] MEDS: HYDROcodone/APAP 10 MG/325 MG (LORTAB) TAB PO PRN (10:31)
--- NOTE | 2019-02-08 10:35 | Occupational Ther Daily Note ---
OT Current Status-Daily Note Subjective Pt in bed, states she is feeling better today, wants to go home soon. Denied pain at this time. Mental Status/Objective Therapy Code Descriptions/Definitions Functional [place] Measure: 0=Not Assessed/NA 4=Minimal Assistance 1=Total Assistance 5=Supervision or Setup 2=Maximal Assistance 6=Modified [place] 3=Moderate Assistance 7=Complete [place] ADL-Treatment Pt supine to sit with SBA. Pt sat EOB with good balance during ADL tasks. Pt combed hair and washed face with set up. Pt declined to shower at this time, states her family is bringing her shampoo and other shower stuff and would like to wait until they arrive. Pt demonstrated ability to doff/don sock with SBA. Sit to stand with SBA. Pt demonstrated ability to transfer to BSC with SBA using FWW. No LOB noted during mobility. Pt transferred back to bed, sit to supine with SBA. Pt resting in bed with needs met and bed alarm on after session. Grooming (FIM): 5 Lower Body Dressing (FIM): 5 (socks only) Toilet/Commode Transfer (FIM): 5 Education OT Patient Education: Safety issues Teaching Recipient: Patient Teaching Methods: Discussion Response to Teaching: Verbalize Understanding OT Short Term Goals Short Term Goals Time Frame: Feb 14, 2019 Eating(FIM): 5 Grooming(FIM): 4 Bathing(FIM): 3 Upper Body Dressing(FIM): 4 Lower Body Dressing(FIM): 4 Toileting(FIM): 4 Transfers (B,C,W/C) (FIM): 5 Toilet/Commode Transfer(FIM): 4 Additional Short Term Goals: 1-Demonstrate ADL Tasks, 2-Verbalize Understanding , 3-ImproveStrength/Rafat 1=Demonstrate adherence to instructed precautions during ADL tasks. 2=Patient will verbalize/demonstrate understanding of assistive devices/ modifications for ADL. 3=Patient will improve strength/tolerance for activity to enable patient to perform ADL's. OT Flow Manager Goals Shelter Goals Time Frame: Feb 21, 2019 Eating (FIM): 7 Grooming(FIM): 5 Bathing(FIM): 4 Upper Body Dressing(FIM): 5 Lower Body Dressing(FIM): 5 Toileting(FIM): 6 Transfers (B,C,W/C) (FIM): 6 Toilet/Commode Transfer(FIM): 6 Shower Transfer(FIM): 4 Additional Goals: 1-Demonstrate ADL Tasks, 2-Verbalize Understanding, 3- ImproveStrength/Rafat 1=Demonstrate adherence to instructed precautions during ADL tasks. 2=Patient will verbalize/demonstrate understanding of assistive devices/ modifications for ADL. 3=Patient will improve strength/tolerance for activity to enable patient to perform ADL's. OT Education/Plan Discharge Recommendations Plan/Recommendations: Continue POC Treatment Plan/Plan of Care Patient would benefit from OT for education, treatment and training to promote independence in ADL's, mobility, safety and/or upper extremity function for ADL' s. Plan of Care: ADL Retraining, Functional Mobility, UE Funct Exercise/Act Treatment Duration: Feb 21, 2019 Frequency: 5 times per week Estimated Hrs Per Day: .5 hour per day Agreement: Yes Rehab Potential: Fair Time/GCodes Start Time: 09:46 Stop Time: 10:01 Total Time Billed (hr/min): 15 Billed Treatment Time 1 visit, ADL(15minutes) ADRI SANCHEZ OT Feb 08, 2019 10:35
[2019-02-08 11:28] VITALS: BP 128/58
--- NOTE | 2019-02-08 11:28 | ST Cognitive Linguistic Eval ---
Speech Evaluation-General Medical Diagnosis UTI, influenza A, acute renal failure Onset Date: Feb 06, 2019 Therapy Diagnosis Therapy Diagnosis: Cognitive-communication Precautions Precautions/Isolations: Fall Prevention, Standard Precautions, Pressure Ulcer Referral Referring Physician: Dr. Messer Reason for Referral: Evaluation/Treatment Medical History Pertinent Medical History: Arthritis, DM, GERD, Hypothroidism, Smoking Reviewed History: Yes Social History Current Living Status: Spouse Speech PLF-Current Status Prior Level of Function Patient lives at home with her . Prior to this hospitalization the patient was independent for her daily needs. Subjective Patient was pleasant and attentive during the cognitive evaluation. Language Eval: Auditory Comprehends Simple Yes/No Ques: Functional Indent/Objects Multiple [place]: Functional Follows 1-Step Commands: Functional Follows Complex Directions: Mild Follows General Conversations: Functional Language Eval: Verbal Language Completes Spontaneous Greeting: Functional Produces Auto, Serial Info: Functional Imitates Simple Words/Phrases: Functional Word Finding: Functional Requests Basic Needs: Functional States Basic Personal Info: Functional Expresses Complex Ideas: Mild Objective Cognitive Domain Attention: WNL Memory: WNL Problem Solving: Mild Executive Functions: WNL The patient completed the evaluation without difficulty except for locating her bedside telephone. She demo following directions and ordered her breakfast without assistance once she found the telephone. Objective Formal/Standardized Tests [facility] Cognitive/Communication Results Memory: Immediate 3/3, Delayed with cues 2/3, Orientation: 5/5, Problem Solving : Simple 5/5, Complex 4/5 Oral Motor/Speech Production Within Functional Limits Impression Patient is a pleasant 69 year old female who was admitted to the hospital due to UTI, influenza A and renal failure. The patient had been more confused according to the notes, however it appears most of her cognitive issues have resolved. The patient was attentive during the evaluation and scored within functional range for most cognitive areas. She was noted to have a slight deficit in problem solving and executive functions. She demo utilization of the hospital phone to order her breakfast without assistance. The patient is not recommended for skilled therapy services at this time. Speech-Plan Patient/Family Goals Patient/Family Goals: The patient plans to return home with her upon hospital discharge. Treatment Plan Speech Therapy Treatment Plan: Discontinue ST No skilled ST services are warranted at this time. Treatment Duration: Feb 08, 2019 Frequency: 1 time per week Estimated Hrs Per Day: .25 hour per day Rehab Potential: Fair Barriers to Learning: Patient's current illnesses which are anticipated to resolve. Pt/Family Agrees to Plan: Yes Safety Risks/Education Teaching Recipient: Patient Teaching Methods: Discussion Response to Teaching: Verbalize Understanding Education Topics Provided: Patient's safety within her room. Time Speech Therapy Time In: 10:05 Speech Therapy Time Out: 10:20 Total Billed Time: 15 Billed Treatment Time 1, SPSNDCOMNENITA Malik Feb 08, 2019 11:28
--- NOTE | 2019-02-08 11:31 | Physical Therapy Daily Note ---
PT Daily Note-Current Subjective Pt laying Supine in bed upon arrival. Pt agrees to Ex for PT. Pain Location: No Pain Reported Mental Status Patient Orientation: Person, Place, Situation Attachments: Oxygen, IV Transfers Therapy Code Descriptions/Definitions Functional [place] Measure: 0=Not Assessed/NA 4=Minimal Assistance 1=Total Assistance 5=Supervision or Setup 2=Maximal Assistance 6=Modified [place] 3=Moderate Assistance 7=Complete [place] Therapy Quality Codes: 6 Independent with activity with or without an assistive device 5 Patient requires set up or clean up by helper. Patient completes activity by themselves 4 Supervision or touching assist (CGA). [place] provide cues , steadying assist 3 The helper provides less than half the effort to complete the activity 2 The helper provides more than half the effort to complete the activity 1 Dependent. The helper does all the effort to complete an activity 7 Patient refused to complete or attempt activity 9 The patient did not perform the activity before the current illness or injury 88 Not attempted due to Medical conditions or safety concerns Weight Bearing Right Lower Extremity: Right Weight Bearing/Tolerated Left Lower Extremity: Left Weight Bearing/Tolerated Exercises Supine Ex: Ankle pumps, Quad Set, Glut sets, Straight leg raise, Hip abd/add Supine Reps: 15 Treatments Pt completes Supine Ex in bed with rest breaks as needed. SPINNING SUPERVISOR also gives pt ed. over importance for changing positions in bed & seated for both prevent of Pneumonia & pressure sores. Pt resting at end of tx with all needs met. Assessment Current Status: Good Progress Pt is improving with strength & activity tolerance. PT Short Term Goals Short Term Goals Time Frame: Feb 14, 2019 Transfers (B,C,W/C) (FIM): 5 Gait (FIM): 2 Gait Distance Comment: 50' Gait Level of Assist: 5 Gait Assistive Device: FWW PT Plan Problem List Problem List: Activity Tolerance, Functional Strength, Safety, Balance, Gait, Transfer Treatment/Plan Treatment Plan: Continue Plan of Care Treatment Plan: Bed Mobility, Education, Functional Activity Rafat, Functional Strength, Gait, Safety, Therapeutic Exercise, Transfers Treatment Duration: Feb 14, 2019 Frequency: 6 times per week Estimated Hrs Per Day: .25 hour per day (15-30') Patient and/or Family Agrees t: Yes Safety Risks/Education Patient Education: Transfer Techniques, Correct Positioning, Safety Issues Teaching Recipient: Patient Teaching Methods: Discussion Response to Teaching: Verbalize Understanding Time/GCodes Time In: 1053 Time Out: 1113 Total Billed Treatment Time: 20 Total Billed Treatment 1, EX (20m) G Codes Necessary: LAURIE Cadena PTA Feb 08, 2019 11:31
--- NOTE | 2019-02-08 15:33 | NUR ---
ARU NOTE: Per request of Dr. Soni, clinical information was evaluated to determine if patient would be appropriate for ARU placement. Per review of therapy notes, by CL (Jimmy) patient had weak performance with therapy yesterday; however, has regained more strength today. OT reports patient at supervision level with activities. Patient also reported to therapy that she would be interested in ARU placement, but that she also wants to work towards a home plan. CL submitted clinical information to patient's insurance provider to determine if they are willing to approve ARU placement; however, [facility] often denies ARU authorizations. CL will continue to follow.
[2019-02-08 16:01] VITALS: BP 118/56
--- NOTE | 2019-02-08 16:20 | Pulmonary Progress Note ---
Subjective Time Seen by a Provider: 16:19 Subjective/Events-last exam pt feels improved. Sepsis Event Evaluation Height, Weight, BMI Height: 5'1.00" Weight: 134lbs. 0.0oz. 60.129906kv; 25.3 BMI Method:Stated Focused Exam Lactate Level 02/06/19 21:58: Lactic Acid Level 1.54 Exam Exam Vital Signs Date Time Temp Pulse Resp B/P (MAP) Pulse Ox O2 Delivery O2 Flow Rate FiO2 02/08/19 16:01 97.4 66 18 118/56 (76) 97 Nasal Cannula 2.00 02/08/19 11:28 98.2 64 16 128/58 (81) 98 Nasal Cannula 2.00 02/08/19 08:25 Nasal Cannula 2.00 02/08/19 08:18 95 Nasal Cannula 2.00 02/08/19 07:57 97.8 57 18 154/68 (96) 97 Nasal Cannula 2.00 02/08/19 02:35 96 Nasal Cannula 2.00 02/08/19 02:20 97.2 61 16 147/66 (93) 96 Nasal Cannula 2.00 02/07/19 23:50 96.7 56 20 130/61 (84) 95 Nasal Cannula 2.00 02/07/19 22:54 97 Nasal Cannula 2.00 02/07/19 20:30 Nasal Cannula 2.00 02/07/19 19:02 97.1 60 16 103/55 (71) 94 Nasal Cannula 2.00 02/07/19 16:30 69 96 28 I & O 02/08/19 07:00 Intake Total 1980 ml Output Total 1125 ml Balance 855 ml Height & Weight Height: 5'1.00" Weight: 134lbs. 0.0oz. 60.689840zc; 25.3 BMI Method:Stated General Appearance: No Apparent Distress, WD/WN HEENT: Other Respiratory: Lungs Clear, Normal Breath Sounds Cardiovascular: Regular Rate, Rhythm, No Murmur Capillary Refill: Less Than 3 Seconds Neurologic/Psychiatric: Alert, Oriented x3 (poor recall) Skin: Normal Color, Warm/Dry Lymphatic: No Adenopathy Results Lab Laboratory Tests 02/06/19 21:58 02/07/19 05:41 02/08/19 05:43 Assessment/Plan Assessment/Plan COPDAE -Solumedrol -SVNS -Oxygen -Will have pt do out patient pulmonary rehab, PFT UTI -Continue Abx Influenza with dehydration -IVF Weakness/multiple falls - Tobacco use -Education CAD hx CKD -Monitor Debility/frequent falls -PT/OT VANNESA BERNABE DO Feb 08, 2019 16:20
[2019-02-08 20:00] VITALS: BP 142/65
[2019-02-08] MEDS: ASPIRIN E.C. 81 MG (ECOTRIN) TAB PO SCH (20:01)
[2019-02-08] MEDS: ATORVASTATIN 20 MG (LIPITOR) TABLET PO SCH (20:01)
[2019-02-09] MEDS: HYDROcodone/APAP 10 MG/325 MG (LORTAB) TAB PO PRN ×2 (00:05→08:48)
[2019-02-09 00:38] VITALS: BP 150/67
[2019-02-09] MEDS: methylPREDNISolone 40 MG/ML (Solu-MEDROL) VIAL IV SCH (02:35)
[2019-02-09] MEDS: cefTRIAXone 1,000 MG/SWFI 10 ML IV PUSH IV SCH ×2 (02:36)
[2019-02-09] MEDS: RT-ALBUTEROL/IPRATROPIUM 3 ML (DUONEB) VIAL INH SCH ×4 (02:39→10:43)
[2019-02-09 04:49] LABS: BASOPHILS % (AUTO) 0 % (0-10); EOSINOPHILS % (AUTO) 0 % (0-10); HEMATOCRIT 36 % (35-52); HEMOGLOBIN 11.6 G/DL (11.5-16.0); LYMPHOCYTES # (AUTO) 0.5 X 10^3 (1.0-4.0); LYMPHOCYTES % (AUTO) 10 % (12-44); MEAN CORPUSCULAR HEMOGLOBIN 30 PG (25-34); MEAN CORPUSCULAR HGB CONC 33 G/DL (32-36); MEAN CORPUSCULAR VOLUME 91 FL (80-99); MEAN PLATELET VOLUME 12.4 FL (7.4-10.4); MONOCYTES # (AUTO) 0.4 X 10^3 (0.0-1.0); MONOCYTES % (AUTO) 8 % (0-12); NEUTROPHILS # (AUTO) 3.7 X 10^3 (1.8-7.8); NEUTROPHILS % (AUTO) 82 % (42-75); PLATELET COUNT 125 10^3/uL (130-400); RED CELL DISTRIBUTION WIDTH 13.8 % (10.0-14.5); WHITE BLOOD COUNT 4.5 10^3/uL (4.3-11.0)
[2019-02-09 05:10] LABS: CALCIUM 8.9 MG/DL (8.5-10.1); CREATININE SERUM 1.03 MG/DL (0.60-1.30); POTASSIUM 3.4 MMOL/L (3.6-5.0)
[2019-02-09] MEDS: inSUlin ASPART (NovoLOG) 1 UNIT/0.01 ML (CHARGE PER UNIT) SC SCH ×2 (05:11→11:12)
[2019-02-09] MEDS: ADVAIR HFA 45/21 MCG INHALER 8 GM IH SCH (06:53)
[2019-02-09 07:38] VITALS: BP 138/63
--- NOTE | 2019-02-09 07:41 | Pulmonary Progress Note ---
Subjective Time Seen by a Provider: 07:41 Subjective/Events-last exam PT is doing much better. She is on RA currently. Sepsis Event Evaluation Height, Weight, BMI Height: 5'1.00" Weight: 134lbs. 0.0oz. 60.024583io; 25.3 BMI Method:Stated Focused Exam Lactate Level 02/06/19 21:58: Lactic Acid Level 1.54 Exam Exam Vital Signs Date Time Temp Pulse Resp B/P (MAP) Pulse Ox O2 Delivery O2 Flow Rate FiO2 02/09/19 06:53 95 Room Air 02/09/19 06:47 93 Room Air 02/09/19 02:51 97 Nasal Cannula 0.50 02/09/19 00:38 97.9 73 20 150/67 (94) 98 Nasal Cannula 1.00 02/08/19 22:36 98 Nasal Cannula 1.00 02/08/19 20:05 Nasal Cannula 1.00 02/08/19 20:00 98.7 74 18 142/65 (90) 98 Nasal Cannula 2.00 02/08/19 19:25 97 Nasal Cannula 2.00 02/08/19 16:01 97.4 66 18 118/56 (76) 97 Nasal Cannula 2.00 02/08/19 11:28 98.2 64 16 128/58 (81) 98 Nasal Cannula 2.00 02/08/19 08:25 Nasal Cannula 2.00 02/08/19 08:18 95 Nasal Cannula 2.00 02/08/19 07:57 97.8 57 18 154/68 (96) 97 Nasal Cannula 2.00 I & O 02/09/19 07:00 Intake Total 1220 ml Output Total 900 ml Balance 320 ml Height & Weight Height: 5'1.00" Weight: 134lbs. 0.0oz. 60.176010cr; 25.3 BMI Method:Stated General Appearance: No Apparent Distress, WD/WN HEENT: Other Respiratory: Lungs Clear, Normal Breath Sounds Cardiovascular: Regular Rate, Rhythm, No Murmur Capillary Refill: Less Than 3 Seconds Neurologic/Psychiatric: Alert, Oriented x3 (poor recall) Skin: Normal Color, Warm/Dry Lymphatic: No Adenopathy Results Lab Laboratory Tests 02/08/19 05:43 02/09/19 04:30 Assessment/Plan Assessment/Plan COPDAE -Solumedrol - change to prednisone taper -SVNS -Pt is on RA -Will have pt do out patient pulmonary rehab, PFT UTI -Continue Abx Influenza with dehydration -IVF -Tamiflu Weakness/multiple falls - Tobacco use -Education CAD hx CKD -Monitor Debility/frequent falls -PT/OT NIDDM Pt is ok for discharge from pulmonary standpoint. VANNESA GARNER DO Feb 09, 2019 07:41
[2019-02-09] MEDS ORDERED: predniSONE 10 MG TAB PO SCH (07:44)
--- NOTE | 2019-02-09 08:29 | Discharge Summary-Hospitalist ---
Diagnosis/Chief Complaint Date of Admission Feb 07, 2019 at 00:23 Date of Discharge Discharge Date: Feb 09, 2019 Admission Diagnosis UTI and Influenza with LIBERTAD Discharge Diagnosis (1) UTI (urinary tract infection) Status: Acute Assessment & Plan: Sepsis due to UTI Does not meet severe criteria Continue IV abx BC with NGTD Urine culture with e coli sensitive to cephalosporins (2) Influenza Status: Acute Assessment & Plan: Continue Tamiflu (3) COPD (chronic obstructive pulmonary disease) Assessment & Plan: 1ppd smoker Continue home advair Wheezing much improved Continue steroids Consulted pulm MAT protocol (4) CAD (coronary artery disease) Status: Chronic Assessment & Plan: Cotinue home ASA and Plavix Continue Statin (5) CKD (chronic kidney disease) Status: Chronic Assessment & Plan: Appears to have had LIBERTAD in Novemeber Creatinine now 1.1 Acute kidney injury resolved Will DC IVF (6) Falls frequently Status: Chronic Assessment & Plan: Worsened over the past few months PT/OT consulted Has walker- but does not use it (7) Essential (primary) hypertension Assessment & Plan: BP well controlled (8) Non-insulin dependent type 2 diabetes mellitus Assessment & Plan: SSI ordered (9) Tobacco abuse Assessment & Plan: Smoking cessation encouraged Discharge Summary Procedures/Consulations Dr Hou- Pul Discharge Physical Exam Allergies: Coded Allergies: No Known Drug Allergies (Unverified , 06/07/09) Vitals & I&Os Vital Signs Date Time Temp Pulse Resp B/P (MAP) Pulse Ox O2 Delivery O2 Flow Rate FiO2 02/09/19 11:43 72 18 138/63 94 Room Air 0.50 02/09/19 07:38 98.3 02/07/19 16:30 28 General Appearance: No Apparent Distress, WD/WN Respiratory: Lungs Clear, No Respiratory Distress Cardiovascular: Regular Rate, Rhythm, No Murmur Neurologic/Psychiatric: Alert, Oriented x3 Hospital Course Pt was admitted due to generalized weakness and falls and was found to have both a UTI and Flu A. She was treated with abx for her UTI and Tamiflu for the flu. She was found to have significant wheezing on presentation as well and pulmonology was consulted for management of presumed COPD. She is to follow up with Dr Hou as an outpatient and was referred to pulmonary rehab. She was discharged home in stable condition with home health to continue therapy. Labs (last 24 hrs) Microbiology 02/06/19 Blood Culture - Preliminary, Resulted No growth 02/06/19 Influenza Types A,B Antigen (SCOTTY) - Final, Complete 02/06/19 Urine Culture - Final, Complete Escherichia coli Patient resulted labs reviewed. Pending Labs Discussion & Recommendations Discharge Planning: >30 minutes discharge planning Discharge Home Medications: Active Scripts Active Prednisone 10 Mg Tab.ds.pk 10 Mg PO DAILY Take 6 tabs(60mg)daily,decrease by 1 tab(10mg)every other day. Keflex (Cephalexin) 500 Mg Capsule 500 Mg PO BID Tamiflu (Oseltamivir Phosphate) 30 Mg Capsule 30 Mg PO BID Reported Tylenol Extra Strength (Acetaminophen) 500 Mg Tablet 1,000 Mg PO BID Vitamin B-12 (Cyanocobalamin (Vitamin B-12)) 1,000 Mcg Tablet 1,000 Mcg PO DAILY Omeprazole 20 Mg Capsule.dr 20 Mg PO DAILY Atenolol 25 Mg Tablet 25 Mg PO HS Alprazolam 0.5 Mg Tablet 0.5 Mg PO TID PRN Atorvastatin Calcium 20 Mg Tablet 20 Mg PO HS Gabapentin 300 Mg Capsule 300 Mg PO BID Metformin HCl 500 Mg Tablet 1,000 Mg PO BID TAKES 2 (500MG) TABLETS Advair 100-50 Diskus (Fluticasone/Salmeterol) 1 Each Blst.w.dev 1 Puff INH BID Sertraline HCl 50 Mg Tablet 50 Mg PO DAILY Clopidogrel (Clopidogrel Bisulfate) 75 Mg Tablet 75 Mg PO HS Albuterol Sulfate 2.5 Mg/3 Ml Vial.neb 2.5 Mg NEB Q4H PRN Hydrocodon-Acetaminophn 10-325 (Hydrocodone/Acetaminophen) 1 Each Tablet 1 Tab PO Q6H PRN Aspirin EC (Aspirin) 81 Mg Tablet.dr 81 Mg PO HS Instructions to patient/family Please see electronic discharge instructions given to patient. Clinical Quality Measures DVT/VTE Risk/Contraindication: Risk Factor Score Per Nursin RFS Level Per Nursing on Admit: 4+=Very High Problem Qualifiers (1) UTI (urinary tract infection): Urinary tract infection type: acute cystitis Hematuria presence: without hematuria Qualified Codes: N30.00 - Acute cystitis without hematuria (2) COPD (chronic obstructive pulmonary disease): COPD type: COPD with acute lower respiratory infection Qualified Codes: J44.0 - Chronic obstructive pulmonary disease with acute lower respiratory infection (3) CAD (coronary artery disease): Coronary Disease-Associated Artery/Lesion type: [place] artery [place] vs. transplanted heart: rincon heart Associated angina: without angina Qualified Codes: I25.10 - Atherosclerotic heart disease of rin[place] coronary artery without angina pectoris (4) CKD (chronic kidney disease): Chronic kidney disease stage: stage 2 (mild) Qualified Codes: N18.2 - Chronic kidney disease, stage 2 (mild) EMERY DAUGHERTY MD Feb 09, 2019 08:29
--- NOTE | 2019-02-09 08:31 | D/C HH Face to Face Order ---
D/C Face to Face Orders Instructions for Patient Via [facility], Patient Instructions/FollowUp: Please continue to take your medications as written. Please follow up with your PCP and with Dr Hou as scheduled. Physician to follow Patient: Dr Mcgill Discharge Diet for Home: No Restrictions Patient Data-Allergies,Ht & Wt Patient Allergies: Coded Allergies: No Known Drug Allergies (Unverified , 06/07/09) Height (Feet): 5 Height (Inches): 1.00 Weight (Pounds): 134 Weight (Ounces): 0.0 Home Health Need/Face to Face Date of Face to Face: Feb 09, 2019 Clinical Findings: Generalized weakness and fatigue I have seen Pt [id number]: Yes Discharged To: Home Diagnosis/Conditions: Influenza, UTI, COPD Patient is Homebound due to: Ramón fall risk due to instabilty, Muscle weakness Homebound Status Due to the above stated illness, injury or surgical procedure (medical condition or diagnosis) and associated clinical findings, the patient is homebound because of his/her inability to leave home except with aid of a supportive device and/or person AND leaving the home requires a considerable and taxing effort or is medically contraindicated. Pt req the following assistanc: Aid of another person, Walker Home Health Nursing Orders Home Health Services Order: Nursing Services, [place] Hand-Evaluate & Treat, Physical Therapy-Evaluate & Treat Home Health Infusion Therapy Line Start Date: Feb 06, 2019 Line Type: Peripheral IV Site Location: Wrist Therapy Orders Therapy Orders: OT (must have SN or PT order), Physical Therapy Therapy Specific Orders: Eval assistive deivces, Teach strategies/cognitive deficits, Teach enviro modifications/safety, Gait training, Increase strength/ endurance Certify Stmt I certify that this patient is under my care and that I, a nurse practitioner or a physician; a marketing assistant retail division working with me, had a face to face encounter that - meets the physician face to face encounter requirements with this patient as dated. EMERY DAUGHERTY MD Feb 08, 2019 20:58
[2019-02-09] MEDS ORDERED: PRED10TA22 PO (08:37)
[2019-02-09] MEDS ORDERED: OSEL30CA PO (08:37)
[2019-02-09] MEDS ORDERED: CEPH-507 PO (08:37)
[2019-02-09] MEDS: GABAPENTIN 300 MG (NEURONTIN) CAP PO SCH (08:47)
[2019-02-09] MEDS: SERTRALINE 50 MG (ZOLOFT) TABLET PO SCH (08:47)
[2019-02-09] MEDS: CLOPIDOGREL 75 MG (PLAVIX) TABLET PO SCH (08:47)
[2019-02-09] MEDS: PANTOPRAZOLE 20 MG TABLET (PROTONIX) PO SCH (08:48)
[2019-02-09] MEDS: ACETAMINOPHEN 500 MG TAB (TYLENOL) PO SCH (08:48)
--- NOTE | 2019-02-09 08:51 | NUR ---
Patient did have to stop and rest for 1min due to hip pain. patient done well during walk. no indication for O2 sats remained 92-96% during walk. Addendum: 02/09/19 at 0851 by ESTEFANY NIETO RT Amended: Links added.
--- NOTE | 2019-02-09 08:52 | NUR ---
Patient did have to stop and rest for 1min due to hip pain. patient done well during walk. no indication for O2 sats remained 92-96% during walk on RA. Addendum: 02/09/19 at 0853 by ESTEFANY NIETO RT Amended: Links added.
[2019-02-09] MEDS: OSELTAMIVIR 30 MG (TAMIFLU) CAPSULE PO SCH (09:02)
--- NOTE | 2019-02-09 10:57 | Physical Therapy Daily Note ---
PT Daily Note-Current Subjective Pt sitting in recliner upon arrival. Pt agrees to PT. Pt is to DC today. Pain Location: No Pain Reported Mental Status Patient Orientation: Person, Place, Time, Situation Pt is no longer on O2. Transfers Therapy Code Descriptions/Definitions Functional [place] Measure: 0=Not Assessed/NA 4=Minimal Assistance 1=Total Assistance 5=Supervision or Setup 2=Maximal Assistance 6=Modified [place] 3=Moderate Assistance 7=Complete [place] Therapy Quality Codes: 6 Independent with activity with or without an assistive device 5 Patient requires set up or clean up by helper. Patient completes activity by themselves 4 Supervision or touching assist (CGA). [place] provide cues , steadying assist 3 The helper provides less than half the effort to complete the activity 2 The helper provides more than half the effort to complete the activity 1 Dependent. The helper does all the effort to complete an activity 7 Patient refused to complete or attempt activity 9 The patient did not perform the activity before the current illness or injury 88 Not attempted due to Medical conditions or safety concerns Weight Bearing Right Lower Extremity: Right Weight Bearing/Tolerated Left Lower Extremity: Left Weight Bearing/Tolerated Treatments Pt is to DC today. 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 Pt feels comfortable with both Supine & Seated EX of 15 reps 2-3x/day. Pt resting in recliner at end of tx with all needs met. Assessment Current Status: Good Progress Pt has improved with both safety & independence of tasks including ambulation. Pt is no longer needing O2. PT Short Term Goals Short Term Goals Time Frame: Feb 14, 2019 Transfers (B,C,W/C) (FIM): 5 Gait (FIM): 2 Gait Distance Comment: 50' Gait Level of Assist: 5 Gait Assistive Device: FWW PT Plan Problem List Problem List: Activity Tolerance Treatment/Plan Treatment Plan: Continue Plan of Care Treatment Plan: Bed Mobility, Education, Functional Activity [place], Functional Strength, Gait, Safety, Therapeutic Exercise, Transfers Treatment Duration: Feb 14, 2019 Frequency: 6 times per week Estimated Hrs Per Day: .25 hour per day (15-30') Patient and/or Family Agrees t: Yes Safety Risks/Education Patient Education: Correct Positioning, Safety Issues Teaching Recipient: Patient Teaching Methods: Discussion Response to Teaching: Verbalize Understanding Time/GCodes Time In: 902 Time Out: 916 Total Billed Treatment Time: 14 Total Billed Treatment 1, FA (14m) G Codes Necessary: LAURIE Cadena PTA Feb 09, 2019 10:57
--- NOTE | 2019-02-09 11:22 | NUR ---
CM/SS, respond to referral. HHC: Discussed agencies with patient. Coordinated referral with preferred, [facility], for RN, PT, OT. Patient will return home with her spouse and daughter who can assist with her care. Patient identifies no other post hospital care needs.
[2019-02-09 11:43] VITALS: BP 138/63
== END 2019-02-09 11:45 | disposition home health service (06) | DRG 872 ==
LOC: EDUNIT# 21:47 → ER 21:48 → 4TH 02-07 00:23
PROVIDERS: ADMIT Internal Medicine; ATTEND Internal Medicine
DX: A41.9 Sepsis, unspecified organism (principal); N39.0 Urinary tract infection, site not specified; J11.1 Influenza due to unidentified influenza virus with other respiratory manifestations; J44.1 Chronic obstructive pulmonary disease with (acute) exacerbation; N17.9 Acute kidney failure, unspecified; I12.9 Hypertensive chronic kidney disease with stage 1 through stage 4 chronic kidney disease, or unspecified chronic kidney disease; N18.3 Chronic kidney disease, stage 3 (moderate); F17.210 Nicotine dependence, cigarettes, uncomplicated; E86.0 Dehydration; K21.9 Gastro-esophageal reflux disease without esophagitis; E03.9 Hypothyroidism, unspecified; E11.9 Type 2 diabetes mellitus without complications; F41.9 Anxiety disorder, unspecified; I25.10 Atherosclerotic heart disease of native coronary artery without angina pectoris; R29.6 Repeated falls; R53.81 Other malaise; B96.20 Unspecified Escherichia coli [E. coli] as the cause of diseases classified elsewhere; Z95.1 Presence of aortocoronary bypass graft; Z79.02 Long term (current) use of antithrombotics/antiplatelets
CPT/HCPCS: 36415; 70450; 71045; 80048; 80053; 81000; 82962; 83605; 85007; 85025; 85027; 86141; 87040; 87077; 87088; 87186; 87804; 94640; 94760; 94761

== ENCOUNTER → 2019-02-22 | Outpatient (CLI) | payer MEDICARE ==
[~2019-02-22] MED LIST changes: +ACET-2267 PO; +ALBU2.5V4 NEB; +ALPR0.5T7 PO; +ASPI-983 PO; +ATOR20TA66 PO; +CEPH-507 PO; +CHOL10003 PO; +CLOP75TA28 PO; +CYAN10006 PO; +FLUT1DIS28 INH; +GABA-488 PO; +METF-397 PO; +OMEP20CA12 PO; +OSEL30CA PO; +PRED10TA22 PO; +SERT50TA9 PO; +TRIA1TAB5 PO
--- NOTE | 2019-02-22 14:13 | Diagnostic Imaging Report ---
PROCEDURE: US Thyroid. TECHNIQUE: Multiple real-time grayscale images were obtained of the thyroid in various projections. INDICATION: Thyroid nodules, thyroidectomy. COMPARISON: 03/18/2018 FINDINGS: Again seen are multiple mixed echogenic nodules in the left thyroid lobe. Many of these have a cystic and solid appearance. The largest is 12 mm. The appearance is unchanged from the prior examination. There is no suspicious lesion that would indicate malignancy. The isthmus is grossly normal. The right thyroid is surgically absent. Left thyroid lobe measures 48 x 23 x 24 mm. IMPRESSION: Stable left-sided thyroid nodules likely benign. No inflammation identified. Dictated by: Dictated on workstation # [id number]
== END ==
LOC: RAD 11:33
PROVIDERS: ATTEND Internal Medicine
DX: J09.X2 Influenza due to identified novel influenza A virus with other respiratory manifestations (principal); E04.2 Nontoxic multinodular goiter; G25.81 Restless legs syndrome; E89.0 Postprocedural hypothyroidism
CPT/HCPCS: 76536

== ENCOUNTER 2019-05-03 10:00 | Outpatient (RCR) | payer MEDICARE ==
[2019-02-28 08:28] VITALS: BP 93/50
[2019-03-24 09:00] VITALS: BP 130/70
[2019-03-24 09:35] VITALS: BP 110/70
[2019-03-31 09:00] VITALS: BP 115/40
[2019-03-31 09:45] VITALS: BP 120/60
[2019-04-05 09:00] VITALS: BP 130/60
[2019-04-05 10:00] VITALS: BP 90/54
[2019-04-07 09:05] VITALS: BP 122/60
[2019-04-07 10:02] VITALS: BP_SYST 100; BP_SYST 128; BP_DIAS 60
[2019-04-12 09:00] VITALS: BP 130/60
[2019-04-12 10:00] VITALS: BP 116/70
[2019-04-14 09:00] VITALS: BP 130/50
[2019-04-14 10:00] VITALS: BP 100/52
[~2019-05-03] VITALS: Ht 154.9 cm; Wt 62.8 kg
[2019-05-03 09:00] VITALS: BP 122/68
[2019-05-03 10:00] VITALS: BP 100/52
[2019-05-05 08:53] VITALS: BP 96/53
[2019-05-05 09:45] VITALS: BP 97/50
[2019-05-12 08:55] VITALS: BP 102/61
[2019-05-12 09:50] VITALS: BP 115/50
[2019-05-17 08:55] VITALS: BP 100/50
[2019-05-17 09:40] VITALS: BP 118/60
[2019-05-24 08:50] VITALS: BP 128/60
[2019-05-24 09:50] VITALS: BP 98/45
[2019-05-26 08:00] VITALS: BP 124/59
[2019-05-26 09:15] VITALS: BP 97/52
[2019-05-31 08:00] VITALS: BP 115/60
[2019-05-31 09:04] VITALS: BP 100/50
== END 2019-05-29 | disposition home or self-care (01) ==
LOC: PULM 10:00
PROVIDERS: ATTEND Family Medicine
DX: J44.0 Chronic obstructive pulmonary disease with (acute) lower respiratory infection (principal)

== ENCOUNTER 2019-06-23 08:00 | Outpatient (RCR) | payer MEDICARE ==
[2019-06-09 08:00] VITALS: BP 110/50
[2019-06-09 09:10] VITALS: BP 110/50
[2019-06-14 08:00] VITALS: BP 123/58
[2019-06-14 09:05] VITALS: BP 100/60
[2019-06-21 08:00] VITALS: BP 118/74
[2019-06-21 09:30] VITALS: BP 108/56
[2019-06-23 08:00] VITALS: BP 120/60
[~2019-06-23 08:00] MED LIST changes: +CYAN-41 PO; -CYAN10006 PO; -OMEP20CA12 PO; +OMEP20CA13 PO
[2019-06-23 09:30] VITALS: BP 120/60
== END 2019-09-07 | disposition home or self-care (01) ==
LOC: PULM 08:00
PROVIDERS: ATTEND Family Medicine
DX: J44.0 Chronic obstructive pulmonary disease with (acute) lower respiratory infection (principal); J22 Unspecified acute lower respiratory infection

== ENCOUNTER 2020-02-16 19:07 | Inpatient (IN) | payer MEDICARE ==
[~2020-02-16] VITALS: Ht 154 cm; Wt 67.0 kg
[~2020-02-16 19:07] MED LIST changes: +ACHYD1T PO; -HYDR-3820 PO; -OMEP20CA13 PO; +OMEP20CA18 PO
[2020-02-16] MEDS ORDERED: RT-ALBUTEROL/IPRATROPIUM 3 ML (DUONEB) VIAL ONE (19:11)
[2020-02-16] MEDS ORDERED: RT-ALBUTEROL/IPRATROPIUM 3 ML (DUONEB) VIAL INH ONE ×2 (19:30→19:45)
[2020-02-16] MEDS ORDERED: RT-ALBUTEROL SULF 2.5 MG/3 ML PRE-MIX VIAL INH STA (19:31)
--- NOTE | 2020-02-16 19:31 | ED General ---
General Chief Complaint: General Problems/Pain Stated Complaint: WEAKNESS / FEVER Nursing Triage Note: per EMS, pt has had weakness x 1 month, family states pt was also incont today Nursing Sepsis Screen: No Definite Risk Source of Information: Patient, EMS, Old Records Exam Limitations: No Limitations History of Present Illness Date Seen by Provider: Feb 16, 2020 Time Seen by Provider: 19:09 Initial Comments This 70-year-old woman presents to the emergency room via EMS because of weakness, shortness of breath, fever, and wheezing. She has been ill intermittently for several months according to family and progressively weaker. Today she is unable to get up and had incontinence. She is diabetic and EMS reports blood sugar of 73. EMS noted some subtle facial drooping on the right but no one is certain when that may have started. She has no facial weakness when asked to smile. She does not seem to have any other focal deficits. She has a history of COPD, diabetes, coronary artery disease, and hypertension. She denies any pain. Temperature for EMS was 101.4. She received a hydrocodone and metformin before coming to the emergency room. She is alert and oriented but drowsy. She has not been out of the house in many days. She has no known contacts with ill individuals or individuals at risk or under investigation for coronavirus. Allergies and Home Medications Allergies Coded Allergies: No Known Drug Allergies (Unverified , 06/07/09) Home Medications Acetaminophen 500 Mg Tablet, 1,000 MG PO BID, (Reported) Albuterol Sulfate 2.5 Mg/3 Ml Vial.neb, 2.5 MG NEB Q4H PRN for SHORTNESS OF BREATH, (Reported) Alprazolam 0.5 Mg Tablet, 0.5 MG PO TID PRN for ANXIETY, (Reported) Aspirin 81 Mg Tablet.dr, 81 MG PO HS, (Reported) Atenolol 25 Mg Tablet, 25 MG PO HS, (Reported) Atorvastatin Calcium 20 Mg Tablet, 20 MG PO HS, (Reported) Cephalexin 500 Mg Capsule, 500 MG PO BID Prescribed by: EMERY DAUGHERTY on 02/09/19 0837 Clopidogrel Bisulfate 75 Mg Tablet, 75 MG PO HS, (Reported) Cyanocobalamin (Vitamin B-12) 1,000 Mcg Tablet, 1,000 MCG PO DAILY, (Reported) Fluticasone/Salmeterol 1 Each Blst.w.dev, 1 PUFF INH BID, (Reported) Gabapentin 300 Mg Capsule, 300 MG PO BID, (Reported) Hydrocodone Bit/Acetaminophen 1 Each Tablet, 1 TAB PO Q6H PRN for PAIN-MODERATE, (Reported) Metformin HCl 500 Mg Tablet, 1,000 MG PO BID, (Reported) TAKES 2 (500MG) TABLETS Omeprazole 20 Mg Capsule.dr, 20 MG PO DAILY, (Reported) Oseltamivir Phosphate 30 Mg Capsule, 30 MG PO BID Prescribed by: EMERY DAUGHERTY on 02/09/19836 Prednisone 10 Mg Tab.ds.pk, 10 MG PO DAILY Take 6 tabs(60mg)daily,decrease by 1 tab(10mg)every other day. Prescribed by: EMERY DAUGHERTY on 02/09/19836 Sertraline HCl 50 Mg Tablet, 50 MG PO DAILY, (Reported) Patient Home Medication List Home Medication List Reviewed: Yes Review of Systems Review of Systems Constitutional: see HPI EENTM: no symptoms reported Respiratory: see HPI Cardiovascular: no symptoms reported Gastrointestinal: no symptoms reported Genitourinary: see HPI : No Musculoskeletal: no symptoms reported Skin: no symptoms reported Psychiatric/Neurological: See HPI Hematologic/Lymphatic: No Symptoms Reported Immunological/Allergic: no symptoms reported Past Xumotpi-Pxcxxa-Jakfor Hx Past Med/Social Hx: Reviewed and Corrections made Patient Social History Alcohol Use: Denies Use Recreational Drug Use: No Type Used: Cigarettes 2nd Hand Smoke Exposure: Yes Recent Foreign Travel: No Contact w/Someone Who Travel: No Recent Infectious Disease Expo: No Recent Hopitalizations: No Immunizations Up To Date Tetanus Booster (TDap): Less than 5yrs Date of Pneumonia Vaccine: Oct 30, 2012 Date of Influenza Vaccine: Sep 30, 2018 Seasonal Allergies Seasonal Allergies: No Past Medical History Surgeries: Yes CABG, Thyroidectomy Respiratory: Yes Asthma, Chronic Bronchitis, COPD Cardiac: Yes (CABG/STENTS. CAROTID DISEASE) Peripheral Vascular (carotid stenosis) Neurological: No : No [employer] History: Hysterectomy Gastrointestinal: Yes Gastroesophageal Reflux, Hiatal Hernia Musculoskeletal: Yes (ARTHRITIS IN KNEES) Arthritis Endocrine: Yes Hypothyroidsim, Diabetes, Non-Insulin dep Cancer: No Psychosocial: Yes Anxiety Integumentary: Yes Eczema Blood Disorders: No Family Medical History Alzheimer's disease 19 MOTHER FH: cancer G8 SISTER FH: heart disease 19 FATHER Kidney disease 19 MOTHER Myocardial infarction G8 BROTHER No Pertinent Family Hx Physical Exam Vital Signs Vital Signs - First Documented 02/16/20 02/16/20 02/16/20 02/16/20 19:11 20:07 21:17 21:50 Temp 38.0 Pulse 86 Resp 14 B/P (MAP) 143/55 Pulse Ox 91 O2 Delivery Room Air O2 Flow Rate 2.00 Capillary Refill : Less Than 3 Seconds Height, Weight, BMI Height: 5'1.00" Weight: 141lbs. 8.0oz. 62.748228qd; 30.00 BMI Method:Stated General Appearance: WD/WN, Mild Distress (respiratory), Other (lethargic) HEENT: PERRL/EOMI, Normal ENT Inspection, Other (mucous membranes somewhat moist) Neck: Normal Inspection; No JVD Respiratory: Accessory Muscle Use; No Crackles; Wheezing Cardiovascular: Regular Rate, Rhythm, No Edema, No Murmur Gastrointestinal: Normal Bowel Sounds, Non Tender, Soft Extremity: Normal Inspection, No Pedal Edema Neurologic/Psychiatric: Alert, Oriented x3, No Motor/Sensory Deficits, Normal Mood/Affect, Other (possible facial droop on the right that resolves when patient smiles) Skin: Normal Color, Warm/Dry Focused Exam Lactate Level 02/16/20 19:17: Lactic Acid Level 1.73 Lactic Acid Level Progress/Results/Core Measures Suspected Sepsis Recent Fever Within 48 Hours: No Infection Criteria Present: Suspected New Infection New/Unexplained Altered Menta: No Sepsis Screen: No Definite Risk SIRS Temperature: Pulse: 86 Respiratory Rate: 14 Laboratory Tests 02/16/20 19:17: White Blood Count 7.0 Blood Pressure / Mean: 02/16/20 19:17: Lactic Acid Level 1.73 Laboratory Tests 02/16/20 19:17: Creatinine 1.16, INR Comment 0.9, Platelet Count 140, Total Bilirubin 0.4 Results/Orders Lab Results Laboratory Tests Test 02/16/20 19:17 02/16/20 19:24 02/16/20 21:10 Range/Units White Blood Count 7.0 4.3-11.0 10^3/uL Red Blood Count 4.26 L 4.35-5.85 10^6/uL Hemoglobin 12.2 11.5-16.0 G/DL Hematocrit 38 35-52 % Mean Corpuscular Volume 90 80-99 FL Mean Corpuscular Hemoglobin 29 25-34 PG Mean Corpuscular Hemoglobin Concent 32 32-36 G/DL Red Cell Distribution Width 15.6 H 10.0-14.5 % Platelet Count 140 130-400 10^3/uL Mean Platelet Volume 12.2 H 7.4-10.4 FL Neutrophils (%) (Auto) 82 H 42-75 % Lymphocytes (%) (Auto) 8 L 12-44 % Monocytes (%) (Auto) 9 0-12 % Eosinophils (%) (Auto) 1 0-10 % Basophils (%) (Auto) 0 0-10 % Neutrophils # (Auto) 5.7 1.8-7.8 X 10^3 Lymphocytes # (Auto) 0.6 L 1.0-4.0 X 10^3 Monocytes # (Auto) 0.6 0.0-1.0 X 10^3 Eosinophils # (Auto) 0.1 0.0-0.3 10^3/uL Basophils # (Auto) 0.0 0.0-0.1 10^3/uL Prothrombin Time 12.8 12.2-14.7 SEC INR Comment 0.9 0.8-1.4 Activated Partial Thromboplast Time 32 24-35 SEC Sodium Level 140 135-145 MMOL/L Potassium Level 4.1 3.6-5.0 MMOL/L Chloride Level 103 98-107 MMOL/L Carbon Dioxide Level 24 21-32 MMOL/L Anion Gap 13 5-14 MMOL/L Blood Urea Nitrogen 21 H 7-18 MG/DL Creatinine 1.16 0.60-1.30 MG/DL Estimat Glomerular Filtration Rate 46 BUN/Creatinine Ratio 18 Glucose Level 91 70-105 MG/DL Lactic Acid Level 1.73 0.50-2.00 MMOL/L Calcium Level 9.4 8.5-10.1 MG/DL Corrected Calcium 9.3 8.5-10.1 MG/DL Total Bilirubin 0.4 0.1-1.0 MG/DL Aspartate Amino Transf (AST/SGOT) 14 5-34 U/L Alanine Aminotransferase (ALT/SGPT) 14 0-55 U/L Alkaline Phosphatase 79 40-136 U/L C-Reactive Protein High Sensitivity 6.72 H 0.00-0.50 MG/DL B-Type Natriuretic Peptide 87.0 <100.0 PG/ML Total Protein 6.7 6.4-8.2 GM/DL Albumin 4.1 3.2-4.5 GM/DL Procalcitonin 0.07 <0.10 NG/ML Glucometer 92 70-110 MG/DL Urine Color YELLOW Urine Clarity CLEAR Urine pH 5.0 5-9 Urine Specific [place] 1.025 H 1.016-1.022 Urine Protein NEGATIVE NEGATIVE Urine Glucose (UA) NEGATIVE NEGATIVE Urine Ketones NEGATIVE NEGATIVE Urine Nitrite NEGATIVE NEGATIVE Urine Bilirubin NEGATIVE NEGATIVE Urine Urobilinogen 0.2 < = 1.0 MG/DL Urine Leukocyte Esterase NEGATIVE NEGATIVE Urine RBC (Auto) NEGATIVE NEGATIVE Urine RBC 0-2 /HPF Urine WBC 0-2 /HPF Urine Crystals PRESENT H /LPF Urine Amorphous Sediment RARE KELVIN URATES H /LPF Urine Bacteria TRACE /HPF Urine Casts NONE /LPF Urine Mucus NEGATIVE /LPF Urine Culture Indicated CULTURE PENDING Micro Results Microbiology 02/16/20 Influenza Types A,B Antigen (SCOTTY) - Final, Complete My Orders Orders - MIKEL MARS MD Albuterol/Ipra Inhalation Soln (Duoneb I (02/16/20 19:11) Cbc With Automated Diff (02/16/20 19:17) Comprehensive Metabolic Panel (02/16/20 19:17) Blood Culture (02/16/20 19:17) Sputum Culture (02/16/20:17) Urinalysis (02/16/20 19:17) Urine Culture (02/16/20 19:17) Protime With Inr (02/16/20:17) Partial Thromboplastin Time (02/16/20 19:17) Chest 1 View, Ap/Pa Only (02/16/20 19:17) Ed Iv/Invasive Line Start (02/16/20 19:17) Ed Iv/Invasive Line Start (02/16/20 19:17) Vital Signs Adult Sepsis Patie Q15M (02/16/20 19:17) O2 (02/16/20 19:17) Remove Rings In Anticipation O (02/16/20 19:17) Lactic Acid Analyzer (02/16/20 19:17) Influenza A And B Antigens (02/16/20 19:17) BNP (02/16/20 19:17) Hs C Reactive Protein (02/16/20 19:17) Procalcitonin (Pct) (02/16/20 19:17) Albuterol/Ipra Inhalation Soln (Duoneb I (02/16/20 19:30) Svn Small Volume Nebulizer (02/16/20 19:18) Accucheck Stat ONCE (02/16/20 19:18) Albuterol Pre-Mix Nebs (Rt) (Proventil (02/16/20 19:31) Albuterol/Ipra Inhalation Soln (Duoneb I (02/16/20 19:45) Svn Small Volume Nebulizer (02/16/20 19:31) Methylprednisolone Sod Succ (Solu-Medrol (02/16/20 19:45) Acetaminophen Tablet (Tylenol Tablet) (02/16/20 19:45) Ct Head Wo-R/O Stroke (02/16/20 19:41) Ty Cath (02/16/20 19:42) Ceftriaxone For Iv Use (Rocephin For I (02/16/20 21:45) Azithromycin Tablet (Zithromax Tablet) (02/16/20 22:00) Medications Given in ED Current Medications Medications Dose Ordered Sig/Alejandra Route Start Time Stop Time Status Last Admin Dose Admin Acetaminophen 500 mg ONCE ONCE PO 02/16/20 19:45 02/16/20 19:46 DC 02/16/20 19:55 500 MG Albuterol/ Ipratropium 3 ml ONCE ONCE INH 02/16/20 19:30 02/16/20 19:31 DC 02/16/20 19:40 3 ML Methylprednisolone Sodium Succinate 125 mg ONCE ONCE IVP 02/16/20 19:45 02/16/20 19:46 DC 02/16/20 19:54 125 MG Vital Signs/I&O 02/16/20 02/16/20 02/16/20 02/16/20 19:11 19:55 20:07 20:10 Temp 38.0 38.0 Pulse 86 Resp 14 B/P (MAP) Pulse Ox 91 92 O2 Delivery Room Air Room Air 02/16/20 02/16/20 02/16/20 02/16/20 21:17 21:50 22:14 22:37 Temp 36.8 36.8 37.4 Pulse 125 113 117 Resp 19 23 20 B/P (MAP) 143/55 117/43 (84) 132/58 Pulse Ox 92 95 97 95 O2 Delivery Room Air Nasal Cannula Nasal Cannula Nasal Cannula O2 Flow Rate 2.00 2.00 2.00 02/16/20 23:01 Pulse 111 Capillary Refill : Less Than 3 Seconds Point of Care Testing Finger Stick Blood Glucose: 92 Blood Glucose Action Taken: RN NOTIFIED Progress Note #1: Time: 19:51 Progress Note Patient received a DuoNeb treatment which did not improve her wheezing much. She is going to now receive an hour-long treatment along with Solu-Medrol 125 mg IV. Septic workup is underway. Progress Note #2: Progress Note No source of infection was identified. Patient appears to be having a severe COPD exacerbation. Steroids and an hour-long nebulizer treatment did improve her breathing significantly. Case was reviewed with Dr. Waters who requested Rocephin and azithromycin be administered as part of the COPD exacerbation treatment. Patient also received Tylenol 500 mg in the ER to follow the acetaminophen she received with her hydrocodone just prior to arrival. She was afebrile at the time of transfer to the floor. She was borderline hypoxic during her ER visit nasal cannula oxygen was applied. CT of the head demonstrated no acute abnormalities. Patient's son did remark she has a history of carotid artery disease which is monitored by her truck switcher. They could not recall who her truck switcher is. Diagnostic Imaging Diagonstic Imaging: Xray Plain Films/CT/US/NM/MRI: chest Comments Chest x-ray viewed by me and report reviewed. See report below: NAME: JAVIER FRANK [facility] REC#: [id number] PT STATUS: REG ER : 1950 PHYSICIAN: MIKEL MARS MD ADMIT DATE: 02/16/20/ER Signed Date of Exam:02/16/20 CHEST 1 VIEW, AP/PA ONLY INDICATION: Weakness. Difficulty breathing. EXAMINATION: Upright chest was obtained. FINDINGS: Normal heart size and vascularity. There is some basilar hyperexpansion which may be secondary to COPD. No mass or infiltrate is seen. There is minimal blunting of the right costophrenic angle which could be due to scarring or small effusion. There are changes of prior median sternotomy. IMPRESSION: No acute abnormality is seen with no change from 02/07/2019. Dictated by: Dictated on workstation # [id number] Dict: 02/16/202033 Trans: 02/16/202100 [facility] [id number] Interpreted by: NAHID GROSSMAN MD Electronically signed by: NAHID GROSSMAN MD 02/16/202100 Diagonstic Imaging: CT Plain Films/CT/US/NM/MRI: head Comments CT head viewed by me and report reviewed. See report below: NAME: JAVIER FRANK [facility] REC#: [id number] PT STATUS: REG ER : 1950 PHYSICIAN: MIKEL MARS MD ADMIT DATE: 02/16/20/ER Signed Date of Exam:02/16/20 CT HEAD WO-R/O STROKE PROCEDURE: CT head w/o contrast, r/o stroke. TECHNIQUE: Multiple contiguous axial images were obtained through the brain without the use of intravenous contrast. Auto Exposure Controls were utilized during the CT exam to meet ALARA standards for radiation dose reduction. INDICATION: Weakness for one month. Incontinence. FINDINGS: There is mild cortical atrophy. Mild prominence of the ventricles which may be related to the atrophy but normal pressure hydrocephalus is a possibility there is no acute parenchymal hemorrhage, edema or mass. There is no extra-axial mass or hemorrhage. IMPRESSION: Mildly prominent ventricles which may be related to normal pressure hydrocephalus. The ventricular size appears similar to a CT from 02/06/2019. No acute abnormality is evident. Dictated by: Dictated on workstation # [id number] Dict: 02/16/202141 Trans: 02/16/202153 [facility] [id number] Interpreted by: NAHID GROSSMAN MD Electronically signed by: NAHID GROSSMAN MD 02/16/202153 Departure Communication (Admissions) Time/Spoke to Admitting Phy: 21:44 Dr. Waters Impression Primary Impression: COPD exacerbation Additional Impressions: Hypoxia Febrile illness Generalized weakness Mouth droop Disposition: ADMITTED INPATIENT Condition: Improved Admissions Decision to Admit Reason: Admit from ER (General) Decision to Admit/Date: Feb 16, 2020 Time/Decision to Admit Time: 19:15 Departure-Patient Inst. Referrals: KENDY MADISON DO (PCP/Family) Primary Care Physician Copy Copies To 1: KENDY MADISON JOSHUA T MD Feb 16, 2020 19:31
[2020-02-16 19:33] LABS: BASOPHILS % (AUTO) 0 % (0-10); EOSINOPHILS # (AUTO) 0.1 10^3/uL (0.0-0.3); EOSINOPHILS % (AUTO) 1 % (0-10); HEMATOCRIT 38 % (35-52); HEMOGLOBIN 12.2 G/DL (11.5-16.0); LYMPHOCYTES # (AUTO) 0.6 X 10^3 (1.0-4.0); LYMPHOCYTES % (AUTO) 8 % (12-44); MEAN CORPUSCULAR HEMOGLOBIN 29 PG (25-34); MEAN CORPUSCULAR HGB CONC 32 G/DL (32-36); MEAN CORPUSCULAR VOLUME 90 FL (80-99); MEAN PLATELET VOLUME 12.2 FL (7.4-10.4); MONOCYTES # (AUTO) 0.6 X 10^3 (0.0-1.0); MONOCYTES % (AUTO) 9 % (0-12); NEUTROPHILS # (AUTO) 5.7 X 10^3 (1.8-7.8); NEUTROPHILS % (AUTO) 82 % (42-75); PLATELET COUNT 140 10^3/uL (130-400); RED CELL DISTRIBUTION WIDTH 15.6 % (10.0-14.5)
[2020-02-16] MEDS ORDERED: ACETAMINOPHEN 500 MG TAB (TYLENOL) PO ONE (19:45)
[2020-02-16] MEDS ORDERED: methylPREDNISolone 125 MG (Solu-MEDROL) VIAL IVP ONE (19:45)
[2020-02-16 19:47] LABS: INR 0.9 (0.8-1.4); PROTHROMBIN TIME PATIENT 12.8 SEC (12.2-14.7)
[2020-02-16 20:00] LABS: ALBUMIN 4.1 GM/DL (3.2-4.5); BILIRUBIN,TOTAL 0.4 MG/DL (0.1-1.0); CALCIUM 9.4 MG/DL (8.5-10.1); CREATININE SERUM 1.16 MG/DL (0.60-1.30); POTASSIUM 4.1 MMOL/L (3.6-5.0); TOTAL PROTEIN 6.7 GM/DL (6.4-8.2)
--- NOTE | 2020-02-16 20:37 | Diagnostic Imaging Report ---
INDICATION: Weakness. Difficulty breathing. EXAMINATION: Upright chest was obtained. FINDINGS: Normal heart size and vascularity. There is some basilar hyperexpansion which may be secondary to COPD. No mass or infiltrate is seen. There is minimal blunting of the right costophrenic angle which could be due to scarring or small effusion. There are changes of prior median sternotomy. IMPRESSION: No acute abnormality is seen with no change from 02/07/2019. Dictated by: Dictated on workstation # [id number]
[2020-02-16 21:17] LABS: BILIRUBIN,URINE NEGATIVE (NEGATIVE); CLARITY,URINE CLEAR; COLOR,URINE YELLOW; GLUCOSE, URINE (UA) NEGATIVE (NEGATIVE); KETONES,URINE NEGATIVE (NEGATIVE); LEUKOCYTE ESTERASE ,URINE NEGATIVE (NEGATIVE); NITRITE,URINE NEGATIVE (NEGATIVE); PROTEIN,URINE NEGATIVE (NEGATIVE)
[2020-02-16 21:26] LABS: AMORPHOUS SEDIMENT,UR RARE AMOR URATES /LPF; BACTERIA,URINE TRACE /HPF; RBC,URINE 0-2 /HPF; WBC,URINE 0-2 /HPF
[2020-02-16] MEDS ORDERED: cefTRIAXone FOR IV USE 1,000 MG in WATER (STERILE) FOR INJECTION 10 ML IV ONE (21:45)
--- NOTE | 2020-02-16 21:48 | Diagnostic Imaging Report ---
PROCEDURE: CT head w/o contrast, r/o stroke. TECHNIQUE: Multiple contiguous axial images were obtained through the brain without the use of intravenous contrast. Auto Exposure Controls were utilized during the CT exam to meet ALARA standards for radiation dose reduction. INDICATION: Weakness for one month. Incontinence. FINDINGS: There is mild cortical atrophy. Mild prominence of the ventricles which may be related to the atrophy but normal pressure hydrocephalus is a possibility there is no acute parenchymal hemorrhage, edema or mass. There is no extra-axial mass or hemorrhage. IMPRESSION: Mildly prominent ventricles which may be related to normal pressure hydrocephalus. The ventricular size appears similar to a CT from 02/06/2019. No acute abnormality is evident. Dictated by: Dictated on workstation # [id number]
[2020-02-16] MEDS ORDERED: AZITHROMYCIN 250 MG TAB (ZITHROMAX) PO ONE (22:00)
--- NOTE | 2020-02-16 22:25 | NUR ---
JAVIER FRANK Vern admitted to room 415-1, with an admitting diagnosis of COPD EXACERBATION,FEBRILE ILLNESS on 02/16/20 from [facility] via [facility], accompanied by STAFF.JAVIER FRANK introduced to surroundings, call light, bed controls, phone, TV, temperature control, lights, meal times, smoking policy, visitor policy, side rail policy, bathrooms and showers. Patient Rights given to patient in the handbook. JAVIER FRANK verbalizes understanding that [facility] is not responsible for the loss or damage to any personal effects or valuables that are kept in the patients possession during their hospitalization. JAVIER FRANK verbalizes understanding of Interdisciplinary Patient Education. Patient and/or family were informed about the Rapid Response Team and its purpose.
[2020-02-16 22:37] VITALS: BP 132/58
[2020-02-16] MEDS ORDERED: NS IV 1000 ML 1,000 ML ONE (23:29)
[2020-02-16] MEDS ORDERED: ACETAMINOPHEN 500 MG TAB (TYLENOL) PO PRN (23:30)
[2020-02-16] MEDS ORDERED: NS IV 1000 ML 1,000 ML IV SCH (23:30)
[2020-02-16] MEDS ORDERED: ONDANSETRON 4 MG/2 ML (SDV) Z0FRAN IV PRN (23:30)
[2020-02-16] MEDS ORDERED: RT-ALBUTEROL SULF 2.5 MG/3 ML PRE-MIX VIAL IH PRN (23:45)
[2020-02-17] VITALS: BP 144/73
[2020-02-17] MEDS: methylPREDNISolone 40 MG/ML (Solu-MEDROL) VIAL IV SCH ×2 (01:42→08:08)
[2020-02-17] MEDS ORDERED: RT-ALBUTEROL/IPRATROPIUM 3 ML (DUONEB) VIAL IH SCH ×2 (02:00→09:00)
[2020-02-17] MEDS: HYDROcodone/APAP 5 MG/325 MG (LORTAB) TAB PO PRN ×2 (03:14→08:08)
[2020-02-17 04:00] VITALS: BP 128/68
[2020-02-17 05:06] LABS: BASOPHILS % (AUTO) 0 % (0-10); EOSINOPHILS % (AUTO) 0 % (0-10); HEMATOCRIT 37 % (35-52); HEMOGLOBIN 11.6 G/DL (11.5-16.0); LYMPHOCYTES # (AUTO) 0.2 X 10^3 (1.0-4.0); LYMPHOCYTES % (AUTO) 3 % (12-44); MEAN CORPUSCULAR HEMOGLOBIN 29 PG (25-34); MEAN CORPUSCULAR HGB CONC 32 G/DL (32-36); MEAN CORPUSCULAR VOLUME 91 FL (80-99); MEAN PLATELET VOLUME 11.9 FL (7.4-10.4); MONOCYTES # (AUTO) 0.1 X 10^3 (0.0-1.0); MONOCYTES % (AUTO) 1 % (0-12); NEUTROPHILS % (AUTO) 96 % (42-75); PLATELET COUNT 135 10^3/uL (130-400); RED CELL DISTRIBUTION WIDTH 15.4 % (10.0-14.5); WHITE BLOOD COUNT 7.3 10^3/uL (4.3-11.0)
[2020-02-17 05:26] LABS: CALCIUM 8.8 MG/DL (8.5-10.1); CREATININE SERUM 1.35 MG/DL (0.60-1.30); POTASSIUM 4.4 MMOL/L (3.6-5.0)
[2020-02-17] MEDS: inSUlin ASPART (NovoLOG) 1 UNIT/0.01 ML (CHARGE PER UNIT) SC SCH ×2 (06:40→12:51)
[2020-02-17] MEDS ORDERED: metFORMIN 500 MG (GLUCOPHAGE) TAB PO SCH (07:00)
[2020-02-17 08:00] VITALS: BP 136/66
[2020-02-17] MEDS ORDERED: AZITHROMYCIN 250 MG TAB (ZITHROMAX) PO SCH (09:00)
[2020-02-17] MEDS ORDERED: CLOPIDOGREL 75 MG (PLAVIX) TABLET PO SCH (09:00)
[2020-02-17 12:00] VITALS: BP 156/74
[2020-02-17] MEDS ORDERED: PRED10TA22 PO (12:21)
--- NOTE | 2020-02-17 13:00 | NUR ---
IV DC, SITE WITHOUT REDNESS OR SWELLING, TELEMETRY DC, PATIENT WANTING TO GO HOME, STEINER DC, CATHIE WELL, PATIENT 94 PERCENT ON ROOM AIR
--- NOTE | 2020-02-17 13:50 | NUR ---
CM/SS: Visit with pt as to plan for discharge Plan: Pt will return home; with [facility] Summary: Visit with pt as to plan for discharge. She reports she is ok with home care is offered the star ratings, and determines she would like [facility]. Pt's spouse returns to hospital and reports that they prefer outpatient physical therapy, as they have three small dogs. Upon making the referral to outpatient services notified that they are no longer taking patients Spouse calls back to say that they have a daughter that works at a penitentiary and can work with the pt. A son calls and shares with physician that he wants pt to stay here for a few days and that the home is full of smoke. Physician makes son aware that pt can return home today, as there is not anything here that is being done that can not be done at home. Spouse calls back and seems to be ok with home care coming to the home to teach daughter how to work with pt related to physical therapy. Referral made to [facility]. Addendum: 02/17/20 at 1437 by KYLE ROE SS Son here and expresses concern as to pt not following through with with plan. He is encouraged to have pt do what is needed to get stronger, working with physical therapy. He and step dad do not get along.
--- NOTE | 2020-02-17 14:16 | Discharge Summary ---
Discharge Summary Reconcile Patient Problems Problems Reviewed?: Yes Instructions for Patient [employer], Assessment/Instructions Take medications as prescribed. Complete her taper of steroids for COPD exacerbation. Participate in therapies. Follow-up with your primary care physician. Physician to follow Patient: Artem Discharge Diet for Home: No Restrictions Hospital Course Date of Admission: Feb 16, 2020 at 21:44 Admission Diagnosis : Acute exacerbation of COPD Family Physician/Provider: Neo Mcgill DO Date of Discharge: 02/17/20 Discharge Diagnosis: Acute exacerbation of COPD Hospital Course: Emilia Alcaraz is a 70-year-old female who presented with shortness of breath and was admitted with acute exacerbation of COPD. She was started on steroids and breathing treatments and improved.. She will complete a course of steroids as an outpatient. She did not require any supplemental oxygen while hospitalized. She did appear to be debilitated and was set up with home health on discharge. She was discharged in stable condition. Labs and Pending Lab Test: Laboratory Tests 02/16/20 19:17: White Blood Count 7.0, Red Blood Count 4.26L, Hemoglobin 12.2, Hematocrit 38, Mean Corpuscular Volume 90, Mean Corpuscular Hemoglobin 29, Mean Corpuscular Hemoglobin Concent 32, Red Cell Distribution Width 15.6H, Platelet Count 140, Mean Platelet Volume 12.2H, Neutrophils (%) (Auto) 82H, Lymphocytes (%) (Auto) 8L, Monocytes (%) (Auto) 9, Eosinophils (%) (Auto) 1, Basophils (%) (Auto) 0, Neutrophils # (Auto) 5.7, Lymphocytes # (Auto) 0.6L, Monocytes # (Auto) 0.6, Eosinophils # (Auto) 0.1, Basophils # (Auto) 0.0, Prothrombin Time 12.8, INR Comment 0.9, Activated Partial Thromboplast Time 32, Sodium Level 140, Potassium Level 4.1, Chloride Level 103, Carbon Dioxide Level 24, Anion Gap 13, Blood Urea Nitrogen 21H, Creatinine 1.16, Estimat Glomerular Filtration Rate 46, BUN/Creatinine Ratio 18, Glucose Level 91, Lactic Acid Level 1.73, Calcium Level 9.4, Corrected Calcium 9.3, Total Bilirubin 0.4, Aspartate Amino Transf (AST/SGOT) 14, Alanine Aminotransferase (ALT/SGPT) 14, Alkaline Phosphatase 79, C-Reactive Protein High Sensitivity 6.72H, B-Type Natriuretic Peptide 87.0, Total Protein 6.7, Albumin 4.1, Procalcitonin 0.07 02/16/20 19:24: Glucometer 92 02/16/20 21:10: Urine Color YELLOW, Urine Clarity CLEAR, Urine pH 5.0, Urine Specific [place] 1.025H, Urine Protein NEGATIVE, Urine Glucose (UA) NEGATIVE, Urine Ketones NEGATIVE, Urine Nitrite NEGATIVE, Urine Bilirubin NEGATIVE, Urine Urobilinogen 0.2, Urine Leukocyte Esterase NEGATIVE, Urine RBC (Auto) NEGATIVE, Urine RBC 0- 2, Urine WBC 0-2, Urine Crystals PRESENTH, Urine Amorphous Sediment RARE KELVIN URATESH, Urine Bacteria TRACE, Urine Casts NONE, Urine Mucus NEGATIVE, Urine Culture Indicated CULTURE PENDING 02/17/20 04:45: White Blood Count 7.3, Red Blood Count 4.04L, Hemoglobin 11.6, Hematocrit 37, Mean Corpuscular Volume 91, Mean Corpuscular Hemoglobin 29, Mean Corpuscular Hemoglobin Concent 32, Red Cell Distribution Width 15.4H, Platelet Count 135, Mean Platelet Volume 11.9H, Neutrophils (%) (Auto) 96H, Lymphocytes (%) (Auto) 3L, Monocytes (%) (Auto) 1, Eosinophils (%) (Auto) 0, Basophils (%) (Auto) 0, Neutrophils # (Auto) 7.0, Lymphocytes # (Auto) 0.2L, Monocytes # (Auto) 0.1, Eosinophils # (Auto) 0.0, Basophils # (Auto) 0.0, Sodium Level 141, Potassium Level 4.4, Chloride Level 104, Carbon Dioxide Level 20L, Anion Gap 17H, Blood Urea Nitrogen 25H, Creatinine 1.35H, Estimat Glomerular Filtration Rate 39, BUN/Creatinine Ratio 19, Glucose Level 216H, Calcium Level 8.8, Procalcitonin 0.08 02/17/20 11:19: Glucometer 135H Microbiology 02/16/20 Influenza Types A,B Antigen (SCOTTY) - Final, Complete Home Meds Active Prednisone 10 Mg Tab.ds.pk 10 Mg PO DAILY Take 6 tabs(60mg)daily,decrease by 1 tab(10MG)daily. Reported Tylenol Extra Strength (Acetaminophen) 500 Mg Tablet 1,000 Mg PO BID Vitamin B-12 (Cyanocobalamin (Vitamin B-12)) 1,000 Mcg Tablet 1,000 Mcg PO DAILY Omeprazole 20 Mg Capsule.dr 20 Mg PO DAILY Atenolol 25 Mg Tablet 25 Mg PO HS Alprazolam 0.5 Mg Tablet 0.5 Mg PO TID PRN Atorvastatin Calcium 20 Mg Tablet 20 Mg PO HS Gabapentin 300 Mg Capsule 300 Mg PO BID Metformin HCl 500 Mg Tablet 1,000 Mg PO BID TAKES 2 (500MG) TABLETS Advair 100-50 Diskus (Fluticasone/Salmeterol) 1 Each Blst.w.dev 1 Puff INH BID Sertraline HCl 50 Mg Tablet 50 Mg PO DAILY Clopidogrel (Clopidogrel Bisulfate) 75 Mg Tablet 75 Mg PO HS Albuterol Sulfate 2.5 Mg/3 Ml Vial.neb 2.5 Mg NEB Q4H PRN HYDROcodone/APAP 10/325 TABLET (Acetaminophen/Hydrocodone Bitart) 1 Each Tablet 1 Tab PO Q6H PRN Aspirin EC (Aspirin) 81 Mg Tablet. 81 Mg PO HS Patient Allergies: Coded Allergies: No Known Drug Allergies (Unverified , 06/07/09) Height (Feet): 5 Height (Inches): 1.00 Weight (Pounds): 141 Weight (Ounces): 8.0 Home Health Need/Face to Face Date of Face to Face: Feb 17, 2020 Clinical Findings: Generalized weakness and fatigue, Instability, Shortness of breath, Unsteady gait I have seen Pt [id number]: Yes Discharged To: Home Diagnosis/Conditions: COPD, debility Problems/Diagnosis/Condition: (1) COPD exacerbation (2) Debility Patient is Homebound due to: Muscle weakness, Shortness of breath/distress Homebound Status Due to the above stated illness, injury or surgical procedure (medical condition or diagnosis) and associated clinical findings, the patient is homebound because of his/her inability to leave home except with aid of a supportive device and/or person AND leaving the home requires a considerable and taxing effort or is medically contraindicated. Pt req the following assistanc: Aid of another person Home Health Nursing Orders Home Health Services Order: Nursing Services, Executive Services Administrator-Evaluate & Treat, Physical Therapy-Evaluate & Treat Home Health Infusion Therapy Line Start Date: Feb 16, 2020 Certify Stmt I certify that this patient is under my care and that I, a nurse practitioner or a physician; a circulation assistant working with me, had a face to face encounter that - meets the physician face to face encounter requirements with this patient as dated. Discharge Physical Exam General: Alert, Cooperative, No Acute Distress HEENT: Atraumatic, EOMI, Mucous Memb Moist/[place] Lungs: Other (Wheezing, no respiratory distress) Heart: Regular Rate, Normal S1, Normal S2, No Murmurs Abdomen: Normal Bowel Sounds, Soft, No Tenderness Extremities: No Edema, No Tenderness/Swelling Skin: No Rashes, No Significant Lesion Neuro: Normal Speech Psych/Mental Status: Mood NL CARA BARBER MD Feb 17, 2020 14:16
--- NOTE | 2020-02-17 14:39 | Occ Therapy Progress Note ---
Therapy Progress Note OT evaluation received and chart reviewed. OT visited with pt who reports no concerns with ADLs such as bathing and dressing upon returning home. Pt reports she is waiting to discharge today. Due to pt reporting she is at [facility], no skilled OT services are indicated at this time. 1, visit 1436 ANGIE TAPIA OT Feb 17, 2020 14:39
--- NOTE | 2020-02-17 14:45 | Physical Therapy Evaluation ---
PT Evaluation-General Medical Diagnosis Admission Date Feb 16, 2020 at 21:44 Medical Diagnosis: COPD/febrile illness Onset Date: Feb 16, 2020 Therapy Diagnosis Therapy Diagnosis: debility Height/Weight Height (Feet): 5 Height (Inches): 1.00 Weight (Pounds): 141 Weight (Ounces): 8.0 Precautions Precautions/Isolations: Fall Prevention, Standard Precautions Weight Bear Status Right Lower Extremity: Right Weight Bearing/Tolerated Left Lower Extremity: Left Weight Bearing/Tolerated Referral Physician: Sabina Reason for Referral: Evaluation/Treatment Medical History Pertinent Medical History: Arthritis, DM, GERD, Hypothroidism, Smoking Current History EMS secondary to weakness x 1 month Reviewed History: Yes Social History Home: Single Level Current Living Status: Spouse Prior Prior Level of Function SCALE: Activities may be completed with or without assistive devices. 7-Ehstjgcyvo-ibrpzen completes the activity by him/herself with no assistance from a helper. 5-Set-up or Clean-up Assistance-helper sets up or cleans up; patient completes activity. [place] assists only prior to or following the activity. 4-Supervision or Touching Assistance-helper provides verbal cues and/or touching/steadying and/or contact guard assistance as patient completes activity. Assistance may be provided throughout the activity or intermittently. 3-Partial/Moderate Assistance-helper does LESS THAN HALF the effort. [place] lifts, holds or supports trunk or limbs, but provides less than half the effort. 2-Substantial/Maximal Assistance-helper does MORE THAN HALF the effort. [place] lifts or holds trunk or limbs and provides more than half the effort. 4-Vwkeymzcp-kvvpqi does ALL the effort. Patient does none of the effort to complete the activity. Or, the assistance of 2 or more helpers is required for the patient to complete the activity. If activity was not attempted, code reason: 7-Patient Refused. 9-Not Applicable-not attempted and the patient did not perform the activity before the current illness, exacerbation or injury. 10-Not Attempted due to Environmental Limitations-(lack of equipment, weather restraints, etc.). 88-Not Attempted due to Medical Conditions or Safety Concerns. Bed Mobility: 6 Transfers (B,C,W/C): 6 Gait: 6 Stairs: 6 Indoor Mobility (Ambulation): Independent Stairs: Independent Prior Devices Use: Walker (PRN) PT Evaluation-Current Subjective Patient reports she is going home today. Agrees to PT. Pain Numeric Pain Scale: 0-No Pain Location: No Pain Reported Objective Patient Orientation: Normal For Age ROM/Strength ROM Lower Extremities bilateral LE WFL Strength Lower Extremities 4/5 grossly bilateral LE Integumentary/Posture Integumentary refer to nursing notes Bowel Incontinence: No Bladder Incontinence: No Posture WFL Neuromuscular (Tone, Coordination, Reflexes) grossly intact Sensory Vision: Functional Hearing: Functional Sensation Right Lower Extremit: Impaired Sensation Left Lower Extremity: Impaired Transfers Roll Left to Right (QC): 6 Sit to Lying (QC): 6 Lying to Sitting/Side of Bed(Q: 6 Sit to Stand (QC): 6 Chair/Twc-rn-Qlfab Xfer(QC): 6 Gait Does the Patient Walk?: Yes Mode of Locomotion: Walk Anticipated Mode of Locomotion: Walk Walk 10 feet (QC): 6 Walk 50 ft with 2 Turns(QC): 6 Walk 150 ft (QC): 6 Distance: 250' Gait Assistive Device: FWW Comments/Gait Description safe and functional with no deviation/patient ambulate in room independently without AD Balance Sitting Static: Normal Sitting Dynamic: Normal Standing Static: Normal Standing Dynamic: Normal Assessment/Needs 70 y.o. female, is currently at independent OF with all gross motor skills and does not require skilled therapy intervention. Rehab Potential: Fair Post Rehab Potential-Barriers: compliance PT Plan Treatment/Plan Treatment Plan: Discontinue PT Treatment Duration: Feb 17, 2020 Frequency: 1 time per week Estimated Hrs Per Day: .25 hour per day Patient and/or Family Agrees t: Yes Discharge Recommendations Therapy Discharge Recommendati: Home & Family Time/GCodes Time In: 1420 Time Out: 1430 Total Billed Treatment Time: 10 Total Billed Treatment 1 visit EVLowC 10min DUNG METCALF PT Feb 17, 2020 14:45
[2020-02-17 14:55] VITALS: BP 156/74
--- NOTE | 2020-02-17 14:57 | NUR ---
DISMISSED PER W/C, FAMILY AT BEDSIDE, DISCHARGE INSTRUCTIONS GIVEN, VERBALIZED UNDERSTANDING, INSTRUCTED ON NEW PRESCRIPTION, INSTRUCTED ON HOME HEALTH
[2020-02-17] MEDS ORDERED: predniSONE 20 MG TAB PO NR (17:00)
[2020-02-17] MEDS ORDERED: cefTRIAXone 1,000 MG/SWFI 10 ML IV PUSH IV SCH ×2 (22:00)
[2020-02-18] MEDS ORDERED: predniSONE 20 MG TAB PO SCH (07:00)
== END 2020-02-17 15:01 | disposition home health service (06) | DRG 192 ==
LOC: EDUNIT# 19:07 → ER 19:09 → 4TH 21:44
PROVIDERS: ADMIT Internal Medicine; ATTEND Internal Medicine
DX: J44.1 Chronic obstructive pulmonary disease with (acute) exacerbation (principal); R09.02 Hypoxemia; R50.9 Fever, unspecified; R53.1 Weakness; R29.810 Facial weakness; E11.51 Type 2 diabetes mellitus with diabetic peripheral angiopathy without gangrene; I25.10 Atherosclerotic heart disease of native coronary artery without angina pectoris; I10 Essential (primary) hypertension; E89.0 Postprocedural hypothyroidism; I65.29 Occlusion and stenosis of unspecified carotid artery; K21.9 Gastro-esophageal reflux disease without esophagitis; K44.9 Diaphragmatic hernia without obstruction or gangrene; M17.0 Bilateral primary osteoarthritis of knee; R32 Unspecified urinary incontinence; F41.9 Anxiety disorder, unspecified; L30.9 Dermatitis, unspecified; Z95.1 Presence of aortocoronary bypass graft; Z95.5 Presence of coronary angioplasty implant and graft; Z87.891 Personal history of nicotine dependence; Z79.84 Long term (current) use of oral hypoglycemic drugs
CPT/HCPCS: 36415; 51702; 70450; 71045; 80048; 80053; 81000; 82962; 83605; 83880; 84145; 85025; 85610; 85730; 86141; 87040; 87088; 87804; 94640; 94644; 94760

== ENCOUNTER → 2020-05-30 | Outpatient (CLI) | payer MEDICARE ==
--- NOTE | 2020-05-30 12:39 | Diagnostic Imaging Report ---
PROCEDURE: US carotid duplex, bilateral. TECHNIQUE: Multiple real-time grayscale images were obtained over the carotid arteries in various projections, bilaterally. Additional spectral analysis and color Doppler duplex images were also obtained. INDICATION: Bilateral carotid artery disease. FINDINGS: There is moderate plaque in both carotid bulbs. There is plaque in the proximal right internal carotid artery with elevated velocities proximally reaching 200 cm/s. There appears to be occlusion of the left internal carotid artery, with no identifiable flow. Both vertebral arteries demonstrate antegrade flow. Complex hypoechoic nodule in left lobe of thyroid is noted measuring 1.7 x 1.2 x 1.5 cm. This is slightly larger when compared with prior examination from 02/22/2019 where nodule measured approximately 1.3 cm. IMPRESSION: 1. Significant bilateral carotid plaque. There are elevated velocities in the right internal carotid artery consistent with greater than 70% diameter stenosis. In addition, there is an occlusion of the left internal carotid artery. 2. Slight increase in size of complex nodule in left lobe of the thyroid when compared with exam from 02/22/2019. Parameters based on the consensus panel Zaman-Scale and Doppler ultrasound criteria published September 2003, Radiology, Volume 229. DOPPLER (peak systolic velocity M/S Right Left CCA 0.78 0.73 ICA Proximal 2.0 OCCLUDED ICA Mid 1.12 OCCLUDED ICA Distal 1.08 OCCLUDED RATIO 2.56 ECA 1.65 1.5 VERT 0.63 0.76 Dictated by: Dictated on workstation # [id number]
== END ==
LOC: RAD 10:51
PROVIDERS: ATTEND Nurse Practitioner
DX: I65.23 Occlusion and stenosis of bilateral carotid arteries (principal); I77.89 Other specified disorders of arteries and arterioles; E04.1 Nontoxic single thyroid nodule
CPT/HCPCS: 93880

== ENCOUNTER → 2020-06-15 | Outpatient (CLI) | payer MEDICARE ==
[2020-06-15 11:07] LABS: CREATININE SERUM 1.78 MG/DL (0.60-1.30)
== END ==
LOC: LAB 10:00
PROVIDERS: ATTEND Nurse Practitioner
DX: I65.23 Occlusion and stenosis of bilateral carotid arteries (principal)
CPT/HCPCS: 36415; 82565; 84520

== ENCOUNTER → 2020-06-19 | Outpatient (CLI) | payer MEDICARE ==
[2020-06-19 09:48] LABS: CREATININE SERUM 1.75 MG/DL (0.60-1.30)
== END ==
LOC: RAD 06-15 09:55
PROVIDERS: ATTEND Nurse Practitioner
DX: Z53.9 Procedure and treatment not carried out, unspecified reason (principal); I65.23 Occlusion and stenosis of bilateral carotid arteries
CPT/HCPCS: 36415; 82565; 84520

== ENCOUNTER → 2020-07-19 | Outpatient (CLI) | payer MEDICARE ==
[2020-07-19 10:15] LABS: CREATININE SERUM 1.53 MG/DL (0.60-1.30)
--- NOTE | 2020-07-19 14:07 | Diagnostic Imaging Report ---
PROCEDURE: US Renal Bilateral. TECHNIQUE: Multiple real-time grayscale images were obtained over the kidneys in various projections bilaterally. INDICATION: Chronic kidney disease, stage IV. Right kidney measures 9.9 x 3.6 x 4.3 cm. The left kidney measures 7.7 x 4.3 x 4.4 cm. Cortical thickness and echogenicity is normal on the right. There appears to be some cortical thickening of the left kidney. No calculi or hydronephrosis is detected. Ureteral jets were not visualized in the urinary bladder. IMPRESSION: The left kidney is small and does show some cortical thinning. No hydronephrosis is identified. Dictated by: Dictated on workstation # [id number]
--- NOTE | 2020-07-19 15:25 | Diagnostic Imaging Report ---
PROCEDURE: US Bilateral lower extremity arterial. TECHNIQUE: Multiple real-time grayscale images are obtained through both lower extremity arterial systems with color Doppler imaging and color Doppler spectral analysis. INDICATION: Claudication. FINDINGS: There is monophasic waveforms throughout bilateral lower extremity arterial systems. There is diffuse atherosclerotic plaquing present. Velocities are fairly symmetric bilaterally. No high-grade stenosis or occlusion is identified. No fluid collection or mass is detected. IMPRESSION: Bilateral lower extremity arterial atherosclerotic disease. No high-grade stenosis or occlusion is detected. There are monophasic waveforms bilaterally. This can be seen with more proximal disease. Dictated by: Dictated on workstation # [id number]
== END ==
LOC: RAD 09:18
PROVIDERS: ATTEND Internal Medicine
DX: I73.9 Peripheral vascular disease, unspecified (principal); I70.213 Atherosclerosis of native arteries of extremities with intermittent claudication, bilateral legs; N27.9 Small kidney, unspecified
CPT/HCPCS: 36415; 76770; 82565; 84520; 93925

== ENCOUNTER 2020-07-28 16:11 | Emergency (ER) | payer MEDICARE ==
[~2020-07-28] VITALS: Ht 157.7 cm; Wt 68.0 kg
[2020-07-28 18:26] LABS: BASOPHILS % (AUTO) 0 % (0-10); EOSINOPHILS # (AUTO) 0.2 10^3/uL (0.0-0.3); EOSINOPHILS % (AUTO) 3 % (0-10); HEMATOCRIT 40 % (35-52); HEMOGLOBIN 12.4 G/DL (11.5-16.0); LYMPHOCYTES # (AUTO) 1.6 X 10^3 (1.0-4.0); LYMPHOCYTES % (AUTO) 17 % (12-44); MEAN CORPUSCULAR HEMOGLOBIN 29 PG (25-34); MEAN CORPUSCULAR HGB CONC 31 G/DL (32-36); MEAN CORPUSCULAR VOLUME 92 FL (80-99); MEAN PLATELET VOLUME 13.1 FL (7.4-10.4); MONOCYTES # (AUTO) 0.7 X 10^3 (0.0-1.0); MONOCYTES % (AUTO) 8 % (0-12); NEUTROPHILS # (AUTO) 6.6 X 10^3 (1.8-7.8); NEUTROPHILS % (AUTO) 72 % (42-75); PLATELET COUNT 160 10^3/uL (130-400); RED CELL DISTRIBUTION WIDTH 15.2 % (10.0-14.5); WHITE BLOOD COUNT 9.1 10^3/uL (4.3-11.0)
[2020-07-28 18:31] LABS: ALBUMIN 4.1 GM/DL (3.2-4.5); POTASSIUM 3.7 MMOL/L (3.6-5.0)
[2020-07-28 18:32] LABS: CALCIUM 9.2 MG/DL (8.5-10.1)
[2020-07-28 18:33] LABS: TOTAL PROTEIN 6.8 GM/DL (6.4-8.2)
[2020-07-28 18:35] LABS: BILIRUBIN,TOTAL 0.3 MG/DL (0.1-1.0)
[2020-07-28 18:37] LABS: CREATININE SERUM 1.29 MG/DL (0.60-1.30)
--- NOTE | 2020-07-28 18:59 | ED Fall/Injury ---
General Chief Complaint: Trauma-Non Activation Stated Complaint: FALL Nursing Triage Note: FALL Source: patient Exam Limitations: no limitations (KAJAL BECKETT MED STUDENT) History of Present Illness Date Seen by Provider: Jul 28, 2020 Time Seen by Provider: 18:21 Initial Comments This is a 70 YO female who presents to the ED after fall this morning. Pt states she does not remember the mechanism of the fall, but knows that she fell into the back of her chair on her right side. States she is having some right flank pain that she rates as a 5/10, but denies LOC, head injury, or any other injury. She normally ambulates with a walker and says she has arthritis in her knees. She denies weakness, headache, nausea, vomiting, or dizziness. Occurred: this morning Loss of Consciousness: no loss of consciousness Associated Symptoms (Fall): No Dizziness, No Headache, No Nausea/Vomiting (KAJAL BECKETT MED STUDENT) Allergies and Home Medications Allergies Coded Allergies: No Known Drug Allergies (Unverified , 06/07/09) Home Medications Acetaminophen 500 Mg Tablet, 1,000 MG PO BID, (Reported) Albuterol Sulfate 2.5 Mg/3 Ml Vial.neb, 2.5 MG NEB Q4H PRN for SHORTNESS OF BREATH, (Reported) Alprazolam 0.5 Mg Tablet, 0.5 MG PO TID PRN for ANXIETY, (Reported) Aspirin 81 Mg Tablet.dr, 81 MG PO HS, (Reported) Atenolol 25 Mg Tablet, 25 MG PO HS, (Reported) Atorvastatin Calcium 20 Mg Tablet, 20 MG PO HS, (Reported) Cephalexin 500 Mg Capsule, 500 MG PO TID Prescribed by: MIKEL ANDERSON on 07/28/202049 Clopidogrel Bisulfate 75 Mg Tablet, 75 MG PO HS, (Reported) Cyanocobalamin (Vitamin B-12) 1,000 Mcg Tablet, 1,000 MCG PO DAILY, (Reported) Fluticasone/Salmeterol 1 Each Blst.w.dev, 1 PUFF INH BID, (Reported) Gabapentin 300 Mg Capsule, 300 MG PO BID, (Reported) Hydrocodone Bit/Acetaminophen 1 Each Tablet, 1 TAB PO Q6H PRN for PAIN-MODERATE, (Reported) Metformin HCl 500 Mg Tablet, 1,000 MG PO BID, (Reported) TAKES 2 (500MG) TABLETS Omeprazole 20 Mg Capsule.dr, 20 MG PO DAILY, (Reported) Prednisone 10 Mg Tab.ds.pk, 10 MG PO DAILY Take 6 tabs(60mg)daily,decrease by 1 tab(10MG)daily. Prescribed by: CARA BARBER on 02/17/20 1221 Sertraline HCl 50 Mg Tablet, 50 MG PO DAILY, (Reported) Patient Home Medication List Home Medication List Reviewed: Yes (MIKEL MARS MD) Review of Systems Review of Systems Constitutional: see HPI Eyes: See HPI Ears, Nose, Mouth, Throat: see HPI Respiratory: see HPI Cardiovascular: no symptoms reported Gastrointestinal: see HPI Genitourinary: no symptoms reported Musculoskeletal: see HPI Skin: no symptoms reported Psychiatric/Neurological: See HPI (KAJAL BECKETT) All Other Systems Reviewed Negative Unless Noted: Yes (KAJAL BECKETT) Past Qondeyn-Sfdlpn-Bfxudl Hx Past Med/Social Hx: Reviewed Nursing Past Med/Soc Hx (MIKEL MARS MD) Patient Social History Alcohol Use: Denies Use Recreational Drug Use: No Smoking Status: Current Everyday Smoker Type Used: Cigarettes 2nd Hand Smoke Exposure: Yes Recent Foreign Travel: No Contact w/Someone Who Travel: No Recent Infectious Disease Expo: No Recent Hopitalizations: No (KAJAL BECKETT) Immunizations Up To Date Tetanus Booster (TDap): Unknown PED Vaccines UTD: Yes Date of Pneumonia Vaccine: Oct 30, 2012 Date of Influenza Vaccine: Sep 30, 2018 (KAJAL BECKETT) Seasonal Allergies Seasonal Allergies: No (KAJAL BECKETT) Past Medical History Surgeries: Yes CABG, Thyroidectomy Respiratory: Yes Asthma, Chronic Bronchitis, COPD Cardiac: Yes (CABG/STENTS. 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 Gastrointestinal: Yes Gastroesophageal Reflux, Hiatal Hernia Musculoskeletal: Yes (ARTHRITIS IN KNEES) Arthritis Endocrine: Yes Hypothyroidsim, Diabetes, Non-Insulin dep Cancer: No Psychosocial: Yes Anxiety Integumentary: Yes Eczema Blood Disorders: No (KAJAL BECKETT) Family Medical History Alzheimer's disease 19 MOTHER FH: cancer G8 SISTER FH: heart disease 19 FATHER Kidney disease 19 MOTHER Myocardial infarction G8 BROTHER No Pertinent Family Hx (KAJAL BECKETT) Physical Exam Vital Signs Vital Signs - First Documented 07/28/20 16:25 Temp 36.8 Pulse 76 Resp 20 B/P (MAP) 136/70 (92) Pulse Ox 95 O2 Delivery Room Air (MIKEL MARS MD) Vital Signs Capillary Refill : Less Than 3 Seconds (KAJAL BECKETT MED STUDENT) Height, Weight, BMI Height: 5'1.00" Weight: 141lbs. 8.0oz. 62.760942st; 27.00 BMI Method:Stated General Appearance: WD/WN, mild distress HEENT: TMs normal, other (dry mucous membranes; constricted pupils bilaterally) Neck: supple, normal inspection Cardiovascular: regular rate, rhythm, no murmur Respiratory: wheezing, other (decreased air movement; crackles in the right lower lung base) Gastrointestinal: non tender, soft; No guarding, No rebound Back: other (large ecchymosis with tenderness to the right flank; no crepitus) Extremities: normal range of motion, normal inspection Neurologic/Psychiatric: no motor/sensory deficits, alert, normal mood/affect, oriented x 3, other (normal 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 writer strength bilaterally) Skin: normal color, warm/dry Lymphatic: no adenopathy (KAJAL BECKETT MED STUDENT) [place] Coma Score Best Eye Response: (4) Open Spontaneously Best Verbal Response: (5) Oriented Best Motor Response: (6) Obeys Commands (KAJAL BECKETT STUDENT) Progress/Results/Core Measures Results/Orders Lab Results Laboratory Tests Test 07/28/20 17:13 07/28/20 20:02 Range/Units White Blood Count 9.1 4.3-11.0 10^3/uL Red Blood Count 4.34 L 4.35-5.85 10^6/uL Hemoglobin 12.4 11.5-16.0 G/DL Hematocrit 40 35-52 % Mean Corpuscular Volume 92 80-99 FL Mean Corpuscular Hemoglobin 29 25-34 PG Mean Corpuscular Hemoglobin Concent 31 L 32-36 G/DL Red Cell Distribution Width 15.2 H 10.0-14.5 % Platelet Count 160 130-400 10^3/uL Mean Platelet Volume 13.1 H 7.4-10.4 FL Neutrophils (%) (Auto) 72 42-75 % Lymphocytes (%) (Auto) 17 12-44 % Monocytes (%) (Auto) 8 0-12 % Eosinophils (%) (Auto) 3 0-10 % Basophils (%) (Auto) 0 0-10 % Neutrophils # (Auto) 6.6 1.8-7.8 X 10^3 Lymphocytes # (Auto) 1.6 1.0-4.0 X 10^3 Monocytes # (Auto) 0.7 0.0-1.0 X 10^3 Eosinophils # (Auto) 0.2 0.0-0.3 10^3/uL Basophils # (Auto) 0.0 0.0-0.1 10^3/uL Sodium Level 144 135-145 MMOL/L Potassium Level 3.7 3.6-5.0 MMOL/L Chloride Level 105 98-107 MMOL/L Carbon Dioxide Level 26 21-32 MMOL/L Anion Gap 13 5-14 MMOL/L Blood Urea Nitrogen 24 H 7-18 MG/DL Creatinine 1.29 0.60-1.30 MG/DL Estimat Glomerular Filtration Rate 41 BUN/Creatinine Ratio 19 Glucose Level 98 70-105 MG/DL Calcium Level 9.2 8.5-10.1 MG/DL Corrected Calcium 9.1 8.5-10.1 MG/DL Total Bilirubin 0.3 0.1-1.0 MG/DL Aspartate Amino Transf (AST/SGOT) 17 5-34 U/L Alanine Aminotransferase (ALT/SGPT) 16 0-55 U/L Alkaline Phosphatase 99 40-136 U/L C-Reactive Protein High Sensitivity 1.99 H 0.00-0.50 MG/DL B-Type Natriuretic Peptide 11.5 <100.0 PG/ML Total Protein 6.8 6.4-8.2 GM/DL Albumin 4.1 3.2-4.5 GM/DL Urine Color YELLOW Urine Clarity SL CLOUDY Urine pH 5.5 5-9 Urine Specific [place] 1.025 H 1.016-1.022 Urine Protein 1+ H NEGATIVE Urine Glucose (UA) NEGATIVE NEGATIVE Urine Ketones NEGATIVE NEGATIVE Urine Nitrite POSITIVE H NEGATIVE Urine Bilirubin NEGATIVE NEGATIVE Urine Urobilinogen 0.2 < = 1.0 MG/DL Urine Leukocyte Esterase NEGATIVE NEGATIVE Urine RBC (Auto) NEGATIVE NEGATIVE Urine RBC NONE /HPF Urine WBC 2-5 /HPF Urine Squamous Epithelial Cells 2-5 /HPF Urine Crystals NONE /LPF Urine Bacteria LARGE H /HPF Urine Casts NONE /LPF Urine Mucus NEGATIVE /LPF Urine Culture Indicated YES (MIKEL MARS MD) Micro Results Microbiology 07/28/20 Urine Culture - Preliminary, Resulted Mixed Bacterial Brianne Escherichia coli (MIKEL MARS MD) My Orders Orders - MIKEL MARS MD Cbc With Automated Diff (07/28/20 18:21) Comprehensive Metabolic Panel (07/28/20 18:21) Hs C Reactive Protein (07/28/20 18:21) Ua Culture If Indicated (07/28/20 18:21) Ed Iv/Invasive Line Start (07/28/20 18:21) Albuterol Inhaler (Ventolin Hfa) (07/28/20 19:00) Ct Chest/Abdomen/Pelvis Wo (07/28/20 18:46) BNP (07/28/20 18:48) Ns Iv 1000 Ml (Sodium Chloride 0.9%) (07/28/20 19:47) Urine Culture (07/28/20 20:02) Ceftriaxone For Iv Use (Rocephin For I (07/28/20 20:45) Ketorolac Injection (Toradol Injection) (07/28/20 20:45) (MIKEL MARS MD) Medications Given in ED (MIKEL MARS MD) Vital Signs/I&O 07/28/20 07/28/20 16:25 20:55 Temp 36.8 36.5 Pulse 76 76 Resp 20 24 B/P (MAP) 136/70 (92) 154/83 Pulse Ox 95 94 O2 Delivery Room Air Room Air (MIKEL MARS MD) Blood Pressure Mean: 92 Diagnostic Imaging Diagonstic Imaging: CT Plain Films/CT/US/NM/MRI: chest, abdomen, pelvis Comments CT chest, abdomen and pelvis viewed by me and report reviewed. No acute injuries identified. (MIKEL MARS MD) Departure Impression Primary Impression: UTI (urinary tract infection) Qualified Codes: N39.0 - Urinary tract infection, site not specified Additional Impressions: Chest wall contusion Qualified Codes: S20.211A - Contusion of right front wall of thorax, initial encounter COPD exacerbation Fall on same level Qualified Codes: W18.30XA - Fall on same level, unspecified, initial encounter Carotid stenosis Qualified Codes: I65.29 - Occlusion and stenosis of unspecified carotid artery Disposition: HOME, SELF-CARE Condition: Improved Departure-Patient Inst. Decision time for Depature: 20:43 (MIKEL MARS MD) Referrals: KENDY MADISON DO (PCP/Family) Primary Care Physician Patient Instructions: CHEST CONTUSION, Urinary Tract Infection, Adult (DC) Add. Discharge Instructions: Use your nebulized breathing treatments as directed for your wheezing. Drink plenty of clear liquids. Complete your antibiotics as directed and follow-up with your primary care provider early next week to review urine culture results. Use your prescribed pain medication as previously directed. You may also apply ice to the affected area in 20 minute intervals to treat pain and swelling. Return to care if you have worsening symptoms. Discuss your carotid US results with your doctor on Thursday morning and follow-up as soon as possible. All discharge instructions reviewed with patient and/or family. Voiced understanding. Scripts Cephalexin (Keflex) 500 Mg Capsule 500 MG PO TID, #20 CAP Prov: MIKEL MARS MD 07/28/20 patient was personally interviewed and examined this patient along with Kajal Mcmullen, MS 3. I reviewed and agree with MS 3 documentation including history, physical, and assessments except were otherwise noted. This patient had a fall in the home against the back of a chair resulting in natanael n to the right flank. There is a notable bruise there. She does not know exactly why she fell but does note she has been weaker recently. I also updated patient's son and he was concerned about results of a carotid ultrasound done recently. I reviewed the results of this and noted significant stenosis. I encouraged him to follow up promptly with the primary care provider for r cecilio. Patient did not describe any symptoms of carotid stenosis such as lightheadedness. Urinary tract infection was discovered and was treated with Rocephin. CT scan revealed no serious injury. Patient was discharged home into the care of her son. Exam: Gen.:Alert, oriented, no acute distress HEENT: Normocephalic and atraumatic Heart: Regular rate and rhythm without murmur Lungs: Clear to auscultation bilaterally with normal effort Abdomen: Soft, nontender, normal bowel sounds Skin: Area of deep ecchymosis and tenderness on the right flank over the chest wall. Neuro/psych: Alert, oriented, no focal deficits, normal mood and affect (MIKEL MARS MD) Copy Copies To 1: KENDY MADISON CHRISTINE MED STUDENT Jul 28, 2020 18:58 MIKEL MARS MD Jul 28, 2020 19:45
[2020-07-28] MEDS ORDERED: RT-ALBUTEROL INHALER HFA (VENTOLIN HFA) 18 GM IH ONE (19:00)
--- NOTE | 2020-07-28 19:34 | Diagnostic Imaging Report ---
PROCEDURE: CT chest, abdomen, and pelvis without contrast. TECHNIQUE: Multiple contiguous axial images were obtained through the chest, abdomen, and pelvis without the use of intravenous contrast. Auto Exposure Controls were utilized during the CT exam to meet ALARA standards for radiation dose reduction. INDICATION: Injury with right flank pain. FINDINGS: CT chest: Some predominantly apical centrilobular emphysematous changes are present. Some subpleural scarring in the subpleural in the lung bases greater right. No pneumothorax. No appreciable rib fracture deformity. No chest wall hematoma. The diaphragm is intact. Sternum and manubrium intact. CT abdomen/pelvis: There is no free fluid to suggest hemoperitoneum. There is no free air. No focal mesenteric hematoma or focal bowel wall thickening. The unopacified liver shows a mass in the right hepatic lobe at 1.9 cm, unchanged from comparison of 10/22/2018. No subcapsular hematoma. The gallbladder is negative. The spleen is unremarkable. There is no adrenal hematoma or mass. The pancreas is within normal limits. There is predominantly right-sided nonobstructing renal calculi. There is no hydroureteronephrosis. No perinephric edema, urinoma or hematoma. The unopacified urinary bladder appears nonfocal. No ileus or bowel obstruction. The bony pelvis appears intact. No fracture identified. IMPRESSION: No posttraumatic sequelae identified within the chest, abdomen or pelvis. There is chronic nonobstructing nephrolithiasis and a chronic presumed benign right hepatic lobe nodule. No obstructive features, inflammatory process or acute abnormality is found. Dictated by: Dictated on workstation # [id number]
[2020-07-28] MEDS ORDERED: NS IV 1000 ML 1,000 ML IV SCH (19:47)
[2020-07-28 20:10] LABS: BILIRUBIN,URINE NEGATIVE (NEGATIVE); CLARITY,URINE SL CLOUDY; COLOR,URINE YELLOW; GLUCOSE, URINE (UA) NEGATIVE (NEGATIVE); KETONES,URINE NEGATIVE (NEGATIVE); LEUKOCYTE ESTERASE ,URINE NEGATIVE (NEGATIVE); NITRITE,URINE POSITIVE (NEGATIVE); PH,URINE 5.5 (5-9); PROTEIN,URINE 1+ (NEGATIVE)
[2020-07-28 20:15] LABS: BACTERIA,URINE LARGE /HPF
[2020-07-28] MEDS ORDERED: KETOROLAC 30 MG/ML VIAL IVP ONE (20:45)
[2020-07-28] MEDS ORDERED: cefTRIAXone FOR IV USE 1,000 MG in WATER (STERILE) FOR INJECTION 10 ML IV ONE (20:45)
[2020-07-28] MEDS ORDERED: CEPH-507 PO (20:50)
[2020-07-28 20:55] VITALS: BP 154/83
== END 2020-07-28 20:55 | disposition home or self-care (01) ==
LOC: EDUNIT# 16:11 → ER 16:12
DX: S20.211A Contusion of right front wall of thorax, initial encounter (principal); N39.0 Urinary tract infection, site not specified; J44.1 Chronic obstructive pulmonary disease with (acute) exacerbation; I65.29 Occlusion and stenosis of unspecified carotid artery; E11.51 Type 2 diabetes mellitus with diabetic peripheral angiopathy without gangrene; M17.0 Bilateral primary osteoarthritis of knee; K21.9 Gastro-esophageal reflux disease without esophagitis; F41.9 Anxiety disorder, unspecified; F17.210 Nicotine dependence, cigarettes, uncomplicated; Z79.82 Long term (current) use of aspirin; Z95.1 Presence of aortocoronary bypass graft; Z79.02 Long term (current) use of antithrombotics/antiplatelets; Z79.52 Long term (current) use of systemic steroids; Z79.51 Long term (current) use of inhaled steroids; Z82.49 Family history of ischemic heart disease and other diseases of the circulatory system; Z79.84 Long term (current) use of oral hypoglycemic drugs; W18.39XA Other fall on same level, initial encounter
CPT/HCPCS: 36415; 71250; 74176; 80053; 81000; 83880; 85025; 86141; 87088

== ENCOUNTER 2020-09-20 10:05 | Emergency (ER) | payer MEDICARE ==
[~2020-09-20] VITALS: Ht 155 cm; Wt 67.0 kg
[~2020-09-20 10:05] MED LIST changes: +ASPI-1238 PO; -ASPI-983 PO
[2020-09-20] MEDS ORDERED: methylPREDNISolone 40 MG/ML (DEPO MEDROL) VIAL IA ONE (11:00)
--- NOTE | 2020-09-20 11:07 | ED Lower Extremity ---
General Chief Complaint: Lower Extremity Stated Complaint: LEG PAIN - BOTH Nursing Triage Note: PT STATES HX OF ARTHRITIS AND RESTLESS LEG, CC OF PAIN IN BOTH LEGS AND UNABLE TO SLEEP FOR 3 DAYS, TAKES HYDROCODONE BUT NOT WORKING Nursing Sepsis Screen: No Definite Risk Source: patient Exam Limitations: no limitations History of Present Illness Date Seen by Provider: Sep 20, 2020 Time Seen by Provider: 10:46 Initial Comments Patient presents ER by private conveyance with chief complaint that she has had pain in her knees for ever due to arthritis. She says it has hurt bad forever. She follows with Dr. Mcgill and he gives her opiates. She has a history of open-heart surgery but she does not know if it was for a bypass graft her bowels. She has a history of being on Plavix and states she is on blood thinners all of this is not on her med list. She does not take NSAIDs. She says she came here her years ago for the same complaint and was given a shot in her but which made the pain go away for a long time and she would like that again. She has not ever what the name of the medicine is. She has not seen Dr. Mcgill recently. Patient is a difficult historian however she does recollect to the nurse that she thought maybe the injection was marijuana. No history of surgery or scopes on the knees. Allergies and Home Medications Allergies Coded Allergies: No Known Drug Allergies (Unverified , 06/07/09) Home Medications Acetaminophen 500 Mg Tablet, 1,000 MG PO BID, (Reported) Albuterol Sulfate 2.5 Mg/3 Ml Vial.neb, 2.5 MG NEB Q4H PRN for SHORTNESS OF BREATH, (Reported) Alprazolam 0.5 Mg Tablet, 0.5 MG PO TID PRN for ANXIETY, (Reported) Aspirin 81 Mg Tablet.dr, 81 MG PO HS, (Reported) Atenolol 25 Mg Tablet, 25 MG PO HS, (Reported) Atorvastatin Calcium 20 Mg Tablet, 20 MG PO HS, (Reported) Cephalexin 500 Mg Capsule, 500 MG PO TID Prescribed by: MIKEL ANDERSON on 07/28/202049 Clopidogrel Bisulfate 75 Mg Tablet, 75 MG PO HS, (Reported) Cyanocobalamin (Vitamin B-12) 1,000 Mcg Tablet, 1,000 MCG PO DAILY, (Reported) Fluticasone/Salmeterol 1 Each Blst.w.dev, 1 PUFF INH BID, (Reported) Gabapentin 300 Mg Capsule, 300 MG PO BID, (Reported) Hydrocodone Bit/Acetaminophen 1 Each Tablet, 1 TAB PO Q6H PRN for PAIN-MODERATE, (Reported) Metformin HCl 500 Mg Tablet, 1,000 MG PO BID, (Reported) TAKES 2 (500MG) TABLETS Omeprazole 20 Mg Capsule.dr, 20 MG PO DAILY, (Reported) Prednisone 10 Mg Tab.ds.pk, 10 MG PO DAILY Take 6 tabs(60mg)daily,decrease by 1 tab(10MG)daily. Prescribed by: CARA BARBER on 02/17/20 1221 Sertraline HCl 50 Mg Tablet, 50 MG PO DAILY, (Reported) Patient Home Medication List Home Medication List Reviewed: Yes Review of Systems Constitutional: No chills, No diaphoresis EENTM: No ear discharge, No ear pain Respiratory: No cough, No short of breath Cardiovascular: No edema, No syncope Gastrointestinal: No abdominal pain, No constipation, No diarrhea Genitourinary: No discharge, No dysuria Musculoskeletal: see HPI; No back pain; joint pain Past Xgbmupc-Ouldud-Xugnie Hx Patient Social History Alcohol Use: Denies Use Recreational Drug Use: No Smoking Status: Current Everyday Smoker Type Used: Cigarettes 2nd Hand Smoke Exposure: Yes Recent Foreign Travel: No Contact w/Someone Who Travel: No Recent Infectious Disease Expo: No Recent Hopitalizations: No Immunizations Up To Date Tetanus Booster (TDap): Unknown PED Vaccines UTD: Yes Date of Pneumonia Vaccine: Oct 30, 2012 Date of Influenza Vaccine: Sep 30, 2018 Seasonal Allergies Seasonal Allergies: No Past Medical History Surgeries: Yes CABG, Thyroidectomy Respiratory: Yes Asthma, Chronic Bronchitis, COPD Cardiac: Yes (CABG/STENTS. 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 Genitourinary: No Gastrointestinal: Yes Gastroesophageal Reflux, Hiatal Hernia Musculoskeletal: Yes (ARTHRITIS IN KNEES) Arthritis Endocrine: Yes Hypothyroidsim, Diabetes, Non-Insulin dep Cancer: No Psychosocial: Yes Anxiety Integumentary: Yes Eczema Blood Disorders: No Family Medical History Alzheimer's disease 19 MOTHER FH: cancer G8 SISTER FH: heart disease 19 FATHER Kidney disease 19 MOTHER Myocardial infarction G8 BROTHER No Pertinent Family Hx Physical Exam Vital Signs Vital Signs - First Documented 09/20/20 10:15 Temp 36.5 Pulse 92 Resp 22 B/P (MAP) 192/84 (120) Pulse Ox 97 O2 Delivery Room Air Capillary Refill : Less Than 3 Seconds Height, Weight, BMI Height: 5'1.00" Weight: 141lbs. 8.0oz. 62.306335qe; 27.00 BMI Method:Stated General Appearance: WD/WN, no apparent distress HEENT: PERRL/EOMI, pharynx normal Neck: full range of motion, normal inspection Cardiovascular: normal peripheral pulses, regular rate, rhythm Respiratory: no respiratory distress, no accessory muscle use Knees: bilateral knee non-tender, bilateral knee normal range of motion (painful), bilateral knee no evidence of injury, bilateral knee swelling (mild) Neurologic/Psychiatric: alert, normal mood/affect, oriented x 3 Procedures/Interventions Progress Bilateral intra-articular knee injection. Using and add mixture of 1-1/2 cc of 1% lidocaine, 1-1/2 cc of 0.5% Marcaine and 1/2 cc of Depo-Medrol, 40 mg/mL. We injected using sterile technique, sterile gloves, Z track method each knee using the above mixture. Use the medial anterior approach and a 25-gauge 1-1/2 inch needle. The site was cleaned thoroughly with iodine and allowed to dry first and then alcohol was used to re-anesthetize the site before injection. Patient tolerated procedure well. Had a fairly difficult time getting into the joint space on the left knee because of osteoarthritis and the knee had part of the mixture put in Depo form in the soft tissue anteriorly to the joint to reduce some of the discomfort. Progress/Results/Core Measures Results/Orders My Orders Orders - BERNA ELKINS Methylprednisolone Acetate Inj (Depo-Med (09/20/20 11:00) Medications Given in ED Current Medications Medications Dose Ordered Sig/Alejandra Route Start Time Stop Time Status Last Admin Dose Admin Methylprednisolone Acetate 40 mg ONCE ONCE IA 09/20/20 11:00 09/20/20 11:01 DC 09/20/20 11:18 40 MG Vital Signs/I&O 09/20/20 10:15 Temp 36.5 Pulse 92 Resp 22 B/P (MAP) 192/84 (120) Pulse Ox 97 O2 Delivery Room Air Blood Pressure Mean: 120 Progress Progress Note : Time: 11:04 Progress Note Chronic, nontraumatic bilateral knee pain. Were going to try injecting both her knees with some Depo-Medrol, bupivacaine and lidocaine admixture. I do not feel comfortable giving this patient Toradol given the fact she is on Plavix with a possible coronary history. We have highly recommended that she follow-up with her primary care doctor. Departure Impression Primary Impression: Osteoarthritis of knees, bilateral Qualified Codes: M17.0 - Bilateral primary osteoarthritis of knee Disposition: HOME, SELF-CARE Condition: Stable Departure-Patient Inst. Decision time for Depature: 10:55 Referrals: KENDY MCGILL DO (PCP/Family) Primary Care Physician Patient Instructions: Knee Pain Add. Discharge Instructions: Continue to use Tylenol in addition to the pain meds prescribed by your primary care provider. Make a follow-up appointment with Dr. Mcgill to discuss your knee pain. Expect to feel some increased energy and possibly difficulty getting to sleep over the next couple days because of the steroids area day should kick in to full strength over the next 1-2 days. The steroids should last approximately 5-7 days. If you're having difficulty sleeping you may use one to 2 tablets of Benadryl at bedtime half an hour prior to going to sleep. Use topical creams such as icy hot, Biofreeze, etc. Heat can be helpful. All discharge instructions reviewed with patient and/or family. Voiced understanding. BERNA ELKINS Sep 20, 2020 11:06
[2020-09-20 11:32] VITALS: BP 188/90
== END 2020-09-20 11:32 | disposition home or self-care (01) ==
LOC: EDUNIT# 10:05 → ER 10:08
DX: M17.0 Bilateral primary osteoarthritis of knee (principal); J44.9 Chronic obstructive pulmonary disease, unspecified; E11.9 Type 2 diabetes mellitus without complications; K21.9 Gastro-esophageal reflux disease without esophagitis; F41.9 Anxiety disorder, unspecified; F17.210 Nicotine dependence, cigarettes, uncomplicated; Z82.49 Family history of ischemic heart disease and other diseases of the circulatory system; Z80.9 Family history of malignant neoplasm, unspecified; Z95.1 Presence of aortocoronary bypass graft; Z95.5 Presence of coronary angioplasty implant and graft; Z79.52 Long term (current) use of systemic steroids; Z79.82 Long term (current) use of aspirin; Z79.84 Long term (current) use of oral hypoglycemic drugs
CPT/HCPCS: 99284

== ENCOUNTER 2020-09-26 18:45 | Emergency (ER) | payer MEDICARE ==
[~2020-09-26] VITALS: Ht 154.9 cm; Wt 69.8 kg
--- NOTE | 2020-09-26 18:53 | ED Fall/Injury ---
General Chief Complaint: Trauma-Non Activation Stated Complaint: FALL INJURY Source: patient Exam Limitations: no limitations History of Present Illness Date Seen by Provider: Sep 26, 2020 Time Seen by Provider: 18:53 Initial Comments 70-year-old female presents following a fall. She reports she was going down 2 steps and lost her balance and fell. She fell hit the floor. She is complaining of some mild generalized mid back pain with some mild thoracic vertebral pain. She also has some sternal pain. She reports is very mild and is here just to be checked out. Patient denies any nausea or vomiting. She denies any shortness of breath. Patient with no other injuries reported. Allergies and Home Medications Allergies Coded Allergies: No Known Drug Allergies (Unverified , 06/07/09) Home Medications Acetaminophen 500 Mg Tablet, 1,000 MG PO BID, (Reported) Albuterol Sulfate 2.5 Mg/3 Ml Vial.neb, 2.5 MG NEB Q4H PRN for SHORTNESS OF BREATH, (Reported) Alprazolam 0.5 Mg Tablet, 0.5 MG PO TID PRN for ANXIETY, (Reported) Aspirin 81 Mg Tablet.dr, 81 MG PO HS, (Reported) Atenolol 25 Mg Tablet, 25 MG PO HS, (Reported) Atorvastatin Calcium 20 Mg Tablet, 20 MG PO HS, (Reported) Cephalexin 500 Mg Capsule, 500 MG PO TID Prescribed by: MIKEL ANDERSON on 07/28/202049 Clopidogrel Bisulfate 75 Mg Tablet, 75 MG PO HS, (Reported) Cyanocobalamin (Vitamin B-12) 1,000 Mcg Tablet, 1,000 MCG PO DAILY, (Reported) Fluticasone/Salmeterol 1 Each Blst.w.dev, 1 PUFF INH BID, (Reported) Gabapentin 300 Mg Capsule, 300 MG PO BID, (Reported) Hydrocodone Bit/Acetaminophen 1 Each Tablet, 1 TAB PO Q6H PRN for PAIN-MODERATE, (Reported) Metformin HCl 500 Mg Tablet, 1,000 MG PO BID, (Reported) TAKES 2 (500MG) TABLETS Omeprazole 20 Mg Capsule.dr, 20 MG PO DAILY, (Reported) Prednisone 10 Mg Tab.ds.pk, 10 MG PO DAILY Take 6 tabs(60mg)daily,decrease by 1 tab(10MG)daily. Prescribed by: CARA BARBER on 02/17/20 1221 Sertraline HCl 50 Mg Tablet, 50 MG PO DAILY, (Reported) Patient Home Medication List Home Medication List Reviewed: Yes Review of Systems Review of Systems Constitutional: No chills Eyes: No Symptoms Reported Ears, Nose, Mouth, Throat: no symptoms reported Respiratory: no symptoms reported Cardiovascular: no symptoms reported Gastrointestinal: no symptoms reported Genitourinary: no symptoms reported Musculoskeletal: see HPI Skin: no symptoms reported Psychiatric/Neurological: No Symptoms Reported Past Esouwoc-Pxqygt-Ddvelu Hx Past Med/Social Hx: Reviewed Nursing Past Med/Soc Hx Patient Social History Type Used: Cigarettes 2nd Hand Smoke Exposure: Yes Recent Hopitalizations: No Immunizations Up To Date Tetanus Booster (TDap): Unknown PED Vaccines UTD: Yes Date of Pneumonia Vaccine: Oct 30, 2012 Date of Influenza Vaccine: Sep 30, 2018 Seasonal Allergies Seasonal Allergies: No Past Medical History Surgeries: Yes CABG, Thyroidectomy Respiratory: Yes Asthma, Chronic Bronchitis, COPD Cardiac: Yes (CABG/STENTS. 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 Genitourinary: No Gastrointestinal: Yes Gastroesophageal Reflux, Hiatal Hernia Musculoskeletal: Yes (ARTHRITIS IN KNEES) Arthritis Endocrine: Yes Hypothyroidsim, Diabetes, Non-Insulin dep Cancer: No Psychosocial: Yes Anxiety Integumentary: Yes Eczema Blood Disorders: No Family Medical History Alzheimer's disease 19 MOTHER FH: cancer G8 SISTER FH: heart disease 19 FATHER Kidney disease 19 MOTHER Myocardial infarction G8 BROTHER No Pertinent Family Hx Physical Exam Vital Signs Vital Signs - First Documented 09/26/20 18:45 Temp 36.7 Pulse 68 Resp 28 B/P (MAP) 114/65 (81) Pulse Ox 95 O2 Delivery Room Air Capillary Refill : Height, Weight, BMI Height: 5'1.00" Weight: 141lbs. 8.0oz. 62.290729di; 27.00 BMI Method:Stated General Appearance: WD/WN, no apparent distress Neck: non-tender, full range of motion, supple, normal inspection Cardiovascular: normal peripheral pulses, regular rate, rhythm, no edema Respiratory: lungs clear, normal breath sounds, no respiratory distress, no accessory muscle use Gastrointestinal: non tender, soft Back: other (mild midthoracic tenderness both paravertebral, vertebral and general. 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 Patient with very minimal tenderness with no pinpoint vertebral tenderness on exam patient will be discharged home. She should use Tylenol ibuprofen along with ice and topical lidocaine as needed for pain. Patient stable only discharged Diagnostic Imaging Diagonstic Imaging: Xray Plain Films/CT/US/NM/MRI: chest, other Comments [facility] [place], [place] NAME: [facility] REC#: [id number] PT STATUS: REG ER : 1950 PHYSICIAN: INESSA MILLIGAN DO ADMIT DATE: 09/26/20/ER Draft Date of Exam:09/26/20 THORACIC SPINE, 2 VIEWS ONLY INDICATION: Fall with back pain AP and lateral views of the thoracic spine reveal normal spinal curvature and alignment. Vertebral body heights and disc spaces are maintained. There is no evidence of acute fracture or paraspinous hematoma. IMPRESSION: No radiographic evidence of acute thoracic spinal abnormality. Dictated on workstation # [id number] Dict: 09/26/201925 Trans: 09/26/201927 [facility] [id number] Interpreted by: MELVIN SANTIAGO MD Electronically signed by: [facility] [place], [place] NAME: [facility] REC#: [id number] PT STATUS: REG ER : 1950 PHYSICIAN: INESSA MILLIGAN DO ADMIT DATE: 09/26/20/ER Draft Date of Exam:09/26/20 CHEST PA/LAT (2 VIEW) Fall with chest pain PA and lateral views of the chest are obtained. Comparison is made to study of 02/16/2020. Heart size and pulmonary vascularity are within normal limits. There is blunting of right costophrenic sulcus which is not significantly changed. Surgical findings in the mediastinum are stable. There is mild diffuse thoracic spondylosis. IMPRESSION: Probable mild right pleural scarring without evidence of acute abnormality or significant change. Departure Impression Primary Impression: Contusion of back wall of thorax Qualified Codes: S20.229A - Contusion of unspecified back wall of thorax, initial encounter Additional Impression: Fall Qualified Codes: W19.XXXA - Unspecified fall, initial encounter Disposition: HOME, SELF-CARE Condition: Stable Departure-Patient Inst. Referrals: KENDY MADISON DO (PCP/Family) Primary Care Physician Patient Instructions: Contusion (DC) Add. Discharge Instructions: Tylenol or ibuprofen as needed for pain 4% topical lidocaine with menthol to affected area as directed on package Ice to affected area All discharge instructions reviewed with patient and/or family. Voiced understanding. INESSA MILLIGAN DO Sep 26, 2020 18:53
--- NOTE | 2020-09-26 19:28 | Diagnostic Imaging Report ---
Fall with chest pain PA and lateral views of the chest are obtained. Comparison is made to study of 02/16/2020. Heart size and pulmonary vascularity are within normal limits. There is blunting of right costophrenic sulcus which is not significantly changed. Surgical findings in the mediastinum are stable. There is mild diffuse thoracic spondylosis. IMPRESSION: Probable mild right pleural scarring without evidence of acute abnormality or significant change. Dictated by: Dictated on workstation # [id number]
--- NOTE | 2020-09-26 19:29 | Diagnostic Imaging Report ---
INDICATION: Fall with back pain AP and lateral views of the thoracic spine reveal normal spinal curvature and alignment. Vertebral body heights and disc spaces are maintained. There is no evidence of acute fracture or paraspinous hematoma. IMPRESSION: No radiographic evidence of acute thoracic spinal abnormality. Dictated by: Dictated on workstation # [id number]
[2020-09-26 19:43] VITALS: BP 134/54
[2020-09-26] MEDS ORDERED: RT-ALBUTEROL INHALER HFA (VENTOLIN HFA) 18 GM IH ONE (19:51)
== END 2020-09-26 19:53 | disposition home or self-care (01) ==
LOC: EDUNIT# 18:45 → ER 18:47
DX: S20.229A Contusion of unspecified back wall of thorax, initial encounter (principal); M54.6 Pain in thoracic spine; K21.9 Gastro-esophageal reflux disease without esophagitis; E11.9 Type 2 diabetes mellitus without complications; F41.9 Anxiety disorder, unspecified; J44.9 Chronic obstructive pulmonary disease, unspecified; F17.210 Nicotine dependence, cigarettes, uncomplicated; Z87.19 Personal history of other diseases of the digestive system; Z86.79 Personal history of other diseases of the circulatory system; Z95.5 Presence of coronary angioplasty implant and graft; Z79.51 Long term (current) use of inhaled steroids; Z79.02 Long term (current) use of antithrombotics/antiplatelets; Z79.84 Long term (current) use of oral hypoglycemic drugs; W10.9XXA Fall (on) (from) unspecified stairs and steps, initial encounter
CPT/HCPCS: 71046; 72070

== ENCOUNTER 2020-10-04 18:44 | Emergency (ER) | payer MEDICARE ==
[~2020-10-04] VITALS: Ht 154 cm; Wt 65.7 kg
--- NOTE | 2020-10-04 18:53 | ED Lower Extremity ---
General Stated Complaint: LEG PAIN Source: patient Exam Limitations: no limitations History of Present Illness Date Seen by Provider: Oct 04, 2020 Time Seen by Provider: 18:51 Initial Comments To ER by EMS from home with reports of exacerbation of her chronic bilateral knee pain since yesterday without known injury. No fevers or chills no trauma. She takes oxycodone at home regularly for her chronic knee pain. Onset: just prior to arrival Severity: moderate Pain/Injury Location: bilateral knee Method of Injury: unknown Modifying Factors: Worse With Movement Allergies and Home Medications Allergies Coded Allergies: No Known Drug Allergies (Unverified , 06/07/09) Home Medications Acetaminophen 500 Mg Tablet, 1,000 MG PO BID, (Reported) Albuterol Sulfate 2.5 Mg/3 Ml Vial.neb, 2.5 MG NEB Q4H PRN for SHORTNESS OF BREATH, (Reported) Alprazolam 0.5 Mg Tablet, 0.5 MG PO TID PRN for ANXIETY, (Reported) Aspirin 81 Mg Tablet.dr, 81 MG PO HS, (Reported) Atenolol 25 Mg Tablet, 25 MG PO HS, (Reported) Atorvastatin Calcium 20 Mg Tablet, 20 MG PO HS, (Reported) Cephalexin 500 Mg Capsule, 500 MG PO TID Prescribed by: MIKEL ANDERSON on 07/28/202049 Clopidogrel Bisulfate 75 Mg Tablet, 75 MG PO HS, (Reported) Cyanocobalamin (Vitamin B-12) 1,000 Mcg Tablet, 1,000 MCG PO DAILY, (Reported) Fluticasone/Salmeterol 1 Each Blst.w.dev, 1 PUFF INH BID, (Reported) Gabapentin 300 Mg Capsule, 300 MG PO BID, (Reported) Hydrocodone Bit/Acetaminophen 1 Each Tablet, 1 TAB PO Q6H PRN for PAIN-MODERATE, (Reported) Metformin HCl 500 Mg Tablet, 1,000 MG PO BID, (Reported) TAKES 2 (500MG) TABLETS Omeprazole 20 Mg Capsule.dr, 20 MG PO DAILY, (Reported) Prednisone 10 Mg Tab.ds.pk, 10 MG PO DAILY Take 6 tabs(60mg)daily,decrease by 1 tab(10MG)daily. Prescribed by: CARA BARBER on 02/17/20 1221 Sertraline HCl 50 Mg Tablet, 50 MG PO DAILY, (Reported) Patient Home Medication List Home Medication List Reviewed: Yes Review of Systems Constitutional: see HPI EENTM: see HPI Respiratory: no symptoms reported Cardiovascular: no symptoms reported Genitourinary: no symptoms reported Musculoskeletal: see HPI Skin: no symptoms reported Psychiatric/Neurological: No Symptoms Reported Past Awtugbx-Wrckca-Hgcsgm Hx Patient Social History Type Used: Cigarettes 2nd Hand Smoke Exposure: Yes Recent Hopitalizations: No Immunizations Up To Date Tetanus Booster (TDap): Unknown PED Vaccines UTD: Yes Date of Pneumonia Vaccine: Oct 30, 2012 Date of Influenza Vaccine: Sep 30, 2018 Seasonal Allergies Seasonal Allergies: No Past Medical History Surgeries: Yes CABG, Thyroidectomy Respiratory: Yes Asthma, Chronic Bronchitis, COPD Cardiac: Yes (CABG/STENTS. 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 8.0oz. 62.221690zz; 29.00 BMI Method:Stated General Appearance: WD/WN, no apparent distress, other (EMS reports that she was out walking in her driveway upon their arrival to pick her up) HEENT: PERRL/EOMI, normal ENT inspection Respiratory: no respiratory distress, no accessory muscle use Hips: bilateral hip non-tender, bilateral hip normal inspection, bilateral hip normal range of motion Legs: bilateral leg non-tender, bilateral leg normal inspection, bilateral leg normal range of motion Knees: bilateral knee non-tender, bilateral knee normal inspection, bilateral k nee normal range of motion Ankles: bilateral ankle non-tender, bilateral ankle normal inspection, bilatera l ankle normal range of motion Feet: bilateral foot non-tender, bilateral foot normal inspection, bilateral foot normal range of motion Neurologic/Psychiatric: alert, normal mood/affect, oriented x 3 Skin: normal color, warm/dry She has a strong palpable dorsalis pedis pulse bilaterally. Progress/Results/Core Measures Results/Orders My Orders Orders - ATUL MELENDEZ APRN Ketorolac Injection (Toradol Injection) (10/04/20 19:00) Departure Impression Primary Impression: Osteoarthritis of knees, bilateral Qualified Codes: M17.0 - Bilateral primary osteoarthritis of knee Disposition: 01 HOME, SELF-CARE Condition: Improved Departure-Patient Inst. Decision time for Depature: 18:56 Referrals: KENDY MADISON DO (PCP/Family) Primary Care Physician Patient Instructions: NO INSTRUCTIONS GIVEN ATUL MELENDEZ APRN Oct 04, 2020 18:52
[2020-10-04] MEDS ORDERED: KETOROLAC 30 MG/ML VIAL IM ONE (19:00)
[2020-10-04 19:40] VITALS: BP 121/73
== END 2020-10-04 19:40 | disposition home or self-care (01) ==
LOC: EDUNIT# 18:44 → ER 18:45
DX: M17.0 Bilateral primary osteoarthritis of knee (principal); E11.9 Type 2 diabetes mellitus without complications; K21.9 Gastro-esophageal reflux disease without esophagitis; J44.9 Chronic obstructive pulmonary disease, unspecified; F41.9 Anxiety disorder, unspecified; Z82.49 Family history of ischemic heart disease and other diseases of the circulatory system; Z80.9 Family history of malignant neoplasm, unspecified; Z95.1 Presence of aortocoronary bypass graft; Z95.5 Presence of coronary angioplasty implant and graft; Z77.22 Contact with and (suspected) exposure to environmental tobacco smoke (acute) (chronic); Z79.82 Long term (current) use of aspirin; Z79.52 Long term (current) use of systemic steroids; Z79.84 Long term (current) use of oral hypoglycemic drugs
CPT/HCPCS: 99284

== ENCOUNTER 2020-12-01 23:55 | Emergency (ER) | payer MEDICARE ==
[~2020-12-01] VITALS: Ht 130 cm; Wt 66.7 kg
[2020-12-02] MEDS ORDERED: methylPREDNISolone 125 MG (Solu-MEDROL) VIAL IV STA (00:05)
[2020-12-02] MEDS ORDERED: RT-ALBUTEROL INHALER HFA (VENTOLIN HFA) 18 GM IH STA (00:05)
[2020-12-02] MEDS ORDERED: RT-ALBUTEROL INHALER HFA (VENTOLIN HFA) 18 GM IH ONE (00:06)
--- NOTE | 2020-12-02 00:18 | ED General ---
General Chief Complaint: Respiratory Problems Stated Complaint: SOB Nursing Triage Note: EMS advise that the patient quit smoking yesterday, she has a hx. of COPD. States shortness of breath has become progressively worse. She denies covid exposure states she does not go anywhere. Nursing Sepsis Screen: No Definite Risk Source of Information: Patient Exam Limitations: No Limitations History of Present Illness Date Seen by Provider: Dec 02, 2020 Time Seen by Provider: 00:01 Initial Comments Here with report of shortness of air and cough that has gotten worse over the last 2 to 3 days. Denies Covid exposure and states that she does not go anywhere. Only contact is her two sons who she has limited contact with and bring her needed supplies and a 5-year-old that is her son who she adopted and lives with her. Denies fever or chills. Does have cough and wheezing. This is gotten worse despite being on steroids for rash and her home treatments. Denies nausea, vomiting, diarrhea or chest pain. Here by EMS who reports her oxygen saturations improved from 94 to 99% after DuoNeb. Still has diminished lung sounds with cough and wheezing. One of her older sons is here and is mentioned that she has carotid disease and was wondering if she could be transferred to so that she could establish care there for that. I did explain to him that she is not here for that currently and he can seek outpatient appointments for that. He verbalized understanding. He does report that she has had increasing cough as well over the last couple of days and verifies her story. He also verifies that no one around her house Covid currently. Timing/Duration: 2-3 Days Severity: Moderate Modifying Factors: improves with Rest Associated Systoms: No Chest Pain; Cough; No Nausea/Vomiting; Shortness of Air; No Weakness Allergies and Home Medications Allergies Coded Allergies: No Known Drug Allergies (Unverified , 06/07/09) Home Medications Acetaminophen 500 Mg Tablet, 1,000 MG PO BID, (Reported) Albuterol Sulfate 2.5 Mg/3 Ml Vial.neb, 2.5 MG NEB Q4H PRN for SHORTNESS OF BREATH, (Reported) Alprazolam 0.5 Mg Tablet, 0.5 MG PO TID PRN for ANXIETY, (Reported) Aspirin 81 Mg Tablet.dr, 81 MG PO HS, (Reported) Atenolol 25 Mg Tablet, 25 MG PO HS, (Reported) Atorvastatin Calcium 20 Mg Tablet, 20 MG PO HS, (Reported) Cephalexin 500 Mg Capsule, 500 MG PO TID Prescribed by: MIKEL ANDERSON on 07/28/202049 Clopidogrel Bisulfate 75 Mg Tablet, 75 MG PO HS, (Reported) Cyanocobalamin (Vitamin B-12) 1,000 Mcg Tablet, 1,000 MCG PO DAILY, (Reported) Fluticasone/Salmeterol 1 Each Blst.w.dev, 1 PUFF INH BID, (Reported) Gabapentin 300 Mg Capsule, 300 MG PO BID, (Reported) Hydrocodone Bit/Acetaminophen 1 Each Tablet, 1 TAB PO Q6H PRN for PAIN-MODERATE, (Reported) Metformin HCl 500 Mg Tablet, 1,000 MG PO BID, (Reported) TAKES 2 (500MG) TABLETS Omeprazole 20 Mg Capsule.dr, 20 MG PO DAILY, (Reported) Prednisone 10 Mg Tab.ds.pk, 10 MG PO DAILY Take 6 tabs(60mg)daily,decrease by 1 tab(10MG)daily. Prescribed by: CARA BARBER on 02/17/20 1221 Sertraline HCl 50 Mg Tablet, 50 MG PO DAILY, (Reported) Patient Home Medication List Home Medication List Reviewed: Yes Review of Systems Review of Systems Constitutional: see HPI; No chills, No fever EENTM: no symptoms reported Respiratory: cough, short of breath, wheezing Cardiovascular: No chest pain, No edema Gastrointestinal: No abdominal pain, No nausea, No vomiting Genitourinary: no symptoms reported : No Musculoskeletal: no symptoms reported Skin: no symptoms reported Psychiatric/Neurological: No Symptoms Reported All Other Systems Reviewed Negative Unless Noted: Yes Past Zwxjauf-Qrizkv-Tfolsd Hx Past Med/Social Hx: Reviewed Nursing Past Med/Soc Hx Patient Social History Alcohol Use: Denies Use Recreational Drug Use: No Smoking Status: Former Smoker Type Used: Cigarettes Former Smoker, Quit: Dec 01, 2020 2nd Hand Smoke Exposure: Yes Recent Foreign Travel: No Contact w/Someone Who Travel: No Recent Infectious Disease Expo: No Recent Hopitalizations: No Immunizations Up To Date Tetanus Booster (TDap): More than 5yrs PED Vaccines UTD: Yes Date of Pneumonia Vaccine: Sep 28, 2018 Date of Influenza Vaccine: Sep 28, 2020 Seasonal Allergies Seasonal Allergies: No Past Medical History Surgeries: Yes CABG, Thyroidectomy Respiratory: Yes Asthma, Chronic Bronchitis, COPD Cardiac: Yes (CABG/STENTS. 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 Genitourinary: No Gastrointestinal: Yes Gastroesophageal Reflux, Hiatal Hernia Musculoskeletal: Yes (ARTHRITIS IN KNEES) Arthritis Endocrine: Yes Hypothyroidsim, Diabetes, Non-Insulin dep Cancer: No Psychosocial: Yes Anxiety Integumentary: Yes Eczema Blood Disorders: No Family Medical History Reviewed Nursing Family Hx Alzheimer's disease 19 MOTHER FH: cancer G8 SISTER FH: heart disease 19 FATHER Kidney disease 19 MOTHER Myocardial infarction G8 BROTHER No Pertinent Family Hx Physical Exam-Suspected Sepsis Physical Exam Vital Signs Vital Signs - First Documented 12/01/20 12/02/20 23:57 00:22 Temp 36.8 Pulse 75 Resp 20 B/P (MAP) 199/98 (131) Pulse Ox 99 O2 Delivery T Piece O2 Flow Rate 2.00 FiO2 100 Capillary Refill : Less Than 3 Seconds Blood Pressure Mean: 131 Height, Weight, BMI Height: 5'1.00" Weight: 141lbs. 8.0oz. 62.495476kb; 39.00 BMI Method:Stated General Appearance: Chronically ill, Mild Distress (Respiratory) HEENT: PERRL/EOMI, Pharynx Normal Neck: Non Tender, Supple Respiratory: Accessory Muscle Use, Decreased Breath Sounds, Respiratory Distress, Wheezing Cardiovascular: Regular Rate, Rhythm, No Murmur Gastrointestinal: Non Tender, Soft Back: Normal Inspection, No CVA Tenderness, No Vertebral Tenderness Extremity: Normal Range of Motion, Non Tender Neurologic/Psychiatric: Alert, Oriented x3 Skin: normal color, warm/dry Focused Exam Lactate Level 12/02/20 00:02: Lactic Acid Level 1.18 Lactic Acid Level Laboratory Tests Test 12/02/20 00:02 Lactic Acid Level 1.18 MMOL/L (0.50-2.00) Progress/Results/Core Measures Suspected Sepsis Recent Fever Within 48 Hours: No Infection Criteria Present: Suspected New Infection New/Unexplained Altered Menta: No Sepsis Screen: No Definite Risk SIRS Temperature: Pulse: 75 Respiratory Rate: 20 Laboratory Tests 12/02/20 00:02: White Blood Count 9.3 Blood Pressure 199 /98 Mean: 131 12/02/20 00:02: Lactic Acid Level 1.18 Laboratory Tests 12/02/20 00:02: Creatinine 1.10, INR Comment 1.0, Platelet Count 186, Total Bilirubin 0.2 Results/Orders Lab Results Laboratory Tests Test 12/02/20 00:02 12/02/20 00:13 12/02/20 00:15 Range/Units White Blood Count 9.3 4.3-11.0 10^3/uL Red Blood Count 4.32 3.80-5.11 10^6/uL Hemoglobin 12.9 11.5-16.0 g/dL Hematocrit 42 35-52 % Mean Corpuscular Volume 96 80-99 fL Mean Corpuscular Hemoglobin 30 25-34 pg Mean Corpuscular Hemoglobin Concent 31 L 32-36 g/dL Red Cell Distribution Width 14.9 H 10.0-14.5 % Platelet Count 186 130-400 10^3/uL Mean Platelet Volume 13.0 H 9.0-12.2 fL Immature Granulocyte % (Auto) 1 % Neutrophils (%) (Auto) 72 42-75 % Lymphocytes (%) (Auto) 18 12-44 % Monocytes (%) (Auto) 9 0-12 % Eosinophils (%) (Auto) 0 0-10 % Basophils (%) (Auto) 0 0-10 % Neutrophils # (Auto) 6.7 1.8-7.8 10^3/uL Lymphocytes # (Auto) 1.6 1.0-4.0 10^3/uL Monocytes # (Auto) 0.9 0.0-1.0 10^3/uL Eosinophils # (Auto) 0.0 0.0-0.3 10^3/uL Basophils # (Auto) 0.0 0.0-0.1 10^3/uL Immature Granulocyte # (Auto) 0.1 0.0-0.1 10^3/uL Prothrombin Time 13.1 12.2-14.7 SEC INR Comment 1.0 0.8-1.4 Activated Partial Thromboplast Time 31 24-35 SEC D-Dimer 0.92 H 0.00-0.49 UG/ML Sodium Level 143 135-145 MMOL/L Potassium Level 4.6 3.6-5.0 MMOL/L Chloride Level 108 H 98-107 MMOL/L Carbon Dioxide Level 26 21-32 MMOL/L Anion Gap 9 5-14 MMOL/L Blood Urea Nitrogen 22 H 7-18 MG/DL Creatinine 1.10 0.60-1.30 MG/DL Estimat Glomerular Filtration Rate 49 BUN/Creatinine Ratio 20 Glucose Level 110 H 70-105 MG/DL Lactic Acid Level 1.18 0.50-2.00 MMOL/L Calcium Level 9.1 8.5-10.1 MG/DL Corrected Calcium 9.1 8.5-10.1 MG/DL Total Bilirubin 0.2 0.1-1.0 MG/DL Aspartate Amino Transf (AST/SGOT) 28 5-34 U/L Alanine Aminotransferase (ALT/SGPT) 36 0-55 U/L Alkaline Phosphatase 91 40-136 U/L C-Reactive Protein High Sensitivity 0.95 H 0.00-0.50 MG/DL Total Protein 6.4 6.4-8.2 GM/DL Albumin 4.0 3.2-4.5 GM/DL Procalcitonin 0.04 <0.10 NG/ML Coronavirus 2019 (KIET) Negative Negative Urine Color YELLOW Urine Clarity CLEAR Urine pH 6.0 5-9 Urine Specific [place] >=1.030 1.016-1.022 Urine Protein 2+ H NEGATIVE Urine Glucose (UA) NEGATIVE NEGATIVE Urine Ketones NEGATIVE NEGATIVE Urine Nitrite NEGATIVE NEGATIVE Urine Bilirubin NEGATIVE NEGATIVE Urine Urobilinogen 0.2 < = 1.0 MG/DL Urine Leukocyte Esterase NEGATIVE NEGATIVE Urine RBC (Auto) TRACE-I NEGATIVE Urine RBC 2-5 H /HPF Urine WBC 5-10 H /HPF Urine Squamous Epithelial Cells 2-5 /HPF Urine Crystals NONE /LPF Urine Bacteria NEGATIVE /HPF Urine Casts NONE /LPF Urine Mucus NEGATIVE /LPF Urine Culture Indicated CULTURE PENDING Micro Results Microbiology 12/02/20 Influenza Types A,B Antigen (SCOTTY) - Final, Complete My Orders Orders - CLAUS NUÑEZ MD Cbc With Automated Diff (12/02/20 00:03) Comprehensive Metabolic Panel (12/02/20 00:03) Blood Culture (12/02/20 00:03) Sputum Culture (12/02/20 00:03) Urinalysis (12/02/20 00:03) Urine Culture (12/02/20 00:03) Protime With Inr (12/02/20 00:03) Partial Thromboplastin Time (12/02/20 00:03) Chest 1 View, Ap/Pa Only (12/02/20 00:03) Ed Iv/Invasive Line Start (12/02/20 00:03) Vital Signs Adult Sepsis Patie Q15M (12/02/20 00:03) O2 (12/02/20 00:03) Remove Rings In Anticipation O (12/02/20 00:03) Lactic Acid Analyzer (12/02/20 00:03) Influenza A And B Antigens (12/02/20 00:03) Fibrin Degradation Products (12/02/20 00:03) Procalcitonin (Pct) (12/02/20 00:03) Hs C Reactive Protein (12/02/20 00:03) Covid 19 Inhouse Test (12/02/20 00:03) Methylprednisolone Sod Succ (Solu-Medrol (12/02/20 00:05) Albuterol Inhaler (Ventolin Hfa) (12/02/20 00:05) Albuterol Inhaler (Ventolin Hfa) (12/02/20 00:06) Vital Signs/I&O 12/01/20 12/02/20 12/02/20 12/02/20 23:57 00:18 00:22 00:23 Temp 36.8 36.8 Pulse 75 72 Resp 20 16 B/P (MAP) 199/98 (131) 198/97 (130) Pulse Ox 99 95 96 96 O2 Delivery T Piece Simple Mask Nasal Cannula Nasal Cannula O2 Flow Rate 2.00 2.00 FiO2 100 Capillary Refill : Less Than 3 Seconds Blood Pressure Mean: 131 Progress Note : Progress Note Seen and evaluated. IV by EMS. Albuterol MDI 2 puffs via spacer now. Sepsis protocol initiated. We will go ahead and check rapid Covid and influenza although I do believe this is likely COPD exacerbation. Bacterial pneumonia could also be a possibility. Monitor patient. 0118: Overall doing much better. Patient is currently on prednisone 20 mg daily and she has had 3 days worth. We will increase that dosing to 40 mg daily for 5 days and stop her other prescription. No indication for admission currently. Discharged home with return precautions. Patient verbalized understanding of instructions and agreement with plan. Rapid Covid test and rapid influenza are negative. I will send a copy of the chart to Dr. Mcgill. Diagnostic Imaging Diagonstic Imaging: Xray Plain Films/CT/US/NM/MRI: chest Comments No acute infiltrate or other findings. Chronic lung disease. Reviewed: Reviewed by Me Departure Impression Primary Impression: COPD (chronic obstructive pulmonary disease) Qualified Codes: J44.1 - Chronic obstructive pulmonary disease with (acute) exacerbation Disposition: HOME, SELF-CARE Condition: Improved Departure-Patient Inst. Decision time for Depature: 01:19 Referrals: KENDY MCGILL DO (PCP/Family) Primary Care Physician Patient Instructions: COPD Exacerbation, Adult ED Add. Discharge Instructions: All discharge instructions reviewed with patient and/or family. Voiced understanding. Continue albuterol nebulizer or inhaler. Use spacer if using inhaler. Continue home medications as directed. You have been given a new prescription for steroids. Start the steroids tomorrow and take until complete. Stop other prescription. Follow-up with your doctor in a few days for recheck. Return for worse pain, fever, vomiting, weakness, breathing problems or other concerns as needed. Scripts Prednisone (Prednisone) 20 Mg Tab 40 MG PO DAILY, #10 TAB 0 Refills Prov: CLAUS NUÑEZ MD 12/02/20 Copy Copies To 1: KENDY MCGILL TIMOTHY D MD Dec 02, 2020 00:18
[2020-12-02 00:22] LABS: POTASSIUM 4.6 MMOL/L (3.6-5.0)
[2020-12-02 00:23] LABS: CALCIUM 9.1 MG/DL (8.5-10.1)
[2020-12-02 00:24] LABS: TOTAL PROTEIN 6.4 GM/DL (6.4-8.2)
[2020-12-02 00:24] LABS: BILIRUBIN,URINE NEGATIVE (NEGATIVE); CLARITY,URINE CLEAR; COLOR,URINE YELLOW; GLUCOSE, URINE (UA) NEGATIVE (NEGATIVE); KETONES,URINE NEGATIVE (NEGATIVE); LEUKOCYTE ESTERASE ,URINE NEGATIVE (NEGATIVE); NITRITE,URINE NEGATIVE (NEGATIVE); PROTEIN,URINE 2+ (NEGATIVE)
[2020-12-02 00:26] LABS: BILIRUBIN,TOTAL 0.2 MG/DL (0.1-1.0)
[2020-12-02 00:28] LABS: CREATININE SERUM 1.1 MG/DL (0.60-1.30)
[2020-12-02 00:30] LABS: BASOPHILS % (AUTO) 0 % (0-10); EOSINOPHILS % (AUTO) 0 % (0-10); HEMATOCRIT 42 % (35-52); HEMOGLOBIN 12.9 g/dL (11.5-16.0); LYMPHOCYTES # (AUTO) 1.6 10^3/uL (1.0-4.0); LYMPHOCYTES % (AUTO) 18 % (12-44); MEAN CORPUSCULAR HEMOGLOBIN 30 pg (25-34); MEAN CORPUSCULAR HGB CONC 31 g/dL (32-36); MEAN CORPUSCULAR VOLUME 96 fL (80-99); MONOCYTES # (AUTO) 0.9 10^3/uL (0.0-1.0); MONOCYTES % (AUTO) 9 % (0-12); NEUTROPHILS # (AUTO) 6.7 10^3/uL (1.8-7.8); NEUTROPHILS % (AUTO) 72 % (42-75); PLATELET COUNT 186 10^3/uL (130-400); WHITE BLOOD COUNT 9.3 10^3/uL (4.3-11.0)
[2020-12-02 00:39] LABS: FIBRIN DEGRADATION PRODUCTS 0.92 UG/ML (0.00-0.49); PROTHROMBIN TIME PATIENT 13.1 SEC (12.2-14.7)
[2020-12-02 00:42] LABS: BACTERIA,URINE NEGATIVE /HPF
[2020-12-02] MEDS ORDERED: PRD20T PO (01:21)
[2020-12-02 01:27] VITALS: BP 190/78
--- NOTE | 2020-12-02 05:44 | Diagnostic Imaging Report ---
EXAMINATION: Portable erect AP chest at 1227 AM INDICATION: Shortness of breath The heart size is within normal limits and stable when compared to the prior exam of 09/26/2020. The sternotomy wires and surgical clips noted previously are again visualized and no different. As on the prior exam, there is slight blunting of the right costophrenic angle. This may be secondary to a small amount of fluid and/or pleural thickening. The central pulmonary vascularity is prominent and similar to the prior study. There is no evidence for overt failure. There is no sign of pneumonia either. The azygos lobe seen on the prior exam is again evident. The osseous structures are intact. The mediastinum is not widened. IMPRESSION: When compared to the prior study there has been no significant change. There is no acute abnormality identified. Dictated by: Dictated on workstation # [id number]
== END 2020-12-02 01:34 | disposition home or self-care (01) ==
LOC: EDUNIT# 23:55 → ER 23:57
DX: J44.9 Chronic obstructive pulmonary disease, unspecified (principal); F41.9 Anxiety disorder, unspecified; K21.9 Gastro-esophageal reflux disease without esophagitis; E11.9 Type 2 diabetes mellitus without complications; Z95.1 Presence of aortocoronary bypass graft; Z20.828 Contact with and (suspected) exposure to other viral communicable diseases; Z87.891 Personal history of nicotine dependence; Z80.9 Family history of malignant neoplasm, unspecified; Z82.49 Family history of ischemic heart disease and other diseases of the circulatory system; Z79.82 Long term (current) use of aspirin; Z79.52 Long term (current) use of systemic steroids; Z79.84 Long term (current) use of oral hypoglycemic drugs
CPT/HCPCS: 71045; 80053; 81000; 83605; 84145; 85025; 85379; 85610; 85730; 86141; 87040; 87088; 87804; 94640; 99284; U0002; 36415; 87635

== ENCOUNTER 2020-12-31 12:25 | Emergency (ER) | payer MEDICARE ==
[~2020-12-31] VITALS: Ht 154 cm; Wt 65.7 kg
[2020-12-31] MEDS ORDERED: cloNIDine 0.1 MG (CATAPRES) TAB ONE (12:27)
[2020-12-31] MEDS ORDERED: ONDANSETRON 4 MG/2 ML (SDV) Z0FRAN ONE (12:27)
--- NOTE | 2020-12-31 12:29 | ED General ---
General Stated Complaint: BODY ACHES Source of Information: Patient Exam Limitations: No Limitations History of Present Illness Date Seen by Provider: Dec 31, 2020 Time Seen by Provider: 12:29 Initial Comments To ER by EMS from home with reports of lower abdominal pain, back pain and leg pain. She states that she has had the leg pain for many years, she did have some nausea and generally did not feel well. However on arrival to ER the leg pain lower abdomen and back pain is now gone. She does still have some nausea. Timing/Duration: 1-2 Days Severity: Moderate Associated Systoms: Nausea/Vomiting Allergies and Home Medications Allergies Coded Allergies: No Known Drug Allergies (Unverified , 06/07/09) Home Medications Acetaminophen 500 Mg Tablet, 1,000 MG PO BID, (Reported) Albuterol Sulfate 2.5 Mg/3 Ml Vial.neb, 2.5 MG NEB Q4H PRN for SHORTNESS OF BREATH, (Reported) Alprazolam 0.5 Mg Tablet, 0.5 MG PO TID PRN for ANXIETY, (Reported) Aspirin 81 Mg Tablet.dr, 81 MG PO HS, (Reported) Atenolol 25 Mg Tablet, 25 MG PO HS, (Reported) Atorvastatin Calcium 20 Mg Tablet, 20 MG PO HS, (Reported) Cefuroxime Axetil 250 Mg Tablet, 250 MG PO BID Prescribed by: ATUL MELENDEZ on 12/31/20 1348 Cephalexin 500 Mg Capsule, 500 MG PO TID Prescribed by: MIKEL ANDERSON on 07/28/200 Clopidogrel Bisulfate 75 Mg Tablet, 75 MG PO HS, (Reported) Cyanocobalamin (Vitamin B-12) 1,000 Mcg Tablet, 1,000 MCG PO DAILY, (Reported) Fluticasone/Salmeterol 1 Each Blst.w.dev, 1 PUFF INH BID, (Reported) Gabapentin 300 Mg Capsule, 300 MG PO BID, (Reported) Hydrocodone Bit/Acetaminophen 1 Each Tablet, 1 TAB PO Q6H PRN for PAIN-MODERATE, (Reported) Metformin HCl 500 Mg Tablet, 1,000 MG PO BID, (Reported) TAKES 2 (500MG) TABLETS Omeprazole 20 Mg Capsule.dr, 20 MG PO DAILY, (Reported) Prednisone 10 Mg Tab.ds.pk, 10 MG PO DAILY Take 6 tabs(60mg)daily,decrease by 1 tab(10MG)daily. Prescribed by: CARA BARBER on 02/17/20 1221 Prednisone 20 Mg Tab, 40 MG PO DAILY Prescribed by: CLAUS NUÑEZ on 12/02/20 0121 Sertraline HCl 50 Mg Tablet, 50 MG PO DAILY, (Reported) Patient Home Medication List Home Medication List Reviewed: Yes Review of Systems Review of Systems Constitutional: see HPI; No chills, No fever, No malaise, No weakness EENTM: see HPI Respiratory: no symptoms reported; No cough, No dyspnea on exertion Cardiovascular: no symptoms reported; No chest pain Gastrointestinal: abdominal pain Genitourinary: no symptoms reported Musculoskeletal: see HPI, back pain Skin: no symptoms reported Psychiatric/Neurological: No Symptoms Reported Hematologic/Lymphatic: No Symptoms Reported Immunological/Allergic: no symptoms reported Past Ijulyrv-Bcikah-Getqtf Hx Patient Social History Type Used: Cigarettes 2nd Hand Smoke Exposure: Yes Recent Hopitalizations: No Immunizations Up To Date Tetanus Booster (TDap): More than 5yrs PED Vaccines UTD: Yes Date of Pneumonia Vaccine: Sep 28, 2018 Date of Influenza Vaccine: Sep 28, 2020 Seasonal Allergies Seasonal Allergies: No Past Medical History Surgeries: Yes Cardiac, CABG, Thyroidectomy Respiratory: Yes Asthma, Chronic Bronchitis, COPD Cardiac: Yes (CABG/STENTS. 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 Genitourinary: No Gastrointestinal: Yes Gastroesophageal Reflux, Hiatal Hernia Musculoskeletal: Yes (ARTHRITIS IN KNEES) Arthritis Endocrine: Yes Hypothyroidsim, Diabetes, Non-Insulin dep HEENT: No (EDENTULOUS) Cancer: No Psychosocial: Yes Anxiety Integumentary: Yes Eczema Blood Disorders: No Family Medical History Alzheimer's disease 19 MOTHER FH: cancer G8 SISTER FH: heart disease 19 FATHER Kidney disease 19 MOTHER Myocardial infarction G8 BROTHER No Pertinent Family Hx Physical Exam Vital Signs Vital Signs - First Documented 12/31/20 12:36 Temp 36.9 Pulse 76 Resp 20 B/P (MAP) 177/84 (115) Pulse Ox 97 O2 Delivery Room Air Capillary Refill : Height, Weight, BMI Height: 5'1.00" Weight: 141lbs. 8.0oz. 62.326033ql; 42.00 BMI Method:Stated General Appearance: No Apparent Distress, WD/WN, Chronically ill Eyes: Bilateral Eye Normal Inspection, Bilateral Eye PERRL, Bilateral Eye EOMI Respiratory: No Accessory Muscle Use, No Respiratory Distress Cardiovascular: Regular Rate, Rhythm, Normal Peripheral Pulses Gastrointestinal: Normal Bowel Sounds, Non Tender, Soft, Other (Abdomen is completely soft and nontender to even deep palpation.) Neurologic/Psychiatric: Alert, Oriented x3 Skin: Normal Color, Warm/Dry Progress/Results/Core Measures Suspected Sepsis SIRS Temperature: Pulse: Respiratory Rate: Laboratory Tests 12/31/20 12:25: White Blood Count 8.4 Blood Pressure / Mean: Laboratory Tests 12/31/20 12:25: Creatinine 1.12, Platelet Count 177, Total Bilirubin 0.6 Results/Orders Lab Results Laboratory Tests Test 12/31/20 12:25 12/31/20 13:15 Range/Units White Blood Count 8.4 4.3-11.0 10^3/uL Red Blood Count 4.83 3.80-5.11 10^6/uL Hemoglobin 14.7 11.5-16.0 g/dL Hematocrit 47 35-52 % Mean Corpuscular Volume 97 80-99 fL Mean Corpuscular Hemoglobin 30 25-34 pg Mean Corpuscular Hemoglobin Concent 32 32-36 g/dL Red Cell Distribution Width 13.8 10.0-14.5 % Platelet Count 177 130-400 10^3/uL Mean Platelet Volume 12.0 9.0-12.2 fL Immature Granulocyte % (Auto) 2 % Neutrophils (%) (Auto) 75 42-75 % Lymphocytes (%) (Auto) 15 12-44 % Monocytes (%) (Auto) 8 0-12 % Eosinophils (%) (Auto) 1 0-10 % Basophils (%) (Auto) 0 0-10 % Neutrophils # (Auto) 6.3 1.8-7.8 10^3/uL Lymphocytes # (Auto) 1.2 1.0-4.0 10^3/uL Monocytes # (Auto) 0.7 0.0-1.0 10^3/uL Eosinophils # (Auto) 0.1 0.0-0.3 10^3/uL Basophils # (Auto) 0.0 0.0-0.1 10^3/uL Immature Granulocyte # (Auto) 0.2 H 0.0-0.1 10^3/uL Sodium Level 144 135-145 MMOL/L Potassium Level 4.1 3.6-5.0 MMOL/L Chloride Level 107 98-107 MMOL/L Carbon Dioxide Level 27 21-32 MMOL/L Anion Gap 10 5-14 MMOL/L Blood Urea Nitrogen 19 H 7-18 MG/DL Creatinine 1.12 0.60-1.30 MG/DL Estimat Glomerular Filtration Rate 48 BUN/Creatinine Ratio 17 Glucose Level 100 70-105 MG/DL Calcium Level 9.7 8.5-10.1 MG/DL Corrected Calcium 9.4 8.5-10.1 MG/DL Total Bilirubin 0.6 0.1-1.0 MG/DL Aspartate Amino Transf (AST/SGOT) 17 5-34 U/L Alanine Aminotransferase (ALT/SGPT) 19 0-55 U/L Alkaline Phosphatase 111 40-136 U/L Total Protein 7.4 6.4-8.2 GM/DL Albumin 4.4 3.2-4.5 GM/DL Urine Color YELLOW Urine Clarity CLEAR Urine pH 5.5 5-9 Urine Specific [place] >=1.030 1.016-1.022 Urine Protein 2+ H NEGATIVE Urine Glucose (UA) NEGATIVE NEGATIVE Urine Ketones NEGATIVE NEGATIVE Urine Nitrite POSITIVE H NEGATIVE Urine Bilirubin NEGATIVE NEGATIVE Urine Urobilinogen 0.2 < = 1.0 MG/DL Urine Leukocyte Esterase NEGATIVE NEGATIVE Urine RBC (Auto) 1+ H NEGATIVE Urine RBC 5-10 H /HPF Urine WBC 25-50 H /HPF Urine Squamous Epithelial Cells 10-25 H /HPF Urine Crystals NONE /LPF Urine Bacteria LARGE H /HPF Urine Casts NONE /LPF Urine Mucus NEGATIVE /LPF Urine Culture Indicated YES My Orders Orders - ATUL MELENDEZ APRN Cbc With Automated Diff (12/31/20 12:27) Comprehensive Metabolic Panel (12/31/20 12:27) Ua Culture If Indicated (12/31/20 12:27) Ed Iv/Invasive Line Start (12/31/20 12:27) Ondansetron Injection (Zofran Injectio (12/31/20 12:30) Ct Head Wo (12/31/20 12:30) Clonidine Tablet (Catapres Tablet) (12/31/20 12:30) Ondansetron Injection (Zofran Injectio (12/31/20 12:27) Clonidine Tablet (Catapres Tablet) (12/31/20 12:27) Ketorolac Injection (Toradol Injection) (12/31/20 12:45) Urine Culture (12/31/20 13:15) Ceftriaxone For Iv Use (Rocephin For I (12/31/20 14:00) Medications Given in ED Current Medications Medications Dose Ordered Sig/Alejandra Route Start Time Stop Time Status Last Admin Dose Admin Ceftriaxone Sodium 1000 mg/ Sterile Water 10 ml @ 200 mls/hr ONCE ONCE IV 12/31/20 14:00 12/31/20 14:02 DC 12/31/20 14:00 200 MLS/HR Clonidine HCl 0.1 mg ONCE ONCE PO 12/31/20 12:30 12/31/20 12:31 DC 12/31/20 13:12 0.1 MG Ketorolac Tromethamine 15 mg ONCE ONCE IVP 12/31/20 12:45 12/31/20 12:46 DC 12/31/20 13:14 15 MG Ondansetron HCl 4 mg ONCE ONCE IVP 12/31/20 12:30 12/31/20 12:31 DC 12/31/20 12:32 4 MG Vital Signs/I&O 12/31/20 12/31/20 12:36 14:06 Temp 36.9 36.9 Pulse 76 77 Resp 20 20 B/P (MAP) 177/84 (115) 165/72 (115) Pulse Ox 97 97 O2 Delivery Room Air Room Air Capillary Refill : Departure Impression Primary Impression: Urinary tract infection Disposition: 01 HOME, SELF-CARE Condition: Stable Departure-Patient Inst. Decision time for Depature: 13:47 Referrals: KENDY MADISON DO (PCP/Family) Primary Care Physician Patient Instructions: Urinary Tract Infection, Adult ED Add. Discharge Instructions: 1. Return to ER for any concerns 2. Follow-up with your doctor next week 3. Antibiotics as directed Scripts Cefuroxime Axetil (Cefuroxime) 250 Mg Tablet 250 MG PO BID, #10 TAB Prov: ATUL MELENDEZ APRN 12/31/20 ATUL MELENDEZ APRN Dec 31, 2020 12:29
[2020-12-31] MEDS ORDERED: cloNIDine 0.1 MG (CATAPRES) TAB PO ONE (12:30)
[2020-12-31] MEDS ORDERED: ONDANSETRON 4 MG/2 ML (SDV) Z0FRAN IVP ONE (12:30)
[2020-12-31 12:33] LABS: BASOPHILS % (AUTO) 0 % (0-10); EOSINOPHILS # (AUTO) 0.1 10^3/uL (0.0-0.3); EOSINOPHILS % (AUTO) 1 % (0-10); HEMATOCRIT 47 % (35-52); HEMOGLOBIN 14.7 g/dL (11.5-16.0); LYMPHOCYTES # (AUTO) 1.2 10^3/uL (1.0-4.0); LYMPHOCYTES % (AUTO) 15 % (12-44); MEAN CORPUSCULAR HEMOGLOBIN 30 pg (25-34); MEAN CORPUSCULAR HGB CONC 32 g/dL (32-36); MEAN CORPUSCULAR VOLUME 97 fL (80-99); MONOCYTES # (AUTO) 0.7 10^3/uL (0.0-1.0); MONOCYTES % (AUTO) 8 % (0-12); NEUTROPHILS # (AUTO) 6.3 10^3/uL (1.8-7.8); NEUTROPHILS % (AUTO) 75 % (42-75); PLATELET COUNT 177 10^3/uL (130-400); WHITE BLOOD COUNT 8.4 10^3/uL (4.3-11.0)
[2020-12-31 12:45] LABS: ALBUMIN 4.4 GM/DL (3.2-4.5); POTASSIUM 4.1 MMOL/L (3.6-5.0)
[2020-12-31] MEDS ORDERED: KETOROLAC 30 MG/ML VIAL IVP ONE (12:45)
[2020-12-31 12:47] LABS: CALCIUM 9.7 MG/DL (8.5-10.1)
[2020-12-31 12:48] LABS: TOTAL PROTEIN 7.4 GM/DL (6.4-8.2)
[2020-12-31 12:49] LABS: BILIRUBIN,TOTAL 0.6 MG/DL (0.1-1.0)
[2020-12-31 12:51] LABS: CREATININE SERUM 1.12 MG/DL (0.60-1.30)
--- NOTE | 2020-12-31 13:13 | Diagnostic Imaging Report ---
PROCEDURE: CT head without contrast. TECHNIQUE: Multiple contiguous axial images were obtained through the brain without the use of intravenous contrast. Auto Exposure Controls were utilized during the CT exam to meet ALARA standards for radiation dose reduction. INDICATION: Headache and increased blood pressure. Comparison is made with prior head CT from 02/16/2020. Ventricular size and sulcal pattern are stable. There is periventricular hypodensity noted consistent with chronic microvascular ischemia. No sulcal effacement or midline shift is identified. No acute intra-axial or extra-axial hemorrhage is detected. Cisterns are patent. Visualized paranasal sinuses are clear. IMPRESSION: Chronic changes. No acute intracranial process is detected. Dictated by: Dictated on workstation # [id number]
[2020-12-31 13:23] LABS: BILIRUBIN,URINE NEGATIVE (NEGATIVE); CLARITY,URINE CLEAR; COLOR,URINE YELLOW; GLUCOSE, URINE (UA) NEGATIVE (NEGATIVE); KETONES,URINE NEGATIVE (NEGATIVE); LEUKOCYTE ESTERASE ,URINE NEGATIVE (NEGATIVE); NITRITE,URINE POSITIVE (NEGATIVE); PH,URINE 5.5 (5-9); PROTEIN,URINE 2+ (NEGATIVE)
[2020-12-31 13:43] LABS: BACTERIA,URINE LARGE /HPF; WBC,URINE 25-50 /HPF
[2020-12-31] MEDS ORDERED: CEFU250T80 PO (13:48)
[2020-12-31] MEDS ORDERED: cefTRIAXone FOR IV USE 1,000 MG in WATER (STERILE) FOR INJECTION 10 ML IV ONE (14:00)
[2020-12-31 14:06] VITALS: BP 165/72
== END 2020-12-31 14:08 | disposition home or self-care (01) ==
LOC: EDUNIT# 12:25 → ER 12:26
DX: N39.0 Urinary tract infection, site not specified (principal); F41.9 Anxiety disorder, unspecified; J44.9 Chronic obstructive pulmonary disease, unspecified; K21.9 Gastro-esophageal reflux disease without esophagitis; E78.00 Pure hypercholesterolemia, unspecified; I10 Essential (primary) hypertension; E11.9 Type 2 diabetes mellitus without complications; Z95.1 Presence of aortocoronary bypass graft; Z95.5 Presence of coronary angioplasty implant and graft; Z82.49 Family history of ischemic heart disease and other diseases of the circulatory system; Z80.9 Family history of malignant neoplasm, unspecified; Z77.22 Contact with and (suspected) exposure to environmental tobacco smoke (acute) (chronic); Z79.52 Long term (current) use of systemic steroids; Z79.84 Long term (current) use of oral hypoglycemic drugs; Z79.82 Long term (current) use of aspirin
CPT/HCPCS: 36415; 70450; 80053; 81000; 85025; 87077; 87088

== ENCOUNTER 2021-09-11 10:14 | Emergency (ER) | payer MEDICARE ==
[~2021-09-11] VITALS: Ht 155 cm; Wt 67.0 kg
[~2021-09-11 10:14] MED LIST changes: +CEFU250T80 PO; +SERT-413 PO; -SERT50TA9 PO; -SULF1TAB35 PO
--- NOTE | 2021-09-11 10:30 | ED Fall/Injury ---
General Chief Complaint: Trauma-Non Activation Stated Complaint: FELL, HIT HEAD History of Present Illness Date Seen by Provider: Sep 11, 2021 Time Seen by Provider: 10:25 Initial Comments 71-year-old female presents following a fall. Patient was walking tripped over curb. Patient fell she did get herself however she hit her head on the asphalt. She has a small contusion/abrasion over her right eye. She did not lose consciousness. She has no vomiting vision changes or other systemic complaints. Patient is not on a blood thinner. Allergies and Home Medications Allergies Coded Allergies: No Known Drug Allergies (Unverified , 06/07/09) Patient Home Medication List Home Medication List Reviewed: Yes Acetaminophen (Tylenol Extra Strength) 500 Mg Tablet, 1,000 MG PO BID, (Reported) Entered as Reported by: JACKSON KWAN on 02/07/19 1049 Albuterol Sulfate (Albuterol Sulfate) 2.5 Mg/3 Ml Vial.neb, 2.5 MG NEB Q4H PRN for SHORTNESS OF BREATH, (Reported) Entered as Reported by: JACKSON KWAN on 02/07/19 1035 Alprazolam (Alprazolam) 0.5 Mg Tablet, 0.5 MG PO TID PRN for ANXIETY, (Reported) Entered as Reported by: JACKSON KWAN on 02/07/19 1035 Aspirin (Aspirin EC) 81 Mg Tablet.dr, 81 MG PO HS, (Reported) Entered as Reported by: JACKSON KWAN on 02/07/19 1035 Atenolol (Atenolol) 25 Mg Tablet, 25 MG PO HS, (Reported) Entered as Reported by: JACKSON KWAN on 02/07/19 1035 Atorvastatin Calcium (Atorvastatin Calcium) 20 Mg Tablet, 20 MG PO HS, (Reported) Entered as Reported by: JACKSON KWAN on 02/07/19 1035 Cefuroxime Axetil (Cefuroxime) 250 Mg Tablet, 250 MG PO BID Prescribed by: ATUL MELENDEZ on 12/31/20 1348 Cephalexin (Keflex) 500 Mg Capsule, 500 MG PO TID Prescribed by: MIKEL ANDERSON on 07/28/20 205 Clopidogrel Bisulfate (Clopidogrel) 75 Mg Tablet, 75 MG PO HS, (Reported) Entered as Reported by: JACKSON KWAN on 02/07/19 1035 Cyanocobalamin (Vitamin B-12) (Vitamin B-12) 1,000 Mcg Tablet, 1,000 MCG PO DAILY, (Reported) Entered as Reported by: JACKSON KWAN on 02/07/19 1049 Fluticasone/Salmeterol (Advair 100-50 Diskus) 1 Each Blst.w.dev, 1 PUFF INH BID, (Reported) Entered as Reported by: JACKSON KWAN on 02/07/19 1035 Gabapentin (Gabapentin) 300 Mg Capsule, 300 MG PO BID, (Reported) Entered as Reported by: JACKSON KWAN on 02/07/19 1035 Hydrocodone Bit/Acetaminophen (HYDROcodone/APAP 10/325 TABLET) 1 Each Tablet, 1 TAB PO Q6H PRN for PAIN-MODERATE, (Reported) Entered as Reported by: JACKSON KWAN on 02/07/19 1035 Metformin HCl (Metformin HCl) 500 Mg Tablet, 1,000 MG PO BID, (Reported) Entered as Reported by: JACKSON KWAN on 02/07/19 1035 Omeprazole (Omeprazole) 20 Mg Capsule.dr, 20 MG PO DAILY, (Reported) Entered as Reported by: JACKSON KWAN on 02/07/19 1035 Prednisone (Prednisone) 10 Mg Tab.ds.pk, 10 MG PO DAILY Prescribed by: CARA BARBER on 02/17/20 1221 Prednisone (Prednisone) 20 Mg Tab, 40 MG PO DAILY Prescribed by: CLAUS NUÑEZ on 12/02/20 0121 Sertraline HCl (Sertraline HCl) 50 Mg Tablet, 50 MG PO DAILY, (Reported) Entered as Reported by: JACKSON KWAN on 02/07/19 1035 Review of Systems Review of Systems Constitutional: see HPI Eyes: No Symptoms Reported, Blindness; Denies Blurred Vision, Denies Decreased Acuity Respiratory: No cough, No dyspnea on exertion Cardiovascular: No chest pain, No palpitations Gastrointestinal: No abdominal pain, No nausea, No vomiting Musculoskeletal: no symptoms reported Skin: see HPI Psychiatric/Neurological: No Symptoms Reported Past Xxlepxy-Vclawo-Ltoogl Hx Immunizations Up To Date Tetanus Booster (TDap): More than 5yrs PED Vaccines UTD: Yes Seasonal Allergies Seasonal Allergies: No Past Medical History Surgeries: Yes Cardiac, CABG, Thyroidectomy Respiratory: Yes Asthma, Chronic Bronchitis, COPD Cardiac: Yes (CABG/STENTS. 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 8.0oz. [id number]; 27.00 BMI Method:Stated General Appearance: WD/WN, no apparent distress HEENT: PERRL/EOMI, normal ENT inspection Neck: full range of motion, supple Cardiovascular: regular rate, rhythm, no edema Respiratory: lungs clear, normal breath sounds Gastrointestinal: non tender, soft Back: no CVA tenderness, no vertebral tenderness Extremities: non-tender, normal inspection Neurologic/Psychiatric: alert, normal mood/affect, oriented x 3 Skin: ecchymosis (Mild contusion above the right eye) Paddy Coma Score Best Eye Response: (4) Open Spontaneously Best Verbal Response: (5) Oriented Best Motor Response: (6) Obeys Commands Progress/Results/Core Measures Progress Progress Note : Progress Note Patient was offered a CT scan versus watchful waiting and return as needed based on symptoms. Patient is low risk with no blood thinners and no complaints. Patient felt that she would prefer to return if she has any concerns. I did have a long discussion with her regarding symptoms to be aware of or any other concerns to return and we would perform the CT scan. Patient was stable and discharged Departure Impression Primary Impression: Contusion of forehead Qualified Codes: S00.83XA - Contusion of other part of head, initial encounter Additional Impression: Fall from other slipping, tripping, or stumbling Disposition: 01 HOME, SELF-CARE Condition: Stable Departure-Patient Inst. Referrals: KENDY MADISON DO (PCP/Family) Primary Care Physician Patient Instructions: Preventing Falls ED, Minor Head Injury Add. Discharge Instructions: Return to the ER if you have any concerns, if you have any dizziness, headache, nausea, vomiting, feeling of off balance or with any other concerns that you feel might be related to your fall. All discharge instructions reviewed with patient and/or family. Voiced understanding. INESSA MILLIGAN DO Sep 11, 2021 10:30
[2021-09-11 10:46] VITALS: BP 176/67
== END 2021-09-11 10:46 | disposition home or self-care (01) ==
LOC: EDUNIT# 10:14 → ER 10:15
DX: S00.83XA Contusion of other part of head, initial encounter (principal); S00.11XA Contusion of right eyelid and periocular area, initial encounter; J44.9 Chronic obstructive pulmonary disease, unspecified; I10 Essential (primary) hypertension; K21.9 Gastro-esophageal reflux disease without esophagitis; I25.10 Atherosclerotic heart disease of native coronary artery without angina pectoris; E78.00 Pure hypercholesterolemia, unspecified; F41.9 Anxiety disorder, unspecified; E11.9 Type 2 diabetes mellitus without complications; Z79.01 Long term (current) use of anticoagulants; Z79.82 Long term (current) use of aspirin; Z79.899 Other long term (current) drug therapy; Z79.84 Long term (current) use of oral hypoglycemic drugs; W01.0XXA Fall on same level from slipping, tripping and stumbling without subsequent striking against object, initial encounter
CPT/HCPCS: 99281

== ENCOUNTER 2021-10-15 10:23 | Emergency (ER) | payer MEDICARE ==
[~2021-10-15] VITALS: Ht 154 cm; Wt 63.5 kg
[2021-10-15 10:52] LABS: BASOPHILS % (AUTO) 0 % (0-10); EOSINOPHILS % (AUTO) 0 % (0-10); HEMATOCRIT 52 % (35-52); HEMOGLOBIN 17.1 g/dL (11.5-16.0); LYMPHOCYTES # (AUTO) 0.9 10^3/uL (1.0-4.0); LYMPHOCYTES % (AUTO) 10 % (12-44); MEAN CORPUSCULAR HEMOGLOBIN 33 pg (25-34); MEAN CORPUSCULAR HGB CONC 33 g/dL (32-36); MEAN CORPUSCULAR VOLUME 101 fL (80-99); MEAN PLATELET VOLUME 11.8 fL (9.0-12.2); MONOCYTES # (AUTO) 0.6 10^3/uL (0.0-1.0); MONOCYTES % (AUTO) 6 % (0-12); NEUTROPHILS # (AUTO) 8.1 10^3/uL (1.8-7.8); NEUTROPHILS % (AUTO) 84 % (42-75); PLATELET COUNT 166 10^3/uL (130-400); WHITE BLOOD COUNT 9.7 10^3/uL (4.3-11.0)
[2021-10-15 10:54] LABS: BILIRUBIN,URINE NEGATIVE (NEGATIVE); CLARITY,URINE CLEAR; COLOR,URINE DARK YELLOW; GLUCOSE, URINE (UA) NEGATIVE (NEGATIVE); KETONES,URINE 1+ (NEGATIVE); LEUKOCYTE ESTERASE ,URINE NEGATIVE (NEGATIVE); NITRITE,URINE POSITIVE (NEGATIVE); PROTEIN,URINE 3+ (NEGATIVE)
[2021-10-15 11:02] LABS: BACTERIA,URINE LARGE /HPF
[2021-10-15 11:04] LABS: ALBUMIN 4.5 GM/DL (3.2-4.5); POTASSIUM 4.1 MMOL/L (3.6-5.0)
[2021-10-15 11:05] LABS: CALCIUM 9.8 MG/DL (8.5-10.1)
[2021-10-15 11:07] LABS: TOTAL PROTEIN 7.4 GM/DL (6.4-8.2)
[2021-10-15 11:08] LABS: BILIRUBIN,TOTAL 0.6 MG/DL (0.1-1.0)
[2021-10-15 11:10] LABS: CREATININE SERUM 1.03 MG/DL (0.60-1.30)
--- NOTE | 2021-10-15 11:11 | ED General ---
General Chief Complaint: Altered Mental Status Stated Complaint: AMS Nursing Triage Note: PT PRESENTS TO ED WITH ED ACCOMPANIED BY ADULT SON WITH COMPLAINTS OF CONFUSION STARTING LAST NIGHT AND INCREASED LETHARGY. PT SON REPORTS HE DOESNT THINK SHE HAS TAKEN HER MEDS FOR A COUPLE DAYS. PT SON ALSO REPORTS PT FELL APROX 1 MONTH AGO BUT DID NOT SEEK CARE. Source of Information: Patient, Family (NEREYDA AGUILAR) History of Present Illness Date Seen by Provider: Oct 15, 2021 Time Seen by Provider: 11:08 Initial Comments Patient is a 71-year-old female with a history of coronary artery disease, COPD presents ED with increased confusion. According to son at bedside patient appeared confused yesterday. Patient appears more tired and wanting to sleep. She defecated on herself twice. She reports pain with urination. History of confusion in the past. Son states patient may have early dementia. She denies of any specific pain. Chronic cough secondary to COPD. Breathing treatments at home. Not currently on oxygen. She denies abdominal pain, chest pain, headache, visual changes, unilateral muscle weakness or sensory changes. Patient is alert and oriented x3 on arrival. No fever, sore throat, ear pain (NEREYDA AGUILAR) Allergies and Home Medications Allergies Coded Allergies: No Known Drug Allergies (Unverified , 06/07/09) Patient Home Medication List Home Medication List Reviewed: Yes (NEREYDA AGUILAR) Aspirin (Aspirin EC) 81 Mg Tablet.dr, 81 MG PO DAILY, (Reported) Entered as Reported by: JACKSON KWAN on 02/07/19 1035 Atenolol (Atenolol) 25 Mg Tablet, 25 MG PO DAILY, (Reported) Entered as Reported by: JACKSON KWAN on 02/07/19 1035 Atorvastatin Calcium (Atorvastatin Calcium) 20 Mg Tablet, 20 MG PO HS, (Reported) Entered as Reported by: JACKSON KWAN on 02/07/19 1035 Cholecalciferol (Vitamin D3) (Vitamin D3) 25 Mcg Capsule, 25 MCG PO DAILY, (Reported) Entered as Reported by: ASHA CASTELLANOS on 10/16/21 1255 Cyanocobalamin (Vitamin B-12) (Vitamin B-12) 1,000 Mcg Tablet, 1,000 MCG PO HS, (Reported) Entered as Reported by: ASHA CASTELLANOS on 10/16/21 1255 Gabapentin (Gabapentin) 600 Mg Tablet, 600 MG PO BID, (Reported) Entered as Reported by: ASHA CASTELLANOS on 10/16/21 1255 Oxybutynin Chloride (Oxybutynin Chloride) 5 Mg Tablet, 5 MG PO BID, (Reported) Entered as Reported by: ASHA CASTELLANOS on 10/16/21 1255 Oxycodone HCl/Acetaminophen (Oxycodone-Acetaminophen 10-325) 1 Each Tablet, 1 EA PO Q4H PRN for PAIN-MODERATE (5-7), (Reported) Entered as Reported by: ASHA CASTELLANOS on 10/16/21 1255 Potassium Chloride (K-Tab ER) 10 Meq Tablet.er, 10 MEQ PO DAILY, (Reported) Entered as Reported by: ASHA CASTELLANOS on 10/16/21 1256 Pramipexole Di-HCl (Pramipexole Dihydrochloride) 0.75 Mg Tablet, 0.75 MG PO BID, (Reported) Entered as Reported by: ASHA CASTELLANOS on 10/16/21 1255 Sertraline HCl (Sertraline HCl) 50 Mg Tablet, 50 MG PO HS, (Reported) Entered as Reported by: JACKSON KWAN on 02/07/19 1035 Discontinued Medications Acetaminophen (Tylenol Extra Strength) 500 Mg Tablet, 1,000 MG PO BID, (Reported) Discontinued Reason: No Longer Taking Entered as Reported by: JACKSON KWAN on 02/07/19 1049 Albuterol Sulfate (Albuterol Sulfate) 2.5 Mg/3 Ml Vial.neb, 2.5 MG NEB Q4H PRN for SHORTNESS OF BREATH, (Reported) Discontinued Reason: No Longer Taking Entered as Reported by: JACKSON KWAN on 02/07/19 1035 Alprazolam (Alprazolam) 0.5 Mg Tablet, 0.5 MG PO TID PRN for ANXIETY, (Reported) Discontinued Reason: No Longer Taking Entered as Reported by: JACKSON KWAN on 02/07/19 1035 Cefuroxime Axetil (Cefuroxime) 250 Mg Tablet, 250 MG PO BID Discontinued Reason: No Longer Taking Prescribed by: ATUL MELENDEZ on 12/31/20 1348 Cephalexin (Keflex) 500 Mg Capsule, 500 MG PO TID Discontinued Reason: No Longer Taking Prescribed by: MIKEL ANDERSON on 07/28/202049 Cephalexin (Cephalexin) 500 Mg Tablet, 500 MG PO TID Discontinued Reason: No Longer Taking Prescribed by: TORO LYNNE on 10/15/21 1240 Clopidogrel Bisulfate (Clopidogrel) 75 Mg Tablet, 75 MG PO HS, (Reported) Discontinued Reason: No Longer Taking Entered as Reported by: JACKSON KWAN on 02/07/19 1035 Cyanocobalamin (Vitamin B-12) (Vitamin B-12) 1,000 Mcg Tablet, 1,000 MCG PO DAILY, (Reported) Discontinued Reason: No Longer Taking Entered as Reported by: JACKSON KWAN on 02/07/19 1049 Fluticasone/Salmeterol (Advair 100-50 Diskus) 1 Each Blst.w.dev, 1 PUFF INH BID, (Reported) Discontinued Reason: No Longer Taking Entered as Reported by: JACKSON KWAN on 02/07/19 1035 Gabapentin (Gabapentin) 300 Mg Capsule, 300 MG PO BID, (Reported) Discontinued Reason: No Longer Taking Entered as Reported by: JACKSON KWAN on 02/07/19 1035 Hydrocodone Bit/Acetaminophen (HYDROcodone/APAP 10/325 TABLET) 1 Each Tablet, 1 TAB PO Q6H PRN for PAIN-MODERATE, (Reported) Discontinued Reason: No Longer Taking Entered as Reported by: JACKSON KWAN on 02/07/19 1035 Metformin HCl (Metformin HCl) 500 Mg Tablet, 1,000 MG PO BID, (Reported) Discontinued Reason: No Longer Taking Entered as Reported by: JACKSON KWAN on 02/07/19 1035 Omeprazole (Omeprazole) 20 Mg Capsule.dr, 20 MG PO DAILY, (Reported) Discontinued Reason: No Longer Taking Entered as Reported by: JACKSON KWAN on 02/07/19 1035 Prednisone (Prednisone) 10 Mg Tab.ds.pk, 10 MG PO DAILY Discontinued Reason: No Longer Taking Prescribed by: CARA BARBER on 02/17/20 1221 Prednisone (Prednisone) 20 Mg Tab, 40 MG PO DAILY Discontinued Reason: No Longer Taking Prescribed by: CLAUS NUÑEZ on 12/02/20 0121 Review of Systems Review of Systems Constitutional: No dizziness, No fever; malaise, weakness EENTM: No ear discharge, No hearing loss, No ear pain, No vision loss Respiratory: cough; No dyspnea on exertion, No orthopnea, No short of breath Gastrointestinal: No abdominal pain, No constipation; diarrhea; No hematemesis Genitourinary: dysuria; No frequency, No hematuria Musculoskeletal: No back pain, No joint pain Skin: No change in color, No change in hair/nails Psychiatric/Neurological: Weakness, Other (confusion) Hematologic/Lymphatic: Denies Easy Bleeding, Denies Easy Bruising (NEREYDA AGUILAR) Past Xufrick-Dggmoc-Jpjrqx Hx Patient Social History Tobacco Use?: Yes Tobacco type used: Cigarettes Substance use?: No Alcohol Use?: No Pt feels they are or have been: No (NEREYDA AGUILAR) Immunizations Up To Date Tetanus Booster (TDap): More than 5yrs PED Vaccines UTD: Yes First/Initial COVID19 Vaccinat: 06/30/21 Second COVID19 Vaccination Ron: 06/30/21 Third COVID19 Vaccination Date: 06/30/21 (NEREYDA AGUILAR) Seasonal Allergies Seasonal Allergies: No (NEREYDA AGUILAR) Past Medical History Surgery/Hospitalization HX: SX: CABG PMH: CAD, UTI Surgeries: Yes Cardiac, CABG, Thyroidectomy Respiratory: Yes Asthma, Chronic Bronchitis, COPD Cardiac: Yes (CABG/STENTS. 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 Genitourinary: No Gastrointestinal: Yes Gastroesophageal Reflux, Hiatal Hernia Musculoskeletal: Yes (ARTHRITIS IN KNEES) Arthritis Endocrine: Yes Hypothyroidsim, Diabetes, Non-Insulin dep HEENT: No (EDENTULOUS) Cancer: No Psychosocial: Yes Anxiety Integumentary: Yes Eczema Blood Disorders: No (NEREYDA AGIULAR) Family Medical History Alzheimer's disease 19 MOTHER FH: cancer G8 SISTER FH: heart disease 19 FATHER Kidney disease 19 MOTHER Myocardial infarction G8 BROTHER No Pertinent Family Hx (NEREYDA AGUILAR) Physical Exam Vital Signs Vital Signs - First Documented 10/15/21 10:35 Temp 36.2 Pulse 88 Resp 18 B/P (MAP) 177/81 (113) Pulse Ox 98 (MIKEL MARS MD) Vital Signs Capillary Refill : Less Than 3 Seconds (NEREYDA AGUILAR) Height, Weight, BMI Height: 5'1.00" Weight: 141lbs. 8.0oz. [id number]; 26.00 BMI Method:Stated General Appearance: No Apparent Distress, WD/WN Eyes: Bilateral Eye PERRL, Bilateral Eye EOMI HEENT: TMs Normal, Normal ENT Inspection Neck: Full Range of Motion, Normal Inspection, Non Tender Respiratory: No Accessory Muscle Use, No Respiratory Distress, Wheezing Cardiovascular: Regular Rate, Rhythm, No Edema, No Gallop Gastrointestinal: Normal Bowel Sounds, No Organomegaly, No Pulsatile Mass, Non Tender, Soft Back: Normal Inspection, No CVA Tenderness Extremity: Normal Capillary Refill, Normal Inspection, Normal Range of Motion, Non Tender Neurologic/Psychiatric: Alert, Oriented x3, No Motor/Sensory Deficits, Normal Mood/Affect Skin: Normal Color, Warm/Dry (NEREYDA AGUILAR) Progress/Results/Core Measures Suspected Sepsis SIRS Temperature: Pulse: 88 Respiratory Rate: 18 Laboratory Tests 10/15/21 10:40: White Blood Count 9.7 Blood Pressure 177 /81 Mean: 113 Laboratory Tests 10/15/21 10:40: Creatinine 1.03, Platelet Count 166, Total Bilirubin 0.6 (NEREYDA AGUILAR) Results/Orders Lab Results Laboratory Tests Test 10/15/21 10:40 10/15/21 10:45 Range/Units White Blood Count 9.7 4.3-11.0 10^3/uL Red Blood Count 5.15 H 3.80-5.11 10^6/uL Hemoglobin 17.1 H 11.5-16.0 g/dL Hematocrit 52 35-52 % Mean Corpuscular Volume 101 H 80-99 fL Mean Corpuscular Hemoglobin 33 25-34 pg Mean Corpuscular Hemoglobin Concent 33 32-36 g/dL Red Cell Distribution Width 11.9 10.0-14.5 % Platelet Count 166 130-400 10^3/uL Mean Platelet Volume 11.8 9.0-12.2 fL Immature Granulocyte % (Auto) 0 % Neutrophils (%) (Auto) 84 H 42-75 % Lymphocytes (%) (Auto) 10 L 12-44 % Monocytes (%) (Auto) 6 0-12 % Eosinophils (%) (Auto) 0 0-10 % Basophils (%) (Auto) 0 0-10 % Neutrophils # (Auto) 8.1 H 1.8-7.8 10^3/uL Lymphocytes # (Auto) 0.9 L 1.0-4.0 10^3/uL Monocytes # (Auto) 0.6 0.0-1.0 10^3/uL Eosinophils # (Auto) 0.0 0.0-0.3 10^3/uL Basophils # (Auto) 0.0 0.0-0.1 10^3/uL Immature Granulocyte # (Auto) 0.0 0.0-0.1 10^3/uL Sodium Level 141 135-145 MMOL/L Potassium Level 4.1 3.6-5.0 MMOL/L Chloride Level 102 98-107 MMOL/L Carbon Dioxide Level 24 21-32 MMOL/L Anion Gap 15 H 5-14 MMOL/L Blood Urea Nitrogen 15 7-18 MG/DL Creatinine 1.03 0.60-1.30 MG/DL Estimat Glomerular Filtration Rate 53 BUN/Creatinine Ratio 15 Glucose Level 111 H 70-105 MG/DL Glucometer 112 H 70-110 MG/DL Calcium Level 9.8 8.5-10.1 MG/DL Corrected Calcium 9.4 8.5-10.1 MG/DL Total Bilirubin 0.6 0.1-1.0 MG/DL Aspartate Amino Transf (AST/SGOT) 20 5-34 U/L Alanine Aminotransferase (ALT/SGPT) 14 0-55 U/L Alkaline Phosphatase 113 40-136 U/L C-Reactive Protein High Sensitivity 0.35 0.00-0.50 MG/DL Total Protein 7.4 6.4-8.2 GM/DL Albumin 4.5 3.2-4.5 GM/DL Urine Color DARK YELLOW Urine Clarity CLEAR Urine pH 6.0 5-9 Urine Specific Blanchard 1.025 H 1.016-1.022 Urine Protein 3+ H NEGATIVE Urine Glucose (UA) NEGATIVE NEGATIVE Urine Ketones 1+ H NEGATIVE Urine Nitrite POSITIVE H NEGATIVE Urine Bilirubin NEGATIVE NEGATIVE Urine Urobilinogen 0.2 < = 1.0 MG/DL Urine Leukocyte Esterase NEGATIVE NEGATIVE Urine RBC (Auto) 3+ H NEGATIVE Urine RBC 5-10 H /HPF Urine WBC 5-10 H /HPF Urine Squamous Epithelial Cells 2-5 /HPF Urine Crystals NONE /LPF Urine Bacteria LARGE H /HPF Urine Casts NONE /LPF Urine Mucus NEGATIVE /LPF Urine Culture Indicated YES (MIKEL MARS MD) Micro Results Microbiology 10/15/21 Urine Culture - Preliminary, Resulted Culture In Progress (MIKEL MARS MD) My Orders Orders - MIKEL MARS MD Ed Iv/Invasive Line Start (10/15/21 10:43) Cbc With Automated Diff (10/15/21 10:43) Comprehensive Metabolic Panel (10/15/21 10:43) Hs C Reactive Protein (10/15/21 10:43) Ua Culture If Indicated (10/15/21 10:43) Urine Culture (10/15/21 10:45) (MIKEL MARS MD) Vital Signs/I&O 10/15/21 10/15/21 10:35 12:48 Temp 36.2 Pulse 88 91 Resp 18 20 B/P (MAP) 177/81 (113) 162/75 Pulse Ox 98 98 (MIKEL MARS MD) Vital Signs/I&O Capillary Refill : Less Than 3 Seconds (NEREYDA AGUILAR) Blood Pressure Mean: 113 Point of Care Testing Finger Stick Blood Glucose: 112 Blood Glucose Action Taken: RN NOTIFIED (NEREYDA AGUILAR) ECG Initial ECG Impression Date: Oct 15, 2021 Initial ECG Impression Time: 11:34 Comment Sinus rhythm, 87 bpm, left atrial enlargement, LVH with secondary repolari zation, QRS duration 88 MS, QTc 457 MS. (NEREYDA AGUILAR) Departure Communication (Admissions) Patient appears well nontoxic. Vital signs stable. Afebrile. Normal white blood count. Did not meet SIRS criteria. According to son at bedside increased confusion at home. History of similar symptoms secondary to UTI. She has no focal neural deficits. Alert and oriented x3. CT scan of the head unremarkable. History of COPD. Chronic cough. Chest x-ray negative for pneumonia. EKG normal sinus rhythm. Denies any chest pain, shortness of breath. Lab work was otherwise unremarkable here in the ED besides positive urinalysis for infection. She has no abdominal tenderness on palpation. She did states she had two loose bowel movements at home. Unclear etiology of the loose stool. Recommend outpatient follow-up with PCP in 2 to 3 days for reevaluation. Son is requesting discharge at this time. She was given one dose of 1g Rocephin here. I will discharge with Keflex for UTI at home. Recommend reevaluation with urinalysis. If any change or worsening symptoms return back to ED. According to son patient is at her current baseline. (NEREYDA AGUILAR) Impression Primary Impression: UTI (urinary tract infection) Disposition: HOME, SELF-CARE Condition: Improved Departure-Patient Inst. Decision time for Depature: 12:39 (NEREYDA AGUILAR) Referrals: KENDY MADISON DO (PCP/Family) Primary Care Physician Patient Instructions: Urinary Tract Infection, Adult ED Add. Discharge Instructions: Recommend following up with your PCP in 2 to 3 days for reevaluation. All discharge instructions reviewed with patient and/or family. Voiced under standing. ATTENDING PHYSICIAN NOTE: I was physically present as attending physician in the emergency department during the care of this patient, but I was not directly involved in the decision making or delivery of care for this patient. (MIKEL MARS MD) NEREYDA AGUILAR Oct 15, 2021 11:11 MIKEL MARS MD Oct 17, 2021 05:15
[2021-10-15] MEDS ORDERED: NS IV 1000 ML 1,000 ML IV SCH (11:15)
[2021-10-15] MEDS ORDERED: NS IV 1000 ML 1,000 ML ONE (11:18)
[2021-10-15] MEDS ORDERED: cefTRIAXone 1 GM PRE-MIX 50 ML IV ONE ×2 (11:45→11:50)
[2021-10-15] MEDS ORDERED: cefTRIAXone 1 GM PRE-MIX 50 ML IV STA (11:49)
--- NOTE | 2021-10-15 12:26 | Diagnostic Imaging Report ---
PROCEDURE: CT head without contrast. TECHNIQUE: Multiple contiguous axial images were obtained through the brain without the use of intravenous contrast. Auto Exposure Controls were utilized during the CT exam to meet ALARA standards for radiation dose reduction. INDICATION: Confusion, lethargy. COMPARISON: Study compared to 12/31/2020. FINDINGS: Some subcortical hypodensity in the left frontal lobe is stable and chronic. There is some generalized cerebral cortical atrophy with ventriculomegaly, unchanged. No periventricular edema. No hemorrhage. No acute extra-axial fluid collection. No sulcal effacement. No findings of focal or generalized cerebral edema. The orbits, sinuses, and calvarium are nonacute. IMPRESSION: Stable atrophy and ventriculomegaly, chronic. Left frontal lobe subcortical white matter hypodensities. No new abnormality, hemorrhage, or acute appearing pathology. No change from priors. Dictated by: Dictated on workstation # [id number]
--- NOTE | 2021-10-15 12:27 | Diagnostic Imaging Report ---
INDICATION: Confusion and lethargy. COMPARISON: Exam compared to 12/15/2020. FINDINGS: Fractured sternal wires project in stable alignment. The heart size and pulmonary vascularity are within normal limits. The lungs are hyperexpanded with features of COPD with chronic flattening of the diaphragms. Lung volumes are symmetric. Incidental azygos fissure at the right upper lobe noted. No focal consolidation, failure pattern, effusion, or pneumothorax. There has been no change from prior. IMPRESSION: Stable chronic postsurgical and emphysematous changes. No acute finding identified. Dictated by: Dictated on workstation # [id number]
[2021-10-15] MEDS ORDERED: CEPH500T PO (12:40)
[2021-10-15 12:48] VITALS: BP 162/75
[2021-10-16] MEDS ORDERED: OXYC-556 PO (12:55)
[2021-10-16] MEDS ORDERED: CHOL10007 PO (12:55)
[2021-10-16] MEDS ORDERED: GBPN600T PO (12:55)
[2021-10-16] MEDS ORDERED: OXYB5TAB13 PO (12:55)
[2021-10-16] MEDS ORDERED: PRAM0.754 PO (12:55)
[2021-10-16] MEDS ORDERED: CYAN-41 PO (12:55)
[2021-10-16] MEDS ORDERED: POTA10TA PO (12:56)
== END 2021-10-15 12:47 | disposition home or self-care (01) ==
LOC: EDUNIT# 10:23 → ER 10:25
DX: N39.0 Urinary tract infection, site not specified (principal); J44.9 Chronic obstructive pulmonary disease, unspecified; I10 Essential (primary) hypertension; K21.9 Gastro-esophageal reflux disease without esophagitis; F41.9 Anxiety disorder, unspecified; E11.9 Type 2 diabetes mellitus without complications; E78.00 Pure hypercholesterolemia, unspecified; I25.10 Atherosclerotic heart disease of native coronary artery without angina pectoris; Z72.0 Tobacco use; Z79.82 Long term (current) use of aspirin; Z79.899 Other long term (current) drug therapy; Z79.01 Long term (current) use of anticoagulants; Z79.84 Long term (current) use of oral hypoglycemic drugs
CPT/HCPCS: 36415; 70450; 71045; 80053; 81000; 82947; 85025; 86141; 87088; 93005

== ENCOUNTER 2021-10-15 18:20 | Observation (INO) | payer MEDICARE ==
[~2021-10-15] VITALS: Ht 155 cm; Wt 61.5 kg
[~2021-10-15 18:20] MED LIST changes: +CEPH500T PO
--- NOTE | 2021-10-15 19:38 | ED General ---
General Chief Complaint: General Problems/Pain Stated Complaint: AMS - FREQUENT URINATION / DIARRHEA Nursing Triage Note: TO ED VIA POV AND AMBULATORY TO ROOM 5 WITH SON. SON STATES, "I TOOK HER HOME FROM HERE 5 HOURS AGO AND SHE HAS JUST SAT ON THE COUCH." PT SON STATES SHE WAS DIAGNOSED WITH UTI. DENIES ANY CHANGES SINCE DISCHARGE THIS AFTERNOON AND SON ALSO STATES, "MY BROTHER TOLD ME TO BRING HER HERE." Source of Information: Patient, Family Exam Limitations: No Limitations (NEREYDA AGUILAR) History of Present Illness Date Seen by Provider: Oct 15, 2021 Time Seen by Provider: 19:33 Initial Comments Patient is a 71-year-old female who presents ED for UTI, altered mental status, frequent urination and bowel movements. Patient was seen here earlier today diagnosed with UTI. Patient lives at home by herself. She is taking care of a 6-year-old child. Patient returned home and has not moved off her couch. According to son concerned patient is slumped over and not moving. Patient urinated and defecated herself. He is concerned for early dementia. Concerned that patient cannot take care of herself at home. Patient found this morning to have a UTI. Was discharged with Keflex but did not receive the antibiotics. Patient on arrival alert oriented x3. Patient denies abdominal pain, chest natanael n, shortness of breath. Supposedly urinated and defecated on herself. (NEREYDA AGIULAR) Allergies and Home Medications Allergies Coded Allergies: No Known Drug Allergies (Unverified , 06/07/09) Patient Home Medication List Home Medication List Reviewed: Yes (NEREYDA AGUILAR) Acetaminophen (Tylenol Extra Strength) 500 Mg Tablet, 1,000 MG PO BID, (Reported) Entered as Reported by: JACKSON KWAN on 02/07/19 1049 Albuterol Sulfate (Albuterol Sulfate) 2.5 Mg/3 Ml Vial.neb, 2.5 MG NEB Q4H PRN for SHORTNESS OF BREATH, (Reported) Entered as Reported by: JACKSON KWAN on 02/07/19 1035 Alprazolam (Alprazolam) 0.5 Mg Tablet, 0.5 MG PO TID PRN for ANXIETY, (Reported) Entered as Reported by: JACKSON KWAN on 02/07/19 1035 Aspirin (Aspirin EC) 81 Mg Tablet.dr, 81 MG PO HS, (Reported) Entered as Reported by: JACKSON KWAN on 02/07/19 1035 Atenolol (Atenolol) 25 Mg Tablet, 25 MG PO HS, (Reported) Entered as Reported by: JACKSON KWAN on 02/07/19 1035 Atorvastatin Calcium (Atorvastatin Calcium) 20 Mg Tablet, 20 MG PO HS, (Reported) Entered as Reported by: JACKSON KWAN on 02/07/19 1035 Cefuroxime Axetil (Cefuroxime) 250 Mg Tablet, 250 MG PO BID Prescribed by: ATUL MELENDEZ on 12/31/20 1348 Cephalexin (Keflex) 500 Mg Capsule, 500 MG PO TID Prescribed by: MIKEL ANDERSON on 07/28/20 2050 Cephalexin (Cephalexin) 500 Mg Tablet, 500 MG PO TID Prescribed by: TORO LYNNE on 10/15/21 1240 Clopidogrel Bisulfate (Clopidogrel) 75 Mg Tablet, 75 MG PO HS, (Reported) Entered as Reported by: JACKSON KWAN on 02/07/19 1035 Cyanocobalamin (Vitamin B-12) (Vitamin B-12) 1,000 Mcg Tablet, 1,000 MCG PO DAILY, (Reported) Entered as Reported by: JACKSON KWAN on 02/07/19 1049 Fluticasone/Salmeterol (Advair 100-50 Diskus) 1 Each Blst.w.dev, 1 PUFF INH BID, (Reported) Entered as Reported by: JACKSON KWAN on 02/07/19 1035 Gabapentin (Gabapentin) 300 Mg Capsule, 300 MG PO BID, (Reported) Entered as Reported by: JACKSON KWAN on 02/07/19 1035 Hydrocodone Bit/Acetaminophen (HYDROcodone/APAP 10/325 TABLET) 1 Each Tablet, 1 TAB PO Q6H PRN for PAIN-MODERATE, (Reported) Entered as Reported by: JACKSON KWAN on 02/07/19 1035 Metformin HCl (Metformin HCl) 500 Mg Tablet, 1,000 MG PO BID, (Reported) Entered as Reported by: JACKSON KWAN on 02/07/19 1035 Omeprazole (Omeprazole) 20 Mg Capsule.dr, 20 MG PO DAILY, (Reported) Entered as Reported by: JACKSON KWAN on 02/07/19 1035 Prednisone (Prednisone) 10 Mg Tab.ds.pk, 10 MG PO DAILY Prescribed by: CARA BARBER on 02/17/20 1221 Prednisone (Prednisone) 20 Mg Tab, 40 MG PO DAILY Prescribed by: CLAUS NUÑEZ on 12/02/20 0121 Sertraline HCl (Sertraline HCl) 50 Mg Tablet, 50 MG PO DAILY, (Reported) Entered as Reported by: JACKSON KWAN on 02/07/19 1035 Review of Systems Review of Systems Constitutional: No chills, No diaphoresis, No dizziness, No malaise EENTM: No hearing loss, No eye pain Respiratory: No cough, No dyspnea on exertion, No hemoptysis Cardiovascular: No edema Gastrointestinal: see HPI; No abdominal pain, No constipation; diarrhea Genitourinary: No decreased output, No discharge, No dysuria; frequency Musculoskeletal: No back pain, No gout, No joint pain Skin: No change in color, No change in hair/nails Psychiatric/Neurological: Denies Depressed, Denies Emotional Problems, Denies Headache, Denies Numbness (NEREYDA AGUILAR) All Other Systems Reviewed Negative Unless Noted: Yes (NEREYDA AGUILAR) Past Xixehtb-Yloxvl-Dlzfhv Hx Immunizations Up To Date Tetanus Booster (TDap): More than 5yrs PED Vaccines UTD: Yes First/Initial COVID19 Vaccinat: 06/30/21 Second COVID19 Vaccination Ron: 06/30/21 Third COVID19 Vaccination Date: 06/30/21 (NEREYDA AGUILAR) Seasonal Allergies Seasonal Allergies: No (NEREYDA AGUILAR) Past Medical History Surgery/Hospitalization HX: SX: CABG PMH: CAD, UTI Surgeries: Yes Cardiac, CABG, Thyroidectomy Respiratory: Yes Asthma, Chronic Bronchitis, COPD Cardiac: Yes (CABG/STENTS. 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 Genitourinary: No Gastrointestinal: Yes Gastroesophageal Reflux, Hiatal Hernia Musculoskeletal: Yes (ARTHRITIS IN KNEES) Arthritis Endocrine: Yes Hypothyroidsim, Diabetes, Non-Insulin dep HEENT: No (EDENTULOUS) Cancer: No Psychosocial: Yes Anxiety Integumentary: Yes Eczema Blood Disorders: No (NEREYDA AGUILAR) Family Medical History Alzheimer's disease 19 MOTHER FH: cancer G8 SISTER FH: heart disease 19 FATHER Kidney disease 19 MOTHER Myocardial infarction G8 BROTHER No Pertinent Family Hx (NEREYDA AGUILAR) Physical Exam Vital Signs Vital Signs - First Documented 10/15/21 19:00 Temp 36.2 Pulse 93 Resp 16 B/P (MAP) 158/98 (118) Pulse Ox 98 O2 Delivery Room Air (JUAN LUIS,JAS K DO) Vital Signs Capillary Refill : Less Than 3 Seconds (NEREYDA AGUILAR) Height, Weight, BMI Height: 5'1.00" Weight: 141lbs. 8.0oz. 62.200461ii; 26.00 BMI Method:Stated General Appearance: No Apparent Distress, WD/WN Eyes: Bilateral Eye Normal Inspection, Bilateral Eye PERRL HEENT: PERRL/EOMI, TMs Normal, Normal ENT Inspection Neck: Full Range of Motion, Normal Inspection, Non Tender, Supple Respiratory: Chest Non Tender, Lungs Clear, Normal Breath Sounds, No Accessory Muscle Use, No Respiratory Distress Cardiovascular: Regular Rate, Rhythm, No Edema, No Gallop, No JVD, No Murmur Gastrointestinal: Normal Bowel Sounds, No Organomegaly, No Pulsatile Mass, Non Tender, Soft Back: Normal Inspection, No CVA Tenderness Extremity: Normal Capillary Refill, Normal Inspection, Normal Range of Motion, Non Tender Skin: Normal Color, Warm/Dry (NEREYDA AGUILAR) Progress/Results/Core Measures Suspected Sepsis SIRS Temperature: Pulse: 93 Respiratory Rate: 16 Blood Pressure 158 /98 Mean: 118 (NEREYDA AGUILAR) Results/Orders Vital Signs/I&O 10/15/21 19:00 Temp 36.2 Pulse 93 Resp 16 B/P (MAP) 158/98 (118) Pulse Ox 98 O2 Delivery Room Air (JUAN LUIS,JAS K DO) Vital Signs/I&O Capillary Refill : Less Than 3 Seconds (NEREYDA AGUILAR) Blood Pressure Mean: 118 Departure Communication (Admissions) Time/Spoke to Admitting Phy: 19:36 Patient appears well nontoxic. Patient Was seen this morning diagnosed with UTI. Patient lab work unremarkable. She did not meet sepsis criteria. Patient has not taken her antibiotics. According to family concerned that patient has been laying around and defecating and urinating on herself. Patient cannot take care of herself at home. Concerning for underlying dementia. According to family patient appears to be at her baseline. Lab work was held at this time. Patient primary care physician is Dr. Mcgill. Discussed patient with hospitalist Dr. Teran who accepts patient. Social service consult. Continue home meds but recommend no sedating type medications such as narcotics or benzos. IV Rocephin in the morning. Q AM labs. Family agrees with this plan of action. Patient is under observation. Patient in no acute distress. Recheck of temperature within normal limits. (NEREYDA AGUILAR) Impression Primary Impression: UTI (urinary tract infection) Additional Impression: Confusion Disposition: 01 HOME, SELF-CARE Condition: Stable Admissions Decision to Admit Reason: Admit from ER (General) Decision to Admit/Date: Oct 15, 2021 Time/Decision to Admit Time: 19:37 (NEREYDA AGUILAR) Departure-Patient Inst. Referrals: KENDY MCGILL DO (PCP/Family) Primary Care Physician ATTENDING PHYSICIAN NOTE: I WAS PHYSICALLY PRESENT ER PHYSICIAN WHEN THIS PATIENT WAS IN ER, BUT I WAS NOT INVOLVED IN ANY DECISION MAKING OR ANY CARE OF THIS PATIENT. (JAS MCKNIGHT DO) NEREYDA AGUILAR Oct 15, 2021 19:38 JAS MCKNIGHT DO Oct 16, 2021 05:45
[2021-10-15] MEDS ORDERED: CATHETER FLUSH 10 ML SYR IV PRN (21:30)
[2021-10-16] VITALS (7 sets, daily range): BP systolic 122–169; BP diastolic 63–81
[2021-10-16] MEDS ORDERED: ACETAMINOPHEN 500 MG TAB (TYLENOL) ONE (01:09)
[2021-10-16] MEDS: CATHETER FLUSH 10 ML SYR IV SCH ×3 (01:09→14:25)
[2021-10-16] MEDS: ACETAMINOPHEN 500 MG TAB (TYLENOL) PO PRN ×2 (01:11→08:39)
[2021-10-16 06:24] LABS: BASOPHILS % (AUTO) 0 % (0-10); EOSINOPHILS % (AUTO) 0 % (0-10); HEMATOCRIT 49 % (35-52); HEMOGLOBIN 16.3 g/dL (11.5-16.0); LYMPHOCYTES # (AUTO) 1.2 10^3/uL (1.0-4.0); LYMPHOCYTES % (AUTO) 15 % (12-44); MEAN CORPUSCULAR HEMOGLOBIN 33 pg (25-34); MEAN CORPUSCULAR HGB CONC 33 g/dL (32-36); MEAN CORPUSCULAR VOLUME 100 fL (80-99); MEAN PLATELET VOLUME 11.7 fL (9.0-12.2); MONOCYTES # (AUTO) 0.8 10^3/uL (0.0-1.0); MONOCYTES % (AUTO) 9 % (0-12); NEUTROPHILS # (AUTO) 6.1 10^3/uL (1.8-7.8); NEUTROPHILS % (AUTO) 75 % (42-75); PLATELET COUNT 152 10^3/uL (130-400); WHITE BLOOD COUNT 8.2 10^3/uL (4.3-11.0)
[2021-10-16 06:30] LABS: POTASSIUM 3.6 MMOL/L (3.6-5.0)
[2021-10-16 06:32] LABS: CALCIUM 9.2 MG/DL (8.5-10.1)
[2021-10-16] MEDS: cefTRIAXone 1 GM IV (PRE-MIX) 50 ML IV SCH (08:39)
[2021-10-16] MEDS ORDERED: cefTRIAXone 1,000 MG VIAL IM SCH (09:00)
--- NOTE | 2021-10-16 11:35 | Physical Therapy Evaluation ---
PT Evaluation-General Medical Diagnosis Admission Date Oct 15, 2021 at 19:20 Medical Diagnosis: AMS Onset Date: Oct 15, 2021 Therapy Diagnosis Therapy Diagnosis: impaired mobility, strength, endurance Height/Weight Height (Feet): 5 Height (Inches): 1.00 Weight (Pounds): 141 Weight (Ounces): 8.0 Precautions Precautions/Isolations: Fall Prevention, Standard Precautions Referral Physician: Sabina Reason for Referral: Evaluation/Treatment Medical History Pertinent Medical History: Arthritis, DM, GERD, Hypothroidism, Smoking Additional Medical History Past Medical History Surgery/Hospitalization HX: SX: CABG PMH: CAD, UTI Surgeries: Yes Cardiac, CABG, Thyroidectomy Respiratory: Yes Asthma, Chronic Bronchitis, COPD Cardiac: Yes (CABG/STENTS. 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 Prior Prior Level of Function SCALE: Activities may be completed with or without assistive devices. 8-Vjgdhagixt-hjvwefi completes the activity by him/herself with no assistance from a helper. 5-Set-up or Clean-up Assistance-helper sets up or cleans up; patient completes activity. [place] assists only prior to or following the activity. 4-Supervision or Touching Assistance-helper provides verbal cues and/or touching/steadying and/or contact guard assistance as patient completes activity. Assistance may be provided throughout the activity or intermittently. 3-Partial/Moderate Assistance-helper does LESS THAN HALF the effort. [place] lifts, holds or supports trunk or limbs, but provides less than half the effort. 2-Substantial/Maximal Assistance-helper does MORE THAN HALF the effort. [place] lifts or holds trunk or limbs and provides more than half the effort. 7-Qpiecfdmj-fxaadi does ALL the effort. Patient does none of the effort to complete the activity. Or, the assistance of 2 or more helpers is required for the patient to complete the activity. If activity was not attempted, code reason: 7-Patient Refused. 9-Not Applicable-not attempted and the patient did not perform the activity before the current illness, exacerbation or injury. 10-Not Attempted due to Environmental Limitations-(lack of equipment, weather restraints, etc.). 88-Not Attempted due to Medical Conditions or Safety Concerns. Bed Mobility: 6 Transfers (B,C,W/C): 6 Gait: 6 Stairs: 6 Indoor Mobility (Ambulation): Independent Stairs: Independent PT Evaluation-Current Subjective Patient in bed pre tx, agrees to PT, has no complaints of pain. Pt/Family Goals to be independent at home Objective Patient Orientation: Person, Place, Situation ROM/Strength ROM Lower Extremities WNL Strength Lower Extremities LLE (hip flexion 4+/5, knee flexion 4/5, knee extension 4+/5, dorsiflexion 4+/ 5), RLE (hip flexion 4/5, knee flexion 4/5, knee extension 4+/5, dorsiflexion 4/5) Sensory Hearing: Functional Sensation Right Lower Extremit: Intact Sensation Left Lower Extremity: Intact Transfers Roll Left to Right (QC): 6 Sit to Lying (QC): 6 Lying to Sitting/Side of Bed(Q: 6 Sit to Stand (QC): 4 Chair/Ppe-jj-Wugzi Xfer(QC): 4 Gait Does the Patient Walk?: Yes Mode of Locomotion: Walk Anticipated Mode of Locomotion: Walk Walk 10 feet (QC): 4 Walk 50 ft with 2 Turns(QC): 4 Walk 150 ft (QC): 4 Distance: 150' Gait Assistive Device: None Comments/Gait Description CGA for ambulation, patient is a little unsteady but she didn't have a LOB, she would benefit from using a rolling walker at this time Balance Sitting Static: Normal Sitting Dynamic: Normal Standing Static: Fair Standing Dynamic: Fair Treatment BLE supine exercises x20 (AP, HS) Assessment/Needs Patient in bed post tx with nurse call, phone, tray, all needs met. Patient has impaired mobility, strength, endurance. She is a little unsteady with ambulation, CGA without an assistive device. Rehab Potential: Fair PT Fpc Goals Fpc Goals PT Fpc Goals Time Frame: Oct 23, 2021 Roll Left & Right (QC): 6 Sit to Lying (QC): 6 Lying-Sitting on Side/Bed(QC): 6 Sit to Stand (QC): 4 (SBA) Chair/Syn-vi-Ttfkw Xfer(QC): 4 (SBA) Walk 10 feet (QC): 4 (SBA) Walk 50ft with 2 Turns (QC): 4 (SBA) Walk 150 ft (QC): 4 (SBA) PT Plan Problem List Problem List: Activity Tolerance, Functional Strength, Safety, Balance, Gait, Transfer, Bed Mobility, ROM Treatment/Plan Treatment Plan: Continue Plan of Care Treatment Plan: Bed Mobility, Education, Functional Activity Rafat, Functional Strength, Gait, Safety, Therapeutic Exercise, Transfers Treatment Duration: Oct 23, 2021 Frequency: 6 times per week Estimated Hrs Per Day: .25 hour per day Patient and/or Family Agrees t: Yes Safety Risks/Education Patient Education: Gait Training, Transfer Techniques, Correct Positioning, Safety Issues Teaching Recipient: Patient Teaching Methods: Demonstration, Discussion Response to Teaching: Reinforcement Needed Discharge Recommendations Plan Patient will perform bed mobility and transfer training, balance and endurance training, functional strengthening, stair training, gait training, and education, to improve functional mobility and independence at home. Therapy Discharge Recommendati: Scheduled Assistance, Home & Family, Post Acute PT Time/GCodes Time In: 1112 Time Out: 1123 Total Billed Treatment Time: 11 Total Billed Treatment 1 visit PATRICK ROSAS PT Oct 16, 2021 11:35
--- NOTE | 2021-10-16 11:42 | History & Physical-Hospitalist ---
History of Present Illness HPI/Chief Complaint Emilia Alcaraz is a 71 year old female with PMH HTN, T2DM, CKD3, COPD, who presented with weakness and confusion. She reports that she has been losing urine recently. She denies abdominal pain. She denies dysuria. She denies fevers and chills. She denies chest pain and palpitations. She denies shortness of breath and cough. She denies nausea and vomiting. Source: patient Exam Limitations: no limitations Date Seen 10/16/21 Time Seen by a Provider: 10:00 Attending Physician Cara Barber MD PCP Neo Mcgill DO Referring Physician Date of Admission Oct 15, 2021 at 19:20 Home Medications & Allergies Home Medications Reviewed patient Home Medication Reconciliation performed by pharmacy medication reconciliations financial services technician and/or nursing. Patients Allergies have been reviewed. Allergies Allergies Coded Allergies No Known Drug Allergies (Unverified06/07/09) Past Mbuapum-Oyljcq-Kyfbep Hx Patient Social History Tobacco Use?: Yes Tobacco type used: Cigarettes Smoking Status: Current Someday Smoker Use of E-Cig and/or Vaping dev: No Substance use?: No Alcohol Use?: No Pt feels they are or have been: No Immunizations Up To Date Date of Influenza Vaccine: Sep 28, 2020 First/Initial COVID19 Vaccinat: 06/30/21 Second COVID19 Vaccination Ron: PT REPORTS RECEIVED 2 COVID SHOTS UNKNOWN WHIC H ONE OR WHEN PED Vaccines UTD: Yes Date of Pneumonia Vaccine: Sep 28, 2018 Seasonal Allergies Seasonal Allergies: No Current Status Advance Directives: No Communicates: Verbally Primary Language: Citizen Of [place] Preferred Spoken Language: Citizen Of [place] Is interpretation needed?: No Implanted or Applied Medical D: CPAP, Stents Past Medical History Surgeries: Cardiac, CABG, Thyroidectomy Asthma, Chronic Bronchitis, COPD Coronary Artery Disease, High Cholesterol, Hypertension, Peripheral Vascular 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, 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 Gastroesophageal Reflux, Hiatal Hernia Arthritis Hypothyroidsim, Diabetes, Non-Insulin dep Anxiety Eczema Blood Disorders: No Family Medical History Alzheimer's disease 19 MOTHER FH: cancer G8 SISTER FH: heart disease 19 FATHER Kidney disease 19 MOTHER Myocardial infarction G8 BROTHER No Pertinent Family Hx Review of Systems Constitutional: weakness EENTM: no symptoms reported Respiratory: no symptoms reported Cardiovascular: no symptoms reported Gastrointestinal: no symptoms reported Genitourinary: incontinence Musculoskeletal: no symptoms reported Skin: no symptoms reported Psychiatric/Neurological: No Symptoms Reported Physical Exam Physical Exam Vital Signs Vital Signs - First Documented 10/15/21 19:00 Temp 36.2 Pulse 93 Resp 16 B/P (MAP) 158/98 (118) Pulse Ox 98 O2 Delivery Room Air Capillary Refill : Less Than 3 Seconds Height, Weight, BMI Height: 5'1.00" Weight: 141lbs. 8.0oz. [id number]; 25.59 BMI Method:Stated General Appearance: No Apparent Distress, WD/WN HEENT: PERRL/EOMI, Pharynx Normal Neck: Normal Inspection, Supple Respiratory: Lungs Clear, Normal Breath Sounds, No Respiratory Distress Cardiovascular: Regular Rate, Rhythm, No Murmur Gastrointestinal: Normal Bowel Sounds, Non Tender, Soft Extremity: Normal Inspection, Non Tender, Pedal Edema Neurologic/Psychiatric: Alert, Oriented x3, Normal Mood/Affect, Motor Weakness Skin: Normal Color, Warm/Dry Results Results/Procedures Labs Laboratory Tests 10/16/21 05:44 Patient resulted labs reviewed. Imaging: Reviewed Imaging Report Assessment/Plan Admission Diagnosis Urinary tract infection Admission Status: Observation Assessment and Plan UTI Not septic UA consistent with UTI Urine culture pending Started on Rocephin Debility PT/OT T2DM Sliding scale HTN CKD COPD Continue home meds once med rec completed DVT prophylaxis: Lovenox Diagnosis/Problems Diagnosis/Problems (1) UTI (urinary tract infection) Status: Acute (2) Debility Status: Acute (3) HTN (hypertension) Status: Chronic (4) CKD (chronic kidney disease) Status: Chronic Qualifiers: Chronic kidney disease stage: stage 3 (moderate) (5) Non-insulin dependent type 2 diabetes mellitus Status: Chronic (6) COPD (chronic obstructive pulmonary disease) Status: Chronic CARA BARBER MD Oct 16, 2021 11:41
[2021-10-16] MEDS ORDERED: ENOXAPARIN 40 MG/0.4 ML (LOVENOX) SYR SC SCH (11:45)
[2021-10-16] MEDS ORDERED: CHOL10007 PO (12:55)
[2021-10-16] MEDS ORDERED: CYAN-41 PO (12:55)
[2021-10-16] MEDS ORDERED: PRAM0.754 PO (12:55)
[2021-10-16] MEDS ORDERED: OXYB5TAB13 PO (12:55)
[2021-10-16] MEDS ORDERED: OXYC-556 PO (12:55)
[2021-10-16] MEDS ORDERED: GBPN600T PO (12:55)
[2021-10-16] MEDS ORDERED: POTA10TA PO (12:56)
--- NOTE | 2021-10-16 14:01 | Occupational Therapy Eval ---
OT Evaluation-General/PLF Medical Diagnosis Admission Date Oct 15, 2021 at 19:20 Medical Diagnosis: AMS Onset Date: Oct 15, 2021 Therapy Diagnosis Therapy Diagnosis: Impaired balance, memory, cognition Height/Weight Height (Feet): 5 Height (Inches): 1.00 Weight (Pounds): 141 Weight (Ounces): 8.0 Precautions Precautions/Isolations: Fall Prevention, Standard Precautions Referral Physician: Sabina Referral Reason: Evaluation/Treatment Medical History Pertinent Medical History: Arthritis, DM, GERD, Hypothroidism, Smoking Current History Pt presents to ED with weakness and confusion. Found to have UTI. Per patient, she lives with her 7 year old son in a single story home. She was indep with adls. She has 2 supportive older sons that share IADL responsibilities and is currently caring for her youngest son. She does not use an AD at baseline and still drives. Social History Home: Single Level Current Living Status: Children Entry Into Home: Stairs Without Railing Steps Into Home: 2 ADL-Prior Level of Function SCALE: Activities may be completed with or without assistive devices. 3-Xpjevnxfho-cmkkhlp completes the activity by him/herself with no assistance from a helper. 5-Set-up or Clean-up Assistance-helper sets up or cleans up; patient completes activity. [place] assists only prior to or following the activity. 4-Supervision or Touching Assistance-helper provides verbal cues and/or touching/steadying and/or contact guard assistance as patient completes activity. Assistance may be provided throughout the activity or intermittently. 3-Partial/Moderate Assistance-helper does LESS THAN HALF the effort. [place] lifts, holds or supports trunk or limbs, but provides less than half the effort. 2-Substantial/Maximal Assistance-helper does MORE THAN HALF the effort. [place] lifts or holds trunk or limbs and provides more than half the effort. 6-Wkcjsizke-oqwrhq does ALL the effort. Patient does none of the effort to complete the activity. Or, the assistance of 2 or more helpers is required for the patient to complete the activity. If activity was not attempted, code reason: 7-Patient Refused. 9-Not Applicable-not attempted and the patient did not perform the activity before the current illness, exacerbation or injury. 10-Not Attempted due to Environmental Limitations-(lack of equipment, weather restraints, etc.). 88-Not Attempted due to Medical Conditions or Safety Concerns. Self Care: Independent Functional Cognition: Unknown DME/Equipment: Tub/Shower Drive Self: Yes OT Current Status Subjective Pt denies pain. Appears to have some word finding difficulties. Appearance Returned to supine in bed, all needs within reach. Mental Status/Objective Patient Orientation: Person, Situation Attachments: IV Current Upper Extremity ROM WFL Upper Extremity Strength 4/5 grossly ADL-Treatment On/Off Footwear (QC): 4 Toileting Hygiene (QC): 4 Pt supine in bed, agreeable to treatment. Word finding difficulties exhibited. Able to sit EOB without assist. With prolong sitting, balance worsens and pt becomes retropulsive. She is able to adjust with cues but unable to sustain throughout. She sat EOB to don/doff socks with SBA for safety with sitting balance. Sit<>stand: SBA. She ambulated to/from bathroom with CGA, no AD. Slightly unsteady. She was able to lower/stand from toilet with use of grab bar and Sup. With distractions pt loses balance and requires Min A to remain upright (bottom of gown got slightly wet from toilet and pt loses balance when looking at gown). Pt could benefit from using walker. New gown donned while sitting EOB, again requires cues to stay in midline. Education OT Patient Education: Correct positioning, Energy conservation, Modified ADL techniques, Progress toward Goal/Update tx plan, Purpose of tx/functional activities, Safety issues, Transfer techniques Teaching Recipient: Patient Teaching Methods: Demonstration, Discussion Response to Teaching: Reinforcement Needed OT Fence Installer Foreman Goals Fence Installer Foreman Goals Time Frame: Oct 26, 2021 Oral Hygiene (QC): 6 Toileting Hygiene (QC): 6 Lower Body Dressing (QC): 5 On/Off Footwear (QC): 6 1=Demonstrate adherence to instructed precautions during ADL tasks. 2=Patient will verbalize/demonstrate understanding of assistive devices/modifications for ADL. 3=Patient will improve strength/tolerance for activity to enable patient to perform ADL's. OT Education/Plan Problem List/Assessment Assessment: Decreased Activ Tolerance, Decreased Safety Aware, Impaired Cognition, Impaired Funct Balance, Impaired I ADL's, Impaired Self-Care Skills Discharge Recommendations Plan/Recommendations: Continue POC Comment ongoing assessment. Anticipate HH pending progress Treatment Plan/Plan of Care Treatment,Training & Education: Yes Patient would benefit from OT for education, treatment and training to promote independence in ADL's, mobility, safety and/or upper extremity function for ADL's. Plan of Care: ADL Retraining, Functional Mobility, UE Funct Exercise/Act Treatment Duration: Oct 26, 2021 Frequency: 5 times per week Estimated Hrs Per Day: .25 hour per day Agreement: Yes Rehab Potential: Fair Time/GCodes Start Time: 13:10 Stop Time: 13:24 Total Time Billed (hr/min): 14 Billed Treatment Time 1 visit Claire Silva OT Oct 16, 2021 14:01
[2021-10-16] MEDS: oxyCODONE/APAP 10/325MG (PERCOCET 10) TABLET PO PRN ×2 (14:25→20:42)
[2021-10-17] MEDS: oxyCODONE/APAP 10/325MG (PERCOCET 10) TABLET PO PRN ×2 (02:00→10:20)
[2021-10-17] MEDS: CATHETER FLUSH 10 ML SYR IV SCH ×2 (03:40→10:25)
[2021-10-17 04:00] VITALS: BP 151/76
[2021-10-17 08:54] VITALS: BP 148/69
[2021-10-17] MEDS ORDERED: NITR-65 PO (09:44)
[2021-10-17] MEDS: cefTRIAXone 1 GM IV (PRE-MIX) 50 ML IV SCH (10:20)
--- NOTE | 2021-10-17 10:47 | Discharge Summary ---
Discharge Summary Reconcile Patient Problems Problems Reviewed?: Yes Instructions for Patient Via [facility] [employer], Assessment/Instructions Take medications as prescribed. Complete your antibiotics. Follow up with your PCP. Return with worsening symptoms. Physician to follow Patient: Artem Discharge Diet for Home: No Restrictions Hospital Course Date of Admission: Oct 15, 2021 at 19:20 Admission Diagnosis : UTI Family Physician/Provider: Neo Mcgill DO Date of Discharge: 10/17/21 Discharge Diagnosis: UTI Hospital Course: Emilia Alcaraz is a 71 year old female who was admitted with UTI. She was treated with IV antibiotics and improved. She was transitioned to empiric oral antibiotics with Macrobid. Her urine culture was pending at the time of dis charge. She was set up with home health care for ongoing therapies at home. She was discharged home in stable condition. Labs and Pending Lab Test: Home Meds Active Macrobid 100 mg Capsule (Nitrofurantoin Monohyd/M-Cryst) 100 Mg Capsule 1 Tab PO BID 7 Days Reported K-Tab ER (Potassium Chloride) 10 Meq Tablet.er 10 Meq PO DAILY Vitamin D3 (Cholecalciferol (Vitamin D3)) 25 Mcg Capsule 25 Mcg PO DAILY Vitamin B-12 (Cyanocobalamin (Vitamin B-12)) 1,000 Mcg Tablet 1,000 Mcg PO HS Pramipexole Dihydrochloride (Pramipexole Di-HCl) 0.75 Mg Tablet 0.75 Mg PO BID Oxybutynin Chloride 5 Mg Tablet 5 Mg PO BID Gabapentin 600 Mg Tablet 600 Mg PO BID Oxycodone-Acetaminophen 10-325 (Oxycodone HCl/Acetaminophen) 1 Each Tablet 1 Ea PO Q4H PRN Atenolol 25 Mg Tablet 25 Mg PO DAILY Atorvastatin Calcium 20 Mg Tablet 20 Mg PO HS Sertraline HCl 50 Mg Tablet 50 Mg PO HS Aspirin EC (Aspirin) 81 Mg Tablet.dr 81 Mg PO DAILY Patient Allergies: Coded Allergies: No Known Drug Allergies (Unverified , 06/07/09) Height (Feet): 5 Height (Inches): 1.00 Weight (Pounds): 141 Weight (Ounces): 8.0 Home Health Need/Face to Face Date of Face to Face: Oct 17, 2021 Clinical Findings: Instability, Muscle weakness, Unsteady gait I have seen Pt [id number]: Yes Discharged To: Home Diagnosis/Conditions: UTI T2DM HTN CKD COPD Problems/Diagnosis/Condition: (1) UTI (urinary tract infection) (2) HTN (hypertension) (3) CKD (chronic kidney disease) (4) Non-insulin dependent type 2 diabetes mellitus (5) COPD (chronic obstructive pulmonary disease) Patient is Homebound due to: Ramón fall risk due to instabilty, Muscle weakness Homebound Status Due to the above stated illness, injury or surgical procedure (medical condition or diagnosis) and associated clinical findings, the patient is homebound because of his/her inability to leave home except with aid of a supportive device and/or person AND leaving the home requires a considerable and taxing effort or is medically contraindicated. Pt req the following assistanc: Aid of another person Home Health Nursing Orders Home Health Services Order: Nursing Services, [facility] Hand-Evaluate & Treat, Physical Therapy-Evaluate & Treat Home Health Infusion Therapy Line Start Date: Oct 15, 2021 Therapy Orders Therapy Orders: OT (must have SN or PT order), Physical Therapy Therapy Specific Orders: Eval assistive deivces, Teach enviro modifications/safety, Gait training, Increase strength/endurance Certify Stmt I certify that this patient is under my care and that I, a nurse practitioner or a physician; a pathology assistant working with me, had a face to face encounter that - meets the physician face to face encounter requirements with this patient as dated. Discharge Physical Exam General: Alert, Oriented X3, Cooperative, No Acute Distress HEENT: Atraumatic, EOMI, Mucous Memb Moist/[place] Lungs: Clear to Auscultation, Normal Air Movement Heart: Regular Rate, Normal S1, Normal S2, No Murmurs Abdomen: Normal Bowel Sounds, Soft, No Tenderness Extremities: No Edema, No Tenderness/Swelling Skin: No Rashes, No Significant Lesion Neuro: Normal Speech, Normal Tone Psych/Mental Status: Mental Status NL, Mood NL CARA BARBER MD Oct 17, 2021 10:47
[2021-10-17 11:35] VITALS: BP 133/63
[2021-10-17 12:10] VITALS: BP 133/63
== END 2021-10-17 12:10 | disposition home or self-care (01) ==
LOC: EDUNIT# 18:20 → ER 18:22 → 4TH 19:20
PROVIDERS: ADMIT Internal Medicine; ATTEND Internal Medicine
DX: N39.0 Urinary tract infection, site not specified (principal); I25.10 Atherosclerotic heart disease of native coronary artery without angina pectoris; R41.0 Disorientation, unspecified; I12.9 Hypertensive chronic kidney disease with stage 1 through stage 4 chronic kidney disease, or unspecified chronic kidney disease; N18.30 Chronic kidney disease, stage 3 unspecified; E11.22 Type 2 diabetes mellitus with diabetic chronic kidney disease; J44.9 Chronic obstructive pulmonary disease, unspecified; E78.00 Pure hypercholesterolemia, unspecified; K21.9 Gastro-esophageal reflux disease without esophagitis; K44.9 Diaphragmatic hernia without obstruction or gangrene; M19.90 Unspecified osteoarthritis, unspecified site; E03.9 Hypothyroidism, unspecified; F41.9 Anxiety disorder, unspecified; F17.210 Nicotine dependence, cigarettes, uncomplicated; Z79.82 Long term (current) use of aspirin; Z79.84 Long term (current) use of oral hypoglycemic drugs; Z79.02 Long term (current) use of antithrombotics/antiplatelets; Z79.890 Hormone replacement therapy; Z79.899 Other long term (current) drug therapy; Z95.1 Presence of aortocoronary bypass graft; Z79.891 Long term (current) use of opiate analgesic; Z90.89 Acquired absence of other organs; Z90.710 Acquired absence of both cervix and uterus; Z80.9 Family history of malignant neoplasm, unspecified
CPT/HCPCS: 80048; 85025; 97162; 97165; 99284; G0378; 36415

== ENCOUNTER 2021-11-04 11:43 | Emergency (ER) | payer MEDICARE ==
[~2021-11-04] VITALS: Ht 155 cm; Wt 69.0 kg
[~2021-11-04 11:43] MED LIST changes: +CHOL10007 PO; +GBPN600T PO; +NITR-65 PO; +OXYB5TAB13 PO; +OXYC-556 PO; +POTA10TA PO; +PRAM0.754 PO
[2021-11-04 12:35] LABS: BASOPHILS % (AUTO) 0 % (0-10); EOSINOPHILS % (AUTO) 0 % (0-10); HEMATOCRIT 50 % (35-52); HEMOGLOBIN 16.1 g/dL (11.5-16.0); LYMPHOCYTES # (AUTO) 0.3 10^3/uL (1.0-4.0); LYMPHOCYTES % (AUTO) 4 % (12-44); MEAN CORPUSCULAR HEMOGLOBIN 33 pg (25-34); MEAN CORPUSCULAR HGB CONC 32 g/dL (32-36); MEAN CORPUSCULAR VOLUME 101 fL (80-99); MEAN PLATELET VOLUME 12.5 fL (9.0-12.2); MONOCYTES # (AUTO) 0.4 10^3/uL (0.0-1.0); MONOCYTES % (AUTO) 5 % (0-12); NEUTROPHILS # (AUTO) 6.9 10^3/uL (1.8-7.8); NEUTROPHILS % (AUTO) 91 % (42-75); PLATELET COUNT 109 10^3/uL (130-400); WHITE BLOOD COUNT 7.6 10^3/uL (4.3-11.0)
[2021-11-04 12:36] LABS: ALBUMIN 4.4 GM/DL (3.2-4.5)
[2021-11-04 12:37] LABS: POTASSIUM 4.2 MMOL/L (3.6-5.0)
[2021-11-04 12:38] LABS: CALCIUM 9.5 MG/DL (8.5-10.1)
[2021-11-04 12:39] LABS: TOTAL PROTEIN 7.3 GM/DL (6.4-8.2)
[2021-11-04 12:40] LABS: PROTHROMBIN TIME PATIENT 13.3 SEC (12.2-14.7)
[2021-11-04 12:41] LABS: BILIRUBIN,TOTAL 0.7 MG/DL (0.1-1.0)
[2021-11-04 12:43] LABS: CREATININE SERUM 1.15 MG/DL (0.60-1.30)
[2021-11-04 12:54] LABS: BAND NEUTROPHILS 3 %; LYMPHOCYTES % (MANUAL) 3 %; MONOCYTES % (MANUAL) 2 %; NEUTROPHILS % (MANUAL) 92 %; RBC MORPH NORMAL
--- NOTE | 2021-11-04 12:58 | Diagnostic Imaging Report ---
PROCEDURE: CT head and CT cervical spine without contrast. TECHNIQUE: Multiple contiguous axial images were obtained through the brain and cervical spine without the use of intravenous contrast. Sagittal and coronal reformations through the cervical spine were then performed. Auto Exposure Controls were utilized during the CT exam to meet ALARA standards for radiation dose reduction. INDICATION: Recent falls and altered mental status. Correlation is made with head CT from 10/15/2021. CT HEAD: The ventricles and sulci remain prominent consistent with cerebral atrophy. There is some periventricular hypodensity noted consistent with chronic microvascular ischemia. This is similar to prior study. No sulcal effacement or midline shift is identified. No acute intra-axial or extra-axial hemorrhage is detected. Cisterns are patent. Visualized paranasal sinuses are clear. IMPRESSION: Stable chronic changes when compared with exam from 10/15/2021. No acute intracranial process is detected. CT cervical spine: Curvature and alignment of the cervical spine is normal. There is multilevel degenerative disc disease with variable disc space narrowing and marginal spurring, greatest at C5-C6 level. There is also multilevel facet arthropathy. No fractures are identified. Prevertebral tissues are within normal limits. The odontoid appears intact. IMPRESSION: Cervical spondylosis. No acute bony abnormality is detected. Dictated by: Dictated on workstation # [id number]
--- NOTE | 2021-11-04 14:42 | Diagnostic Imaging Report ---
Indication: Altered mental status. TIME OF EXAM: 2:39 PM Correlation is made with prior chest from 10/15/2021. Changes of median sternotomy are noted. Heart size stable. Lungs are clear. No infiltrates are seen. There is no effusion or pneumothorax. IMPRESSION: No acute cardiopulmonary process is detected. Dictated by: Dictated on workstation # [id number]
[2021-11-04 15:03] LABS: BILIRUBIN,URINE NEGATIVE (NEGATIVE); CLARITY,URINE CLEAR; COLOR,URINE YELLOW; GLUCOSE, URINE (UA) NEGATIVE (NEGATIVE); KETONES,URINE NEGATIVE (NEGATIVE); LEUKOCYTE ESTERASE ,URINE NEGATIVE (NEGATIVE); NITRITE,URINE NEGATIVE (NEGATIVE); PH,URINE 6.5 (5-9); PROTEIN,URINE TRACE (NEGATIVE)
[2021-11-04 15:09] LABS: BACTERIA,URINE NEGATIVE /HPF; RBC,URINE 0-2 /HPF; SQUAMOUS EPITHELIAL CELL,UR 0-2 /HPF; WBC,URINE 0-2 /HPF
[2021-11-04 15:44] LABS: ABG BASE EXCESS 1.2 MMOL/L (-2.5-2.5); ABG OXYGEN SATURATION 94 % (94-100); ABG PCO2 38 MMHG (35-45); ABG PH 7.44 (7.37-7.43); ABG PO2 71 MMHG (79-93); ABG TCO2 25.9 MMOL/L (21.0-31.0); ALLENS TEST NO; INSPIRED O2 ROOM AIR; PATIENT TEMP 37.9; VENTILATOR NO
--- NOTE | 2021-11-04 16:26 | ED General ---
General Chief Complaint: Altered Mental Status Stated Complaint: AMS,UTI Nursing Triage Note: PT TO RM 2 VIA WC ALONGSIDE SON. SON REPORTS PT HAS BEEN EXPERIENCING AMS AND HAS BEEN DX W UTI, STILL ON ANTIBIOTICS. PT REPORTS BURNING W URINATION. PT APPEARS ALERT AND DISORIENTED. SON STATES PT TOLD HIM SHE FELL WITHIN THE PAST FEW DAYS, SON NOTED A NEW HOLE IN THE WALL AT PT HOME, PT UNSURE IF SHE HIT HER HEAD. PT DENIES PAIN. Source of Information: Patient, Family Exam Limitations: No Limitations History of Present Illness Date Seen by Provider: Nov 04, 2021 Time Seen by Provider: 12:25 Initial Comments This is 71-year-old woman is brought to the emergency room by her son with concerns about altered mental status, weakness, and possible fall. Son reports there is an new hole in the wall at home where perhaps she fell. Patient denies injury. Patient seems alert and oriented during my evaluation. She has recently been treated for urinary tract infection. Allergies and Home Medications Allergies Coded Allergies: No Known Drug Allergies (Unverified , 06/07/09) Patient Home Medication List Home Medication List Reviewed: Yes Aspirin (Aspirin EC) 81 Mg Tablet.dr, 81 MG PO DAILY, (Reported) Entered as Reported by: JACKSON KWAN on 02/07/19 1035 Atenolol (Atenolol) 25 Mg Tablet, 25 MG PO DAILY, (Reported) Entered as Reported by: JACKSON KWAN on 02/07/19 1035 Atorvastatin Calcium (Atorvastatin Calcium) 20 Mg Tablet, 20 MG PO HS, (Reported) Entered as Reported by: JACKSON KWAN on 02/07/19 1035 Cholecalciferol (Vitamin D3) (Vitamin D3) 25 Mcg Capsule, 25 MCG PO DAILY, (Reported) Entered as Reported by: ASHA CASTELLANOS on 10/16/21 1255 Cyanocobalamin (Vitamin B-12) (Vitamin B-12) 1,000 Mcg Tablet, 1,000 MCG PO HS, (Reported) Entered as Reported by: ASHA CASTELLANOS on 10/16/21 1255 Gabapentin (Gabapentin) 600 Mg Tablet, 600 MG PO BID, (Reported) Entered as Reported by: ASHA CASTELLANOS on 10/16/21 1255 Nitrofurantoin Monohyd/M-Cryst (Macrobid 100 mg Capsule) 100 Mg Capsule, 1 TAB PO BID Prescribed by: CARA BARBER on 10/17/21 0944 Oxybutynin Chloride (Oxybutynin Chloride) 5 Mg Tablet, 5 MG PO BID, (Reported) Entered as Reported by: ASHA CASTELLANOS on 10/16/21 1255 Oxycodone HCl/Acetaminophen (Oxycodone-Acetaminophen 10-325) 1 Each Tablet, 1 EA PO Q4H PRN for PAIN-MODERATE (5-7), (Reported) Entered as Reported by: ASHA CASTELLANOS on 10/16/21 1255 Potassium Chloride (K-Tab ER) 10 Meq Tablet.er, 10 MEQ PO DAILY, (Reported) Entered as Reported by: ASHA CASTELLANOS on 10/16/21 1256 Pramipexole Di-HCl (Pramipexole Dihydrochloride) 0.75 Mg Tablet, 0.75 MG PO BID, (Reported) Entered as Reported by: ASHA CASTELLANOS on 10/16/21 1255 Sertraline HCl (Sertraline HCl) 50 Mg Tablet, 50 MG PO HS, (Reported) Entered as Reported by: JACKSON KWAN on 02/07/19 1035 Review of Systems Review of Systems Constitutional: see HPI, weakness EENTM: no symptoms reported Respiratory: no symptoms reported Cardiovascular: no symptoms reported Gastrointestinal: no symptoms reported Genitourinary: see HPI : No Musculoskeletal: no symptoms reported Skin: no symptoms reported Psychiatric/Neurological: See HPI Hematologic/Lymphatic: No Symptoms Reported Immunological/Allergic: no symptoms reported Past Ntxpxcq-Pvdzyu-Zjcqaw Hx Patient Social History Tobacco Use?: Yes Tobacco type used: Cigarettes Smoking Status: Current Everyday Smoker Use of E-Cig and/or Vaping dev: No Substance use?: No Alcohol Use?: No Immunizations Up To Date Tetanus Booster (TDap): More than 5yrs PED Vaccines UTD: Yes First/Initial COVID19 Vaccinat: 06/30/21 Second COVID19 Vaccination Ron: PT REPORTS RECEIVED 2 COVID SHOTS UNKNOWN WHICH ONE OR WHEN Third COVID19 Vaccination Date: 06/30/21 COVID19 Vaccine Supplier Manager: UNK TO PT Seasonal Allergies Seasonal Allergies: No Past Medical History Surgery/Hospitalization HX: SX: CABG PMH: CAD, UTI Surgeries: Yes Cardiac, CABG, Thyroidectomy Respiratory: Yes Asthma, Chronic Bronchitis, COPD Cardiac: Yes (CABG/STENTS. 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 Genitourinary: No Gastrointestinal: Yes Gastroesophageal Reflux, Hiatal Hernia Musculoskeletal: Yes (ARTHRITIS IN KNEES) Arthritis Endocrine: Yes Hypothyroidsim, Diabetes, Non-Insulin dep HEENT: No (EDENTULOUS) Cancer: No Psychosocial: Yes Anxiety Integumentary: Yes Eczema Blood Disorders: No Family Medical History Alzheimer's disease 19 MOTHER FH: cancer G8 SISTER FH: heart disease 19 FATHER Kidney disease 19 MOTHER Myocardial infarction G8 BROTHER No Pertinent Family Hx Physical Exam Vital Signs Vital Signs - First Documented 11/04/21 11:50 Temp 37.9 Pulse 65 Resp 20 B/P (MAP) 146/63 (90) Pulse Ox 95 O2 Delivery Room Air Capillary Refill : Less Than 3 Seconds Height, Weight, BMI Height: 5'1.00" Weight: 141lbs. 8.0oz. 62.194763bh; 28.00 BMI Method:Stated General Appearance: No Apparent Distress, WD/WN HEENT: PERRL/EOMI, Normal ENT Inspection Neck: Normal Inspection, Non Tender Respiratory: No Accessory Muscle Use, No Respiratory Distress; No Crackles; Wheezing (Mild) Cardiovascular: Regular Rate, Rhythm, No Edema, No Murmur Gastrointestinal: Normal Bowel Sounds, Non Tender, Soft Extremity: Normal Inspection, No Pedal Edema Neurologic/Psychiatric: Alert, Oriented x3, No Motor/Sensory Deficits, Normal M ood/Affect, personal care worker II-XII Norm as Tested, Other (Mild tremor stated is chronic and unchanged. Patient was able to ambulate independently and safely.) Skin: Normal Color, Warm/Dry Focused Exam Lactate Level 11/04/21 12:15: Lactic Acid Level 1.76 Lactic Acid Level Laboratory Tests Test 11/04/21 12:15 Lactic Acid Level 1.76 MMOL/L (0.50-2.00) Progress/Results/Core Measures Suspected Sepsis SIRS Temperature: Pulse: 65 Respiratory Rate: 20 Laboratory Tests 11/04/21 12:15: White Blood Count 7.6 Blood Pressure 146 /63 Mean: 90 11/04/21 12:15: Lactic Acid Level 1.76 Laboratory Tests 11/04/21 12:15: Creatinine 1.15, INR Comment 1.0, Platelet Count 109L, Total Bilirubin 0.7 Results/Orders Lab Results Laboratory Tests Test 11/04/21 12:15 11/04/21 13:23 11/04/21 14:50 11/04/21 15:35 Range/Units White Blood Count 7.6 4.3-11.0 10^3/uL Red Blood Count 4.92 3.80-5.11 10^6/uL Hemoglobin 16.1 H 11.5-16.0 g/dL Hematocrit 50 35-52 % Mean Corpuscular Volume 101 H 80-99 fL Mean Corpuscular Hemoglobin 33 25-34 pg Mean Corpuscular Hemoglobin Concent 32 32-36 g/dL Red Cell Distribution Width 11.9 10.0-14.5 % Platelet Count 109 L 130-400 10^3/uL Mean Platelet Volume 12.5 H 9.0-12.2 fL Immature Granulocyte % (Auto) 0 % Neutrophils (%) (Auto) 91 H 42-75 % Lymphocytes (%) (Auto) 4 L 12-44 % Monocytes (%) (Auto) 5 0-12 % Eosinophils (%) (Auto) 0 0-10 % Basophils (%) (Auto) 0 0-10 % Neutrophils # (Auto) 6.9 1.8-7.8 10^3/uL Lymphocytes # (Auto) 0.3 L 1.0-4.0 10^3/uL Monocytes # (Auto) 0.4 0.0-1.0 10^3/uL Eosinophils # (Auto) 0.0 0.0-0.3 10^3/uL Basophils # (Auto) 0.0 0.0-0.1 10^3/uL Immature Granulocyte # (Auto) 0.0 0.0-0.1 10^3/uL Neutrophils % (Manual) 92 % Lymphocytes % (Manual) 3 % Monocytes % (Manual) 2 % Band Neutrophils 3 % Blood Morphology Comment NORMAL Prothrombin Time 13.3 12.2-14.7 SEC INR Comment 1.0 0.8-1.4 Activated Partial Thromboplast Time 33 24-35 SEC Sodium Level 140 135-145 MMOL/L Potassium Level 4.2 3.6-5.0 MMOL/L Chloride Level 101 98-107 MMOL/L Carbon Dioxide Level 28 21-32 MMOL/L Anion Gap 11 5-14 MMOL/L Blood Urea Nitrogen 18 7-18 MG/DL Creatinine 1.15 0.60-1.30 MG/DL Estimat Glomerular Filtration Rate 47 BUN/Creatinine Ratio 16 Glucose Level 102 70-105 MG/DL Lactic Acid Level 1.76 0.50-2.00 MMOL/L Calcium Level 9.5 8.5-10.1 MG/DL Corrected Calcium 9.2 8.5-10.1 MG/DL Total Bilirubin 0.7 0.1-1.0 MG/DL Aspartate Amino Transf (AST/SGOT) 21 5-34 U/L Alanine Aminotransferase (ALT/SGPT) 30 0-55 U/L Alkaline Phosphatase 89 40-136 U/L C-Reactive Protein High Sensitivity 7.73 H 0.00-0.50 MG/DL Total Protein 7.3 6.4-8.2 GM/DL Albumin 4.4 3.2-4.5 GM/DL Procalcitonin 0.44 H <0.10 NG/ML Influenza Type A (RT-PCR) Not Detected Not Detecte Influenza Type B (RT-PCR) Not Detected Not Detecte SARS-CoV-2 RNA (RT-PCR) Not Detected Not Detecte Urine Color YELLOW Urine Clarity CLEAR Urine pH 6.5 5-9 Urine Specific [place] 1.020 1.016-1.022 Urine Protein TRACE H NEGATIVE Urine Glucose (UA) NEGATIVE NEGATIVE Urine Ketones NEGATIVE NEGATIVE Urine Nitrite NEGATIVE NEGATIVE Urine Bilirubin NEGATIVE NEGATIVE Urine Urobilinogen 0.2 < = 1.0 MG/DL Urine Leukocyte Esterase NEGATIVE NEGATIVE Urine RBC (Auto) NEGATIVE NEGATIVE Urine RBC 0-2 /HPF Urine WBC 0-2 /HPF Urine Squamous Epithelial Cells 0-2 /HPF Urine Crystals NONE /LPF Urine Bacteria NEGATIVE /HPF Urine Casts NONE /LPF Urine Mucus NEGATIVE /LPF Urine Culture Indicated CULTURE PENDING Blood Gas Puncture Site R RADIAL Blood Gas Patient Temperature 37.9 Arterial Blood pH 7.44 H 7.37-7.43 Arterial Blood Partial Pressure CO2 38 35-45 MMHG Arterial Blood Partial Pressure O2 71 L 79-93 MMHG Arterial Blood HCO3 25 23-27 MMOL/L Arterial Blood Total CO2 25.9 21.0-31.0 MMOL/L Arterial Blood Oxygen Saturation 94 94-100 % Arterial Blood Base Excess 1.2 -2.5-2.5 MMOL/L Garret Test NO Blood Gas Ventilator Setting NO Blood Gas Inspired Oxygen ROOM AIR Ammonia 14 11-32 UMOL/L My Orders Orders - BRUEGGEMANN,MIKEL T MD Cbc With Automated Diff (11/04/21 12:25) Comprehensive Metabolic Panel (11/04/21 12:25) Blood Culture (11/04/21 12:25) Sputum Culture (11/04/21 12:25) Urinalysis (11/04/21 12:25) Urine Culture (11/04/21 12:25) Protime With Inr (11/04/21 12:25) Partial Thromboplastin Time (11/04/21 12:25) Chest 1 View, Ap/Pa Only (11/04/21 12:25) Ed Iv/Invasive Line Start (11/04/21 12:25) Ed Iv/Invasive Line Start (11/04/21 12:25) Vital Signs Adult Sepsis Patie Q15M (11/04/21 12:25) O2 (11/04/21 12:25) Remove Rings In Anticipation O (11/04/21 12:25) Lactic Acid Analyzer (11/04/21 12:25) Procalcitonin (Pct) (11/04/21 12:25) Hs C Reactive Protein (11/04/21 12:25) Influenza A And B By Pcr (11/04/21 12:25) Covid 19 Inhouse Test (11/04/21 12:25) Ct Head/Cervical Spine Wo (11/04/21 12:25) Manual Differential (11/04/21 12:15) Ammonia (11/04/21 15:16) Arterial Blood Gas (11/04/21 15:16) Albuterol Inhaler (Albuterol) (11/04/21 18:00) Albuterol Inhaler (Albuterol) (11/04/21 16:32) Medications Given in ED Current Medications Medications Dose Ordered Sig/Alejandra Route Start Time Stop Time Status Last Admin Dose Admin Albuterol Sulfate 4 PUFFS RTQ4HR ONCE IH 11/04/21 18:00 11/04/21 16:43 DC 11/04/21 16:34 8.5 GM Vital Signs/I&O 11/04/21 11/04/21 11:50 16:39 Temp 37.9 Pulse 65 64 Resp 20 18 B/P (MAP) 146/63 (90) 158/75 Pulse Ox 95 98 O2 Delivery Room Air Capillary Refill : Less Than 3 Seconds Blood Pressure Mean: 90 Progress Note : Progress Note Initial work-up was unremarkable. CT of the head and cervical spine was obtained and demonstrated no injuries. No infectious etiology was identified. Ammonia level and ABG were added later to rule out hepatic encephalopathy or hypercarbia as a cause of confusion. Ultimately, no specific cause of confusion was identified and no admittable diagnoses were discovered. See discharge instructions. Patient was noted to be wheezing. She does not like to use nebulizer treatments. She does not have an inhaler at home. Inhaler was dispensed for her to use in the ER to treat her wheezing. Diagnostic Imaging Diagonstic Imaging: Xray Plain Films/CT/US/NM/MRI: chest Comments NAME: JAVIER FRANK [employer] REC#: [id number] PT STATUS: REG ER : 1950 PHYSICIAN: MIKEL MARS MD ADMIT DATE: 11/04/21/ER Signed Date of Exam:11/04/21 CHEST 1 VIEW, AP/PA ONLY Indication: Altered mental status. TIME OF EXAM: 2:39 PM Correlation is made with prior chest from 10/15/2021. Changes of median sternotomy are noted. Heart size stable. Lungs are clear. No infiltrates are seen. There is no effusion or pneumothorax. IMPRESSION: No acute cardiopulmonary process is detected. Dictated by: Dictated on workstation # [id number] Dict: 11/04/21 1440 Trans: 11/04/21 1601 [facility] [id number] Interpreted by: JOVANNA OCONNOR MD Electronically signed by: JOVANNA OCONNOR MD 11/04/21 1601 Diagonstic Imaging: CT Plain Films/CT/US/NM/MRI: c-spine, head Comments NAME: REHANA FRANK[employer] REC#: [id number] PT STATUS: REG ER : 1950 PHYSICIAN: MIKEL MARS MD ADMIT DATE: 11/04/21/ER Signed Date of Exam:11/04/21 CT HEAD/CERVICAL SPINE WO PROCEDURE: CT head and CT cervical spine without contrast. TECHNIQUE: Multiple contiguous axial images were obtained through the brain and cervical spine without the use of intravenous contrast. Sagittal and coronal reformations through the cervical spine were then performed. Auto Exposure Controls were utilized during the CT exam to meet ALARA standards for radiation dose reduction. INDICATION: Recent falls and altered mental status. Correlation is made with head CT from 10/15/2021. CT HEAD: The ventricles and sulci remain prominent consistent with cerebral atrophy. There is some periventricular hypodensity noted consistent with chronic microvascular ischemia. This is similar to prior study. No sulcal effacement or midline shift is identified. No acute intra-axial or extra-axial hemorrhage is detected. Cisterns are patent. Visualized paranasal sinuses are clear. IMPRESSION: Stable chronic changes when compared with exam from 10/15/2021. No acute intracranial process is detected. CT cervical spine: Curvature and alignment of the cervical spine is normal. There is multilevel degenerative disc disease with variable disc space narrowing and marginal spurring, greatest at C5-C6 level. There is also multilevel facet arthropathy. No fractures are identified. Prevertebral tissues are within normal limits. The odontoid appears intact. IMPRESSION: Cervical spondylosis. No acute bony abnormality is detected. Dictated by: Dictated on workstation # [id number] Dict: 11/04/21 1252 Trans: 11/04/21 1601 [id number] Interpreted by: JOVANNA OCONNOR MD Electronically signed by: JOVANNA OCONNOR MD 11/04/21 1601 Departure Impression Primary Impression: Confusion Additional Impressions: Generalized weakness COPD (chronic obstructive pulmonary disease) Qualified Codes: J44.9 - Chronic obstructive pulmonary disease, unspecified Disposition: 01 HOME, SELF-CARE Condition: Stable Departure-Patient Inst. Decision time for Depature: 16:21 Referrals: KENDY MADISON DO (PCP/Family) Primary Care Physician Patient Instructions: Altered Mental Status Add. Discharge Instructions: Call your primary care provider's office as soon as possible to arrange follow- up. Present to the clinic for reexamination and evaluation of medications. Please walk carefully and use an assistive device such as a walker or a cane if necessary. Use your nebulizer or inhaler every 4 hours as needed for shortness of breath or wheezing. This may also improve your confusion. Call with questions or concerns. Return to the ER if you have worsening symptoms. All discharge instructions reviewed with patient and/or family. Voiced understanding. Copy Copies To 1: KENDY MADISON JOSHUA T MD Nov 04, 2021 16:26
[2021-11-04] MEDS ORDERED: RT-ALBUTEROL HFA 8.5 GM INHALER IH ONE ×2 (16:32→18:00)
[2021-11-04 16:39] VITALS: BP 158/75
== END 2021-11-04 16:39 | disposition home or self-care (01) ==
LOC: EDUNIT# 11:43 → ER 11:45
DX: R41.0 Disorientation, unspecified (principal); R53.1 Weakness; J44.9 Chronic obstructive pulmonary disease, unspecified; I10 Essential (primary) hypertension; E78.00 Pure hypercholesterolemia, unspecified; I25.10 Atherosclerotic heart disease of native coronary artery without angina pectoris; E11.9 Type 2 diabetes mellitus without complications; F41.9 Anxiety disorder, unspecified; F17.210 Nicotine dependence, cigarettes, uncomplicated; Z20.822 Contact with and (suspected) exposure to COVID-19; Z79.899 Other long term (current) drug therapy; Z79.82 Long term (current) use of aspirin
CPT/HCPCS: 36415; 51701; 70450; 71045; 72125; 80053; 81000; 82140; 82805; 83605; 84145; 85007; 85027; 85610; 85730; 86141; 87040; 87088; 87636

== ENCOUNTER 2022-03-05 11:14 | Emergency (ER) | payer MEDICARE ==
[~2022-03-05] VITALS: Ht 154 cm; Wt 68.4 kg
--- NOTE | 2022-03-05 11:29 | ED General ---
General Stated Complaint: NOT EATING / DRINKING - FEVER - CHILLS Source of Information: Patient, Family Exam Limitations: No Limitations History of Present Illness Date Seen by Provider: Mar 05, 2022 Time Seen by Provider: 11:27 Initial Comments To ER by son with 2 to 3 days of poor food and fluid intake, unmeasured fever, urinary continence in bed, chills. Patient reports nausea. No cough or shortness of breath. Denies any diarrhea or vomiting. Primary care is Dr. Mcgill. Timing/Duration: 2-3 Days Severity: Moderate Associated Systoms: No Chest Pain, No Cough, No Diaphoresis; Fever/Chills, Malaise, Nausea/Vomiting, Weakness Allergies and Home Medications Allergies Coded Allergies: No Known Drug Allergies (Unverified , 06/07/09) Patient Home Medication List Home Medication List Reviewed: Yes Aspirin (Aspirin EC) 81 Mg Tablet.dr, 81 MG PO DAILY, (Reported) Entered as Reported by: JACKSON KWAN on 02/07/19 1035 Atenolol (Atenolol) 25 Mg Tablet, 25 MG PO DAILY, (Reported) Entered as Reported by: JACKSON KWAN on 02/07/19 1035 Atorvastatin Calcium (Atorvastatin Calcium) 20 Mg Tablet, 20 MG PO HS, (Reported) Entered as Reported by: JACKSON KWAN on 02/07/19 1035 Cholecalciferol (Vitamin D3) (Vitamin D3) 25 Mcg Capsule, 25 MCG PO DAILY, (Reported) Entered as Reported by: ASHA CASTELLANOS on 10/16/21 1255 Cyanocobalamin (Vitamin B-12) (Vitamin B-12) 1,000 Mcg Tablet, 1,000 MCG PO HS, (Reported) Entered as Reported by: ASHA CASTELLANOS on 10/16/21 1255 Gabapentin (Gabapentin) 600 Mg Tablet, 600 MG PO BID, (Reported) Entered as Reported by: ASHA CASTELLANOS on 10/16/21 1255 Nitrofurantoin Monohyd/M-Cryst (Macrobid 100 mg Capsule) 100 Mg Capsule, 1 TAB PO BID Prescribed by: CARA BARBER on 10/17/21 0944 Ondansetron (Ondansetron Odt) 8 Mg Tab.rapdis, 8 MG PO Q6H PRN for NAUSEA/VOMITING Prescribed by: ATUL MELENDEZ on 03/05/22 1259 Oxybutynin Chloride (Oxybutynin Chloride) 5 Mg Tablet, 5 MG PO BID, (Reported) Entered as Reported by: ASHA CASTELLANOS on 10/16/21 1255 Oxycodone HCl/Acetaminophen (Oxycodone-Acetaminophen 10-325) 1 Each Tablet, 1 EA PO Q4H PRN for PAIN-MODERATE (5-7), (Reported) Entered as Reported by: ASHA CASTELLANOS on 10/16/21 1255 Potassium Chloride (K-Tab ER) 10 Meq Tablet.er, 10 MEQ PO DAILY, (Reported) Entered as Reported by: ASHA CASTELLANOS on 10/16/21 1256 Pramipexole Di-HCl (Pramipexole Dihydrochloride) 0.75 Mg Tablet, 0.75 MG PO BID, (Reported) Entered as Reported by: ASHA CASTELLANOS on 10/16/21 1255 Sertraline HCl (Sertraline HCl) 50 Mg Tablet, 50 MG PO HS, (Reported) Entered as Reported by: JACKSON KWAN on 02/07/19 1035 Review of Systems Review of Systems Constitutional: see HPI; No chills, No fever; malaise, weakness EENTM: see HPI Respiratory: no symptoms reported; No cough Cardiovascular: no symptoms reported Gastrointestinal: No abdominal pain, No diarrhea; nausea; No vomiting Genitourinary: see HPI, incontinence Musculoskeletal: no symptoms reported Skin: no symptoms reported Psychiatric/Neurological: No Symptoms Reported Hematologic/Lymphatic: No Symptoms Reported Past Mhgmzmv-Nqbauo-Yyposa Hx Immunizations Up To Date Tetanus Booster (TDap): More than 5yrs PED Vaccines UTD: Yes First/Initial COVID19 Vaccinat: 06/30/21 Second COVID19 Vaccination Ron: PT REPORTS RECEIVED 2 COVID SHOTS UNKNOWN WHICH ONE OR WHEN Third COVID19 Vaccination Date: 06/30/21 Seasonal Allergies Seasonal Allergies: No Past Medical History Surgery/Hospitalization HX: SX: CABG PMH: CAD, UTI Surgeries: Yes Cardiac, CABG, Thyroidectomy Respiratory: Yes Asthma, Chronic Bronchitis, COPD Cardiac: Yes (CABG/STENTS. 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 Genitourinary: No Gastrointestinal: Yes Gastroesophageal Reflux, Hiatal Hernia Musculoskeletal: Yes (ARTHRITIS IN KNEES) Arthritis Endocrine: Yes Hypothyroidsim, Diabetes, Non-Insulin dep HEENT: No (EDENTULOUS) Cancer: No Psychosocial: Yes Anxiety Integumentary: Yes Eczema Blood Disorders: No Family Medical History Alzheimer's disease 19 MOTHER FH: cancer G8 SISTER FH: heart disease 19 FATHER Kidney disease 19 MOTHER Myocardial infarction G8 BROTHER No Pertinent Family Hx Physical Exam Vital Signs Vital Signs - First Documented 03/05/22 11:25 Temp 36.8 Pulse 69 Resp 17 B/P (MAP) 177/76 (109) Pulse Ox 92 O2 Delivery Room Air Capillary Refill : Height, Weight, BMI Height: 5'1.00" Weight: 141lbs. 8.0oz. 62.885030za; 28.00 BMI Method:Stated General Appearance: No Apparent Distress, WD/WN Eyes: Bilateral Eye Normal Inspection, Bilateral Eye PERRL, Bilateral Eye EOMI HEENT: PERRL/EOMI, TMs Normal, Normal ENT Inspection Neck: Full Range of Motion, Normal Inspection Respiratory: Normal Breath Sounds, No Accessory Muscle Use, No Respiratory Distress Cardiovascular: Regular Rate, Rhythm, Normal Peripheral Pulses Gastrointestinal: Normal Bowel Sounds, Non Tender, Soft Extremity: Normal Capillary Refill, Normal Inspection Neurologic/Psychiatric: Alert, Oriented x3 Skin: Normal Color, Warm/Dry Focused Exam Lactate Level 03/05/22 11:58: Lactic Acid Level 1.72 Lactic Acid Level Laboratory Tests Test 03/05/22 11:58 Lactic Acid Level 1.72 MMOL/L (0.50-2.00) Progress/Results/Core Measures Suspected Sepsis SIRS Temperature: Pulse: Respiratory Rate: Laboratory Tests 03/05/22 11:30: White Blood Count 9.7 Blood Pressure / Mean: 03/05/22 11:58: Lactic Acid Level 1.72 Laboratory Tests 03/05/22 11:30: Creatinine 1.04, INR Comment 1.0, Platelet Count 172, Total Bilirubin 0.5 Results/Orders Lab Results Laboratory Tests Test 03/05/22 11:30 03/05/22 11:58 Range/Units White Blood Count 9.7 4.3-11.0 10^3/uL Red Blood Count 5.32 H 3.80-5.11 10^6/uL Hemoglobin 17.1 H 11.5-16.0 g/dL Hematocrit 52 35-52 % Mean Corpuscular Volume 97 80-99 fL Mean Corpuscular Hemoglobin 32 25-34 pg Mean Corpuscular Hemoglobin Concent 33 32-36 g/dL Red Cell Distribution Width 13.3 10.0-14.5 % Platelet Count 172 130-400 10^3/uL Mean Platelet Volume 12.8 H 9.0-12.2 fL Immature Granulocyte % (Auto) 0 % Neutrophils (%) (Auto) 80 H 42-75 % Lymphocytes (%) (Auto) 12 12-44 % Monocytes (%) (Auto) 7 0-12 % Eosinophils (%) (Auto) 1 0-10 % Basophils (%) (Auto) 0 0-10 % Neutrophils # (Auto) 7.8 1.8-7.8 10^3/uL Lymphocytes # (Auto) 1.2 1.0-4.0 10^3/uL Monocytes # (Auto) 0.7 0.0-1.0 10^3/uL Eosinophils # (Auto) 0.1 0.0-0.3 10^3/uL Basophils # (Auto) 0.0 0.0-0.1 10^3/uL Immature Granulocyte # (Auto) 0.0 0.0-0.1 10^3/uL Prothrombin Time 13.3 12.2-14.7 SEC INR Comment 1.0 0.8-1.4 Activated Partial Thromboplast Time 34 24-35 SEC Urine Color YELLOW Urine Clarity CLEAR Urine pH 5.0 5-9 Urine Specific [place] >=1.030 1.016-1.022 Urine Protein 3+ H NEGATIVE Urine Glucose (UA) NEGATIVE NEGATIVE Urine Ketones 1+ H NEGATIVE Urine Nitrite NEGATIVE NEGATIVE Urine Bilirubin 1+ H NEGATIVE Urine Urobilinogen 0.2 < = 1.0 MG/DL Urine Leukocyte Esterase NEGATIVE NEGATIVE Urine RBC (Auto) 2+ H NEGATIVE Urine RBC 0-2 /HPF Urine WBC NONE /HPF Urine Squamous Epithelial Cells 0-2 /HPF Urine Crystals NONE /LPF Urine Bacteria TRACE /HPF Urine Casts PRESENT /LPF Urine Coarse Granular Casts RARE H /LPF Urine Mucus NEGATIVE /LPF Urine Culture Indicated CULTURE PENDING Sodium Level 140 135-145 MMOL/L Potassium Level 4.9 3.6-5.0 MMOL/L Chloride Level 106 98-107 MMOL/L Carbon Dioxide Level 18 L 21-32 MMOL/L Anion Gap 16 H 5-14 MMOL/L Blood Urea Nitrogen 20 H 7-18 MG/DL Creatinine 1.04 0.60-1.30 MG/DL Estimat Glomerular Filtration Rate 57 BUN/Creatinine Ratio 19 Glucose Level 107 H 70-105 MG/DL Calcium Level 10.0 8.5-10.1 MG/DL Corrected Calcium 8.5-10.1 MG/DL Total Bilirubin 0.5 0.1-1.0 MG/DL Aspartate Amino Transf (AST/SGOT) 28 5-34 U/L Alanine Aminotransferase (ALT/SGPT) 17 0-55 U/L Alkaline Phosphatase 73 40-136 U/L Total Protein 7.8 6.4-8.2 GM/DL Albumin 4.6 H 3.2-4.5 GM/DL Procalcitonin 0.05 <0.10 NG/ML Influenza Type A Antigen NEGATIVE NEGATIVE Influenza Type B Antigen NEGATIVE NEGATIVE Lactic Acid Level 1.72 0.50-2.00 MMOL/L My Orders Orders - ATUL MELENDEZ APRN Cbc With Automated Diff (03/05/22 11:19) Comprehensive Metabolic Panel (03/05/22 11:19) Blood Culture (03/05/22 11:19) Sputum Culture (03/05/22 11:19) Urinalysis (03/05/22 11:19) Urine Culture (03/05/22 11:19) Protime With Inr (03/05/22 11:19) Partial Thromboplastin Time (03/05/22 11:19) Chest 1 View, Ap/Pa Only (03/05/22 11:19) Ed Iv/Invasive Line Start (03/05/22 11:19) Ed Iv/Invasive Line Start (03/05/22 11:19) Vital Signs Adult Sepsis Patie Q15M (03/05/22 11:19) O2 (03/05/22 11:19) Remove Rings In Anticipation O (03/05/22 11:19) Lactic Acid Analyzer (03/05/22 11:19) Lactated Ringers (Lr 1000 Ml Iv Solution (03/05/22 11:30) Procalcitonin (Pct) (03/05/22 11:19) Influenza A & B Antigens (03/05/22 11:30) Medications Given in ED Current Medications Medications Dose Ordered Sig/Alejandra Route Start Time Stop Time Status Last Admin Dose Admin Lactated Ringer's 1,000 ml @ 0 mls/hr Q0M ONCE IV 03/05/22 11:30 03/05/22 11:31 DC 03/05/22 11:52 999 MLS/HR Vital Signs/I&O 03/05/22 03/05/22 11:25 13:29 Temp 36.8 Pulse 69 Resp 17 B/P (MAP) 177/76 (109) Pulse Ox 92 96 O2 Delivery Room Air Room Air Capillary Refill : Departure Communication (Admissions) NAME: [facility] REC#: [id number] PT STATUS: REG ER : 1950 PHYSICIAN: ATUL MELENDEZ APRN ADMIT DATE: 03/05/22/ER Draft Date of Exam:03/05/22 CHEST 1 VIEW, AP/PA ONLY INDICATION: Weakness and fever Frontal chest obtained at 12:06 p.m. and compared to 11/04/2021. Patient has had previous sternotomy. The heart is normal in size. There are chronic appearing increased residual markings. There is no acute consolidation or pneumothorax or pleural fluid. IMPRESSION: Postop changes and chronic changes with no acute process in the chest. Dictated on workstation # [id number] Dict: 03/05/22 1220 Trans: 03/05/22 1222 CVB [id number] Interpreted by: JORJE POZO MD Electronically signed by: [id number] He informs me that "my brother wants me to insist that you guys admit her for 4 to 5 days because he is got a sick cat at home and cannot take care of her when mom is sick". Advised him that I would check labs and if I have an indication for admit I will do that though I cannot promise it will be 4 to 5 days. Additionally I cannot promise admission at all if her labs come back normal. [id number]-advised patient and son that patient can go home, she does report that she is feeling better. I do not find anything concerning on labs. She is happy with this. Impression Primary Impression: Generalized weakness Additional Impression: Nausea Disposition: 01 HOME, SELF-CARE Condition: Stable Departure-Patient Inst. Decision time for Depature: 12:59 Referrals: KENDY MCGILL DO (PCP/Family) Primary Care Physician Patient Instructions: Generalized Weakness, Nausea and Vomiting, Adult ED Scripts Ondansetron (Ondansetron Odt) 8 Mg Tab.rapdis 8 MG PO Q6H PRN for NAUSEA/VOMITING, #10 TAB Prov: ATUL MELENDEZ APRN 03/05/22 ATUL MELENDEZ APRN Mar 05, 2022 11:29
[2022-03-05] MEDS ORDERED: LACTATED RINGERS 1,000 ML IV ONE (11:30)
[2022-03-05 11:48] LABS: BASOPHILS % (AUTO) 0 % (0-10); BILIRUBIN,URINE 1+ (NEGATIVE); CLARITY,URINE CLEAR; COLOR,URINE YELLOW; EOSINOPHILS # (AUTO) 0.1 10^3/uL (0.0-0.3); EOSINOPHILS % (AUTO) 1 % (0-10); GLUCOSE, URINE (UA) NEGATIVE (NEGATIVE); HEMATOCRIT 52 % (35-52); HEMOGLOBIN 17.1 g/dL (11.5-16.0); KETONES,URINE 1+ (NEGATIVE); LEUKOCYTE ESTERASE ,URINE NEGATIVE (NEGATIVE); LYMPHOCYTES # (AUTO) 1.2 10^3/uL (1.0-4.0); LYMPHOCYTES % (AUTO) 12 % (12-44); MEAN CORPUSCULAR HEMOGLOBIN 32 pg (25-34); MEAN CORPUSCULAR HGB CONC 33 g/dL (32-36); MEAN CORPUSCULAR VOLUME 97 fL (80-99); MEAN PLATELET VOLUME 12.8 fL (9.0-12.2); MONOCYTES # (AUTO) 0.7 10^3/uL (0.0-1.0); MONOCYTES % (AUTO) 7 % (0-12); NEUTROPHILS # (AUTO) 7.8 10^3/uL (1.8-7.8); NEUTROPHILS % (AUTO) 80 % (42-75); NITRITE,URINE NEGATIVE (NEGATIVE); PLATELET COUNT 172 10^3/uL (130-400); PROTEIN,URINE 3+ (NEGATIVE); WHITE BLOOD COUNT 9.7 10^3/uL (4.3-11.0)
[2022-03-05 11:59] LABS: ALBUMIN 4.6 GM/DL (3.2-4.5); CHLORIDE 106 MMOL/L (98-107); SODIUM 140 MMOL/L (135-145)
[2022-03-05 12:02] LABS: GLUCOSE 107 MG/DL (70-105); TOTAL PROTEIN 7.8 GM/DL (6.4-8.2)
[2022-03-05 12:03] LABS: CARBON DIOXIDE 18 MMOL/L (21-32)
[2022-03-05 12:04] LABS: BILIRUBIN,TOTAL 0.5 MG/DL (0.1-1.0)
[2022-03-05 12:05] LABS: ALKALINE PHOSPHATASE 73 U/L (40-136); CREATININE SERUM 1.04 MG/DL (0.60-1.30); GFR ESTIMATED 57
[2022-03-05 12:06] LABS: BUN/CREATININE RATIO 19
[2022-03-05 12:08] LABS: ALANINE AMINOTRANSFERASE 17 U/L (0-55)
[2022-03-05 12:19] LABS: BACTERIA,URINE TRACE /HPF; RBC,URINE 0-2 /HPF; SQUAMOUS EPITHELIAL CELL,UR 0-2 /HPF
--- NOTE | 2022-03-05 12:22 | Diagnostic Imaging Report ---
INDICATION: Weakness and fever Frontal chest obtained at 12:06 p.m. and compared to 11/04/2021. Patient has had previous sternotomy. The heart is normal in size. There are chronic appearing increased residual markings. There is no acute consolidation or pneumothorax or pleural fluid. IMPRESSION: Postop changes and chronic changes with no acute process in the chest. Dictated by: Dictated on workstation # [id number]
[2022-03-05 12:35] LABS: POTASSIUM 4.9 MMOL/L (3.6-5.0)
[2022-03-05] MEDS ORDERED: ONDA8TAB13 PO (12:59)
[2022-03-05 13:00] LABS: PROTHROMBIN TIME PATIENT 13.3 SEC (12.2-14.7)
[2022-03-05 13:40] VITALS: BP 162/71
== END 2022-03-05 13:40 | disposition home or self-care (01) ==
LOC: EDUNIT# 11:14 → ER 11:17
DX: R53.1 Weakness (principal); R11.2 Nausea with vomiting, unspecified
CPT/HCPCS: 36415; 71045; 80053; 81000; 83605; 84145; 85025; 85610; 85730; 87040; 87088; 87804

== ENCOUNTER 2022-11-17 13:39 | Inpatient (IN) | payer MEDICARE ==
[~2022-11-17] VITALS: Ht 157.5 cm; Wt 80.1 kg
[~2022-11-17 13:39] MED LIST changes: +ONDA8TAB13 PO
--- NOTE | 2022-11-17 14:13 | ED General ---
General Chief Complaint: General Problems/Pain Stated Complaint: SOB Nursing Triage Note: ARRIVED VIA EMS FROM HOME AFTER SON CALLED EMS. EMS REPORTS A FILTHY HOUSE WITH DOG FECES EVERYWHERE. PT HANDS COVERED IN BM ET SON STATES SHE "SHIT HERSELF". SON STATES SHE HAS NOT FELT WELL SINCE YESTEDAY AND HE THINKS SHE HAS THE FLU. PT IS HOPING TO GET GROUP HOME PLACEMENT OUT OF THIS VISIT. History of Present Illness Date Seen by Provider: Nov 17, 2022 Time Seen by Provider: 14:13 Initial Comments 72-year-old female with PMH of early stage of Alzheimer's dementia/CABG 10 years ago/CAD/DM2/HTN, and is brought in by EMS for complaints of increasing confusion, and patient stating that she has not been feeling well since yesterday with malaise and generalized weakness, with 2 episodes of fecal incontinence at home today. Patient's son is present in the ER and the majority of the history is taken from him. EMS reports that the patient's home is filthy with dog feces everywhere. Patient's son states that patient has custody of her grand nephew at home in the past the flu, but he and his brother want the shankar ent to be admitted to fpc because she is unable to take care of herself or her home. Denies fever, diarrhea, falls, dizziness, shortness of breath, URI symptoms, palpitations, chest pain. Patient did not take her home medications today prior to coming to the ER. Allergies and Home Medications Allergies Coded Allergies: No Known Drug Allergies (Unverified , 06/07/09) Patient Home Medication List Home Medication List Reviewed: Yes Aspirin (Aspirin EC) 81 Mg Tablet.dr, 81 MG PO DAILY, (Reported) Entered as Reported by: JACKSON KWAN on 02/07/19 1035 Atenolol (Atenolol) 25 Mg Tablet, 25 MG PO DAILY, (Reported) Entered as Reported by: JACKSON KWAN on 02/07/19 1035 Atorvastatin Calcium (Atorvastatin Calcium) 20 Mg Tablet, 20 MG PO HS, (Reported) Entered as Reported by: JACKSON KWAN on 02/07/19 1035 Cholecalciferol (Vitamin D3) (Vitamin D3) 25 Mcg Capsule, 25 MCG PO DAILY, (Reported) Entered as Reported by: ASHA CASTELLANOS on 10/16/21 1255 Cyanocobalamin (Vitamin B-12) (Vitamin B-12) 1,000 Mcg Tablet, 1,000 MCG PO HS, (Reported) Entered as Reported by: ASHA CASTELLANOS on 10/16/21 1255 Gabapentin (Gabapentin) 600 Mg Tablet, 600 MG PO BID, (Reported) Entered as Reported by: ASHA CASTELLANOS on 10/16/21 1255 Nitrofurantoin Monohyd/M-Cryst (Macrobid 100 mg Capsule) 100 Mg Capsule, 1 TAB PO BID Prescribed by: CARA BARBER on 10/17/21 0944 Ondansetron (Ondansetron Odt) 8 Mg Tab.rapdis, 8 MG PO Q6H PRN for NAUSEA/VOMITING Prescribed by: ATUL MELENDEZ on 03/05/22 1259 Oxybutynin Chloride (Oxybutynin Chloride) 5 Mg Tablet, 5 MG PO BID, (Reported) Entered as Reported by: ASHA CASTELLANOS on 10/16/21 1255 Oxycodone HCl/Acetaminophen (Oxycodone-Acetaminophen 10-325) 1 Each Tablet, 1 EA PO Q4H PRN for PAIN-MODERATE (5-7), (Reported) Entered as Reported by: ASHA CASTELLANOS on 10/16/21 1255 Potassium Chloride (K-Tab ER) 10 Meq Tablet.er, 10 MEQ PO DAILY, (Reported) Entered as Reported by: ASHA CASTELLANOS on 10/16/21 1256 Pramipexole Di-HCl (Pramipexole Dihydrochloride) 0.75 Mg Tablet, 0.75 MG PO BID, (Reported) Entered as Reported by: ASHA CASTELLANOS on 10/16/21 1255 Sertraline HCl (Sertraline HCl) 50 Mg Tablet, 50 MG PO HS, (Reported) Entered as Reported by: JACKSON KWAN on 02/07/19 1035 Review of Systems Review of Systems Constitutional: malaise, weakness EENTM: no symptoms reported Respiratory: no symptoms reported Cardiovascular: no symptoms reported Gastrointestinal: no symptoms reported Genitourinary: no symptoms reported Musculoskeletal: no symptoms reported Psychiatric/Neurological: Other (Confusion and dementia) Hematologic/Lymphatic: No Symptoms Reported Immunological/Allergic: no symptoms reported Past Oloircg-Oufavx-Vbnhim Hx Patient Social History Tobacco Use?: Yes Smoking Status: Former Smoker Substance use?: No Alcohol Use?: No Immunizations Up To Date Tetanus Booster (TDap): More than 5yrs PED Vaccines UTD: Yes First/Initial COVID19 Vaccinat: 06/30/21 Second COVID19 Vaccination Ron: PT REPORTS RECEIVED 2 COVID SHOTS UNKNOWN WHICH ONE OR WHEN Third COVID19 Vaccination Date: 06/30/21 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, Menopausal Genitourinary: No Gastrointestinal: Yes Gastroesophageal Reflux, Hiatal Hernia Musculoskeletal: Yes (ARTHRITIS IN KNEES) Arthritis Endocrine: Yes Hypothyroidsim, Diabetes, Non-Insulin dep HEENT: No (EDENTULOUS) Cancer: No Psychosocial: Yes Anxiety Integumentary: Yes Eczema Blood Disorders: No Family Medical History Alzheimer's disease 19 MOTHER FH: cancer G8 SISTER FH: heart disease 19 FATHER Kidney disease 19 MOTHER Myocardial infarction G8 BROTHER No Pertinent Family Hx Physical Exam Vital Signs Vital Signs - First Documented 11/17/22 13:50 Temp 37.8 Pulse 98 Resp 16 B/P (MAP) 201/89 (126) Pulse Ox 98 O2 Delivery Room Air Capillary Refill : Less Than 3 Seconds Height, Weight, BMI Height: 5'1.00" Weight: 141lbs. 8.0oz. 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 Norm as Tested Skin: Normal Color Lymphatic: No Adenopathy Focused Exam Lactate Level 11/17/22 14:40: Lactic Acid Level 2.48*H Lactic Acid Level Laboratory Tests Test 11/17/22 14:40 Lactic Acid Level 2.48 MMOL/L (0.50-2.00) *H Progress/Results/Core Measures Suspected Sepsis SIRS Temperature: Pulse: 98 Respiratory Rate: 16 Laboratory Tests 11/17/22 14:40: White Blood Count 13.7H Blood Pressure 201 /89 Mean: 126 11/17/22 14:40: Lactic Acid Level 2.48*H Laboratory Tests 11/17/22 14:40: Creatinine 1.02, Platelet Count 168, Total Bilirubin 0.5 Results/Orders Lab Results Laboratory Tests Test 11/17/22 13:52 11/17/22 14:40 Range/Units Influenza Type A (RT-PCR) Detected H Not Detecte Influenza Type B (RT-PCR) Not Detected Not Detecte SARS-CoV-2 RNA (RT-PCR) Not Detected Not Detecte White Blood Count 13.7 H 4.3-11.0 10^3/uL Red Blood Count 5.60 H 3.80-5.11 10^6/uL Hemoglobin 16.8 H 11.5-16.0 g/dL Hematocrit 51 35-52 % Mean Corpuscular Volume 91 80-99 fL Mean Corpuscular Hemoglobin 30 25-34 pg Mean Corpuscular Hemoglobin Concent 33 32-36 g/dL Red Cell Distribution Width 13.3 10.0-14.5 % Platelet Count 168 130-400 10^3/uL Mean Platelet Volume 12.2 9.0-12.2 fL Immature Granulocyte % (Auto) 0 % Neutrophils (%) (Auto) 86 H 42-75 % Lymphocytes (%) (Auto) 4 L 12-44 % Monocytes (%) (Auto) 9 0-12 % Eosinophils (%) (Auto) 0 0-10 % Basophils (%) (Auto) 0 0-10 % Neutrophils # (Auto) 11.8 H 1.8-7.8 X 10^3 Lymphocytes # (Auto) 0.6 L 1.0-4.0 X 10^3 Monocytes # (Auto) 1.3 H 0.0-1.0 X 10^3 Eosinophils # (Auto) 0.0 0.0-0.3 10^3/uL Basophils # (Auto) 0.0 0.0-0.1 10^3/uL Immature Granulocyte # (Auto) 0.0 0.0-0.1 10^3/uL Neutrophils % (Manual) 86 % Lymphocytes % (Manual) 6 % Monocytes % (Manual) 8 % Blood Morphology Comment NORMAL Sodium Level 137 135-145 MMOL/L Potassium Level 4.0 3.6-5.0 MMOL/L Chloride Level 98 98-107 MMOL/L Carbon Dioxide Level 26 21-32 MMOL/L Anion Gap 13 5-14 MMOL/L Blood Urea Nitrogen 14 7-18 MG/DL Creatinine 1.02 0.60-1.30 MG/DL Estimat Glomerular Filtration Rate 58 BUN/Creatinine Ratio 14 Glucose Level 149 H 70-105 MG/DL Lactic Acid Level 2.48 *H 0.50-2.00 MMOL/L Calcium Level 9.9 8.5-10.1 MG/DL Corrected Calcium 9.7 8.5-10.1 MG/DL Magnesium Level 1.6 1.6-2.4 MG/DL Total Bilirubin 0.5 0.1-1.0 MG/DL Aspartate Amino Transf (AST/SGOT) 13 5-34 U/L Alanine Aminotransferase (ALT/SGPT) 16 0-55 U/L Alkaline Phosphatase 100 40-136 U/L Troponin I < 0.028 <0.028 NG/ML Total Protein 7.4 6.4-8.2 GM/DL Albumin 4.3 3.2-4.5 GM/DL Procalcitonin 0.11 H <0.10 NG/ML My Orders Orders - OSWALDO RAE MD Cbc With Automated Diff (11/17/22 14:24) Comprehensive Metabolic Panel (11/17/22 14:24) Lactic Acid Analyzer (11/17/22 14:24) Magnesium (11/17/22 14:24) Procalcitonin (Pct) (11/17/22 14:24) Ua Culture If Indicated (11/17/22 14:24) Troponin I [place] (11/17/22 14:24) Covid 19 Inhouse Test (11/17/22 14:24) Influenza A And B By Pcr (11/17/22 14:24) Chest 1 View, Ap/Pa Only (11/17/22 14:25) Manual Differential (11/17/22 14:40) Blood Culture (11/17/22 15:23) Sputum Culture (11/17/22 15:23) Urine Culture (11/17/22 15:23) Vital Signs Adult Sepsis Patie Q15M (11/17/22 15:23) Ns Iv 1000 Ml (Sodium Chloride 0.9%) (11/17/22 15:30) Piperacillin Sodium/Tazobactam (Zosyn Vi (11/17/22 15:30) Ns Iv 1000 Ml (Sodium Chloride 0.9%) (11/17/22 15:36) Catheter(Urinary) Insert & Ass 03,15 (11/17/22 16:39) Lidocaine 2% (Urojet) (Xylocaine Urojet) (11/17/22 16:45) Medications Given in ED Current Medications Medications Dose Ordered Sig/Alejandra Route Start Time Stop Time Status Last Admin Dose Admin Piperacillin Sod/ Tazobactam Sod 4.5 gm/Sodium Chloride 100 ml @ 200 mls/hr ONCE ONCE IV 11/17/22 15:30 11/17/22 15:59 DC 11/17/22 16:30 200 MLS/HR Sodium Chloride 2,280 ml @ 2,280 mls/hr ONCE ONCE IV 11/17/22 15:30 11/17/22 16:29 DC 11/17/22 15:42 2,280 MLS/HR Vital Signs/I&O 11/17/22 13:50 Temp 37.8 Pulse 98 Resp 16 B/P (MAP) 201/89 (126) Pulse Ox 98 O2 Delivery Room Air Capillary Refill : Less Than 3 Seconds Blood Pressure Mean: 126 Progress Note : Progress Note 1. ALTERED MENTAL STATUS/ GENERALIZED WEAKNESS WITH DEHYDRATION & SEPSIS: - CT HEAD: - CBC: WBC Is 13.7 with a left shift - Lactic acid is 2.48 - Hb, RBC elevated - UA: unable to straight cath her and pt has not passed urine yet. Will order Ty insertion - Blood and sputum cultures sent - NS IVF bolus STAT/ Zosyn iv STAT in ER -Discussed with hospitalist admit patient to the floor -Patient son is the proxy, and both sons discussed and want their mother to be placed in a fpc because she is unable to take care of herself appropriately. 2, INFLUENZA A: - COVID test/ Rapid strep test: Negative - Rapid flu test: Positive for influenza A Diagnostic Imaging Diagonstic Imaging: Xray Plain Films/CT/US/NM/MRI: chest Comments [facility]. [place], [place] NAME: [facility] REC#: [id number] PT STATUS: REG ER : 1950 PHYSICIAN: OSWALDO RAE MD ADMIT DATE: 11/17/22/ER Signed Date of Exam:11/17/22 CHEST 1 VIEW, AP/PA ONLY Indication: Altered mental status Portable chest 2:37 PM There are postoperative changes from a median sternotomy. Heart size and pulmonary vascularity are normal. Lungs are clear. There are no effusions or pneumothoraces. IMPRESSION: No acute abnormalities in the chest Dictated by: Dictated on workstation # [id number] Dict: 11/17/22 1439 Trans: 11/17/22 1440 TCB [id number] Interpreted by: CLAUS MENDOZA MD Electronically signed by: CLAUS MENDOZA MD 11/17/22 1440 Departure Communication (Admissions) Time/Spoke to Admitting Phy: 16:[address] Barber and accepted for admission Impression Primary Impression: Altered mental state Qualified Codes: R41.82 - Altered mental status, unspecified Additional Impressions: Generalized weakness Sepsis Dehydration Influenza A Disposition: 30 STILL A PATIENT Condition: Stable Admissions Decision to Admit Reason: Admit from ER (General) Decision to Admit/Date: Nov 17, 2022 Time/Decision to Admit Time: 16:10 Departure-Patient Inst. Referrals: KENDY MADISON DO (PCP/Family) Primary Care Physician OSWALDO RAE MD Nov 17, 2022 14:13
--- NOTE | 2022-11-17 14:41 | Diagnostic Imaging Report ---
Indication: Altered mental status Portable chest 2:37 PM There are postoperative changes from a median sternotomy. Heart size and pulmonary vascularity are normal. Lungs are clear. There are no effusions or pneumothoraces. IMPRESSION: No acute abnormalities in the chest Dictated by: Dictated on workstation # [id number]
[2022-11-17 14:47] LABS: BASOPHILS % (AUTO) 0 % (0-10); EOSINOPHILS % (AUTO) 0 % (0-10); HEMATOCRIT 51 % (35-52); HEMOGLOBIN 16.8 g/dL (11.5-16.0); LYMPHOCYTES # (AUTO) 0.6 X 10^3 (1.0-4.0); LYMPHOCYTES % (AUTO) 4 % (12-44); MEAN CORPUSCULAR HEMOGLOBIN 30 pg (25-34); MEAN CORPUSCULAR HGB CONC 33 g/dL (32-36); MEAN CORPUSCULAR VOLUME 91 fL (80-99); MEAN PLATELET VOLUME 12.2 fL (9.0-12.2); MONOCYTES # (AUTO) 1.3 X 10^3 (0.0-1.0); MONOCYTES % (AUTO) 9 % (0-12); NEUTROPHILS # (AUTO) 11.8 X 10^3 (1.8-7.8); NEUTROPHILS % (AUTO) 86 % (42-75); PLATELET COUNT 168 10^3/uL (130-400); WHITE BLOOD COUNT 13.7 10^3/uL (4.3-11.0)
[2022-11-17 15:07] LABS: LYMPHOCYTES % (MANUAL) 6 %; MONOCYTES % (MANUAL) 8 %; NEUTROPHILS % (MANUAL) 86 %; RBC MORPH NORMAL
[2022-11-17 15:08] LABS: ALANINE AMINOTRANSFERASE 16 U/L (0-55); ALBUMIN 4.3 GM/DL (3.2-4.5); ALKALINE PHOSPHATASE 100 U/L (40-136); BILIRUBIN,TOTAL 0.5 MG/DL (0.1-1.0); BUN/CREATININE RATIO 14; CALCIUM 9.9 MG/DL (8.5-10.1); CARBON DIOXIDE 26 MMOL/L (21-32); CHLORIDE 98 MMOL/L (98-107); CREATININE SERUM 1.02 MG/DL (0.60-1.30); GFR ESTIMATED 58; GLUCOSE 149 MG/DL (70-105); MAGNESIUM 1.6 MG/DL (1.6-2.4); SODIUM 137 MMOL/L (135-145); TOTAL PROTEIN 7.4 GM/DL (6.4-8.2)
[2022-11-17] MEDS ORDERED: NS IV ONE (15:30)
[2022-11-17] MEDS ORDERED: PIPERACILLIN SODIUM/TAZOBACTAM 4.5 GM in NS (IVPB) 100 ML IV ONE (15:30)
[2022-11-17] MEDS ORDERED: NS IV 1000 ML 1,000 ML ONE (15:36)
[2022-11-17] MEDS ORDERED: LIDOCAINE UROJET 2% GEL 10 ML PKG TOP ONE (16:45)
[2022-11-17 16:56] LABS: BILIRUBIN,URINE NEGATIVE (NEGATIVE); CLARITY,URINE CLEAR; COLOR,URINE YELLOW; GLUCOSE, URINE (UA) NEGATIVE (NEGATIVE); KETONES,URINE NEGATIVE (NEGATIVE); LEUKOCYTE ESTERASE ,URINE NEGATIVE (NEGATIVE); NITRITE,URINE POSITIVE (NEGATIVE); PROTEIN,URINE 3+ (NEGATIVE)
[2022-11-17 17:08] LABS: BACTERIA,URINE LARGE /HPF; WBC,URINE 0-2 /HPF
[2022-11-17 18:08] VITALS: BP 153/67
[2022-11-17] MEDS ORDERED: NS IV 500 ML 500 ML IV PRN (18:30)
[2022-11-17] MEDS ORDERED: ONDANSETRON 4 MG (ZOFRAN) ORAL DISSOLVE TAB PO PRN (18:30)
[2022-11-17] MEDS ORDERED: ANTACID SUSP 30 ML UDC (MYLANTA) PO PRN (18:30)
[2022-11-17] MEDS ORDERED: ONDANSETRON 4 MG/2 ML (SDV) Z0FRAN IV PRN (18:30)
[2022-11-17] MEDS ORDERED: polyethylene glycoL POWDER 17 GM (MIRALAX) PACK PO PRN (18:30)
[2022-11-17] MEDS ORDERED: BISACODYL 10 MG SUPP (DULCOLAX) PR PRN (18:30)
[2022-11-17] MEDS ORDERED: LACTULOSE SYRUP 10GM/15ML (ENULOSE) 30ML UDC PO PRN (18:30)
[2022-11-17] MEDS ORDERED: MILK OF MAGNESIA 400 MG/5 ML 30 ML UDC PO PRN (18:30)
[2022-11-17] MEDS ORDERED: CALCIUM CARBONATE 500 MG (TUMS) TAB.CHEW PO PRN (18:30)
[2022-11-17 18:50] VITALS: BP 151/69
[2022-11-17 18:58] VITALS: BP 201/89
[2022-11-17 19:33] VITALS: BP 198/80
[2022-11-17] MEDS: ACETAMINOPHEN 325 MG TABLET PO PRN (19:46)
[2022-11-17] MEDS: PRAMIPEXOLE 0.5 MG TAB (MIRAPEX) PO SCH (19:47)
[2022-11-17] MEDS: ENOXAPARIN 40 MG/0.4 ML (LOVENOX) SYR SC SCH (19:47)
[2022-11-17] MEDS: GABAPENTIN 600 MG (NEURONTIN) TAB PO SCH (19:48)
[2022-11-17] MEDS: OXYBUTYNIN (DITROPAN) 5 MG TAB PO SCH (19:48)
[2022-11-17] MEDS: DOCUSATE SODIUM 100 MG (COLACE) CAP PO SCH (20:01)
[2022-11-17] MEDS: SENNOSIDES 8.6 MG (SENOKOT) TAB PO SCH (20:01)
[2022-11-17 20:05] VITALS: BP 185/78
[2022-11-17] MEDS: OSELTAMIVIR 30 MG (TAMIFLU) CAPSULE PO SCH (20:16)
[2022-11-17] MEDS: NS IV 1000 ML 1,000 ML IV SCH (20:26)
[2022-11-17] MEDS ORDERED: hydrALAZINE (APESOLINE) 20 MG/ML VIAL IV PRN (20:45)
[2022-11-17] MEDS ORDERED: meTOprolol 5 MG/5 ML (LOPRESSOR) VIAL IV PRN (20:45)
[2022-11-17] MEDS ORDERED: ENALAPRILAT 2.5 MG/2 ML (VASOTEC) VIAL IV PRN (20:45)
[2022-11-17] MEDS ORDERED: LORazepam INJ 2 MG/ML (ATIVAN) VIAL IVP PRN (20:45)
[2022-11-17] MEDS ORDERED: amLODIPine 5 MG (NORVASC) TAB PO ONE (20:45)
[2022-11-17] MEDS: LORazepam 0.5 MG (ATIVAN) TABLET PO PRN (21:44)
[2022-11-17] MEDS: MELATONIN 3 MG TABLET PO PRN (21:44)
[2022-11-17 23:48] VITALS: BP 168/73
[2022-11-18] VITALS (10 sets, daily range): BP systolic 120–184; BP diastolic 56–88
[2022-11-18] MEDS: NITROGLYCERIN 2% OINT 1 GM UNIT DOSE PACKET TOP PRN (00:04)
[2022-11-18] MEDS: NS IV 1000 ML 1,000 ML IV SCH ×4 (03:50→19:59)
[2022-11-18] MEDS: LORazepam 0.5 MG (ATIVAN) TABLET PO PRN ×3 (04:57→19:59)
[2022-11-18 05:26] LABS: BASOPHILS % (AUTO) 0 % (0-10); EOSINOPHILS % (AUTO) 0 % (0-10); MEAN CORPUSCULAR HGB CONC 34 g/dL (32-36)
[2022-11-18 05:28] LABS: HEMATOCRIT 42 % (35-52); HEMOGLOBIN 14.2 g/dL (11.5-16.0); LYMPHOCYTES # (AUTO) 0.7 10^3/uL (1.0-4.0); LYMPHOCYTES % (AUTO) 7 % (12-44); MEAN CORPUSCULAR HEMOGLOBIN 31 pg (25-34); MEAN CORPUSCULAR VOLUME 92 fL (80-99); MEAN PLATELET VOLUME 12.9 fL (9.0-12.2); MONOCYTES % (AUTO) 11 % (0-12); NEUTROPHILS # (AUTO) 7.3 10^3/uL (1.8-7.8); NEUTROPHILS % (AUTO) 81 % (42-75); PLATELET COUNT 126 10^3/uL (130-400); WHITE BLOOD COUNT 8.9 10^3/uL (4.3-11.0)
[2022-11-18 05:29] LABS: POTASSIUM 3.5 MMOL/L (3.6-5.0)
[2022-11-18 05:31] LABS: CALCIUM 8.5 MG/DL (8.5-10.1)
[2022-11-18 05:35] LABS: CREATININE SERUM 0.84 MG/DL (0.60-1.30)
[2022-11-18] MEDS: ACETAMINOPHEN 325 MG TABLET PO PRN ×2 (05:36→14:09)
[2022-11-18 05:37] LABS: MAGNESIUM 1.5 MG/DL (1.6-2.4)
[2022-11-18] MEDS: POTASSIUM CL 10MEQ/50ML IVPB 50 ML IV SCH (05:37)
[2022-11-18] MEDS: KCL 20 MEQ TAB (K-DUR) PO SCH (05:59)
[2022-11-18] MEDS: MAGNESIUM 1 GM/100 ML IVPB 100 ML IV SCH ×3 (05:59→07:58)
[2022-11-18] MEDS: DOCUSATE SODIUM 100 MG (COLACE) CAP PO SCH ×2 (07:56→19:51)
[2022-11-18] MEDS: SENNOSIDES 8.6 MG (SENOKOT) TAB PO SCH ×2 (07:56→19:51)
[2022-11-18] MEDS: ATENOLOL 25 MG (TENORMIN) TAB PO SCH (07:59)
[2022-11-18] MEDS: PRAMIPEXOLE 0.5 MG TAB (MIRAPEX) PO SCH ×2 (07:59→19:49)
[2022-11-18] MEDS: OXYBUTYNIN (DITROPAN) 5 MG TAB PO SCH ×2 (08:00→19:49)
[2022-11-18] MEDS ORDERED: KCL 20 MEQ TAB (K-DUR) PO ONE (08:00)
[2022-11-18] MEDS: amLODIPine 5 MG (NORVASC) TAB PO SCH (08:00)
[2022-11-18] MEDS: OSELTAMIVIR 30 MG (TAMIFLU) CAPSULE PO SCH ×2 (08:00→19:50)
[2022-11-18] MEDS: GABAPENTIN 600 MG (NEURONTIN) TAB PO SCH ×2 (08:00→19:49)
[2022-11-18] MEDS ORDERED: fentaNYL 15 MCG/3 ML NS SYRINGE (PACU) IV ONE (08:15)
[2022-11-18] MEDS ORDERED: fentaNYL INJ 100 MCG/2 ML AMP IV NR (08:30)
--- NOTE | 2022-11-18 10:05 | Physical Therapy Evaluation ---
PT Evaluation-General Medical Diagnosis Admission Date Nov 17, 2022 at 16:43 Medical Diagnosis: Flu A/sepsis Onset Date: Nov 17, 2022 Therapy Diagnosis Therapy Diagnosis: generalized weakness/debility Height/Weight Height (Feet): 5 Height (Inches): 1.00 Weight (Pounds): 141 Weight (Ounces): 8.0 Precautions Precautions/Isolations: Droplet Isolation Referral Physician: Sabina Reason for Referral: Evaluation/Treatment Medical History Pertinent Medical History: Arthritis, DM, Dementia, GERD, Hypothroidism, Smoking Current History EMS secondary to Flu A/house covered in feces (patient unable to care for self) Reviewed History: Yes Social History Home: Apartment Prior Prior Level of Function SCALE: Activities may be completed with or without assistive devices. 6-Crnxrlppbp-vvsdfkb completes the activity by him/herself with no assistance from a helper. 5-Set-up or Clean-up Assistance-helper sets up or cleans up; patient completes activity. [place] assists only prior to or following the activity. 4-Supervision or Touching Assistance-helper provides verbal cues and/or touching/steadying and/or contact guard assistance as patient completes activity. Assistance may be provided throughout the activity or intermittently. 3-Partial/Moderate Assistance-helper does LESS THAN HALF the effort. [place] lifts, holds or supports trunk or limbs, but provides less than half the effort. 2-Substantial/Maximal Assistance-helper does MORE THAN HALF the effort. [place] lifts or holds trunk or limbs and provides more than half the effort. 7-Fwfombksk-mnrxja does ALL the effort. Patient does none of the effort to complete the activity. Or, the assistance of 2 or more helpers is required for the patient to complete the activity. If activity was not attempted, code reason: 7-Patient Refused. 9-Not Applicable-not attempted and the patient did not perform the activity before the current illness, exacerbation or injury. 10-Not Attempted due to Environmental Limitations-(lack of equipment, weather restraints, etc.). 88-Not Attempted due to Medical Conditions or Safety Concerns. Bed Mobility: 6 Transfers (B,C,W/C): 6 Gait: 6 Indoor Mobility (Ambulation): Independent Stairs: Needed Some Help Prior Devices Use: Motorized scooter, Walker PT Evaluation-Current Subjective Patient agrees to PT. Objective Patient Orientation: Person, Time, Situation Attachments: Karson Catheter, IV ROM/Strength ROM Lower Extremities bilateral LE WFL Strength Lower Extremities 3/5 grossly bilateral LE all planes Integumentary/Posture Integumentary refer to nursing notes Bladder Incontinence: Ty Cath Posture WFL Neuromuscular (Tone, Coordination, Reflexes) slightly diminished coordination Sensory Vision: Functional Hearing: Functional Transfers Lying to Sitting/Side of Bed(Q: 3 Sit to Stand (QC): 3 Chair/Lgp-ta-Mzidm Xfer(QC): 3 Gait Mode of Locomotion: Walk Anticipated Mode of Locomotion: Walk Walk 10 feet (QC): 3 Walk 50 ft with 2 Turns(QC): 3 Walk 150 ft (QC): 88 Distance: 50' Gait Assistive Device: FWW Comments/Gait Description slightly unsteady Balance Sitting Static: Normal Sitting Dynamic: Normal Standing Static: Fair Standing Dynamic: Fair Assessment/Needs 72 y.o. female, will benefit from skilled PT to address functional strength and mobility to improve current LOF. Patient currently requires minimal assist with all mobility for safety. Chair alarm placed and activated for patient's safety. Rehab Potential: Fair PT Jail Goals Jail Goals PT Lubricating Specialist Goals Time Frame: Nov 29, 2022 Roll Left & Right (QC): 5 Sit to Lying (QC): 5 Lying-Sitting on Side/Bed(QC): 5 Sit to Stand (QC): 5 Chair/Www-yo-Noauf Xfer(QC): 5 Toilet Transfer (QC): 5 Walk 10 feet (QC): 4 Walk 50ft with 2 Turns (QC): 4 Walk 150 ft (QC): 4 PT Plan Problem List Problem List: Activity Tolerance, Functional Strength, Safety, Balance, Gait, Transfer, Bed Mobility Treatment/Plan Treatment Plan: Continue Plan of Care Treatment Plan: Bed Mobility, Education, Functional Activity Rafat, Functional Strength, Gait, Safety, Therapeutic Exercise, Transfers Treatment Duration: Nov 29, 2022 Frequency: 6 times per week Estimated Hrs Per Day: .25 hour per day Time Time In: 853 Time Out: 907 DATE: Nov 18, 2022 Total Billed Treatment Time: 10 Total Billed Treatment 1 visit EVModC 10 min DUNG METCALF PT Nov 18, 2022 10:05
--- NOTE | 2022-11-18 11:15 | Occupational Therapy Eval ---
OT Evaluation-General/PLF Medical Diagnosis Admission Date Nov 17, 2022 at 16:43 Medical Diagnosis: Flu A/sepsis Onset Date: Nov 17, 2022 Therapy Diagnosis Therapy Diagnosis: reduced adl status Height/Weight Height (Feet): 5 Height (Inches): 1.00 Weight (Pounds): 141 Weight (Ounces): 8.0 Precautions Precautions/Isolations: Droplet Isolation, Fall Prevention Referral Physician: Sabina Referral Reason: Evaluation/Treatment Medical History Pertinent Medical History: Arthritis, DM, Dementia, GERD, Hypothroidism, Smoking Current History Pt arrived by EMS due to increased confusion and weakness. Per chart, pt living in [facility] with dog feces everywhere. Pt is a poor historian, unsure of accuracy of responses. Per patient, she lives in a ground level apartment with her 7 year old son (chart states this is her great nephew). She states that she was indep with adls and iadls but that her 2 sons come by and assist as needed. Pt does not drive so her sons provide assist with grocery shopping. She states she uses a walker at baseline. Reviewed History: Yes Social History Home: Apartment Current Living Status: Other Family ADL-Prior Level of Function SCALE: Activities may be completed with or without assistive devices. 0-Eoaeqrlxwe-exiluof completes the activity by him/herself with no assistance from a helper. 5-Set-up or Clean-up Assistance-helper sets up or cleans up; patient completes activity. [place] assists only prior to or following the activity. 4-Supervision or Touching Assistance-helper provides verbal cues and/or touching/steadying and/or contact guard assistance as patient completes activity. Assistance may be provided throughout the activity or intermittently. 3-Partial/Moderate Assistance-helper does LESS THAN HALF the effort. [place] lifts, holds or supports trunk or limbs, but provides less than half the effort. 2-Substantial/Maximal Assistance-helper does MORE THAN HALF the effort. [place] lifts or holds trunk or limbs and provides more than half the effort. 1-Dyyodyqlh-jvkwow does ALL the effort. Patient does none of the effort to c omplete the activity. Or, the assistance of 2 or more helpers is required for the patient to complete the activity. If activity was not attempted, code reason: 7-Patient Refused. 9-Not Applicable-not attempted and the patient did not perform the activity before the current illness, exacerbation or injury. 10-Not Attempted due to Environmental Limitations-(lack of equipment, weather restraints, etc.). 88-Not Attempted due to Medical Conditions or Safety Concerns. Self Care: Unknown Functional Cognition: Unknown DME/Equipment: Bath Chair, Shower, Tub/Shower Drive Self: No OT Current Status Subjective Pt reports 10/10 pain in bilateral knees. RN states pain medication has already been given. Appearance Pt left sitting in recliner, all needs within reach at OT departure. Mental Status/Objective Patient Orientation: Person, Confused Attachments: IV, Oxygen Current Glasses/Contacts: No Hearing Aids: No Dentures/Partials: Yes Hand Dominance: Right Upper Extremity ROM WFL Upper Extremity Strength 3+/5 grossly ADL-Treatment Eating (QC): 5 Oral Hygiene (QC): 4 Pt sitting in chair, declines moving or standing from chair secondary to bilateral knee pain. Per PT note, pt is min a for transfers. Pt reports wearing dentures but not currently here in the hospital. With encouragement and education on purpose, She was able to brush her gums with SBA. Pt encouraged to participate and continue to stay mobile throughout day. Education OT Patient Education: Correct positioning, Modified ADL techniques, Purpose of tx/functional activities, Rehab process Teaching Recipient: Patient Teaching Methods: Discussion Response to Teaching: Verbalize Understanding, Reinforcement Needed OT Assemblyman Or Woman Goals Assemblyman Or Woman Goals Time Frame: Nov 28, 2022 Oral Hygiene (QC): 5 Toileting Hygiene (QC): 6 Shower/Bathe Self (QC): 4 Upper Body Dressing (QC): 6 Lower Body Dressing (QC): 4 On/Off Footwear (QC): 4 Additional Goals: 1-Demonstrate ADL Tasks, 2-Verbalize Understanding, 3-ImproveStrength/Rafat 1=Demonstrate adherence to instructed precautions during ADL tasks. 2=Patient will verbalize/demonstrate understanding of assistive devices/modifications for ADL. 3=Patient will improve strength/tolerance for activity to enable patient to perform ADL's. OT Education/Plan Problem List/Assessment Assessment: Decreased Activ Tolerance, Decreased Safety Aware, Decreased UE Strength, Impaired Cognition, Impaired Funct Balance, Impaired I ADL's, Impaired Self-Care Skills Discharge Recommendations Plan/Recommendations: Continue POC Therapy Discharge Recommendati: Post Acute OT Treatment Plan/Plan of Care Treatment,Training & Education: Yes Patient would benefit from OT for education, treatment and training to promote independence in ADL's, mobility, safety and/or upper extremity function for ADL's. Plan of Care: ADL Retraining, Caregiver Training, Cognitive Retraining, Functional Mobility, Group Exercise/Act as Ind, UE Funct Exercise/Act Treatment Duration: Nov 28, 2022 Frequency: 3 times per week (3-5x/week ) Estimated Hrs Per Day: .25 hour per day Rehab Potential: Guarded Time Start Time: 10:53 Stop Time: 11:03 DATE: Nov 18, 2022 Total Time Billed (hr/min): 10 Billed Treatment Time 1 visit Claire Bardales OT Nov 18, 2022 11:15
--- NOTE | 2022-11-18 13:57 | History & Physical ---
HPI History of Present Illness: 72 yo F that was brought to ER after she was found to be covered in feces and confused. Patient states that she started feeling ill yesterday. Her nephew that she cares for had the flu last week. She states that she has had her flu vaccine for this year. Denies any shortness of breath but has been having some cough. S he has not taken her meds today because she has been confused. Source: patient, RN/MD Exam Limitations: no limitations Date seen by provider: Nov 18, 2022 Time Seen by Provider: 10:45 Attending Physician Neo Mcgill DO PCP Admitting Physician: Jocelin Muhammad MD Attending Physician: Obie Rich MD Consult Date of Admission Nov 17, 2022 at 16:43 Home Medications Home Medications Reviewed patient Home Medication Reconciliation performed by pharmacy medication reconciliations technician automatic and/or nursing. Patients Allergies have been reviewed. Allergies Coded Allergies: No Known Drug Allergies (Unverified , 06/07/09) MCL-Gxdxmv-Yljdsl Hx Patient Social History Living Status: Lives at home Smoking Status: Former Smoker 2nd Hand Smoke Exposure: Yes Recent Hopitalizations: No Alcohol Use?: No Have you traveled recently?: No Immunizations Up To Date Tetanus Booster (TDap): More than 5yrs Influenza Vaccine Up-to-Date: Yes; Up-to-Date First/Initial COVID19 Vaccinat: 06/30/21 Second COVID19 Vaccination Ron: PT REPORTS RECEIVED 2 COVID SHOTS UNKNOWN WHICH ONE OR WHEN Third COVID19 Vaccination Date: 06/30/21 COVID19 Vaccine Visual Inspector: [employer] Past Medical History CAD HTN Dementia Family Medical History Significant Family History: No Pertinent Family Hx Family History: Alzheimer's disease 19 MOTHER FH: cancer G8 SISTER FH: heart disease 19 FATHER Kidney disease 19 MOTHER Myocardial infarction G8 BROTHER Review of Systems ([facility]) Constitutional: fever, malaise EENTM: no symptoms reported; No mouth pain, No nose congestion Respiratory: cough; No short of breath Cardiovascular: no symptoms reported; No chest pain, No palpitations Gastrointestinal: no symptoms reported; No abdominal pain, No constipation, No diarrhea, No nausea, No vomiting Genitourinary: no symptoms reported; No dysuria, No frequency Musculoskeletal: no symptoms reported; No back pain, No joint pain, No muscle pain Skin: no symptoms reported Psychiatric/Neurological: Other (confused but seems to be at baseline this AM) Reviewed Test Results Reviewed Test Results Lab Laboratory Tests Test 11/17/22 14:40 11/17/22 16:40 11/17/22 17:45 11/17/22 19:40 Range/Units White Blood Count 13.7 H 4.3-11.0 10^3/uL Red Blood Count 5.60 H 3.80-5.11 10^6/uL Hemoglobin 16.8 H 11.5-16.0 g/dL Hematocrit 51 35-52 % Mean Corpuscular Volume 91 80-99 fL Mean Corpuscular Hemoglobin 30 25-34 pg Mean Corpuscular Hemoglobin Concent 33 32-36 g/dL Red Cell Distribution Width 13.3 10.0-14.5 % Platelet Count 168 130-400 10^3/uL Mean Platelet Volume 12.2 9.0-12.2 fL Immature Granulocyte % (Auto) 0 % Neutrophils (%) (Auto) 86 H 42-75 % Lymphocytes (%) (Auto) 4 L 12-44 % Monocytes (%) (Auto) 9 0-12 % Eosinophils (%) (Auto) 0 0-10 % Basophils (%) (Auto) 0 0-10 % Neutrophils # (Auto) 11.8 H 1.8-7.8 X 10^3 Lymphocytes # (Auto) 0.6 L 1.0-4.0 X 10^3 Monocytes # (Auto) 1.3 H 0.0-1.0 X 10^3 Eosinophils # (Auto) 0.0 0.0-0.3 10^3/uL Basophils # (Auto) 0.0 0.0-0.1 10^3/uL Immature Granulocyte # (Auto) 0.0 0.0-0.1 10^3/uL Neutrophils % (Manual) 86 % Lymphocytes % (Manual) 6 % Monocytes % (Manual) 8 % Blood Morphology Comment NORMAL Sodium Level 137 135-145 MMOL/L Potassium Level 4.0 3.6-5.0 MMOL/L Chloride Level 98 98-107 MMOL/L Carbon Dioxide Level 26 21-32 MMOL/L Anion Gap 13 5-14 MMOL/L Blood Urea Nitrogen 14 7-18 MG/DL Creatinine 1.02 0.60-1.30 MG/DL Estimat Glomerular Filtration Rate 58 BUN/Creatinine Ratio 14 Glucose Level 149 H 70-105 MG/DL Lactic Acid Level 2.48 *H 2.48 *H 2.09 *H 0.50-2.00 MMOL/L Calcium Level 9.9 8.5-10.1 MG/DL Corrected Calcium 9.7 8.5-10.1 MG/DL Magnesium Level 1.6 1.6-2.4 MG/DL Total Bilirubin 0.5 0.1-1.0 MG/DL Aspartate Amino Transf (AST/SGOT) 13 5-34 U/L Alanine Aminotransferase (ALT/SGPT) 16 0-55 U/L Alkaline Phosphatase 100 40-136 U/L Troponin I < 0.028 <0.028 NG/ML Total Protein 7.4 6.4-8.2 GM/DL Albumin 4.3 3.2-4.5 GM/DL Procalcitonin 0.11 H <0.10 NG/ML Urine Color YELLOW Urine Clarity CLEAR Urine pH 6.0 5-9 Urine Specific [place] >=1.030 1.016-1.022 Urine Protein 3+ H NEGATIVE Urine Glucose (UA) NEGATIVE NEGATIVE Urine Ketones NEGATIVE NEGATIVE Urine Nitrite POSITIVE H NEGATIVE Urine Bilirubin NEGATIVE NEGATIVE Urine Urobilinogen 0.2 < = 1.0 MG/DL Urine Leukocyte Esterase NEGATIVE NEGATIVE Urine RBC (Auto) 2+ H NEGATIVE Urine RBC NONE /HPF Urine WBC 0-2 /HPF Urine Squamous Epithelial Cells NONE /HPF Urine Renal Epithelial Cells NONE /HPF Urine Crystals NONE /LPF Urine Bacteria LARGE H /HPF Urine Casts NONE /LPF Urine Mucus NEGATIVE /LPF Urine Culture Indicated CULTURE PENDING Test 11/18/22 04:00 Range/Units White Blood Count 8.9 4.3-11.0 10^3/uL Red Blood Count 4.60 3.80-5.11 10^6/uL Hemoglobin 14.2 11.5-16.0 g/dL Hematocrit 42 35-52 % Mean Corpuscular Volume 92 80-99 fL Mean Corpuscular Hemoglobin 31 25-34 pg Mean Corpuscular Hemoglobin Concent 34 32-36 g/dL Red Cell Distribution Width 13.4 10.0-14.5 % Platelet Count 126 L 130-400 10^3/uL Mean Platelet Volume 12.9 H 9.0-12.2 fL Immature Granulocyte % (Auto) 0 % Neutrophils (%) (Auto) 81 H 42-75 % Lymphocytes (%) (Auto) 7 L 12-44 % Monocytes (%) (Auto) 11 0-12 % Eosinophils (%) (Auto) 0 0-10 % Basophils (%) (Auto) 0 0-10 % Neutrophils # (Auto) 7.3 1.8-7.8 10^3/uL Lymphocytes # (Auto) 0.7 L 1.0-4.0 10^3/uL Monocytes # (Auto) 1.0 0.0-1.0 10^3/uL Eosinophils # (Auto) 0.0 0.0-0.3 10^3/uL Basophils # (Auto) 0.0 0.0-0.1 10^3/uL Immature Granulocyte # (Auto) 0.0 0.0-0.1 10^3/uL Percent Immature Platelet Fraction 9.0 H 0.0-7.6 % Sodium Level 139 135-145 MMOL/L Potassium Level 3.5 L 3.6-5.0 MMOL/L Chloride Level 109 H 98-107 MMOL/L Carbon Dioxide Level 21 21-32 MMOL/L Anion Gap 9 5-14 MMOL/L Blood Urea Nitrogen 10 7-18 MG/DL Creatinine 0.84 0.60-1.30 MG/DL Estimat Glomerular Filtration Rate 74 BUN/Creatinine Ratio 12 Glucose Level 133 H 70-105 MG/DL Calcium Level 8.5 8.5-10.1 MG/DL Magnesium Level 1.5 L 1.6-2.4 MG/DL Physical Exam-([facility]) Physical Exam Vital Signs VS - Last 72 Hours, by Label 11/17/22 11/17/22 11/17/22 11/17/22 13:50 17:25 18:08 18:50 Temp 37.8 37.6 Pulse 98 109 67 96 Resp 16 16 22 B/P (MAP) 201/89 (126) 157/86 153/67 (95) 151/69 (96) Pulse Ox 98 97 92 O2 Delivery Room Air Room Air Room Air 11/17/22 11/17/22 11/17/22 11/17/22 18:58 19:33 19:50 20:05 Temp 37.8 38.0 37.3 Pulse 98 99 92 Resp 22 B/P (MAP) 198/80 (119) 185/78 (113) Pulse Ox 98 99 97 O2 Delivery Room Air Room Air FiO2 21 11/17/22 11/17/22 11/17/22 11/18/22 20:16 21:53 23:48 01:00 Temp 37.3 Pulse 97 97 93 Resp 20 B/P (MAP) 168/73 (104) Pulse Ox 95 91 O2 Delivery Room Air Room Air O2 Flow Rate 0.00 11/18/22 11/18/22 11/18/22 11/18/22 01:02 03:44 05:24 06:34 Temp 37.2 Pulse 91 100 105 92 Resp 20 B/P (MAP) 149/85 (106) 184/76 (112) 172/73 (106) 147/66 (93) Pulse Ox 96 O2 Delivery Room Air 11/18/22 11/18/22 11/18/22 11/18/22 07:06 07:43 08:00 11:20 Temp 37.2 36.8 Pulse 80 96 73 Resp 18 18 B/P (MAP) 120/56 (77) 144/62 (89) Pulse Ox 95 96 O2 Delivery Room Air Room Air Room Air 11/18/22 12:19 Pulse 75 Capillary Refill : Less Than 3 Seconds General Appearance: WD/WN, no apparent distress HEENT: PERRL/EOMI Neck: non-tender, full range of motion, supple Respiratory: chest non-tender, lungs clear, normal breath sounds, no respiratory distress, no accessory muscle use Cardiovascular: normal peripheral pulses, regular rate, rhythm, no murmur Gastrointestinal: normal bowel sounds, non tender, soft Back: no CVA tenderness, no vertebral tenderness Extremities: normal range of motion, non-tender, normal inspection, no pedal edema, no calf tenderness, normal capillary refill Neurologic/Psychiatric: automotive service advisor II-XII nml as tested, alert, normal mood/affect, oriented x 3 Skin: normal color, warm/dry Lymphatic: no adenopathy Assessment/Plan Assessment/Plan Admission Status: Inpatient Order (span 2 midnights) Reason for Inpatient Admission: patient unable to care for self and needing placement (1) Sepsis Status: Resolved Assessment & Plan: - IVFs, Tamiflu, no signs of bacterial coinfection Qualifiers: Qualified Codes: A41.9 - Sepsis, unspecified organism (2) Altered mental state Status: Acute Assessment & Plan: - Seems to be closer to baseline, will continue to monitor, patient does have underlying dementia, SW consult for SNF placement Qualifiers: Qualified Codes: R41.82 - Altered mental status, unspecified (3) Influenza A Status: Acute (4) Non-insulin dependent type 2 diabetes mellitus Status: Chronic (5) HTN (hypertension) Status: Chronic Assessment & Plan: - Restart home meds, IVFs decreased, continue to monitor Qualifiers: Qualified Codes: I10 - Essential (primary) hypertension (6) CAD (coronary artery disease) Status: Chronic Qualifiers: Qualified Codes: I25.10 - Atherosclerotic heart disease of [place] coronary artery without angina pectoris OBIE RICH MD Nov 18, 2022 13:57
[2022-11-18] MEDS: oxyCODONE/APAP 10/325MG (PERCOCET 10) TABLET PO SCH (19:48)
[2022-11-18] MEDS: ENOXAPARIN 40 MG/0.4 ML (LOVENOX) SYR SC SCH (19:49)
[2022-11-18] MEDS: MELATONIN 3 MG TABLET PO PRN (19:59)
[2022-11-19] VITALS (7 sets, daily range): BP systolic 116–169; BP diastolic 57–81
[2022-11-19] MEDS: oxyCODONE/APAP 10/325MG (PERCOCET 10) TABLET PO SCH ×4 (01:18→18:34)
[2022-11-19] MEDS: NITROGLYCERIN 2% OINT 1 GM UNIT DOSE PACKET TOP PRN (03:25)
[2022-11-19 04:58] LABS: BASOPHILS % (AUTO) 0 % (0-10); HEMATOCRIT 41 % (35-52); HEMOGLOBIN 13.6 g/dL (11.5-16.0); MEAN CORPUSCULAR HEMOGLOBIN 31 pg (25-34); MEAN CORPUSCULAR HGB CONC 33 g/dL (32-36); MEAN CORPUSCULAR VOLUME 93 fL (80-99)
[2022-11-19 05:00] LABS: EOSINOPHILS % (AUTO) 0 % (0-10); LYMPHOCYTES # (AUTO) 0.7 10^3/uL (1.0-4.0); LYMPHOCYTES % (AUTO) 16 % (12-44); MEAN PLATELET VOLUME 12.2 fL (9.0-12.2); MONOCYTES # (AUTO) 0.7 10^3/uL (0.0-1.0); MONOCYTES % (AUTO) 14 % (0-12); NEUTROPHILS # (AUTO) 3.2 10^3/uL (1.8-7.8); NEUTROPHILS % (AUTO) 69 % (42-75); PLATELET COUNT 108 10^3/uL (130-400); WHITE BLOOD COUNT 4.7 10^3/uL (4.3-11.0)
[2022-11-19 05:22] LABS: CALCIUM 8.4 MG/DL (8.5-10.1); CREATININE SERUM 0.82 MG/DL (0.60-1.30); POTASSIUM 3.5 MMOL/L (3.6-5.0)
[2022-11-19] MEDS: MAGNESIUM 1 GM/100 ML IVPB 100 ML IV SCH (05:34)
[2022-11-19] MEDS: POTASSIUM CL 10MEQ/50ML IVPB 50 ML IV SCH (05:35)
[2022-11-19] MEDS: KCL 20 MEQ TAB (K-DUR) PO SCH ×2 (05:35→06:21)
[2022-11-19 05:39] LABS: SMEAR SCAN COMMENT YES
[2022-11-19] MEDS ORDERED: KCL 20 MEQ TAB (K-DUR) PO ONE (08:00)
[2022-11-19] MEDS: PRAMIPEXOLE 0.5 MG TAB (MIRAPEX) PO SCH ×2 (09:28→20:06)
[2022-11-19] MEDS: OSELTAMIVIR 30 MG (TAMIFLU) CAPSULE PO SCH ×2 (09:28→20:06)
[2022-11-19] MEDS: OXYBUTYNIN (DITROPAN) 5 MG TAB PO SCH ×2 (09:28→20:05)
[2022-11-19] MEDS: DOCUSATE SODIUM 100 MG (COLACE) CAP PO SCH ×2 (09:28→20:07)
[2022-11-19] MEDS: ATENOLOL 25 MG (TENORMIN) TAB PO SCH (09:28)
[2022-11-19] MEDS: GABAPENTIN 600 MG (NEURONTIN) TAB PO SCH ×2 (09:29→20:06)
[2022-11-19] MEDS: LORazepam 0.5 MG (ATIVAN) TABLET PO PRN ×2 (09:29→22:28)
[2022-11-19] MEDS: SENNOSIDES 8.6 MG (SENOKOT) TAB PO SCH ×2 (09:29→20:06)
[2022-11-19] MEDS: amLODIPine 5 MG (NORVASC) TAB PO SCH (09:29)
--- NOTE | 2022-11-19 09:59 | Physical Therapy Daily Note ---
PT Daily Note-Current Subjective Pt laying Supine in bed upon arrival. Pt agrees to PT for walking. Pain Location: No Pain Reported Section J - Health Conditions 1. Rarely or not at all 2. Occasionally 3. Frequently 4. Almost constantly 8. Unable to answer Pain Effect on Sleep: 1 Pain Interference with Therapy: 1 Pain Interference w/Day-to-Day: 1 Mental Status Patient Orientation: Person, Place, Situation Attachments: IV Transfers SCALE: Activities may be completed with or without assistive devices. 6-Japytriddv-kfrntvo completes the activity by him/herself with no assistance from a helper. 5-Set-up or Clean-up Assistance-helper sets up or cleans up; patient completes activity. [place] assists only prior to or following the activity. 4-Supervision or Touching Assistance-helper provides verbal cues and/or touching/steadying and/or contact guard assistance as patient completes activity. Assistance may be provided throughout the activity or intermittently. 3-Partial/Moderate Assistance-helper does LESS THAN HALF the effort. [place] lifts, holds or supports trunk or limbs, but provides less than half the effort. 2-Substantial/Maximal Assistance-helper does MORE THAN HALF the effort. [place] lifts or holds trunk or limbs and provides more than half the effort. 8-Dokypnnhz-dnyhrj does ALL the effort. Patient does none of the effort to complete the activity. Or, the assistance of 2 or more helpers is required for the patient to complete the activity. If activity was not attempted, code reason: 7-Patient Refused. 9-Not Applicable-not attempted and the patient did not perform the activity before the current illness, exacerbation or injury. 10-Not Attempted due to Environmental Limitations-(lack of equipment, weather restraints, etc.). 88-Not Attempted due to Medical Conditions or Safety Concerns. Sit to Stand (QC): 4 Weight Bearing Full Weight Bearing Full Weight Bearing Gait Training Does the Patient Walk?: Yes Distance: 50' Walk 10 feet (QC): 5 Walk 50 ft with 2 Turns(QC): 5 Gait Assistive Device: FWW Treatments TF to EOB then standing. Pt amb. in room before TF back to recliner to rest. Chair alarm on with all needs met, call light in hand. Assessment Current Status: Fair Progress Pt is fatigued due to Flu and needs encouragement to push. PT Hands Assembler Goals Usp Goals PT Usp Goals Time Frame: Nov 29, 2022 Roll Left & Right (QC): 5 Sit to Lying (QC): 5 Lying-Sitting on Side/Bed(QC): 5 Sit to Stand (QC): 5 Chair/Dhq-hh-Njeib Xfer(QC): 5 Toilet Transfer (QC): 5 Walk 10 feet (QC): 4 Walk 50ft with 2 Turns (QC): 4 Walk 150 ft (QC): 4 PT Plan Problem List Problem List: Activity Tolerance, Functional Strength Treatment/Plan Treatment Plan: Continue Plan of Care Treatment Plan: Bed Mobility, Education, Functional Activity Rafat, Functional Strength, Gait, Safety, Therapeutic Exercise, Transfers Treatment Duration: Nov 29, 2022 Frequency: 6 times per week Estimated Hrs Per Day: .25 hour per day Time Time In: 900 Time Out: 935 DATE: Nov 19, 2022 Total Billed Treatment Time: 35 Total Billed Treatment 1, FA (15m) & GT (20m) LAURIE HAN CAM MILLING MACHINE OPERATOR Nov 19, 2022 09:59
--- NOTE | 2022-11-19 10:08 | Progress Note ---
Subjective Subjective/Events-last exam Patient states that she is feeling some better but still very weak. She has not been out of bed. Tolerated PO diet but appetite is less. Denies shortness of breath or chest pain Review of Systems Pulmonary: No Dyspnea, No Cough Cardiovascular: No: Chest Pain, Palpitations, Edema Gastrointestinal: Nausea; No: Vomiting, Abdominal Pain, Diarrhea, Constipation Neurological: Weakness, Incoordination Focused Exam Lactate Level 11/17/22 14:40: Lactic Acid Level 2.48*H 11/17/22 17:45: Lactic Acid Level 2.48*H 11/17/22 19:40: Lactic Acid Level 2.09*H Objective Exam Last Set of Vital Signs Vital Signs Date Time Temp Pulse Resp B/P (MAP) Pulse Ox O2 Delivery O2 Flow Rate FiO2 11/19/22 08:23 36.2 61 17 145/69 (94) 93 Room Air 11/17/22 21:53 0.00 11/17/22 18:58 21 Capillary Refill : Less Than 3 Seconds I&O Intake and Output 11/19/22 00:00 Intake Total 1050 ml Output Total 1800 ml Balance -750 ml Intake Oral 1050 ml Output Urine Total 1800 ml # Voids 1 General: Alert, Oriented X3, No Acute Distress Lungs: Clear to Auscultation, Normal Air Movement Heart: Regular Rate, No Murmurs Abdomen: Normal Bowel Sounds, Soft, No Tenderness Extremities: No Edema, No Tenderness/Swelling Neuro: Normal Speech Results/Procedures Lab Laboratory Tests 11/19/22 04:35: White Blood Count 4.7, Red Blood Count 4.44, Hemoglobin 13.6, Hematocrit 41, Mean Corpuscular Volume 93, Mean Corpuscular Hemoglobin 31, Mean Corpuscular Hemoglobin Concent 33, Red Cell Distribution Width 13.7, Platelet Count 108L, Mean Platelet Volume 12.2, Immature Granulocyte % (Auto) 0, Neutrophils (%) (Auto) 69, Lymphocytes (%) (Auto) 16, Monocytes (%) (Auto) 14H, Eosinophils (%) (Auto) 0, Basophils (%) (Auto) 0, Neutrophils # (Auto) 3.2, Lymphocytes # (Auto) 0.7L, Monocytes # (Auto) 0.7, Eosinophils # (Auto) 0.0, Basophils # (Auto) 0.0, Immature Granulocyte # (Auto) 0.0, Percent Immature Platelet Fraction 7.5, Sodium Level 140, Potassium Level 3.5L, Chloride Level 107, Carbon Dioxide Level 22, Anion Gap 11, Blood Urea Nitrogen 11, Creatinine 0.82, Estimat Glomerular Filtration Rate 76, BUN/Creatinine Ratio 13, Glucose Level 96, Calcium Level 8.4L, Magnesium Level 2.0, Smear Scan YES Microbiology 11/17/22 Urine Culture - Preliminary, Resulted Escherichia coli 11/17/22 Blood Culture - Preliminary, Resulted No growth Assessment/Plan Assessment/Plan (1) Sepsis Status: Resolved Assessment & Plan: - IVFs, Tamiflu, no signs of bacterial coinfection Qualifiers: Qualified Codes: A41.9 - Sepsis, unspecified organism (2) Altered mental state Status: Resolved Assessment & Plan: - Seems to be closer to baseline, will continue to monitor, patient does have underlying dementia, SW consult for SNF placement -11/19: Son states mother is close to her baseline this AM Qualifiers: Qualified Codes: R41.82 - Altered mental status, unspecified (3) Influenza A Status: Acute Assessment & Plan: 11/19: Complete Tamiflu (4) Non-insulin dependent type 2 diabetes mellitus Status: Chronic (5) HTN (hypertension) Status: Chronic Assessment & Plan: - Restart home meds, IVFs decreased, continue to monitor -11/19: Improving, Lisinopril 20 mg daily started today Qualifiers: Qualified Codes: I10 - Essential (primary) hypertension (6) CAD (coronary artery disease) Status: Chronic Qualifiers: Qualified Codes: I25.10 - Atherosclerotic heart disease of [place] coronary artery without angina pectoris (7) Physical debility Status: Acute Assessment & Plan: -11/19: PT/OT ordered, patient would benefit with SNF due to instablity and high risk of falling at home, lives home alone OBIE GIL MD Nov 19, 2022 10:08
--- NOTE | 2022-11-19 10:10 | Occupational Ther Daily Note ---
OT Current Status-Daily Note Subjective Pt alert, sitting in recliner. Pt agrees to therapy. No c/o pain. Mental Status/Objective Patient Orientation: Person, Place, Time, Situation Attachments: Ty Catheter, IV, Telemetry ADL-Treatment SBA using FWW and assist to manipulate IV pole/tubing. Independent standing at sink, to complete grooming, wash face and rinse mouth. Pt then ambulated back t o recliner. After session, pt sitting in recliner with call light/phone in reach. All needs met in room. Therapy Code Descriptions/Definitions Functional [place] Measure: 0=Not Assessed/NA 4=Minimal Assistance 1=Total Assistance 5=Supervision or Setup 2=Maximal Assistance 6=Modified [place] 3=Moderate Assistance 7=Complete IndependenceSCALE: Activities may be completed with or without assistive devices. 0-Jwsvwqfgei-vaczywr completes the activity by him/herself with no assistance from a helper. 5-Set-up or Clean-up Assistance-helper sets up or cleans up; patient completes activity. [place] assists only prior to or following the activity. 4-Supervision or Touching Assistance-helper provides verbal cues and/or touching/steadying and/or contact guard assistance as patient completes activity. Assistance may be provided throughout the activity or intermittently. 3-Partial/Moderate Assistance-helper does LESS THAN HALF the effort. [place] lifts, holds or supports trunk or limbs, but provides less than half the effort. 2-Substantial/Maximal Assistance-helper does MORE THAN HALF the effort. [place] lifts or holds trunk or limbs and provides more than half the effort. 8-Ggownxggr-aymetm does ALL the effort. Patient does none of the effort to complete the activity. Or, the assistance of 2 or more helpers is required for the patient to complete the activity. If activity was not attempted, code reason: 7-Patient Refused. 9-Not Applicable-not attempted and the patient did not perform the activity before the current illness, exacerbation or injury. 10-Not Attempted due to Environmental Limitations-(lack of equipment, weather restraints, etc.). 88-Not Attempted due to Medical Conditions or Safety Concerns. OT Credit Union Field Examiner Goals Credit Union Field Examiner Goals Time Frame: Nov 28, 2022 Oral Hygiene (QC): 5 Toileting Hygiene (QC): 6 Shower/Bathe Self (QC): 4 Upper Body Dressing (QC): 6 Lower Body Dressing (QC): 4 On/Off Footwear (QC): 4 Additional Goals: 1-Demonstrate ADL Tasks, 2-Verbalize Understanding, 3- ImproveStrength/Rafat 1=Demonstrate adherence to instructed precautions during ADL tasks. 2=Patient will verbalize/demonstrate understanding of assistive devices/modifications for ADL. 3=Patient will improve strength/tolerance for activity to enable patient to perform ADL's. OT Education/Plan Problem List/Assessment Assessment: Decreased Activ Tolerance, Impaired Self-Care Skills Discharge Recommendations Plan/Recommendations: Continue POC Treatment Plan/Plan of Care Patient would benefit from OT for education, treatment and training to promote independence in ADL's, mobility, safety and/or upper extremity function for ADL's. Plan of Care: ADL Retraining, Caregiver Training, Cognitive Retraining, Functional Mobility, Group Exercise/Act as Ind, UE Funct Exercise/Act Treatment Duration: Nov 28, 2022 Frequency: 3 times per week (3-5x/week ) Estimated Hrs Per Day: .25 hour per day Rehab Potential: Guarded Time Start Time: 09:50 Stop Time: 10:10 DATE: Nov 19, 2022 Total Time Billed (hr/min): 20 Billed Treatment Time 1 visit-ADL 1 (20 min) QI KAUFMAN Nov 19, 2022 10:10
[2022-11-19] MEDS: lisINopril 20 MG (PRINIVIL) TABLET PO SCH (12:06)
[2022-11-19] MEDS ORDERED: DULO30CA49 PO (14:47)
[2022-11-19] MEDS ORDERED: LEVA0.6334 NEB (14:47)
[2022-11-19] MEDS ORDERED: OXYC-556 PO (14:50)
[2022-11-19] MEDS: RT-ALBUTEROL/IPRATROPIUM 3 ML (DUONEB) VIAL INH PRN (15:22)
--- NOTE | 2022-11-19 17:59 | Physician Query Clarification ---
Physician Query-General Query to Physician: The medical record reflects the following clinical evidence: Clinical Indicators: GCS 14 on admission, Documentation of note taking medications today and admitted covered in feces. This patient that had been living at home on her own with 8 year old adopted son. Home is described to be in bad condition. Documentation of Acute Altered mental status on admission and then "resolved" and Close to baseline according to son, per documentation on 11/19/2022 Risk Factor(s): Influenza A, Sepsis, "early stage" Dementia Treatment: IV ABX, monitoring of Neuro status, 1. Metabolic encephalopathy, in the setting of chronic dementia, present on admission, now resolving 2. Other explanation of clinical findings 3. Unable to determine (no explanation for clinical findings) Please clarify and document your clinical opinion in the progress notes and discharge summary including the definitive and/or presumptive diagnosis, (suspected or probable), related to the above clinical findings. Please include clinical findings supporting your diagnosis. Leann Haines RN, MSN Clinical Coverstitch Binder [phone] [email or web address] PHYSICIAN RESPONSE: Based on the clinical findings in the record, please respond to the query above on this document as an addendum. Physician Response: Physician Response 1 If you have questions please contact: Supervisor Partial Denture Department: Ext: Thank you for your time and cooperation. Clinical Coverstitch Binder/Supervisor Partial Denture Department This is a permanent part of the medical record LEANN HAINES Nov 19, 2022 17:59 DEBORAH HAWK DO Nov 25, 2022 17:29
[2022-11-19] MEDS: NS IV 1000 ML 1,000 ML IV SCH (18:34)
[2022-11-19] MEDS: ENOXAPARIN 40 MG/0.4 ML (LOVENOX) SYR SC SCH (20:07)
[2022-11-20] MEDS: oxyCODONE/APAP 10/325MG (PERCOCET 10) TABLET PO SCH ×4 (01:07→19:24)
[2022-11-20 03:10] VITALS: BP 160/71
[2022-11-20 06:00] LABS: CALCIUM 8.6 MG/DL (8.5-10.1)
[2022-11-20 06:02] LABS: MEAN CORPUSCULAR VOLUME 94 fL (80-99)
[2022-11-20 06:04] LABS: BASOPHILS % (AUTO) 1 % (0-10); EOSINOPHILS # (AUTO) 0.1 10^3/uL (0.0-0.3); EOSINOPHILS % (AUTO) 1 % (0-10); HEMATOCRIT 40 % (35-52); LYMPHOCYTES # (AUTO) 1.2 10^3/uL (1.0-4.0); LYMPHOCYTES % (AUTO) 26 % (12-44); MEAN CORPUSCULAR HEMOGLOBIN 30 pg (25-34); MEAN CORPUSCULAR HGB CONC 32 g/dL (32-36); MEAN PLATELET VOLUME 12.4 fL (9.0-12.2); MONOCYTES # (AUTO) 0.5 10^3/uL (0.0-1.0); MONOCYTES % (AUTO) 11 % (0-12); NEUTROPHILS # (AUTO) 2.9 10^3/uL (1.8-7.8); NEUTROPHILS % (AUTO) 61 % (42-75); PLATELET COUNT 120 10^3/uL (130-400); WHITE BLOOD COUNT 4.8 10^3/uL (4.3-11.0)
[2022-11-20] MEDS: KCL 20 MEQ TAB (K-DUR) PO SCH ×2 (06:04→06:37)
[2022-11-20 06:05] LABS: CREATININE SERUM 0.94 MG/DL (0.60-1.30)
[2022-11-20 06:07] LABS: MAGNESIUM 1.9 MG/DL (1.6-2.4)
[2022-11-20] MEDS: SENNOSIDES 8.6 MG (SENOKOT) TAB PO SCH ×2 (08:05→20:30)
[2022-11-20] MEDS: NS IV 1000 ML 1,000 ML IV SCH ×2 (08:05→19:21)
[2022-11-20] MEDS: ATENOLOL 25 MG (TENORMIN) TAB PO SCH (08:05)
[2022-11-20] MEDS: DOCUSATE SODIUM 100 MG (COLACE) CAP PO SCH ×2 (08:06→20:30)
[2022-11-20] MEDS: lisINopril 20 MG (PRINIVIL) TABLET PO SCH (08:06)
[2022-11-20] MEDS: OXYBUTYNIN (DITROPAN) 5 MG TAB PO SCH ×2 (08:06→20:30)
[2022-11-20] MEDS: GABAPENTIN 600 MG (NEURONTIN) TAB PO SCH ×2 (08:06→20:30)
[2022-11-20] MEDS: ASPIRIN E.C. 81 MG (ECOTRIN) TAB PO SCH (08:06)
[2022-11-20] MEDS: amLODIPine 5 MG (NORVASC) TAB PO SCH (08:06)
[2022-11-20] MEDS: PRAMIPEXOLE 0.5 MG TAB (MIRAPEX) PO SCH ×2 (08:06→20:30)
[2022-11-20 08:08] VITALS: BP 149/77
--- NOTE | 2022-11-20 10:06 | Physical Therapy Daily Note ---
PT Daily Note-Current Subjective Pt reports her knees are too painful. They're not going to let her do much. Pain Section J - Health Conditions 1. Rarely or not at all 2. Occasionally 3. Frequently 4. Almost constantly 8. Unable to answer Pain Effect on Sleep: 1 Pain Interference with Therapy: 1 Pain Interference w/Day-to-Day: 1 Transfers SCALE: Activities may be completed with or without assistive devices. 5-Wlwofgzgio-nnjqjij completes the activity by him/herself with no assistance from a helper. 5-Set-up or Clean-up Assistance-helper sets up or cleans up; patient completes activity. [place] assists only prior to or following the activity. 4-Supervision or Touching Assistance-helper provides verbal cues and/or touching/steadying and/or contact guard assistance as patient completes activity. Assistance may be provided throughout the activity or intermittently. 3-Partial/Moderate Assistance-helper does LESS THAN HALF the effort. [place] lifts, holds or supports trunk or limbs, but provides less than half the effort. 2-Substantial/Maximal Assistance-helper does MORE THAN HALF the effort. [place] lifts or holds trunk or limbs and provides more than half the effort. 1-Kamudtvcg-rtoanv does ALL the effort. Patient does none of the effort to complete the activity. Or, the assistance of 2 or more helpers is required for the patient to complete the activity. If activity was not attempted, code reason: 7-Patient Refused. 9-Not Applicable-not attempted and the patient did not perform the activity before the current illness, exacerbation or injury. 10-Not Attempted due to Environmental Limitations-(lack of equipment, weather restraints, etc.). 88-Not Attempted due to Medical Conditions or Safety Concerns. Sit to stand x 3 trials with education to stand upright and use walker to unweight knees, Transferred bed to bedside chair using FWW and verbal cues for safe turns. Weight Bearing Full Weight Bearing Full Weight Bearing Exercises Supine Ex: Heel Slides Assessment Attempted ambulation x 3 trials, patient repeatedly reported she could not do it because of knee pain. Performed light knee ROM and then transferred to bedside chair with alarm in place. Transfer Min A. PT Branch Service Leader Goals Branch Service Leader Goals PT Long-Term Goals Time Frame: Nov 29, 2022 Roll Left & Right (QC): 5 Sit to Lying (QC): 5 Lying-Sitting on Side/Bed(QC): 5 Sit to Stand (QC): 5 Chair/Coa-yv-Kgbxc Xfer(QC): 5 Toilet Transfer (QC): 5 Walk 10 feet (QC): 4 Walk 50ft with 2 Turns (QC): 4 Walk 150 ft (QC): 4 PT Plan Treatment/Plan Treatment Plan: Continue Plan of Care Treatment Plan: Bed Mobility, Education, Functional Activity Rafat, Functional Strength, Gait, Safety, Therapeutic Exercise, Transfers Treatment Duration: Nov 29, 2022 Frequency: 6 times per week Estimated Hrs Per Day: .25 hour per day Time Time In: 945 Time Out: 1000 DATE: Nov 20, 2022 Total Billed Treatment Time: 15 Total Billed Treatment visit, FA x 15 min ANEL JAQUEZ PT Nov 20, 2022 10:06
[2022-11-20] MEDS: OSELTAMIVIR 30 MG (TAMIFLU) CAPSULE PO SCH ×2 (10:30→20:30)
--- NOTE | 2022-11-20 11:31 | Occupational Ther Daily Note ---
OT Current Status-Daily Note Subjective Pt sitting in chair with blanket over head. Pt states that she is cold. Temp increased in room and will covered pt with multiple blankets at end of session. Mental Status/Objective Patient Orientation: Person, Time Attachments: Ty Catheter, IV ADL-Treatment Pt initially agrees to ambulate to bathroom to complete oral care. Pt began to ambulate using FWW ~6' then stated she could not go any further. BETTS encouraged pt to ambulate more and pt stated that her legs hurt and could not go any further. Pt ambulated backwards toward chair. Pt then complete oral care sitting in recliner by self after supplies were gathered. At end of session, son present in room. Call light/phone in reach. Safety measures in place. All needs met. Therapy Code Descriptions/Definitions Functional [place] Measure: 0=Not Assessed/NA 4=Minimal Assistance 1=Total Assistance 5=Supervision or Setup 2=Maximal Assistance 6=Modified [place] 3=Moderate Assistance 7=Complete IndependenceSCALE: Activities may be completed with or without assistive devices. 2-Qghwgtakhw-wgdwhwb completes the activity by him/herself with no assistance from a helper. 5-Set-up or Clean-up Assistance-helper sets up or cleans up; patient completes activity. [place] assists only prior to or following the activity. 4-Supervision or Touching Assistance-helper provides verbal cues and/or touching/steadying and/or contact guard assistance as patient completes activity. Assistance may be provided throughout the activity or intermittently. 3-Partial/Moderate Assistance-helper does LESS THAN HALF the effort. [place] lifts, holds or supports trunk or limbs, but provides less than half the effort. 2-Substantial/Maximal Assistance-helper does MORE THAN HALF the effort. [place] lifts or holds trunk or limbs and provides more than half the effort. 5-Aljmuknbl-azpypf does ALL the effort. Patient does none of the effort to complete the activity. Or, the assistance of 2 or more helpers is required for the patient to complete the activity. If activity was not attempted, code reason: 7-Patient Refused. 9-Not Applicable-not attempted and the patient did not perform the activity before the current illness, exacerbation or injury. 10-Not Attempted due to Environmental Limitations-(lack of equipment, weather restraints, etc.). 88-Not Attempted due to Medical Conditions or Safety Concerns. Oral Hygiene (QC): 5 OT Day Treatment Clinician/Art Therapist Goals Day Treatment Clinician/Art Therapist Goals Time Frame: Nov 28, 2022 Oral Hygiene (QC): 5 Toileting Hygiene (QC): 6 Shower/Bathe Self (QC): 4 Upper Body Dressing (QC): 6 Lower Body Dressing (QC): 4 On/Off Footwear (QC): 4 Additional Goals: 1-Demonstrate ADL Tasks, 2-Verbalize Understanding, 3- ImproveStrength/Rafat 1=Demonstrate adherence to instructed precautions during ADL tasks. 2=Patient will verbalize/demonstrate understanding of assistive devices/m odifications for ADL. 3=Patient will improve strength/tolerance for activity to enable patient to perform ADL's. OT Education/Plan Problem List/Assessment Assessment: Decreased Activ Tolerance, Decreased Safety Aware, Impaired Self- Care Skills Discharge Recommendations Plan/Recommendations: Continue POC Treatment Plan/Plan of Care Patient would benefit from OT for education, treatment and training to promote independence in ADL's, mobility, safety and/or upper extremity function for ADL's. Plan of Care: ADL Retraining, Caregiver Training, Cognitive Retraining, Functional Mobility, Group Exercise/Act as Ind, UE Funct Exercise/Act Treatment Duration: Nov 28, 2022 Frequency: 3 times per week (3-5x/week ) Estimated Hrs Per Day: .25 hour per day Rehab Potential: Guarded Time Start Time: 10:50 Stop Time: 11:10 DATE: Nov 20, 2022 Total Time Billed (hr/min): 20 Billed Treatment Time 1 visit-ADL 1 (20 min) QI KAUFMAN Nov 20, 2022 11:31
[2022-11-20 11:52] VITALS: BP 165/73
--- NOTE | 2022-11-20 15:43 | Progress Note ---
Subjective Subjective/Events-last exam Patient states that she is having pain in her legs. She has not been out of bed. Tolerating PO diet. Review of Systems General: Fatigue Pulmonary: Dyspnea; No Cough Cardiovascular: No: Chest Pain, Palpitations Neurological: Weakness, Incoordination, Confusion Focused Exam Lactate Level 11/17/22 17:45: Lactic Acid Level 2.48*H 11/17/22 19:40: Lactic Acid Level 2.09*H Objective Exam Last Set of Vital Signs Vital Signs Date Time Temp Pulse Resp B/P (MAP) Pulse Ox O2 Delivery O2 Flow Rate FiO2 11/20/22 11:52 37.2 69 20 165/73 (103) 94 Room Air 11/20/22 09:32 0.00 11/17/22 18:58 21 Capillary Refill : Less Than 3 Seconds I&O Intake and Output 11/20/22 00:00 Intake Total 760 ml Output Total 2000 ml Balance -1240 ml Intake Oral 760 ml Output Urine Total 2000 ml General: Alert, No Acute Distress Lungs: Other (diffuse wheezing, normal work of breathing) Heart: Regular Rate, No Murmurs Abdomen: Normal Bowel Sounds, Soft, No Tenderness, No Masses Extremities: No Edema, No Tenderness/Swelling Neuro: Normal Speech Results/Procedures Lab Laboratory Tests 11/20/22 05:14: White Blood Count 4.8, Red Blood Count 4.30, Hemoglobin 13.0, Hematocrit 40, Mean Corpuscular Volume 94, Mean Corpuscular Hemoglobin 30, Mean Corpuscular Hemoglobin Concent 32, Red Cell Distribution Width 13.8, Platelet Count 120L, Mean Platelet Volume 12.4H, Immature Granulocyte % (Auto) 0, Neutrophils (%) (Auto) 61, Lymphocytes (%) (Auto) 26, Monocytes (%) (Auto) 11, Eosinophils (%) (Auto) 1, Basophils (%) (Auto) 1, Neutrophils # (Auto) 2.9, Lymphocytes # (Auto) 1.2, Monocytes # (Auto) 0.5, Eosinophils # (Auto) 0.1, Basophils # (Auto) 0.0, Immature Granulocyte # (Auto) 0.0, Percent Immature Platelet Fraction 6.9, Sodium Level 139, Potassium Level 4.0, Chloride Level 106, Carbon Dioxide Level 21, Anion Gap 12, Blood Urea Nitrogen 20H, Creatinine 0.94, Estimat Glomerular Filtration Rate 64, BUN/Creatinine Ratio 21, Glucose Level 86, Calcium Level 8.6, Magnesium Level 1.9 Microbiology 11/17/22 Urine Culture - Final, Complete Escherichia coli 11/17/22 Blood Culture - Preliminary, Resulted No growth Assessment/Plan Assessment/Plan (1) Sepsis Status: Resolved Assessment & Plan: - IVFs, Tamiflu, no signs of bacterial coinfection 11/20: Continue tamiflu Qualifiers: Qualified Codes: A41.9 - Sepsis, unspecified organism (2) Altered mental state Status: Resolved Assessment & Plan: - Seems to be closer to baseline, will continue to monitor, patient does have underlying dementia, SW consult for SNF placement -11/19: Son states mother is close to her baseline this AM Qualifiers: Qualified Codes: R41.82 - Altered mental status, unspecified (3) Influenza A Status: Acute Assessment & Plan: 11/19: Complete Tamiflu (4) Non-insulin dependent type 2 diabetes mellitus Status: Chronic (5) HTN (hypertension) Status: Chronic Assessment & Plan: - Restart home meds, IVFs decreased, continue to monitor -11/19: Improving, Lisinopril 20 mg daily started today 11/20: Stopped IVFs today, continue to monitor blood pressures Qualifiers: Qualified Codes: I10 - Essential (primary) hypertension (6) CAD (coronary artery disease) Status: Chronic Qualifiers: Qualified Codes: I25.10 - Atherosclerotic heart disease of [place] coronary artery without angina pectoris (7) Physical debility Status: Acute Assessment & Plan: -11/19: PT/OT ordered, patient would benefit with SNF due to instablity and high risk of falling at home, lives home alone 11/20: She has been accepted by [facility], awaiting insurance approval OBIE GIL MD Nov 20, 2022 15:43
[2022-11-20 16:37] VITALS: BP 151/66
[2022-11-20] MEDS ORDERED: FUROSEMIDE 40 MG/4 ML INJ (LASIX) IVP NR (17:15)
[2022-11-20] MEDS: ENOXAPARIN 40 MG/0.4 ML (LOVENOX) SYR SC SCH (20:29)
[2022-11-20] MEDS: ACETAMINOPHEN 325 MG TABLET PO PRN (20:30)
[2022-11-20 20:34] VITALS: BP 134/70
[2022-11-21] VITALS (7 sets, daily range): BP systolic 101–149; BP diastolic 62–85
[2022-11-21] MEDS: oxyCODONE/APAP 10/325MG (PERCOCET 10) TABLET PO SCH ×4 (01:04→13:33)
[2022-11-21 05:46] LABS: BASOPHILS % (AUTO) 0 % (0-10); EOSINOPHILS % (AUTO) 0 % (0-10); HEMATOCRIT 44 % (35-52); HEMOGLOBIN 14.6 g/dL (11.5-16.0); LYMPHOCYTES % (AUTO) 9 % (12-44); MEAN CORPUSCULAR HEMOGLOBIN 30 pg (25-34); MEAN CORPUSCULAR HGB CONC 33 g/dL (32-36); MEAN CORPUSCULAR VOLUME 92 fL (80-99); MEAN PLATELET VOLUME 11.6 fL (9.0-12.2); MONOCYTES # (AUTO) 1.2 10^3/uL (0.0-1.0); MONOCYTES % (AUTO) 11 % (0-12); NEUTROPHILS # (AUTO) 8.9 10^3/uL (1.8-7.8); NEUTROPHILS % (AUTO) 79 % (42-75); PLATELET COUNT 158 10^3/uL (130-400); WHITE BLOOD COUNT 11.3 10^3/uL (4.3-11.0)
[2022-11-21 06:01] LABS: POTASSIUM 4.4 MMOL/L (3.6-5.0)
[2022-11-21 06:02] LABS: CALCIUM 9.5 MG/DL (8.5-10.1)
[2022-11-21 06:06] LABS: CREATININE SERUM 1.51 MG/DL (0.60-1.30)
[2022-11-21 06:09] LABS: MAGNESIUM 1.9 MG/DL (1.6-2.4)
[2022-11-21] MEDS: KCL 20 MEQ TAB (K-DUR) PO SCH ×2 (06:27)
[2022-11-21] MEDS: RT-ALBUTEROL/IPRATROPIUM 3 ML (DUONEB) VIAL INH PRN (08:25)
[2022-11-21] MEDS: ASPIRIN E.C. 81 MG (ECOTRIN) TAB PO SCH (08:26)
[2022-11-21] MEDS: SENNOSIDES 8.6 MG (SENOKOT) TAB PO SCH ×2 (08:26→20:50)
[2022-11-21] MEDS: amLODIPine 5 MG (NORVASC) TAB PO SCH (08:26)
[2022-11-21] MEDS: lisINopril 20 MG (PRINIVIL) TABLET PO SCH (08:26)
[2022-11-21] MEDS: PRAMIPEXOLE 0.5 MG TAB (MIRAPEX) PO SCH ×2 (08:26→20:50)
[2022-11-21] MEDS: ATENOLOL 25 MG (TENORMIN) TAB PO SCH (08:26)
[2022-11-21] MEDS: OSELTAMIVIR 30 MG (TAMIFLU) CAPSULE PO SCH ×2 (08:26→20:50)
[2022-11-21] MEDS: DOCUSATE SODIUM 100 MG (COLACE) CAP PO SCH ×2 (08:26→20:50)
[2022-11-21] MEDS: OXYBUTYNIN (DITROPAN) 5 MG TAB PO SCH ×2 (08:26→20:50)
[2022-11-21] MEDS: GABAPENTIN 600 MG (NEURONTIN) TAB PO SCH ×2 (08:26→20:50)
--- NOTE | 2022-11-21 11:54 | Progress Note - Hospitalist ---
Subjective HPI/CC On Admission Date Seen by Provider: Nov 21, 2022 Time Seen by Provider: 11:45 Subjective/Events-last exam Patient a bit sedated Pain medication will be decreased Set for discharge to correction but family concerned about multiple issues so we will hold discharge Will start IV fluids due to creatinine elevation at 1.5 and she has poor oral intake PT and OT ordered Reviewed meds Completed septic work-up no evidence of any sepsis Review of Systems General: Fatigue, Malaise Neurological: Confusion Objective Exam Vital Signs Vital Signs Date Time Temp Pulse Resp B/P (MAP) Pulse Ox O2 Delivery O2 Flow Rate FiO2 11/22/22 07:15 36.8 89 18 137/73 (94) 93 Room Air 2.00 2.00 11/17/22 18:58 21 Capillary Refill : Less Than 3 Seconds General Appearance: No Apparent Distress, WD/WN, Chronically ill Respiratory: Lungs Clear, Normal Breath Sounds, Decreased Breath Sounds Cardiovascular: Regular Rate, Rhythm Results/Procedures Lab Laboratory Tests 11/22/22 05:24 Patient resulted labs reviewed. Assessment/Plan Assessment and Plan Assess & Plan/Chief Complaint Assessment: Metabolic encephalopathy Influenza A Poor social situation Dementia Acute kidney injury Hypertension Poor oral intake Debility CAD Plan: IV fluids Septic work-up reviewed Continue PT and OT Hold discharge DEBORAH HAWK DO Nov 21, 2022 11:54
[2022-11-21 11:58] LABS: ALBUMIN 3.8 GM/DL (3.2-4.5)
[2022-11-21 12:01] LABS: TOTAL PROTEIN 6.7 GM/DL (6.4-8.2)
[2022-11-21 12:06] LABS: BILIRUBIN,DIRECT 0.5 MG/DL (0.0-0.3); BILIRUBIN,INDIRECT 0.5 MG/DL
[2022-11-21 12:32] LABS: ABG BASE EXCESS 3.1 MMOL/L (-2.5-2.5); ABG OXYGEN SATURATION 93 % (94-100); ABG PCO2 44 MMHG (35-45); ABG PH 7.41 (7.37-7.43); ABG PO2 65 MMHG (79-93); ABG TCO2 28.7 MMOL/L (21.0-31.0)
[2022-11-21 12:33] LABS: INSPIRED O2 2L; PATIENT TEMP 37; VENTILATOR NO
--- NOTE | 2022-11-21 12:48 | Diagnostic Imaging Report ---
INDICATION: Fever and cough. Frontal chest obtained at 12:41 p.m. and compared to 11/17/2022. FINDINGS: There is post-sternotomy change. Heart is borderline in size. There is central vascular congestion. There is no focal consolidation or pneumothorax or pleural fluid. IMPRESSION: Postop changes with no acute appearing abnormality. Dictated by: Dictated on workstation # [id number]
--- NOTE | 2022-11-21 13:26 | Occupational Ther Daily Note ---
OT Current Status-Daily Note Subjective Pt in and out of consciousness, woke to name then closed eyes again. 2 family members in room. Pt has declined with cognition and ambulation since BETTS began to see pt earlier this week. Pt began to ask "Where is my momma? Is my momma here?". Mental Status/Objective Patient Orientation: Person, Confused Attachments: IV, Oxygen, Telemetry ADL-Treatment Therapy Code Descriptions/Definitions Functional [place] Measure: 0=Not Assessed/NA 4=Minimal Assistance 1=Total Assistance 5=Supervision or Setup 2=Maximal Assistance 6=Modified [place] 3=Moderate Assistance 7=Complete IndependenceSCALE: Activities may be completed with or without assistive devices. 8-Iudqquwkrb-aiebrzj completes the activity by him/herself with no assistance from a helper. 5-Set-up or Clean-up Assistance-helper sets up or cleans up; patient completes activity. [place] assists only prior to or following the activity. 4-Supervision or Touching Assistance-helper provides verbal cues and/or touching/steadying and/or contact guard assistance as patient completes activity. Assistance may be provided throughout the activity or intermittently. 3-Partial/Moderate Assistance-helper does LESS THAN HALF the effort. [place] lifts, holds or supports trunk or limbs, but provides less than half the effort. 2-Substantial/Maximal Assistance-helper does MORE THAN HALF the effort. [place] lifts or holds trunk or limbs and provides more than half the effort. 3-Xrsdjcqpm-yihrns does ALL the effort. Patient does none of the effort to complete the activity. Or, the assistance of 2 or more helpers is required for the patient to complete the activity. If activity was not attempted, code reason: 7-Patient Refused. 9-Not Applicable-not attempted and the patient did not perform the activity before the current illness, exacerbation or injury. 10-Not Attempted due to Environmental Limitations-(lack of equipment, weather restraints, etc.). 88-Not Attempted due to Medical Conditions or Safety Concerns. Other Treatment Pt nodded head in affirmation when asked about completing oral care and washing face. When supplies where given to pt, pt would not reach for it and pulled head away from toothbrush. With [place] assist, pt allowed wash cloth to be brought to face but did not use to wash face. BETTS washed pt's face. BETTS reported this to nrsg. After session, pt lying in bed with call light/phone in reach. All needs met in room. Safety measures in place. OT Fdc Goals Fdc Goals Time Frame: Nov 28, 2022 Oral Hygiene (QC): 5 Toileting Hygiene (QC): 6 Shower/Bathe Self (QC): 4 Upper Body Dressing (QC): 6 Lower Body Dressing (QC): 4 On/Off Footwear (QC): 4 Additional Goals: 1-Demonstrate ADL Tasks, 2-Verbalize Understanding, 3- ImproveStrength/Rafat 1=Demonstrate adherence to instructed precautions during ADL tasks. 2=Patient will verbalize/demonstrate understanding of assistive devices/modifications for ADL. 3=Patient will improve strength/tolerance for activity to enable patient to perform ADL's. OT Education/Plan Problem List/Assessment Assessment: Decreased Activ Tolerance, Decreased Safety Aware, Impaired Cognition Discharge Recommendations Plan/Recommendations: Continue POC Treatment Plan/Plan of Care Patient would benefit from OT for education, treatment and training to promote independence in ADL's, mobility, safety and/or upper extremity function for ADL's. Plan of Care: ADL Retraining, Caregiver Training, Cognitive Retraining, Functional Mobility, Group Exercise/Act as Ind, UE Funct Exercise/Act Treatment Duration: Nov 28, 2022 Frequency: 3 times per week (3-5x/week ) Estimated Hrs Per Day: .25 hour per day Rehab Potential: Guarded Time Start Time: 10:15 Stop Time: 10:28 DATE: Nov 21, 2022 Total Time Billed (hr/min): 13 Billed Treatment Time 1 visit-FA 1 (13 min) QI KAUFMAN Nov 21, 2022 13:26
[2022-11-21] MEDS: NS IV 1000 ML 1,000 ML IV SCH (13:27)
--- NOTE | 2022-11-21 15:07 | Physical Therapy Daily Note ---
PT Daily Note-Current Subjective Pt. not very communicative, does not respond to most instruction given. does not make eye contact. Pain Location: No Pain Reported Section J - Health Conditions 1. Rarely or not at all 2. Occasionally 3. Frequently 4. Almost constantly 8. Unable to answer Pain Effect on Sleep: 1 Pain Interference with Therapy: 1 Pain Interference w/Day-to-Day: 1 Appearance audible breath sounds, crackles, O2 insitu, Mental Status Patient Orientation: Confused Attachments: Oxygen Transfers SCALE: Activities may be completed with or without assistive devices. 3-Kvqjahradq-flbfszu completes the activity by him/herself with no assistance from a helper. 5-Set-up or Clean-up Assistance-helper sets up or cleans up; patient completes activity. [place] assists only prior to or following the activity. 4-Supervision or Touching Assistance-helper provides verbal cues and/or touching/steadying and/or contact guard assistance as patient completes activity. Assistance may be provided throughout the activity or intermittently. 3-Partial/Moderate Assistance-helper does LESS THAN HALF the effort. [place] lifts, holds or supports trunk or limbs, but provides less than half the effort. 2-Substantial/Maximal Assistance-helper does MORE THAN HALF the effort. [place] lifts or holds trunk or limbs and provides more than half the effort. 6-Evqzkqggx-sxpkya does ALL the effort. Patient does none of the effort to complete the activity. Or, the assistance of 2 or more helpers is required for the patient to complete the activity. If activity was not attempted, code reason: 7-Patient Refused. 9-Not Applicable-not attempted and the patient did not perform the activity before the current illness, exacerbation or injury. 10-Not Attempted due to Environmental Limitations-(lack of equipment, weather restraints, etc.). 88-Not Attempted due to Medical Conditions or Safety Concerns. sit to stand x 3 with pt. reluctant and required mod assist Weight Bearing Full Weight Bearing Full Weight Bearing Exercises Supine Ex: Ankle pumps, Heel Slides, Scooting, Straight leg raise, Hip abd/add Supine Reps: 12 Seated Therapy Exercises: Ankle pumps, Sit to stand, Long arc quads Seated Reps: 10 PROM for most ex Treatments sit to stands, LE P/AAROM as above Assessment Current Status: Poor Progress poor cooperation / mentation PT Alf Goals Alf Goals PT Environmental Studies Professor Goals Time Frame: Nov 29, 2022 Roll Left & Right (QC): 5 Sit to Lying (QC): 5 Lying-Sitting on Side/Bed(QC): 5 Sit to Stand (QC): 5 Chair/Abr-ih-Qrgxs Xfer(QC): 5 Toilet Transfer (QC): 5 Walk 10 feet (QC): 4 Walk 50ft with 2 Turns (QC): 4 Walk 150 ft (QC): 4 PT Plan Treatment/Plan Treatment Plan: Continue Plan of Care Treatment Plan: Bed Mobility, Education, Functional Activity Rafat, Functional Strength, Gait, Safety, Therapeutic Exercise, Transfers Treatment Duration: Nov 29, 2022 Frequency: 6 times per week Estimated Hrs Per Day: .25 hour per day Safety Risks/Education Patient Education: Transfer Techniques, Correct Positioning, Safety Issues Teaching Recipient: Patient Teaching Methods: Discussion Response to Teaching: Unable to Return Demonstration, Unable to Comprehend, Reinforcement Needed Time Time In: 1440 Time Out: 1455 DATE: Nov 21, 2022 Total Billed Treatment Time: 15 Total Billed Treatment 1,FA15m SELENE ALONZO SKIDDER Nov 21, 2022 15:07
[2022-11-21] MEDS: RT-ALBUTEROL/IPRATROPIUM 3 ML (DUONEB) VIAL INH SCH ×2 (15:11→21:38)
[2022-11-21] MEDS: ENOXAPARIN 40 MG/0.4 ML (LOVENOX) SYR SC SCH (20:50)
[2022-11-22] VITALS (7 sets, daily range): BP systolic 106–149; BP diastolic 52–85
[2022-11-22] MEDS: RT-ALBUTEROL/IPRATROPIUM 3 ML (DUONEB) VIAL INH SCH ×2 (02:51→11:18)
[2022-11-22 05:33] LABS: BASOPHILS % (AUTO) 0 % (0-10); EOSINOPHILS % (AUTO) 0 % (0-10); HEMATOCRIT 42 % (35-52); HEMOGLOBIN 13.7 g/dL (11.5-16.0); LYMPHOCYTES # (AUTO) 1.1 10^3/uL (1.0-4.0); LYMPHOCYTES % (AUTO) 10 % (12-44); MEAN CORPUSCULAR HEMOGLOBIN 30 pg (25-34); MEAN CORPUSCULAR HGB CONC 33 g/dL (32-36); MEAN CORPUSCULAR VOLUME 92 fL (80-99); MEAN PLATELET VOLUME 11.8 fL (9.0-12.2); MONOCYTES # (AUTO) 1.1 10^3/uL (0.0-1.0); MONOCYTES % (AUTO) 10 % (0-12); NEUTROPHILS # (AUTO) 8.9 10^3/uL (1.8-7.8); NEUTROPHILS % (AUTO) 80 % (42-75); PLATELET COUNT 157 10^3/uL (130-400); WHITE BLOOD COUNT 11.1 10^3/uL (4.3-11.0)
[2022-11-22 05:53] LABS: ALBUMIN 3.6 GM/DL (3.2-4.5); BILIRUBIN,TOTAL 0.6 MG/DL (0.1-1.0); CALCIUM 9.5 MG/DL (8.5-10.1); CREATININE SERUM 1.97 MG/DL (0.60-1.30); POTASSIUM 3.9 MMOL/L (3.6-5.0); TOTAL PROTEIN 6.9 GM/DL (6.4-8.2)
[2022-11-22] MEDS: KCL 20 MEQ TAB (K-DUR) PO SCH ×2 (06:25→06:55)
[2022-11-22] MEDS: NS IV 1000 ML 1,000 ML IV SCH ×2 (06:55→13:44)
--- NOTE | 2022-11-22 07:57 | Progress Note - Hospitalist ---
Subjective HPI/CC On Admission Date Seen by Provider: Nov 22, 2022 Time Seen by Provider: 11:30 Subjective/Events-last exam Patient more alert today Creatinine elevated at 1.9 so we will maintain IV fluid and encouraged her for p.o. intake increase No family at the bedside today Talks to people who are not in the room Dementia is significant Review of Systems General: Fatigue, Malaise Neurological: Confusion Objective Exam Vital Signs Vital Signs Date Time Temp Pulse Resp B/P (MAP) Pulse Ox O2 Delivery O2 Flow Rate FiO2 11/22/22 11:12 36.8 80 20 106/57 (73) 92 Room Air 11/22/22 07:15 2.00 2.00 11/17/22 18:58 21 Capillary Refill : Less Than 3 Seconds General Appearance: No Apparent Distress, WD/WN, Chronically ill Respiratory: Lungs Clear, Normal Breath Sounds Cardiovascular: Regular Rate, Rhythm Neurologic/Psychiatric: Alert, Depressed Affect, Disoriented Results/Procedures Lab Laboratory Tests 11/22/22 05:24 Patient resulted labs reviewed. Assessment/Plan Assessment and Plan Assess & Plan/Chief Complaint Assessment: Metabolic encephalopathy Influenza A Poor social situation Dementia Acute kidney injury worsened today at 1.9 we will maintain IV fluids and increas e p.o. intake Hypertension Poor oral intake Debility CAD Plan: IV fluids Septic work-up reviewed and its negative Continue PT and OT Hold discharge until Thursday Supportive care Hold TIMMY inhibitor DC catheter and telemetry DEBORAH HAWK DO Nov 22, 2022 07:57
[2022-11-22] MEDS ORDERED: OSELTAMIVIR 30 MG (TAMIFLU) CAPSULE PO SCH (09:00)
[2022-11-22] MEDS: SODIUM BICARBONATE 650 MG TABLET PO SCH ×2 (09:16→21:18)
[2022-11-22] MEDS: OXYBUTYNIN (DITROPAN) 5 MG TAB PO SCH ×2 (09:16→21:17)
[2022-11-22] MEDS: SENNOSIDES 8.6 MG (SENOKOT) TAB PO SCH ×2 (09:16→21:18)
[2022-11-22] MEDS: PRAMIPEXOLE 0.5 MG TAB (MIRAPEX) PO SCH ×2 (09:16→21:17)
[2022-11-22] MEDS: ASPIRIN E.C. 81 MG (ECOTRIN) TAB PO SCH (09:17)
[2022-11-22] MEDS: amLODIPine 5 MG (NORVASC) TAB PO SCH (09:17)
[2022-11-22] MEDS: DOCUSATE SODIUM 100 MG (COLACE) CAP PO SCH ×2 (09:17→21:17)
[2022-11-22] MEDS: GABAPENTIN 600 MG (NEURONTIN) TAB PO SCH ×2 (09:17→21:18)
[2022-11-22] MEDS: ATENOLOL 25 MG (TENORMIN) TAB PO SCH (09:24)
[2022-11-22 09:40] LABS: BILIRUBIN,URINE NEGATIVE (NEGATIVE); CLARITY,URINE SL CLOUDY; COLOR,URINE YELLOW; GLUCOSE, URINE (UA) NEGATIVE (NEGATIVE); KETONES,URINE NEGATIVE (NEGATIVE); LEUKOCYTE ESTERASE ,URINE TRACE (NEGATIVE); NITRITE,URINE POSITIVE (NEGATIVE); PH,URINE 5.5 (5-9); PROTEIN,URINE 1+ (NEGATIVE)
[2022-11-22 09:59] LABS: AMORPHOUS SEDIMENT,UR MOD AMOR URATES /LPF; BACTERIA,URINE MODERATE /HPF
--- NOTE | 2022-11-22 10:53 | Physical Therapy Progress Note ---
Therapy Progress Note Pt. in bed, refuses out of bed activity and LE exercises today. Pt. states "my legs hurt, I'm not doing anything." Pt. easily becomes agitated with therapist encouragement for participation in PT. We will resume treatment 11/24. 1, Refusal 1021 JOEY COBOS PT Nov 22, 2022 10:53
[2022-11-22] MEDS: ACETAMINOPHEN 325 MG TABLET PO PRN (19:55)
[2022-11-22] MEDS: ZIPRASIDONE 20 MG INJ (GEODON) VIAL IM PRN (20:35)
[2022-11-22] MEDS: WATER (STERILE) FOR INJ 10 ML BTL INJ SCH (20:35)
[2022-11-22] MEDS ORDERED: ENOXAPARIN INJECTION 30 MG/0.3 ML SYR SC SCH (21:00)
[2022-11-23 04:20] VITALS: BP 142/69
[2022-11-23] MEDS: LORazepam 0.5 MG (ATIVAN) TABLET PO PRN ×3 (04:23→14:52)
[2022-11-23] MEDS: KCL 20 MEQ TAB (K-DUR) PO SCH ×2 (05:53→06:57)
[2022-11-23 06:01] LABS: BASOPHILS % (AUTO) 0 % (0-10); EOSINOPHILS % (AUTO) 0 % (0-10); HEMATOCRIT 43 % (35-52); LYMPHOCYTES # (AUTO) 0.8 10^3/uL (1.0-4.0); LYMPHOCYTES % (AUTO) 9 % (12-44); MEAN CORPUSCULAR HEMOGLOBIN 30 pg (25-34); MEAN CORPUSCULAR HGB CONC 33 g/dL (32-36); MEAN CORPUSCULAR VOLUME 94 fL (80-99); MEAN PLATELET VOLUME 11.8 fL (9.0-12.2); MONOCYTES # (AUTO) 0.9 10^3/uL (0.0-1.0); MONOCYTES % (AUTO) 10 % (0-12); NEUTROPHILS # (AUTO) 7.2 10^3/uL (1.8-7.8); NEUTROPHILS % (AUTO) 80 % (42-75); PLATELET COUNT 178 10^3/uL (130-400); WHITE BLOOD COUNT 9.1 10^3/uL (4.3-11.0)
--- NOTE | 2022-11-23 06:03 | Progress Note - Hospitalist ---
Subjective HPI/CC On Admission Date Seen by Provider: Nov 23, 2022 Time Seen by Provider: 11:00 Subjective/Events-last exam Patient having more coarse breath sounds Chest x-ray assessed shows atelectasis We will get her up in a chair and try to work with her incentive spirometer Labs stable otherwise Urine culture assessed placed on cefepime and Vanco empirically Patient very demented Supportive care Review of Systems General: Fatigue, Malaise Neurological: Confusion Objective Exam Vital Signs Vital Signs Date Time Temp Pulse Resp B/P (MAP) Pulse Ox O2 Delivery O2 Flow Rate FiO2 11/23/22 12:00 37.0 95 22 116/55 (75) 94 Nasal Cannula 2.00 11/17/22 18:58 21 Capillary Refill : Less Than 3 Seconds General Appearance: No Apparent Distress, WD/WN, Chronically ill Respiratory: No Accessory Muscle Use, No Respiratory Distress, Crackles, Decreased Breath Sounds Cardiovascular: Regular Rate, Rhythm Neurologic/Psychiatric: Alert, Oriented x3 Results/Procedures Lab Laboratory Tests 11/23/22 05:45 Patient resulted labs reviewed. Assessment/Plan Assessment and Plan Assess & Plan/Chief Complaint Assessment: Metabolic encephalopathy Influenza A completed treatment UTI facility acquired placed on cefepime and vancomycin Atelectasis on chest x-ray covered with antibiotics for UTI Poor social situation Dementia Acute kidney injury improved today at 1.4 Hypertension Poor oral intake Debility CAD Plan: IV fluids DC'd Continue PT and OT Hold discharge until Thursday Supportive care Hold TIMMY inhibitor Add antibiotics for complicated UTI and atelectasis DEBORAH HAWK DO Nov 23, 2022 06:03
[2022-11-23 06:09] LABS: ALBUMIN 3.7 GM/DL (3.2-4.5); POTASSIUM 4.2 MMOL/L (3.6-5.0)
[2022-11-23 06:12] LABS: TOTAL PROTEIN 7.2 GM/DL (6.4-8.2)
[2022-11-23 06:14] LABS: BILIRUBIN,TOTAL 0.7 MG/DL (0.1-1.0)
[2022-11-23 06:15] LABS: CREATININE SERUM 1.42 MG/DL (0.60-1.30)
[2022-11-23 06:18] LABS: MAGNESIUM 2.4 MG/DL (1.6-2.4)
[2022-11-23 07:28] VITALS: BP 155/82
[2022-11-23] MEDS: amLODIPine 5 MG (NORVASC) TAB PO SCH (08:34)
[2022-11-23] MEDS: ASPIRIN E.C. 81 MG (ECOTRIN) TAB PO SCH (08:34)
[2022-11-23] MEDS: PRAMIPEXOLE 0.5 MG TAB (MIRAPEX) PO SCH ×2 (08:34→20:17)
[2022-11-23] MEDS: OXYBUTYNIN (DITROPAN) 5 MG TAB PO SCH ×2 (08:34→20:18)
[2022-11-23] MEDS: SODIUM BICARBONATE 650 MG TABLET PO SCH ×2 (08:35→20:17)
[2022-11-23] MEDS: DOCUSATE SODIUM 100 MG (COLACE) CAP PO SCH ×2 (08:35→20:18)
[2022-11-23] MEDS: ATENOLOL 25 MG (TENORMIN) TAB PO SCH (08:35)
[2022-11-23] MEDS: GABAPENTIN 600 MG (NEURONTIN) TAB PO SCH ×2 (08:35→20:18)
[2022-11-23] MEDS: SENNOSIDES 8.6 MG (SENOKOT) TAB PO SCH ×2 (08:36→20:18)
[2022-11-23] MEDS: RT-ALBUTEROL/IPRATROPIUM 3 ML (DUONEB) VIAL INH SCH ×2 (10:40→21:41)
[2022-11-23] MEDS ORDERED: VANCOMYCIN INJECTION 0.1 MG in NS (IVPB) 250 ML IV SCH (11:15)
--- NOTE | 2022-11-23 11:57 | Diagnostic Imaging Report ---
HISTORY: Abnormal breath sounds, crackles COMPARISON: 11/21/2022 TECHNIQUE: Frontal view the chest FINDINGS: There are increased airspace opacities in the right lung base compared to the prior exam. No large effusion or pneumothorax is seen. An azygos fissure is noted. Sternotomy wires and post-CABG changes are seen. IMPRESSION:. Increasing right basilar airspace opacities, concerning for infection in the appropriate setting. Dictated by: Dictated on workstation # [id number]
[2022-11-23 12:00] VITALS: BP 116/55
[2022-11-23] MEDS ORDERED: VANCOMYCIN 1500 MG/NS 500 ML IVPB IV ONE ×2 (12:00)
[2022-11-23] MEDS: CEFEPIME INJECTION 1,000 MG in NS (IVPB) 50 ML IV SCH ×2 (13:03→19:42)
[2022-11-23 16:33] VITALS: BP 159/70
[2022-11-23] MEDS: ACETAMINOPHEN 325 MG TABLET PO PRN (16:46)
[2022-11-23] MEDS: WATER (STERILE) FOR INJ 10 ML BTL INJ SCH (19:25)
[2022-11-23] MEDS: ZIPRASIDONE 20 MG INJ (GEODON) VIAL IM PRN (19:25)
[2022-11-23] MEDS: ENOXAPARIN 40 MG/0.4 ML (LOVENOX) SYR SC SCH (20:18)
[2022-11-23 20:50] VITALS: BP 167/70
[2022-11-23 23:31] VITALS: BP 131/73
[2022-11-24] MEDS: CEFEPIME INJECTION 1,000 MG in NS (IVPB) 50 ML IV SCH ×3 (02:53→20:01)
[2022-11-24 04:27] VITALS: BP 122/71
[2022-11-24 05:47] LABS: BASOPHILS % (AUTO) 0 % (0-10); EOSINOPHILS # (AUTO) 0.1 10^3/uL (0.0-0.3); EOSINOPHILS % (AUTO) 1 % (0-10); HEMATOCRIT 40 % (35-52); HEMOGLOBIN 12.7 g/dL (11.5-16.0); LYMPHOCYTES # (AUTO) 0.9 10^3/uL (1.0-4.0); LYMPHOCYTES % (AUTO) 9 % (12-44); MEAN CORPUSCULAR HEMOGLOBIN 30 pg (25-34); MEAN CORPUSCULAR HGB CONC 32 g/dL (32-36); MEAN CORPUSCULAR VOLUME 94 fL (80-99); MEAN PLATELET VOLUME 12.1 fL (9.0-12.2); MONOCYTES # (AUTO) 1.1 10^3/uL (0.0-1.0); MONOCYTES % (AUTO) 11 % (0-12); NEUTROPHILS # (AUTO) 7.9 10^3/uL (1.8-7.8); NEUTROPHILS % (AUTO) 78 % (42-75); PLATELET COUNT 188 10^3/uL (130-400); WHITE BLOOD COUNT 10.1 10^3/uL (4.3-11.0)
[2022-11-24 06:09] LABS: ALBUMIN 3.4 GM/DL (3.2-4.5); BILIRUBIN,TOTAL 0.6 MG/DL (0.1-1.0); CALCIUM 9.9 MG/DL (8.5-10.1); CREATININE SERUM 1.22 MG/DL (0.60-1.30); MAGNESIUM 2.1 MG/DL (1.6-2.4); POTASSIUM 4.5 MMOL/L (3.6-5.0); TOTAL PROTEIN 6.8 GM/DL (6.4-8.2)
[2022-11-24] MEDS: KCL 20 MEQ TAB (K-DUR) PO SCH ×2 (06:30→06:33)
--- NOTE | 2022-11-24 06:43 | Progress Note - Hospitalist ---
Subjective HPI/CC On Admission Date Seen by Provider: Nov 24, 2022 Time Seen by Provider: 11:00 Subjective/Events-last exam Patient sleeps most of the time Required Geodon due to aggression last night Spoke with nephew at the bedside Told him realistic expectations with dementia will be continued to decline Review of Systems Neurological: Confusion Objective Exam Vital Signs Vital Signs Date Time Temp Pulse Resp B/P (MAP) Pulse Ox O2 Delivery O2 Flow Rate FiO2 11/24/22 19:45 96 Nasal Cannula 2.00 11/24/22 19:29 36.9 82 21 150/81 (104) 11/24/22 08:54 28 Capillary Refill : Less Than 3 Seconds General Appearance: No Apparent Distress, WD/WN, Chronically ill Respiratory: Crackles, Decreased Breath Sounds Cardiovascular: Regular Rate, Rhythm Results/Procedures Lab Laboratory Tests 11/24/22 05:25 Patient resulted labs reviewed. Assessment/Plan Assessment and Plan Assess & Plan/Chief Complaint Assessment: Metabolic encephalopathy Influenza A completed treatment UTI facility acquired placed on cefepime and vancomycin Atelectasis on chest x-ray covered with antibiotics for UTI Poor social situation Dementia Acute kidney injury improved today at 1.4 Hypertension Poor oral intake Debility CAD Plan: IV fluids DC'd Continue PT and OT Hold discharge until Thursday Supportive care Hold TIMMY inhibitor Add antibiotics for complicated UTI and atelectasis DEBORAH HAWK DO Nov 24, 2022 06:43
[2022-11-24 08:16] VITALS: BP 123/72
[2022-11-24 08:54] VITALS: BP 123/72
[2022-11-24] MEDS: RT-ALBUTEROL/IPRATROPIUM 3 ML (DUONEB) VIAL INH SCH ×2 (08:56→19:44)
[2022-11-24] MEDS: DOCUSATE SODIUM 100 MG (COLACE) CAP PO SCH ×2 (09:49→20:01)
[2022-11-24] MEDS: ASPIRIN E.C. 81 MG (ECOTRIN) TAB PO SCH (09:49)
[2022-11-24] MEDS: PRAMIPEXOLE 0.5 MG TAB (MIRAPEX) PO SCH ×2 (09:49→20:01)
[2022-11-24] MEDS: amLODIPine 5 MG (NORVASC) TAB PO SCH (09:50)
[2022-11-24] MEDS: GABAPENTIN 600 MG (NEURONTIN) TAB PO SCH ×2 (09:50→20:01)
[2022-11-24] MEDS: SODIUM BICARBONATE 650 MG TABLET PO SCH ×2 (09:50→20:01)
[2022-11-24] MEDS: ATENOLOL 25 MG (TENORMIN) TAB PO SCH (09:50)
[2022-11-24] MEDS: OXYBUTYNIN (DITROPAN) 5 MG TAB PO SCH ×2 (09:50→20:01)
[2022-11-24] MEDS: SENNOSIDES 8.6 MG (SENOKOT) TAB PO SCH ×2 (10:02→20:01)
--- NOTE | 2022-11-24 10:24 | Physical Therapy Progress Note ---
Therapy Progress Note Patient unable to safely and actively participate with skilled PT due to sedation due to behaviors. Will attempt tomorrow DUNG Eli PT Nov 24, 2022 10:24
[2022-11-24] MEDS: VANCOMYCIN 1 GM/NS 250 ML IVPB IV SCH ×2 (10:56)
[2022-11-24 12:39] VITALS: BP 123/62
--- NOTE | 2022-11-24 14:48 | Occupational Ther Daily Note ---
OT Current Status-Daily Note Subjective Pt alert, lying in bed. Pt states that she needs a new depends, she was wet. Mental Status/Objective Patient Orientation: Person, Confused Attachments: IV, Oxygen ADL-Treatment After supplies were gathered, pt able to complete oral care by self then assist to clean up. Pt stated that she was wet and needed a new diaper. Pt able to roll side to side independently using grabbars while assistance to cleanse and don/doff brief. After therapy, pt lying in bed with call light/phone in reach. Safety measures in place. All needs met. Therapy Code Descriptions/Definitions Functional [place] Measure: 0=Not Assessed/NA 4=Minimal Assistance 1=Total Assistance 5=Supervision or Setup 2=Maximal Assistance 6=Modified [place] 3=Moderate Assistance 7=Complete IndependenceSCALE: Activities may be completed with or without assistive devices. 1-Vovtdgjwgp-ebepmcq completes the activity by him/herself with no assistance from a helper. 5-Set-up or Clean-up Assistance-helper sets up or cleans up; patient completes activity. [place] assists only prior to or following the activity. 4-Supervision or Touching Assistance-helper provides verbal cues and/or touching/steadying and/or contact guard assistance as patient completes activity. Assistance may be provided throughout the activity or intermittently. 3-Partial/Moderate Assistance-helper does LESS THAN HALF the effort. [place] lifts, holds or supports trunk or limbs, but provides less than half the effort. 2-Substantial/Maximal Assistance-helper does MORE THAN HALF the effort. [place] lifts or holds trunk or limbs and provides more than half the effort. 3-Fstpxdgoo-dbswpr does ALL the effort. Patient does none of the effort to complete the activity. Or, the assistance of 2 or more helpers is required for the patient to complete the activity. If activity was not attempted, code reason: 7-Patient Refused. 9-Not Applicable-not attempted and the patient did not perform the activity before the current illness, exacerbation or injury. 10-Not Attempted due to Environmental Limitations-(lack of equipment, weather restraints, etc.). 88-Not Attempted due to Medical Conditions or Safety Concerns. OT Fpc Goals Fpc Goals Time Frame: Nov 28, 2022 Oral Hygiene (QC): 5 Toileting Hygiene (QC): 6 Shower/Bathe Self (QC): 4 Upper Body Dressing (QC): 6 Lower Body Dressing (QC): 4 On/Off Footwear (QC): 4 Additional Goals: 1-Demonstrate ADL Tasks, 2-Verbalize Understanding, 3- ImproveStrength/Rafat 1=Demonstrate adherence to instructed precautions during ADL tasks. 2=Patient will verbalize/demonstrate understanding of assistive de vices/modifications for ADL. 3=Patient will improve strength/tolerance for activity to enable patient to perform ADL's. OT Education/Plan Problem List/Assessment Assessment: Decreased Activ Tolerance, Decreased Safety Aware, Impaired Cognition Discharge Recommendations Plan/Recommendations: Continue POC Treatment Plan/Plan of Care Patient would benefit from OT for education, treatment and training to promote independence in ADL's, mobility, safety and/or upper extremity function for ADL's. Plan of Care: ADL Retraining, Caregiver Training, Cognitive Retraining, Functional Mobility, Group Exercise/Act as Ind, UE Funct Exercise/Act Treatment Duration: Nov 28, 2022 Frequency: 3 times per week (3-5x/week ) Estimated Hrs Per Day: .25 hour per day Rehab Potential: Guarded Time Start Time: 13:24 Stop Time: 13:39 DATE: Nov 24, 2022 Total Time Billed (hr/min): 15 Billed Treatment Time 1 visit-ADL 1 (15 min) QI KAUFMAN Nov 24, 2022 14:48
[2022-11-24] MEDS: RT-ALBUTEROL/IPRATROPIUM 3 ML (DUONEB) VIAL INH PRN (15:50)
[2022-11-24 16:00] VITALS: BP 132/60
[2022-11-24 19:29] VITALS: BP 150/81
[2022-11-24] MEDS: ENOXAPARIN 40 MG/0.4 ML (LOVENOX) SYR SC SCH (20:01)
[2022-11-25] MEDS: RT-ALBUTEROL/IPRATROPIUM 3 ML (DUONEB) VIAL INH SCH ×4 (00:01→11:14)
[2022-11-25 00:06] VITALS: BP 144/74
[2022-11-25] MEDS: LORazepam 0.5 MG (ATIVAN) TABLET PO PRN (03:09)
[2022-11-25] MEDS: CEFEPIME INJECTION 1,000 MG in NS (IVPB) 50 ML IV SCH ×2 (03:09→11:10)
[2022-11-25 03:44] VITALS: BP 133/67
[2022-11-25 04:29] LABS: BASOPHILS % (AUTO) 0 % (0-10); EOSINOPHILS # (AUTO) 0.1 10^3/uL (0.0-0.3); EOSINOPHILS % (AUTO) 1 % (0-10); HEMATOCRIT 38 % (35-52); HEMOGLOBIN 12.2 g/dL (11.5-16.0); LYMPHOCYTES # (AUTO) 1.2 10^3/uL (1.0-4.0); LYMPHOCYTES % (AUTO) 12 % (12-44); MEAN CORPUSCULAR HEMOGLOBIN 30 pg (25-34); MEAN CORPUSCULAR HGB CONC 32 g/dL (32-36); MEAN CORPUSCULAR VOLUME 94 fL (80-99); MEAN PLATELET VOLUME 12.1 fL (9.0-12.2); MONOCYTES # (AUTO) 1.1 10^3/uL (0.0-1.0); MONOCYTES % (AUTO) 11 % (0-12); NEUTROPHILS # (AUTO) 7.3 10^3/uL (1.8-7.8); NEUTROPHILS % (AUTO) 72 % (42-75); PLATELET COUNT 193 10^3/uL (130-400); WHITE BLOOD COUNT 10.1 10^3/uL (4.3-11.0)
[2022-11-25 04:34] LABS: ALBUMIN 3.3 GM/DL (3.2-4.5); POTASSIUM 3.6 MMOL/L (3.6-5.0)
[2022-11-25 04:36] LABS: CALCIUM 9.6 MG/DL (8.5-10.1)
[2022-11-25 04:37] LABS: TOTAL PROTEIN 6.6 GM/DL (6.4-8.2)
[2022-11-25 04:39] LABS: BILIRUBIN,TOTAL 0.5 MG/DL (0.1-1.0)
[2022-11-25 04:40] LABS: CREATININE SERUM 1.21 MG/DL (0.60-1.30)
[2022-11-25 04:43] LABS: MAGNESIUM 2.1 MG/DL (1.6-2.4)
[2022-11-25] MEDS: KCL 20 MEQ TAB (K-DUR) PO SCH ×2 (05:57)
[2022-11-25 07:38] VITALS: BP 153/76
[2022-11-25] MEDS: GABAPENTIN 600 MG (NEURONTIN) TAB PO SCH (08:08)
[2022-11-25] MEDS: ASPIRIN E.C. 81 MG (ECOTRIN) TAB PO SCH (08:08)
[2022-11-25] MEDS: ATENOLOL 25 MG (TENORMIN) TAB PO SCH (08:08)
[2022-11-25] MEDS: DOCUSATE SODIUM 100 MG (COLACE) CAP PO SCH (08:08)
[2022-11-25] MEDS: SODIUM BICARBONATE 650 MG TABLET PO SCH (08:08)
[2022-11-25] MEDS: amLODIPine 5 MG (NORVASC) TAB PO SCH (08:08)
[2022-11-25] MEDS: PRAMIPEXOLE 0.5 MG TAB (MIRAPEX) PO SCH (08:08)
[2022-11-25] MEDS: ACETAMINOPHEN 325 MG TABLET PO PRN (08:09)
[2022-11-25] MEDS: SENNOSIDES 8.6 MG (SENOKOT) TAB PO SCH (08:09)
[2022-11-25] MEDS: OXYBUTYNIN (DITROPAN) 5 MG TAB PO SCH (08:09)
--- NOTE | 2022-11-25 09:49 | Physical Therapy Daily Note ---
PT Daily Note-Current Subjective Patient is still very confused, however, more cooperative on this date. Telesitter present. Pain Section J - Health Conditions 1. Rarely or not at all 2. Occasionally 3. Frequently 4. Almost constantly 8. Unable to answer Pain Effect on Sleep: 1 Pain Interference with Therapy: 1 Pain Interference w/Day-to-Day: 1 Mental Status Patient Orientation: Confused Attachments: Oxygen Transfers SCALE: Activities may be completed with or without assistive devices. 9-Nzajguakkk-vqbgidp completes the activity by him/herself with no assistance from a helper. 5-Set-up or Clean-up Assistance-helper sets up or cleans up; patient completes activity. [place] assists only prior to or following the activity. 4-Supervision or Touching Assistance-helper provides verbal cues and/or touch ing/steadying and/or contact guard assistance as patient completes activity. Assistance may be provided throughout the activity or intermittently. 3-Partial/Moderate Assistance-helper does LESS THAN HALF the effort. [place] lifts, holds or supports trunk or limbs, but provides less than half the effort. 2-Substantial/Maximal Assistance-helper does MORE THAN HALF the effort. [place] lifts or holds trunk or limbs and provides more than half the effort. 7-Fzhtmqbws-obrxvb does ALL the effort. Patient does none of the effort to complete the activity. Or, the assistance of 2 or more helpers is required for the patient to complete the activity. If activity was not attempted, code reason: 7-Patient Refused. 9-Not Applicable-not attempted and the patient did not perform the activity before the current illness, exacerbation or injury. 10-Not Attempted due to Environmental Limitations-(lack of equipment, weather restraints, etc.). 88-Not Attempted due to Medical Conditions or Safety Concerns. Sit to Stand (QC): 3 Toilet Transfer (QC): 3 Weight Bearing Full Weight Bearing Full Weight Bearing Gait Training Distance: 15' x 1/75' x 1 Walk 10 feet (QC): 3 Walk 50 ft with 2 Turns(QC): 3 Gait Assistive Device: FWW extended UE's with FWW use with VC's and tactile cues for safety Assessment Patient remains up in recliner with chair alarm activated. Patient does request a shower with nursing notified. Patient improved on this date. PT Forestry Professor Goals Assisted Goals PT Assisted Goals Time Frame: Nov 29, 2022 Roll Left & Right (QC): 5 Sit to Lying (QC): 5 Lying-Sitting on Side/Bed(QC): 5 Sit to Stand (QC): 5 Chair/Vel-ep-Pmhqx Xfer(QC): 5 Toilet Transfer (QC): 5 Walk 10 feet (QC): 4 Walk 50ft with 2 Turns (QC): 4 Walk 150 ft (QC): 4 PT Plan Treatment/Plan Treatment Plan: Continue Plan of Care Treatment Plan: Bed Mobility, Education, Functional Activity Rafat, Functional Strength, Gait, Safety, Therapeutic Exercise, Transfers Treatment Duration: Nov 29, 2022 Frequency: 6 times per week Estimated Hrs Per Day: .25 hour per day Time Time In: 900 Time Out: 913 DATE: Nov 25, 2022 Total Billed Treatment Time: 13 Total Billed Treatment 1 visit GT 13 min DUNG METCALF PT Nov 25, 2022 09:49
[2022-11-25] MEDS ORDERED: OXC5T PO (10:27)
[2022-11-25] MEDS ORDERED: AMLO-250 PO (10:27)
[2022-11-25] MEDS ORDERED: ALPR0.5T PO (10:27)
[2022-11-25] MEDS ORDERED: DULO30CA49 PO (10:27)
[2022-11-25] MEDS ORDERED: SNN187T PO (10:27)
[2022-11-25] MEDS ORDERED: NF-SODBICA PO (10:27)
[2022-11-25] MEDS ORDERED: ASPI-1238 PO (10:27)
[2022-11-25] MEDS ORDERED: POTA10TA PO (10:27)
[2022-11-25] MEDS ORDERED: ATEN25TA PO (10:27)
[2022-11-25] MEDS ORDERED: IPRA3AMP31 INH (10:27)
[2022-11-25] MEDS ORDERED: GBPN600T PO (10:27)
[2022-11-25] MEDS ORDERED: PRAM0.754 PO (10:27)
[2022-11-25] MEDS ORDERED: ENOX40DI8 SC (10:27)
[2022-11-25] MEDS ORDERED: OXYB5TAB13 PO (10:27)
[2022-11-25] MEDS ORDERED: LACT1CAP74 PO (10:30)
[2022-11-25] MEDS ORDERED: AMOX1TAB12 PO (10:30)
--- NOTE | 2022-11-25 10:31 | Discharge Inst-Skilled Nursing ---
Discharge Inst-Skilled NF Reconcile Patient Problems Problems Reviewed?: Yes Patient Instructions Patient Problems: Debility Goal: [place] Consult/Follow Up/Orders Follow Up Appt.: PCP 1 week [facility] I certify that SNF services are required to be given on an inpatient basis because of the above named patient's need for detention care on a continuing basis for the conditions(s) for which he/she was receiving inpatient hospital services prior to his/her transfer to the SNF. Alf Facility Order: Nursing Services, Grain Processor-Evaluate & Treat, Physical Therapy-Evaluate & Treat, Speech Language-Evaluate & Treat Oxygen Delivery Method: Room Air Discharge Diet: No Restrictions Resuscitation Status: Full Code New & Resume Previous Orders New Medications: Alprazolam (Xanax) 0.5 Mg Tablet 0.5 MG PO TID PRN for AGITATION, #30 TAB Amoxicillin/Potassium Clav (Amox Tr-K Clv 875-125 mg Tab) 875 Mg-125 Mg Tablet 1 EACH PO BID, #12 TAB Lactobacillus Combination No.4 (Probiotic) 3 Billion Cell Capsule 1 EACH PO BID, #14 CAP Amlodipine Besylate (Amlodipine Besylate) 5 Mg Tablet 5 MG PO DAILY, #30 TAB Enoxaparin Sodium (Enoxaparin Sodium) 40 Mg/0.4 Ml Syringe 40 MG SC HS, #14 SYRINGE Ipratropium/Albuterol Sulfate (Iprat-Albut 0.5-3(2.5) mg/3 ml) 0.5 Mg-3 Mg (2.5 Mg Base)/3 Ml Ampul.neb 3 ML INH RTQ4HR, #60 INHALER Oxycodone Hcl (Oxyir Tablet) 5 Mg Tab 5 MG PO Q6HR PRN for PAIN-SEVERE (8-10), #20 TAB Sennosides (Senna Lax) 8.6 Mg Tablet 8.6 MG PO BID, #60 TAB Sodium Bicarbonate (Sodium Bicarbonate) 650 Mg Tablet 1300 MG PO BID, #60 TAB Changed Medications: Potassium Chloride (K-Tab ER) 10 Meq Tablet.er 10 MEQ PO DAILY, #30 TAB (Changed from: BID) Continued Medications: Aspirin (Aspirin EC) 81 Mg Tablet.dr 81 MG PO DAILY, #30 TAB (This prescription has been renewed) Atenolol (Atenolol) 25 Mg Tablet 25 MG PO DAILY, #30 TAB (This prescription has been renewed) Duloxetine HCl (Duloxetine HCl) 30 Mg Capsule.dr 30 MG PO DAILY, #30 CAP (This prescription has been renewed) Gabapentin (Gabapentin) 600 Mg Tablet 600 MG PO BID, #60 TAB (This prescription has been renewed) Oxybutynin Chloride (Oxybutynin Chloride) 5 Mg Tablet 5 MG PO BID, #60 TAB (This prescription has been renewed) Pramipexole Di-HCl (Pramipexole Dihydrochloride) 0.75 Mg Tablet 0.75 MG PO BID, #60 TAB (This prescription has been renewed) Discontinued Medications: Levalbuterol HCl (Levalbuterol HCl) 0.63 Mg/3 Ml Vial.neb 3 ML NEB Q8H PRN for SHORTNESS OF BREATH, EA Oxycodone HCl/Acetaminophen (Oxycodone-Acetaminophen 10-325) 10 Mg-325 Mg Tablet 1 EACH PO Q6H PRN for PAIN-MODERATE MDD 3, TAB Isabel Waters Nov 25, 2022 10:30 ISABEL WATERS DO Nov 25, 2022 10:31
--- NOTE | 2022-11-25 10:31 | Discharge Summary ---
Discharge Summary Hospital Course Was the Problem List Reviewed?: Yes Problems/Dx: (1) Sepsis Status: Resolved Qualifiers: Qualified Codes: A41.9 - Sepsis, unspecified organism (2) Altered mental state Status: Resolved Qualifiers: Qualified Codes: R41.82 - Altered mental status, unspecified (3) Physical debility Status: Acute (4) Advanced COPD (5) HTN (hypertension) Status: Chronic Qualifiers: Qualified Codes: I10 - Essential (primary) hypertension (6) CAD (coronary artery disease) Status: Chronic Qualifiers: Qualified Codes: I25.10 - Atherosclerotic heart disease of koi coronary artery without angina pectoris (7) Non-insulin dependent type 2 diabetes mellitus Status: Chronic (8) Influenza A Status: Acute (9) Viral sepsis (10) Generalized weakness Status: Acute (11) UTI (urinary tract infection) Status: Acute Hospital Course Date of Admission: Nov 17, 2022 at 16:43 Admission Diagnosis : Family Physician/Provider: Neo Mcgill DO Date of Discharge: 11/25/22 Discharge Diagnosis: [ ] Hospital Course: Hospital Course: 72-year-old female with PMH of early stage of Alzheimer's dementia/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 Patient's son was present in the ER and the majority of the history was taken from him. EMS reported that the patient's home was filthy with dog feces everywhere. Patient's son stated that patient has custody of her grand nephew at home amd that the nephew in the past had the flu. The son and his brother wanted the patient to be admitted to [facility]pc because she is unable to take care of herself or her home. Denies fever, diarrhea, falls, dizziness, shortness of breath, URI symptoms, palpitations, chest pain. Patient did not take her home medications today prior to coming to the ER. Patient was admitted to the fourth floor of [facility] (11/18/22) and handle PO diet with decreased appetite. She complained of leg pains and was given pain med regimen, it became more apparent that her dementia had advanced more than was initially reported and her altered mental status had the pt frustrated with staff. Pt tested postitve for Influenza A virus, a nasal cannula of 2.00L was utilized. (11/21/22)- pt was given IV fluids to correct elevated creatinine levels, and PT/OT were ordered to help with her symptoms of debility. (11/23/22)- UA showed signs of bacteruria/UTI, along with chest x-rays that indicated atelechtasis/possible pnuemonia. She was placed on abx treatment of cefepime and vancomycin extensive septic work-up sepsis was ruled out. She has had a few episodes of aggression for which she was given Geodon. It was discussed and agreed to that she be placed into a SNF upon DC which due to her labs stability is planned for 11/25/22. Labs and Pending Lab Test: Laboratory Tests 11/25/22 04:15: White Blood Count 10.1, Red Blood Count 4.04, Hemoglobin 12.2, Hematocrit 38, Mean Corpuscular Volume 94, Mean Corpuscular Hemoglobin 30, Mean Corpuscular Hemoglobin Concent 32, Red Cell Distribution Width 13.2, Platelet Count 193, Mean Platelet Volume 12.1, Immature Granulocyte % (Auto) 3, Neutrophils (%) (Auto) 72, Lymphocytes (%) (Auto) 12, Monocytes (%) (Auto) 11, Eosinophils (%) (Auto) 1, Basophils (%) (Auto) 0, Neutrophils # (Auto) 7.3, Lymphocytes # (Auto) 1.2, Monocytes # (Auto) 1.1H, Eosinophils # (Auto) 0.1, Basophils # (Auto) 0.0, Immature Granulocyte # (Auto) 0.3H, Sodium Level 139, Potassium Level 3.6, Chloride Level 100, Carbon Dioxide Level 25, Anion Gap 14, Blood Urea Nitrogen 25H, Creatinine 1.21, Estimat Glomerular Filtration Rate 48, BUN/Creatinine Ratio 21, Glucose Level 140H, Calcium Level 9.6, Corrected Calcium 10.2H, Magnesium Level 2.1, Total Bilirubin 0.5, Aspartate Amino Transf (AST/SGOT) 77H, Alanine Aminotransferase (ALT/SGPT) 100H, Alkaline Phosphatase 107, Total Protein 6.6, Albumin 3.3 Microbiology 11/22/22 Urine Culture - Final, Complete Escherichia coli 11/21/22 Blood Culture - Preliminary, Resulted No growth Home Meds Active Probiotic (Lactobacillus Combination No.4) 3 Billion Cell Capsule 1 Each PO BID Amox Tr-K Clv 875-125 mg Tab (Amoxicillin/Potassium Clav) 875 Mg-125 Mg Tablet 1 Each PO BID Xanax (Alprazolam) 0.5 Mg Tablet 0.5 Mg PO TID PRN Senna Lax (Sennosides) 8.6 Mg Tablet 8.6 Mg PO BID Sodium Bicarbonate 650 Mg Tablet 1,300 Mg PO BID Oxyir Tablet (Oxycodone HCl) 5 Mg Tab 5 Mg PO Q6HR PRN Amlodipine Besylate 5 Mg Tablet 5 Mg PO DAILY Enoxaparin Sodium 40 Mg/0.4 Ml Syringe 40 Mg SC HS Iprat-Albut 0.5-3(2.5) mg/3 ml (Ipratropium/Albuterol Sulfate) 0.5 Mg-3 Mg (2.5 Mg Base)/3 Ml Ampul.neb 3 Ml INH RTQ4HR Duloxetine HCl 30 Mg Capsule.dr 30 Mg PO DAILY K-Tab ER (Potassium Chloride) 10 Meq Tablet.er 10 Meq PO DAILY Pramipexole Dihydrochloride (Pramipexole Di-HCl) 0.75 Mg Tablet 0.75 Mg PO BID Oxybutynin Chloride 5 Mg Tablet 5 Mg PO BID Gabapentin 600 Mg Tablet 600 Mg PO BID Atenolol 25 Mg Tablet 25 Mg PO DAILY Aspirin EC (Aspirin) 81 Mg Tablet.dr 81 Mg PO DAILY Reported Oxycodone-Acetaminophen 10-325 (Oxycodone HCl/Acetaminophen) 10 Mg-325 Mg Tablet 1 Each PO Q6H PRN MDD 3 Levalbuterol HCl 0.63 Mg/3 Ml Vial.neb 3 Ml NEB Q8H PRN Assessment/Pt Instructions pcp nh rounds Discharge Planning: <30 minutes discharge planning Discharge Instructions Discharge Diet: No Restrictions Discharge Physical Examination Vital Signs Vital Signs Date Time Temp Pulse Resp B/P (MAP) Pulse Ox O2 Delivery O2 Flow Rate FiO2 11/25/22 08:00 Room Air 11/25/22 07:44 95 2.00 11/25/22 07:38 36.8 97 20 153/76 (101) 11/24/22 08:54 28 General Appearance: No Apparent Distress, WD/WN, Chronically ill Allergies: Coded Allergies: No Known Drug Allergies (Unverified , 06/07/09) Discharge Summary Date of Admission Nov 17, 2022 at 16:43 Date of Discharge Discharge Date: Nov 25, 2022 Discharge Diagnosis Assessment: Metabolic encephalopathy Influenza A completed treatment UTI facility acquired placed on cefepime and vancomycin Atelectasis on chest x-ray covered with antibiotics for UTI Poor social situation Dementia Acute kidney injury improved today at 1.4 Hypertension Poor oral intake Debility CAD Plan: IV fluids DC'd Continue PT and OT Hold discharge until Thursday Supportive care Hold TIMMY inhibitor Add antibiotics for complicated UTI and atelectasis DEBORAH HAWK DO Nov 25, 2022 10:31
[2022-11-25] MEDS: VANCOMYCIN 1 GM/NS 250 ML IVPB IV SCH ×2 (11:10)
--- NOTE | 2022-11-25 11:20 | Occupational Ther Daily Note ---
OT Current Status-Daily Note Subjective Pt alert, sitting in chair. Pt is oriented name only. Attempted to reorient pt, pt continues to think that this is her home and that it was remodeled and expanded to have more rooms for everyone's children. Pt hollers out at people in hallway. Mental Status/Objective Patient Orientation: Person, Confused Attachments: IV ADL-Treatment Pt ambulates using FWW, pushing for in front, with CGA for safety. CGA for toileting. CGA for oral care. After therapy, pt sitting in recliner with call light/phone in reach. Safety measures in place. All needs met. Therapy Code Descriptions/Definitions Functional Heard Measure: 0=Not Assessed/NA 4=Minimal Assistance 1=Total Assistance 5=Supervision or Setup 2=Maximal Assistance 6=Modified Heard 3=Moderate Assistance 7=Complete IndependenceSCALE: Activities may be completed with or without assistive devices. 5-Yfwxmbezlb-xxgpndy completes the activity by him/herself with no assistance from a helper. 5-Set-up or Clean-up Assistance-helper sets up or cleans up; patient completes activity. [place] assists only prior to or following the activity. 4-Supervision or Touching Assistance-helper provides verbal cues and/or touching/steadying and/or contact guard assistance as patient completes activity. Assistance may be provided throughout the activity or intermittently. 3-Partial/Moderate Assistance-helper does LESS THAN HALF the effort. [place] lifts, holds or supports trunk or limbs, but provides less than half the effort. 2-Substantial/Maximal Assistance-helper does MORE THAN HALF the effort. [place] lifts or holds trunk or limbs and provides more than half the effort. 5-Vosfqgpvz-jdwwdm does ALL the effort. Patient does none of the effort to complete the activity. Or, the assistance of 2 or more helpers is required for the patient to complete the activity. If activity was not attempted, code reason: 7-Patient Refused. 9-Not Applicable-not attempted and the patient did not perform the activity before the current illness, exacerbation or injury. 10-Not Attempted due to Environmental Limitations-(lack of equipment, weather restraints, etc.). 88-Not Attempted due to Medical Conditions or Safety Concerns. OT Screen Examiner Goals Screen Examiner Goals Time Frame: Nov 28, 2022 Oral Hygiene (QC): 5 Toileting Hygiene (QC): 6 Shower/Bathe Self (QC): 4 Upper Body Dressing (QC): 6 Lower Body Dressing (QC): 4 On/Off Footwear (QC): 4 Additional Goals: 1-Demonstrate ADL Tasks, 2-Verbalize Understanding, 3-Improv eStrength/Rafat 1=Demonstrate adherence to instructed precautions during ADL tasks. 2=Patient will verbalize/demonstrate understanding of assistive devices/modifications for ADL. 3=Patient will improve strength/tolerance for activity to enable patient to p erform ADL's. OT Education/Plan Problem List/Assessment Assessment: Decreased Activ Tolerance, Decreased Safety Aware, Impaired Cognition Discharge Recommendations Plan/Recommendations: Continue POC Treatment Plan/Plan of Care Patient would benefit from OT for education, treatment and training to promote independence in ADL's, mobility, safety and/or upper extremity function for ADL's. Plan of Care: ADL Retraining, Caregiver Training, Cognitive Retraining, Functional Mobility, Group Exercise/Act as Ind, UE Funct Exercise/Act Treatment Duration: Nov 28, 2022 Frequency: 3 times per week (3-5x/week ) Estimated Hrs Per Day: .25 hour per day Rehab Potential: Guarded Time Start Time: 10:15 Stop Time: 10:38 DATE: Nov 25, 2022 Total Time Billed (hr/min): 23 Billed Treatment Time 1 visit-ADL 2 (23 min) QI KAUFMAN Nov 25, 2022 11:20
--- NOTE | 2022-11-25 12:03 | Progress Note ---
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 Patient's son was present in the ER and the majority of the history was taken from him. EMS reported that the patient's home was filthy with dog feces everywhere. Patient's son stated that patient has custody of her grand nephew at home amd that the nephew in the past had the flu. The son and his brother wanted the patient to be admitted to fpc because she is unable to take care of herself or her home. Denies fever, diarrhea, falls, dizziness, shortness of breath, URI symptoms, palpitations, chest pain. Patient did not take her home medications today prior to coming to the ER. Patient was admitted to the fourth floor of [facility] (11/18/22) and handle PO diet with decreased appetite. She complained of leg pains and was given pain med regimen, it became more apparent that her dementia had advanced more than was initially reported and her altered mental status had the pt frustrated with staff. Pt tested postitve for Influenza A virus, a nasal cannula of 2.00L was utilized. (11/21/22)- pt was given IV fluids to correct elevated creatinine levels, and PT/OT were ordered to help with her symptoms of debility. (11/23/22)- UA showed signs of bacteruria/UTI, along with chest x-rays that indicated atelechtasis/possible pnuemonia. She was placed on abx treatment of cefepime and vancomycin extensive septic work-up sepsis was ruled out. She has had a few episodes of aggression for which she was given Geodon. It was discussed and agreed to that she be placed into a SNF upon DC which due to her labs stability is planned for 11/25/22. ISABEL HAWK DO 11/25/222040: Supervisory-Addendum Brief Verification & Attestation Participated in pt care: history, MDM, physical Personally performed: exam, history, MDM, supervision of care Care discussed with: Medical Student Procedures: n/a Results interpretation: Verified all documentation Verification and Attestation of Medical Student E/M Service A medical student performed and documented this service in my presence. I reviewed and verified all information documented by the medical student and made modifications to such information, when appropriate. I personally performed the physical exam and medical decision making. Isabel Hawk, Nov 25, 2022,20:41 MARIE GARCIA Nov 25, 2022 12:03 ISABEL HAWK DO Nov 25, 2022 20:41
[2022-11-25 12:16] VITALS: BP 115/65
[2022-11-25 12:55] VITALS: BP 115/65
--- NOTE | 2022-11-26 22:41 | Physician Query Clarification ---
PQ-Conflicting Diagnosis Admission/Discharge Admission Date: Nov 17, 2022 at 16:43 Discharge Date: Nov 25, 2022 at 12:55 DEBORAH King DO The medical record reflects the following clinical scenario: History/Risk Factors: [list no more than 2] Clinical Findings: [list no more than 2] Treatment: [list no more than 2] Question: Do you agree with the impression of the [diagnosis/condition] per [consulting physician]. Please document a response in Progress Note or Discharge Summary. 1. Yes 2. No 3. Other, with explanation of clinical findings 4. Clinically undetermined, no explanation for clinical findings. In responding to this query, please exercise your independent professional judgment. The purpose of this communication is to more accurately reflect the complexity of your patients condition. The fact that a question is asked does not imply that any particular answer is desired or expected. Thank you for your timely response to this clarification. Requestors name: [ ] Phone # [ ] THIS PHYSICIAN QUERY FORM IS A PERMANENT PART OF THE MEDICAL RECORD RAMIRO ALCARAZ Nov 26, 2022 22:41
== END 2022-11-25 12:55 | DRG 193 ==
LOC: EDUNIT# 13:39 → ER 13:40 → 4TH 16:43
PROVIDERS: ADMIT Internal Medicine; ATTEND Internal Medicine
DX: J10.1 Influenza due to other identified influenza virus with other respiratory manifestations (principal); G93.41 Metabolic encephalopathy; J98.11 Atelectasis; N39.0 Urinary tract infection, site not specified; N17.9 Acute kidney failure, unspecified; G30.9 Alzheimer's disease, unspecified; F02.80 Dementia in other diseases classified elsewhere, unspecified severity, without behavioral disturbance, psychotic disturbance, mood disturbance, and anxiety; Z95.1 Presence of aortocoronary bypass graft; I25.10 Atherosclerotic heart disease of native coronary artery without angina pectoris; E11.9 Type 2 diabetes mellitus without complications; I10 Essential (primary) hypertension; R53.81 Other malaise; J44.9 Chronic obstructive pulmonary disease, unspecified; Z79.82 Long term (current) use of aspirin; Z79.899 Other long term (current) drug therapy; Z87.891 Personal history of nicotine dependence; Z95.5 Presence of coronary angioplasty implant and graft; E78.00 Pure hypercholesterolemia, unspecified; K21.9 Gastro-esophageal reflux disease without esophagitis; M19.90 Unspecified osteoarthritis, unspecified site; E03.9 Hypothyroidism, unspecified; F41.9 Anxiety disorder, unspecified; Z20.822 Contact with and (suspected) exposure to COVID-19
CPT/HCPCS: 36410; 36415; 51702; 71045; 76937; 80048; 80053; 80076; 81000; 82140; 82805; 82947; 83605; 83735; 84145; 84484; 84550; 85007; 85025; 85027; 87040; 87077; 87088; 87186; 87636; 94640; 94760; 96361; 96365

== ENCOUNTER 2023-01-31 13:01 | Observation (INO) | payer MEDICARE ==
[~2023-01-31] VITALS: Ht 154 cm; Wt 79.3 kg
[~2023-01-31 13:01] MED LIST changes: +ALPR0.5T PO; +AMLO-250 PO; +AMOX1TAB12 PO; +DULO30CA49 PO; +ENOX40DI8 SC; +IPRA3AMP31 INH; +LACT1CAP74 PO; +LEVA0.6334 NEB; +NF-SODBICA PO; +OXC5T PO; +SNN187T PO
[2023-01-31 13:29] LABS: BASOPHILS % (AUTO) 1 % (0-10); EOSINOPHILS # (AUTO) 0.2 10^3/uL (0.0-0.3); EOSINOPHILS % (AUTO) 3 % (0-10); HEMATOCRIT 44 % (35-52); HEMOGLOBIN 14.4 g/dL (11.5-16.0); LYMPHOCYTES # (AUTO) 1.3 10^3/uL (1.0-4.0); LYMPHOCYTES % (AUTO) 15 % (12-44); MEAN CORPUSCULAR HEMOGLOBIN 30 pg (25-34); MEAN CORPUSCULAR HGB CONC 33 g/dL (32-36); MEAN CORPUSCULAR VOLUME 93 fL (80-99); MEAN PLATELET VOLUME 12.5 fL (9.0-12.2); MONOCYTES # (AUTO) 0.7 10^3/uL (0.0-1.0); MONOCYTES % (AUTO) 9 % (0-12); NEUTROPHILS % (AUTO) 72 % (42-75); PLATELET COUNT 161 10^3/uL (130-400); WHITE BLOOD COUNT 8.3 10^3/uL (4.3-11.0)
[2023-01-31] MEDS ORDERED: ASPIRIN 81 MG CHEW (CHILDREN'S ASA) PO ONE (13:30)
[2023-01-31 13:59] LABS: ALBUMIN 3.9 GM/DL (3.2-4.5)
[2023-01-31 14:00] LABS: POTASSIUM 4.4 MMOL/L (3.6-5.0)
[2023-01-31 14:01] LABS: CALCIUM 8.9 MG/DL (8.5-10.1)
[2023-01-31 14:02] LABS: TOTAL PROTEIN 6.3 GM/DL (6.4-8.2)
[2023-01-31 14:04] LABS: BILIRUBIN,TOTAL 0.4 MG/DL (0.1-1.0)
[2023-01-31 14:06] LABS: CREATININE SERUM 1.29 MG/DL (0.60-1.30)
--- NOTE | 2023-01-31 14:22 | Diagnostic Imaging Report ---
EXAMINATION: Chest 1 view HISTORY: Chest pain COMPARISON: 11/23/2022 FINDINGS: There are fractured median sternotomy wires, unchanged. Lungs are inflated. No edema or pneumonia. No pleural effusion or thorax. Heart size is normal. IMPRESSION: 1. Hyperinflated but clear lungs. Dictated by: Dictated on workstation # [id number]
--- NOTE | 2023-01-31 14:46 | ED General ---
General Chief Complaint: Respiratory Problems Stated Complaint: SOA Nursing Triage Note: PT PRESENTS TO ED VIA EMS FROM HOME WITH COMPLAINTS OF SOA STARTING APROX 1 HR WIRE FRAME DIPPER. PT ALSO REPORTS R MEDIAL CP. PT DENIES RECENT FEVER OR COUGH. Source of Information: Patient, Family (son) Exam Limitations: No Limitations History of Present Illness Date Seen by Provider: Jan 31, 2023 Time Seen by Provider: 13:06 Initial Comments 73-year-old female presents to the emergency department today for shortness of breath and some mild right medial chest pain. She had stents about a week ago. She was doing relatively well until about an hour prior to arrival when she developed acute onset of shortness of breath. She denies any fevers chills cough. No abdominal pain. No changes in bowel or bladder habits. All other systems reviewed and negative except documented per HPI. Voice recognition software was used to help create this chart Allergies and Home Medications Allergies Coded Allergies: No Known Drug Allergies (Unverified , 06/07/09) Patient Home Medication List Home Medication List Reviewed: Yes Alprazolam (Xanax) 0.5 Mg Tablet, 0.5 MG PO TID PRN for AGITATION Prescribed by: DEBORAH HAWK on 11/25/22 1028 Last Action: Reviewed Amlodipine Besylate (Amlodipine Besylate) 5 Mg Tablet, 5 MG PO DAILY Prescribed by: DEBORAH HAWK on 11/25/221026 Last Action: Reviewed Aspirin (Aspirin EC) 81 Mg Tablet., 81 MG PO DAILY Prescribed by: DEBORAH HAWK on 11/25/221026 Last Action: Reviewed Atenolol (Atenolol) 50 Mg Tablet, 50 MG PO DAILY, (Reported) Entered as Reported by: BATSHEVA MURDOCK on 02/01/231102 Last Action: Reviewed Celecoxib (Celecoxib) 100 Mg Capsule, 100 MG PO BID, (Reported) Entered as Reported by: BATSHEVA MURDOCK on 02/01/231102 Last Action: Reviewed Cranberry Fruit (Cranberry) 500 Mg Tab.chew, 500 MG PO DAILY, (Reported) Entered as Reported by: BATSHEVA MURDOCK on 02/01/231102 Last Action: Reviewed Duloxetine HCl (Duloxetine HCl) 30 Mg Capsule., 30 MG PO DAILY Prescribed by: DEBORAH HAWK on 12/27/22 1027 Last Action: Reviewed Gabapentin (Gabapentin) 600 Mg Tablet, 600 MG PO BID Prescribed by: DEBORAH HAWK on 11/25/22 102 Last Action: Reviewed Ipratropium/Albuterol Sulfate (Iprat-Albut 0.5-3(2.5) mg/3 ml) 0.5 Mg-3 Mg (2.5 Mg Base)/3 Ml Ampul.neb, 3 ML INH RTQ4HR Prescribed by: DEBORAH HAWK on 11/25/22 102 Last Action: Reviewed Isosorbide Mononitrate (Isosorbide Mononitrate ER) 30 Mg Tab.er.24h, 15 MG PO DAILY, (Reported) Entered as Reported by: BATSHEVA MURDOCK on 02/01/231102 Last Action: Reviewed Lactobacillus Combination No.4 (Probiotic) 3 Billion Cell Capsule, 1 EACH PO BID Prescribed by: DEBORAH HAWK on 11/25/22 1030 Last Action: Reviewed Mirabegron (Myrbetriq) 25 Mg Tab.er.24h, 25 MG PO DAILY, (Reported) Entered as Reported by: BATSHEVA MURDOCK on 02/01/231102 Last Action: Reviewed Potassium Chloride (K-Tab ER) 10 Meq Tablet.er, 10 MEQ PO DAILY Prescribed by: DEBORAH HAWK on 11/25/221026 Last Action: Reviewed Pramipexole Di-HCl (Pramipexole Dihydrochloride) 0.75 Mg Tablet, 0.75 MG PO BID Prescribed by: DEBORAH HAWK on 11/25/221026 Last Action: Reviewed Sennosides (Senna Lax) 8.6 Mg Tablet, 8.6 MG PO BID Prescribed by: DEBORAH HAWK on 11/25/22 102 Last Action: Reviewed Sodium Bicarbonate (Sodium Bicarbonate) 650 Mg Tablet, 1,300 MG PO BID Prescribed by: DEBORAH HAWK on 11/25/22 102 Last Action: Reviewed Ticagrelor (Brilinta) 90 Mg Tablet, 90 MG PO BID, (Reported) Entered as Reported by: BATSHEVA MURDOCK on 02/01/231102 Last Action: Reviewed Trazodone HCl (Trazodone HCl) 50 Mg Tablet, 50 MG PO DAILY, (Reported) Entered as Reported by: BATSHEVA MURDOCK on 02/01/23 1103 Last Action: Reviewed Discontinued Medications Amoxicillin/Potassium Clav (Amox Tr-K Clv 875-125 mg Tab) 875 Mg-125 Mg Tablet, 1 EACH PO BID Discontinued Reason: No Longer Taking Prescribed by: DEBORAH HAWK on 11/25/22 1030 Last Action: Discontinued Atenolol (Atenolol) 25 Mg Tablet, 25 MG PO DAILY Discontinued Reason: Provider Change Prescribed by: DEBORAH HAWK on 11/25/22 1027 Last Action: Discontinued Enoxaparin Sodium (Enoxaparin Sodium) 40 Mg/0.4 Ml Syringe, 40 MG SC HS Discontinued Reason: No Longer Taking Prescribed by: DEBORAH HAWK on 11/25/22 1027 Last Action: Discontinued Oxybutynin Chloride (Oxybutynin Chloride) 5 Mg Tablet, 5 MG PO BID Discontinued Reason: No Longer Taking Prescribed by: DEBORAH HAWK on 11/25/22 1027 Last Action: Discontinued Oxycodone Hcl (Oxyir Tablet) 5 Mg Tab, 5 MG PO Q6HR PRN for PAIN-SEVERE (8-10) Discontinued Reason: No Longer Taking Prescribed by: DEBORAH HAWK on 11/25/22 1028 Last Action: Discontinued Review of Systems Review of Systems Constitutional: no symptoms reported Past Caxoqqk-Xhbgxt-Czzqxv Hx Patient Social History Tobacco Use?: No Smoking Status: Former Smoker Substance use?: No Alcohol Use?: No Pt feels they are or have been: No Immunizations Up To Date Tetanus Booster (TDap): More than 5yrs PED Vaccines UTD: Yes First/Initial COVID19 Vaccinat: UNKNOWN Second COVID19 Vaccination Ron: UNKNOWN Third COVID19 Vaccination Date: UNKNOWN Seasonal Allergies Seasonal Allergies: No Past Medical History Surgery/Hospitalization HX: SX: CABG PMH: CAD, UTI, PNEUMONIA, COPD, DOUBLE BYPASS, STENTS, PNEUMONIA Surgeries: Yes Cardiac, CABG, Thyroidectomy Respiratory: Yes Asthma, Chronic Bronchitis, COPD Cardiac: Yes (CABG/STENTS. 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, Menopausal Genitourinary: No Gastrointestinal: Yes Gastroesophageal Reflux, Hiatal Hernia Musculoskeletal: Yes (ARTHRITIS IN KNEES) Arthritis Endocrine: Yes Hypothyroidsim, Diabetes, Non-Insulin dep HEENT: No (EDENTULOUS) Cancer: No Psychosocial: Yes Anxiety Integumentary: Yes Eczema Blood Disorders: No Family Medical History Alzheimer's disease 19 MOTHER FH: cancer G8 SISTER FH: heart disease 19 FATHER Kidney disease 19 MOTHER Myocardial infarction G8 BROTHER No Pertinent Family Hx Physical Exam Vital Signs Vital Signs - First Documented 01/31/23 13:10 Temp 36.7 Pulse 57 Resp 21 B/P (MAP) 127/62 (83) Pulse Ox 97 Capillary Refill : Less Than 3 Seconds Height, Weight, BMI Height: 5'1.00" Weight: 141lbs. 8.0oz. 62.400996no; 33.00 BMI Method:Stated General Appearance: No Apparent Distress, WD/WN HEENT: Normal ENT Inspection, Pharynx Normal Neck: Normal Inspection, Non Tender, Supple Respiratory: Chest Non Tender, Lungs Clear, Normal Breath Sounds, No Accessory Muscle Use, No Respiratory Distress Cardiovascular: Regular Rate, Rhythm, No Edema, No Murmur, Normal Peripheral Pulses Gastrointestinal: Normal Bowel Sounds, No Organomegaly, No Pulsatile Mass, Non Tender, Soft Extremity: Normal Capillary Refill, Normal Inspection, Normal Range of Motion, Non Tender, No Calf Tenderness, No Pedal Edema Neurologic/Psychiatric: Alert, Oriented x3, No Motor/Sensory Deficits Skin: Normal Color, Warm/Dry Progress/Results/Core Measures Suspected Sepsis SIRS Temperature: Pulse: 57 Respiratory Rate: 21 Laboratory Tests 01/31/23 13:13: White Blood Count 8.3 Blood Pressure 127 /62 Mean: 83 Laboratory Tests 01/31/23 13:13: Creatinine 1.29, Platelet Count 161, Total Bilirubin 0.4 Results/Orders Lab Results Laboratory Tests Test 01/31/23 13:13 Range/Units White Blood Count 8.3 4.3-11.0 10^3/uL Red Blood Count 4.79 3.80-5.11 10^6/uL Hemoglobin 14.4 11.5-16.0 g/dL Hematocrit 44 35-52 % Mean Corpuscular Volume 93 80-99 fL Mean Corpuscular Hemoglobin 30 25-34 pg Mean Corpuscular Hemoglobin Concent 33 32-36 g/dL Red Cell Distribution Width 14.3 10.0-14.5 % Platelet Count 161 130-400 10^3/uL Mean Platelet Volume 12.5 H 9.0-12.2 fL Immature Granulocyte % (Auto) 0 % Neutrophils (%) (Auto) 72 42-75 % Lymphocytes (%) (Auto) 15 12-44 % Monocytes (%) (Auto) 9 0-12 % Eosinophils (%) (Auto) 3 0-10 % Basophils (%) (Auto) 1 0-10 % Neutrophils # (Auto) 6.0 1.8-7.8 10^3/uL Lymphocytes # (Auto) 1.3 1.0-4.0 10^3/uL Monocytes # (Auto) 0.7 0.0-1.0 10^3/uL Eosinophils # (Auto) 0.2 0.0-0.3 10^3/uL Basophils # (Auto) 0.0 0.0-0.1 10^3/uL Immature Granulocyte # (Auto) 0.0 0.0-0.1 10^3/uL Sodium Level 142 135-145 MMOL/L Potassium Level 4.4 3.6-5.0 MMOL/L Chloride Level 109 H 98-107 MMOL/L Carbon Dioxide Level 23 21-32 MMOL/L Anion Gap 10 5-14 MMOL/L Blood Urea Nitrogen 31 H 7-18 MG/DL Creatinine 1.29 0.60-1.30 MG/DL Estimat Glomerular Filtration Rate 44 BUN/Creatinine Ratio 24 Glucose Level 98 70-105 MG/DL Calcium Level 8.9 8.5-10.1 MG/DL Corrected Calcium 9.0 8.5-10.1 MG/DL Magnesium Level 2.0 1.6-2.4 MG/DL Total Bilirubin 0.4 0.1-1.0 MG/DL Aspartate Amino Transf (AST/SGOT) 13 5-34 U/L Alanine Aminotransferase (ALT/SGPT) 15 0-55 U/L Alkaline Phosphatase 90 40-136 U/L Troponin I < 0.028 <0.028 NG/ML B-Type Natriuretic Peptide 13.4 <100.0 PG/ML Total Protein 6.3 L 6.4-8.2 GM/DL Albumin 3.9 3.2-4.5 GM/DL My Orders Orders - BARBARAJAYNA DO Cbc With Automated Diff (01/31/23 13:22) Magnesium (01/31/23 13:22) Chest 1 View, Ap/Pa Only (01/31/23 13:22) Ekg Tracing (01/31/23 13:22) Comprehensive Metabolic Panel (01/31/23 13:22) Monitor-Rhythm Ecg Trace Only (01/31/23 13:22) Ed Iv/Invasive Line Start (01/31/23 13:22) Bnp [place] (01/31/23 13:22) Troponin I [place] (01/31/23 13:22) Aspirin Chewable Tablet (Baby Aspirin Ch (01/31/23 13:30) Furosemide Injection (Lasix Injection) (01/31/23 15:00) Ed Admission (Communication) (01/31/23 14:49) Medications Given in ED Current Medications Medications Dose Ordered Sig/Alejandra Route Start Time Stop Time Status Last Admin Dose Admin Aspirin 324 mg ONCE ONCE PO 01/31/23 13:30 01/31/23 13:31 DC 01/31/23 13:52 324 MG Vital Signs/I&O 01/31/23 13:10 Temp 36.7 Pulse 57 Resp 21 B/P (MAP) 127/62 (83) Pulse Ox 97 Capillary Refill : Less Than 3 Seconds Blood Pressure Mean: 83 ECG Comment I independently reviewed the EKG showing sinus rhythm with a rate of 59 bpm. Normal intervals. Normal axis. No ST or T wave abnormalities. No ectopy. No STEMI. Departure Communication (Admissions) Dr Burden- [phone] Dr Hawk- [phone] Given the patient's recent stent history, concern for in-stent restenosis. She is not having any chest pain but dyspnea may be an anginal equivalent. Her EKG is nonischemic and her troponin is negative. Chest x-ray is clear on my independent review, no evidence of pulmonary edema, pneumothorax, pneumomediastinum or other emergent condition. No pneumonia. Her labs are otherwise reassuring with no evidence of renal failure, electrolyte abnormality, anemia. I spoke with Dr. Burden who recommends 20 of Lasix IV, continue her home antiplatelet therapy as well as Lovenox. Spoke to the patient she is comfortable agreeable to admission at this time. I spoke to Dr. Hawk and she accepts admission. She states she will place acute orders. Impression Primary Impression: Dyspnea Qualified Codes: R06.00 - Dyspnea, unspecified Disposition: ADMITTED INPATIENT Condition: Stable Admissions Decision to Admit Reason: Admit from ER (General) Departure-Patient Inst. Referrals: ASHA GREER DO (PCP/Family) Primary Care Physician JAYNA JIMENEZ DO Jan 31, 2023 14:46
[2023-01-31] MEDS ORDERED: FUROSEMIDE 40 MG/4 ML INJ (LASIX) IVP ONE (15:00)
[2023-01-31] MEDS ORDERED: HYDROcodone/APAP 5 MG/325 MG (LORTAB) TAB PO ONE (15:00)
[2023-01-31] MEDS ORDERED: PATIENT MAY USE OWN MEDS, ALL PO SCH (15:45)
[2023-01-31] MEDS ORDERED: LACTULOSE SYRUP 10GM/15ML (ENULOSE) 30ML UDC PO PRN (15:45)
[2023-01-31] MEDS ORDERED: CALCIUM CARBONATE 500 MG (TUMS) TAB.CHEW PO PRN (15:45)
[2023-01-31] MEDS ORDERED: diphenhydrAMINE 50 MG/ML INJ (BENADRYL) IVP PRN (15:45)
[2023-01-31] MEDS ORDERED: MILK OF MAGNESIA 400 MG/5 ML 30 ML UDC PO PRN (15:45)
[2023-01-31] MEDS ORDERED: ANTACID SUSP 30 ML UDC (MYLANTA) PO PRN (15:45)
[2023-01-31] MEDS ORDERED: ONDANSETRON 4 MG (ZOFRAN) ORAL DISSOLVE TAB PO PRN (15:45)
[2023-01-31] MEDS ORDERED: ONDANSETRON 4 MG/2 ML (SDV) Z0FRAN IV PRN (15:45)
[2023-01-31] MEDS ORDERED: diphenhydrAMINE 25 MG TAB (BENADRYL) PO PRN (15:45)
[2023-01-31] MEDS ORDERED: MELATONIN 3 MG TABLET PO PRN (15:45)
[2023-01-31] MEDS ORDERED: polyethylene glycoL POWDER 17 GM (MIRALAX) PACK PO PRN (15:45)
[2023-01-31] MEDS ORDERED: NITROGLYCERIN 0.4 MG SL TABS BTL 25'S SL PRN (15:45)
[2023-01-31] MEDS ORDERED: ENOXAPARIN 100 MG/1 ML (LOVENOX) SYR SC SCH (15:45)
[2023-01-31] MEDS ORDERED: BISACODYL 10 MG SUPP (DULCOLAX) PR PRN (15:45)
[2023-01-31 16:28] VITALS: BP 127/62
[2023-01-31] MEDS ORDERED: RT-ALBUTEROL/IPRATROPIUM 3 ML (DUONEB) VIAL INH PRN (16:45)
[2023-01-31] MEDS: ENOXAPARIN 80 MG/0.8 ML (LOVENOX) SYR SC SCH (17:29)
[2023-01-31 19:35] VITALS: BP 137/72
[2023-01-31] MEDS: SENNOSIDES 8.6 MG (SENOKOT) TAB PO SCH (20:17)
[2023-01-31] MEDS: DOCUSATE SODIUM 100 MG (COLACE) CAP PO SCH (20:17)
[2023-01-31] MEDS: PRAMIPEXOLE 0.5 MG TAB (MIRAPEX) PO SCH (20:18)
[2023-01-31] MEDS: morphine INJ 4 MG/ML 1 ML (VIAL/SYRINGE) IV PRN (20:58)
[2023-01-31] MEDS: ACETAMINOPHEN 325 MG TABLET PO PRN (20:58)
[2023-01-31] MEDS: RT-ALBUTEROL/IPRATROPIUM 3 ML (DUONEB) VIAL INH SCH (21:06)
[2023-01-31] MEDS: ALPRAZolam 0.5 MG (XANAX) TAB PO PRN (22:03)
[2023-02-01 01:11] VITALS: BP 111/61
[2023-02-01] MEDS: RT-ALBUTEROL/IPRATROPIUM 3 ML (DUONEB) VIAL INH SCH ×2 (03:05→08:55)
[2023-02-01] MEDS: ENOXAPARIN 80 MG/0.8 ML (LOVENOX) SYR SC SCH (04:18)
[2023-02-01 04:20] VITALS: BP 141/57
[2023-02-01 04:38] LABS: BASOPHILS % (AUTO) 1 % (0-10); EOSINOPHILS # (AUTO) 0.2 10^3/uL (0.0-0.3); EOSINOPHILS % (AUTO) 2 % (0-10); HEMATOCRIT 41 % (35-52); HEMOGLOBIN 13.1 g/dL (11.5-16.0); LYMPHOCYTES # (AUTO) 1.7 10^3/uL (1.0-4.0); LYMPHOCYTES % (AUTO) 24 % (12-44); MEAN CORPUSCULAR HEMOGLOBIN 30 pg (25-34); MEAN CORPUSCULAR HGB CONC 32 g/dL (32-36); MEAN CORPUSCULAR VOLUME 92 fL (80-99); MEAN PLATELET VOLUME 12.6 fL (9.0-12.2); MONOCYTES # (AUTO) 0.6 10^3/uL (0.0-1.0); MONOCYTES % (AUTO) 9 % (0-12); NEUTROPHILS # (AUTO) 4.5 10^3/uL (1.8-7.8); NEUTROPHILS % (AUTO) 64 % (42-75); PLATELET COUNT 141 10^3/uL (130-400); WHITE BLOOD COUNT 7.1 10^3/uL (4.3-11.0)
[2023-02-01 04:51] LABS: ALBUMIN 3.7 GM/DL (3.2-4.5); CHLORIDE 106 MMOL/L (98-107); POTASSIUM 3.9 MMOL/L (3.6-5.0); SODIUM 141 MMOL/L (135-145)
[2023-02-01 04:52] LABS: CALCIUM 8.8 MG/DL (8.5-10.1)
[2023-02-01 04:53] LABS: GLUCOSE 111 MG/DL (70-105); TOTAL PROTEIN 6.4 GM/DL (6.4-8.2); TRIGLYCERIDES 185 MG/DL (<150); VLDL CHOLESTEROL 37 MG/DL (5-40)
[2023-02-01 04:54] LABS: CARBON DIOXIDE 21 MMOL/L (21-32)
[2023-02-01 04:55] LABS: BILIRUBIN,TOTAL 0.3 MG/DL (0.1-1.0)
[2023-02-01 04:57] LABS: ALKALINE PHOSPHATASE 84 U/L (40-136); CREATININE SERUM 1.33 MG/DL (0.60-1.30); GFR ESTIMATED 42
[2023-02-01 04:58] LABS: BUN/CREATININE RATIO 26; CHOLESTEROL 206 MG/DL (< 200)
[2023-02-01 04:59] LABS: HDL CHOLESTEROL 42 MG/DL (40-60)
[2023-02-01 05:00] LABS: ALANINE AMINOTRANSFERASE 14 U/L (0-55)
[2023-02-01] MEDS: morphine INJ 4 MG/ML 1 ML (VIAL/SYRINGE) IV PRN (05:57)
--- NOTE | 2023-02-01 07:06 | Short Stay Summary-Hospitalist ---
History of Present Illness HPI/Chief Complaint CC: Dyspnea HPI: This is a 72yoWF clinic patient of [facility] who is known to me from prior hospital stays and recent [facility] who had 3 stents placed at [place] who presented to the ER with dyspnea of uncertain source. Cardiology was consulted and requested admit for close observation. All troponins have been negative and she is ready for DC and Dr Burden agrees. Source: patient Exam Limitations: no limitations Date Seen 02/01/23 Time Seen by a Provider: 11:00 Attending Physician Juan Charles DO PCP Admitting Physician: Isabel Waters DO Attending Physician: Isabel Waters DO Referring Physician Date of Admission Jan 31, 2023 at 14:50 Home Medications & Allergies Home Medications Reviewed patient Home Medication Reconciliation performed by pharmacy medication reconciliations automated access systems technician and/or nursing. Patients Allergies have been reviewed. Allergies Allergies Coded Allergies No Known Drug Allergies (Unverified06/07/09) Past Legmjnd-Wormnv-Zmomnq Hx Patient Social History Marrital Status: single Employed/Student: retired Tobacco Use?: No Tobacco type used: Cigarettes Smoking Status: Former Smoker Substance use?: No Alcohol Use?: No Pt feels they are or have been: No Immunizations Up To Date Date of Influenza Vaccine: Sep 28, 2020 First/Initial COVID19 Vaccinat: UNKNOWN Second COVID19 Vaccination Ron: UNKNOWN Tetanus Booster (TDap): Unknown PED Vaccines UTD: Yes Date of Pneumonia Vaccine: Sep 28, 2018 Seasonal Allergies Seasonal Allergies: No Current Status Advance Directives: No Communicates: Verbally Primary Language: Bhutanese Preferred Spoken Language: Bhutanese Is interpretation needed?: No Implanted or Applied Medical D: Stents Past Medical History Surgeries: Cardiac, CABG, Thyroidectomy Asthma, Chronic Bronchitis, COPD Coronary Artery Disease, High Cholesterol, Hypertension, Peripheral Vascular 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, Menopausal Gastroesophageal Reflux, Hiatal Hernia Arthritis Hypothyroidsim, Diabetes, Non-Insulin dep Anxiety Eczema Blood Disorders: No CAD HTN Dementia Family Medical History Alzheimer's disease 19 MOTHER FH: cancer G8 SISTER FH: heart disease 19 FATHER Kidney disease 19 MOTHER Myocardial infarction G8 BROTHER No Pertinent Family Hx Review of Systems Constitutional: see HPI Physical Exam Physical Exam Vital Signs Vital Signs - First Documented 01/31/23 01/31/23 01/31/23 01/31/23 13:10 16:28 16:30 21:07 Temp 36.7 Pulse 57 Resp 21 B/P (MAP) 127/62 (83) Pulse Ox 97 O2 Delivery Room Air O2 Flow Rate 0.00 FiO2 21 Capillary Refill : Less Than 3 Seconds Height, Weight, BMI Height: 5'1.00" Weight: 141lbs. 8.0oz. 62.482646fz; 33.64 BMI Method:Stated General Appearance: No Apparent Distress, WD/WN, Chronically ill Eyes: Bilateral Eye Normal Inspection, Bilateral Eye PERRL HEENT: PERRL/EOMI, Normal ENT Inspection, Pharynx Normal Neck: Full Range of Motion, Normal Inspection, Non Tender, Supple, Carotid Bruit Respiratory: Chest Non Tender, Lungs Clear, Normal Breath Sounds, No Accessory Muscle Use, No Respiratory Distress Cardiovascular: Regular Rate, Rhythm, No Edema, No Gallop, No JVD, No Murmur, Normal Peripheral Pulses Gastrointestinal: Normal Bowel Sounds, No Organomegaly, No Pulsatile Mass, Non Tender, Soft Back: Normal Inspection, No CVA Tenderness, No Vertebral Tenderness Extremity: Normal Capillary Refill, Normal Inspection, Normal Range of Motion, Non Tender, No Calf Tenderness, No Pedal Edema Neurologic/Psychiatric: Alert, Oriented x3 (decreased recall), No Motor/Sensory Deficits, Normal Mood/Affect Skin: Normal Color, Warm/Dry Lymphatic: No Adenopathy Results Results/Procedures Labs Laboratory Tests 01/31/23 13:13 02/01/23 04:27 Patient resulted labs reviewed. Short Stay Diagnosis Discharge Diagnosis-Short Stay Admission Diagnosis Assessment: Dyspnea s/p recent stent placement HTN HLP Dementia Final Discharge Diagnosis Assessment: Dyspnea s/p recent stent placement w/o evidence of ACS HTN HLP Dementia Conclusion Plan CO ISABEL Wang DO Feb 01, 2023 07:06
[2023-02-01] MEDS: SENNOSIDES 8.6 MG (SENOKOT) TAB PO SCH (08:47)
[2023-02-01] MEDS: DOCUSATE SODIUM 100 MG (COLACE) CAP PO SCH (08:47)
[2023-02-01] MEDS ORDERED: ASPIRIN E.C. 81 MG (ECOTRIN) TAB PO SCH (09:00)
[2023-02-01] MEDS ORDERED: CLOPIDOGREL 75 MG (PLAVIX) TABLET PO SCH (09:00)
[2023-02-01 09:26] VITALS: BP 128/64
--- NOTE | 2023-02-01 09:53 | Consultation-Cardiology ---
HPI-Cardiology Cardiology Consultation Date of Consultation 02/01/23 Date of Admission Time Seen by Provider: 09:49 Indication: Chest pain HPI 73-year-old lady with history of coronary artery disease, CABG, multiple interventions in the past, hypertension hyperlipidemia with carotid stenosis, came into the emergency room with chest pain and shortness of breath. Currently feeling better, denied any active chest pain or dyspnea. Patient has advanced dementia, she is unable to provide any history, history was obtained by reviewing her record and the records from her son Home Medications & Allergies Allergies: Coded Allergies: No Known Drug Allergies (Unverified , 06/07/09) Home Medication List Reviewed: Yes IDP-Nqxbzt-Pshsbp Hx Patient Social History Marital Status: single Employed/Student: retired Smoking Status: Former Smoker Type Used: Cigarettes 2nd Hand Smoke Exposure: Yes Recent Hopitalizations: No Have you traveled recently?: No Alcohol Use?: No Immunizations Up To Date Tetanus Booster (TDap): More than 5yrs Date of Pneumonia Vaccine: Sep 28, 2018 Date of Influenza Vaccine: Sep 28, 2020 Past Medical History Discussed below Family Medical History Significant Family History: No Pertinent Family Hx Family History: Alzheimer's disease 19 MOTHER FH: cancer G8 SISTER FH: heart disease 19 FATHER Kidney disease 19 MOTHER Myocardial infarction G8 BROTHER Review of Systems-General Review of Systems Constitutional: no symptoms reported, see HPI EENTM: see HPI, no symptoms reported Respiratory: see HPI, dyspnea on exertion, short of breath Cardiovascular: see HPI, chest pain Gastrointestinal: no symptoms reported, see HPI Genitourinary: no symptoms reported, see HPI Musculoskeletal: no symptoms reported, see HPI Skin: no symptoms reported, see HPI Psychiatric/Neurological: No Symptoms Reported, See HPI Reviewed Test Results Reviewed Test Results Lab Laboratory Tests Test 01/31/23 13:13 01/31/23 23:48 02/01/23 04:27 Range/Units White Blood Count 8.3 7.1 4.3-11.0 10^3/uL Red Blood Count 4.79 4.44 3.80-5.11 10^6/uL Hemoglobin 14.4 13.1 11.5-16.0 g/dL Hematocrit 44 41 35-52 % Mean Corpuscular Volume 93 92 80-99 fL Mean Corpuscular Hemoglobin 30 30 25-34 pg Mean Corpuscular Hemoglobin Concent 33 32 32-36 g/dL Red Cell Distribution Width 14.3 14.3 10.0-14.5 % Platelet Count 161 141 130-400 10^3/uL Mean Platelet Volume 12.5 H 12.6 H 9.0-12.2 fL Immature Granulocyte % (Auto) 0 0 % Neutrophils (%) (Auto) 72 64 42-75 % Lymphocytes (%) (Auto) 15 24 12-44 % Monocytes (%) (Auto) 9 9 0-12 % Eosinophils (%) (Auto) 3 2 0-10 % Basophils (%) (Auto) 1 1 0-10 % Neutrophils # (Auto) 6.0 4.5 1.8-7.8 10^3/uL Lymphocytes # (Auto) 1.3 1.7 1.0-4.0 10^3/uL Monocytes # (Auto) 0.7 0.6 0.0-1.0 10^3/uL Eosinophils # (Auto) 0.2 0.2 0.0-0.3 10^3/uL Basophils # (Auto) 0.0 0.0 0.0-0.1 10^3/uL Immature Granulocyte # (Auto) 0.0 0.0 0.0-0.1 10^3/uL Sodium Level 142 141 135-145 MMOL/L Potassium Level 4.4 3.9 3.6-5.0 MMOL/L Chloride Level 109 H 106 98-107 MMOL/L Carbon Dioxide Level 23 21 21-32 MMOL/L Anion Gap 10 14 5-14 MMOL/L Blood Urea Nitrogen 31 H 34 H 7-18 MG/DL Creatinine 1.29 1.33 H 0.60-1.30 MG/DL Estimat Glomerular Filtration Rate 44 42 BUN/Creatinine Ratio 24 26 Glucose Level 98 111 H 70-105 MG/DL Calcium Level 8.9 8.8 8.5-10.1 MG/DL Corrected Calcium 9.0 9.0 8.5-10.1 MG/DL Magnesium Level 2.0 1.6-2.4 MG/DL Total Bilirubin 0.4 0.3 0.1-1.0 MG/DL Aspartate Amino Transf (AST/SGOT) 13 11 5-34 U/L Alanine Aminotransferase (ALT/SGPT) 15 14 0-55 U/L Alkaline Phosphatase 90 84 40-136 U/L Troponin I < 0.028 < 0.028 < 0.028 <0.028 NG/ML B-Type Natriuretic Peptide 13.4 <100.0 PG/ML Total Protein 6.3 L 6.4 6.4-8.2 GM/DL Albumin 3.9 3.7 3.2-4.5 GM/DL Triglycerides Level 185 H <150 MG/DL Cholesterol Level 206 H < 200 MG/DL LDL Cholesterol Direct 138 H 1-129 MG/DL VLDL Cholesterol 37 5-40 MG/DL HDL Cholesterol 42 40-60 MG/DL Physical Exam Physical Exam Vital Signs Vital Signs - First Documented 01/31/23 01/31/23 01/31/23 01/31/23 13:10 16:28 16:30 21:07 Temp 36.7 Pulse 57 Resp 21 B/P (MAP) 127/62 (83) Pulse Ox 97 O2 Delivery Room Air O2 Flow Rate 0.00 FiO2 21 Capillary Refill : Less Than 3 Seconds Height, Weight, BMI Height: 5'1.00" Weight: 141lbs. 8.0oz. 62.614062cm; 33.64 BMI Method:Stated General Appearance: No Apparent Distress, WD/WN Eyes: Bilateral Eye Normal Inspection, Bilateral Eye PERRL, Bilateral Eye EOMI HEENT: PERRL/EOMI, TMs Normal, Normal ENT Inspection, Pharynx Normal, Moist Mucous Membranes Neck: Full Range of Motion, Normal Inspection, Non Tender, Supple, Carotid Bruit Respiratory: Chest Non Tender, Normal Breath Sounds, No Accessory Muscle Use, No Respiratory Distress Cardiovascular: Regular Rate, Rhythm, No Edema, No Gallop, No JVD, Normal Peripheral Pulses, Systolic Murmur Gastrointestinal: Normal Bowel Sounds, No Organomegaly, No Pulsatile Mass, Non Tender, Soft Back: Normal Inspection, No CVA Tenderness, No Vertebral Tenderness Extremity: Normal Capillary Refill, Normal Inspection, Normal Range of Motion, Non Tender, No Calf Tenderness, No Pedal Edema Neurologic/Psychiatric: Alert, Oriented x3, No Motor/Sensory Deficits, Normal Mood/Affect Skin: Normal Color, Warm/Dry Lymphatic: No Adenopathy A/P-Cardiology Admission Diagnosis Chest pain Coronary artery disease Hypertension Hyperlipidemia Assessment/Plan Chest pain, shortness of breath, unstable angina EKG and cardiac enzymes did not show any acute abnormality Had extensive work-up done at [facility] recently. Conservative management is recommended at this point Okay for discharge Coronary artery disease, history of CABG in the past Had 3 stents placed in December [address] Mercado EKG and cardiac enzymes did not show any acute abnormality, conservative management is recommended Okay for discharge and follow-up with primary weatherization coordinator Hypertension, restart home medication monitor blood pressure Hyperlipidemia, monitor lipids Tobaccoism, educated on smoking cessation History of carotid stenosis. Advanced dementia. YOLANDA BARRETT MD Feb 01, 2023 09:53
[2023-02-01] MEDS: PRAMIPEXOLE 0.5 MG TAB (MIRAPEX) PO SCH (10:02)
[2023-02-01] MEDS ORDERED: ATEN50TA PO (11:03)
[2023-02-01] MEDS ORDERED: MIRA25TA PO (11:03)
[2023-02-01] MEDS ORDERED: TRZ50T PO (11:03)
[2023-02-01] MEDS ORDERED: CRAN500T PO (11:03)
[2023-02-01] MEDS ORDERED: TICA90TA PO (11:03)
[2023-02-01] MEDS ORDERED: CELE100C84 PO (11:03)
[2023-02-01] MEDS ORDERED: ISOS30TA82 PO (11:03)
[2023-02-01] MEDS: ALPRAZolam 0.5 MG (XANAX) TAB PO PRN (11:36)
[2023-02-01] MEDS: ACETAMINOPHEN 325 MG TABLET PO PRN (11:36)
== END 2023-02-01 11:22 | disposition home or self-care (01) ==
LOC: EDUNIT# 13:01 → ER 13:03 → CSD 14:50 → UNDOADMOB 14:50 → CSD 16:30 → UNDODISOB 02-01 12:40
PROVIDERS: ADMIT Internal Medicine; ATTEND Internal Medicine
DX: R06.00 Dyspnea, unspecified (principal); I10 Essential (primary) hypertension; E78.5 Hyperlipidemia, unspecified; I25.110 Atherosclerotic heart disease of native coronary artery with unstable angina pectoris; F03.90 Unspecified dementia, unspecified severity, without behavioral disturbance, psychotic disturbance, mood disturbance, and anxiety; F17.210 Nicotine dependence, cigarettes, uncomplicated
CPT/HCPCS: 71045; 80053 ×2; 80061; 83735; 83880; 84484 ×2; 85025 ×2; 93005 ×2; 93041; 94640 ×2; 96372 ×2; 96375; 96376; 99284; C8929; G0378; 36415; 93306

== ENCOUNTER 2023-02-05 10:38 | Emergency (ER) | payer MEDICARE ==
[~2023-02-05] VITALS: Ht 155 cm; Wt 77.5 kg
[~2023-02-05 10:38] MED LIST changes: +ATEN50TA PO; +CELE100C84 PO; +CRAN500T PO; +ISOS30TA82 PO; +MIRA25TA PO; +TICA90TA PO; +TRZ50T PO
[2023-02-05 11:26] LABS: BASOPHILS % (AUTO) 0 % (0-10); EOSINOPHILS # (AUTO) 0.2 10^3/uL (0.0-0.3); EOSINOPHILS % (AUTO) 2 % (0-10); HEMATOCRIT 44 % (35-52); HEMOGLOBIN 13.9 g/dL (11.5-16.0); LYMPHOCYTES # (AUTO) 1.2 10^3/uL (1.0-4.0); LYMPHOCYTES % (AUTO) 16 % (12-44); MEAN CORPUSCULAR HEMOGLOBIN 29 pg (25-34); MEAN CORPUSCULAR HGB CONC 32 g/dL (32-36); MEAN CORPUSCULAR VOLUME 93 fL (80-99); MEAN PLATELET VOLUME 12.7 fL (9.0-12.2); MONOCYTES # (AUTO) 0.7 10^3/uL (0.0-1.0); MONOCYTES % (AUTO) 10 % (0-12); NEUTROPHILS # (AUTO) 5.5 10^3/uL (1.8-7.8); NEUTROPHILS % (AUTO) 72 % (42-75); PLATELET COUNT 167 10^3/uL (130-400); WHITE BLOOD COUNT 7.7 10^3/uL (4.3-11.0)
--- NOTE | 2023-02-05 11:26 | ED Respiratory ---
General Chief Complaint: Respiratory Problems Stated Complaint: SOB | POST OP HEART SURGERY 2.5 WEEKS AGO Nursing Triage Note: PT SOB, HEART CATH ABOUT 2-3 AGO IN [place] WITH 3 STENTS PLACED, HEMOTOMA TO RT LOWER ABD AREA NOT THERE 3 DAYS AGO. Source: patient Exam Limitations: no limitations History of Present Illness Date Seen by Provider: Feb 05, 2023 Time Seen by Provider: 11:22 Initial Comments Patient is a 73-year-old female with a history of COPD, coronary artery disease, peripheral vascular disease, hypertension presents ED with son for shortness of breath. Shortness of breath over the past week. States it is worse when she gets up from a lying position. Shortness of breath is all the time even with walking or lying down. Denies increased leg swelling. she does not wear oxygen at home she had a cardiac cath with a stent placed [address] Mercado in [place]. She states she had in-stent restenosis. She denies chest pain, abd ominal pain, vomiting, diarrhea. Patient also reports bruising to her right lower abdomen. This started 2 or 3 days ago. Denies of any pain to this location. She states when she had her stents placed she read did receive blood thinner injections in her abdomen. She is currently on oral blood thinners. She may have fell but she cannot recall. She denies dysuria, headache, visual changes, neck pain, fever, cough, nausea, vomiting, diarrhea Allergies and Home Medications Allergies Coded Allergies: No Known Drug Allergies (Unverified , 06/07/09) Patient Home Medication List Home Medication List Reviewed: Yes Alprazolam (Xanax) 0.5 Mg Tablet, 0.5 MG PO TID PRN for AGITATION Prescribed by: DEBORAH HAWK on 11/25/22 1028 Amlodipine Besylate (Amlodipine Besylate) 5 Mg Tablet, 5 MG PO DAILY Prescribed by: DEBORAH HAWK on 11/25/22 1027 Aspirin (Aspirin EC) 81 Mg Tablet.dr, 81 MG PO DAILY Prescribed by: DEBORAH HAWK on 11/25/22 1027 Atenolol (Atenolol) 50 Mg Tablet, 50 MG PO DAILY, (Reported) Entered as Reported by: BATSHEVA MURDOCK on 02/01/23 1103 Celecoxib (Celecoxib) 100 Mg Capsule, 100 MG PO BID, (Reported) Entered as Reported by: BATSHEVA MURDOCK on 02/01/23 110 Cranberry Fruit (Cranberry) 500 Mg Tab.chew, 500 MG PO DAILY, (Reported) Entered as Reported by: BATSHEVA MURDOCK on 02/01/23 110 Duloxetine HCl (Duloxetine HCl) 30 Mg Capsule.dr, 30 MG PO DAILY Prescribed by: DEBORAH HAWK on 11/25/22 1027 Gabapentin (Gabapentin) 600 Mg Tablet, 600 MG PO BID Prescribed by: DEBORAH HAWK on 11/25/22 1027 Ipratropium/Albuterol Sulfate (Iprat-Albut 0.5-3(2.5) mg/3 ml) 0.5 Mg-3 Mg (2.5 Mg Base)/3 Ml Ampul.neb, 3 ML INH RTQ4HR Prescribed by: DEBORAH HAWK on 11/25/22 1027 Isosorbide Mononitrate (Isosorbide Mononitrate ER) 30 Mg Tab.er.24h, 15 MG PO DAILY, (Reported) Entered as Reported by: BATSHEVA MURDOCK on 02/01/23 110 Lactobacillus Combination No.4 (Probiotic) 3 Billion Cell Capsule, 1 EACH PO BID Prescribed by: DEBORAH HAWK on 11/25/22 1030 Mirabegron (Myrbetriq) 25 Mg Tab.er.24h, 25 MG PO DAILY, (Reported) Entered as Reported by: BATSHEVA MURDOCK on 02/01/23 110 Potassium Chloride (K-Tab ER) 10 Meq Tablet.er, 10 MEQ PO DAILY Prescribed by: DEBORAH HAWK on 11/25/22 1027 Pramipexole Di-HCl (Pramipexole Dihydrochloride) 0.75 Mg Tablet, 0.75 MG PO BID Prescribed by: DEBORAH HAWK on 11/25/22 1027 Sennosides (Senna Lax) 8.6 Mg Tablet, 8.6 MG PO BID Prescribed by: DEBORAH HAWK on 11/25/22 1027 Sodium Bicarbonate (Sodium Bicarbonate) 650 Mg Tablet, 1,300 MG PO BID Prescribed by: DEBORAH HAWK on 11/25/22 1027 Ticagrelor (Brilinta) 90 Mg Tablet, 90 MG PO BID, (Reported) Entered as Reported by: BATSHEVA MURDOCK on 02/01/23 110 Trazodone HCl (Trazodone HCl) 50 Mg Tablet, 50 MG PO DAILY, (Reported) Entered as Reported by: BATSHEVA MURDOCK on 02/01/23 110 Discontinued Medications Amoxicillin/Potassium Clav (Amox Tr-K Clv 875-125 mg Tab) 875 Mg-125 Mg Tablet, 1 EACH PO BID Discontinued Reason: No Longer Taking Prescribed by: DEBORAH HAWK on 11/25/22 1030 Atenolol (Atenolol) 25 Mg Tablet, 25 MG PO DAILY Discontinued Reason: Provider Change Prescribed by: DEBORAH HAWK on 11/25/22 1027 Enoxaparin Sodium (Enoxaparin Sodium) 40 Mg/0.4 Ml Syringe, 40 MG SC HS Discontinued Reason: No Longer Taking Prescribed by: DEBORAH HAWK on 11/25/22 1027 Oxybutynin Chloride (Oxybutynin Chloride) 5 Mg Tablet, 5 MG PO BID Discontinued Reason: No Longer Taking Prescribed by: DEBORAH HAWK on 11/25/22 1027 Oxycodone Hcl (Oxyir Tablet) 5 Mg Tab, 5 MG PO Q6HR PRN for PAIN-SEVERE (8-10) Discontinued Reason: No Longer Taking Prescribed by: EDBORAH HAWK on 11/25/22 1028 Review of Systems Review of Systems Constitutional: No chills, No diaphoresis, No malaise EENTM: No hearing loss, No blurred vision, No double vision Respiratory: No cough, No short of breath Gastrointestinal: No abdominal pain, No diarrhea, No nausea, No vomiting Genitourinary: No decreased output, No discharge Musculoskeletal: No back pain, No joint pain Skin: No change in color, No change in hair/nails All Other Systems Reviewed Negative Unless Noted: Yes Past Uwubigj-Sevrfv-Xfores Hx Patient Social History Tobacco Use?: No Smoking Status: Former Smoker Substance use?: No Pt feels they are or have been: No Immunizations Up To Date Tetanus Booster (TDap): More than 5yrs PED Vaccines UTD: Yes First/Initial COVID19 Vaccinat: UNKNOWN Second COVID19 Vaccination Ron: UNKNOWN Third COVID19 Vaccination Date: UNKNOWN Seasonal Allergies Seasonal Allergies: No Past Medical History Surgery/Hospitalization HX: SX: CABG PMH: CAD, UTI, PNEUMONIA, COPD, DOUBLE BYPASS, STENTS, PNEUMONIA, STENTS Surgeries: Yes Cardiac, CABG, Thyroidectomy Respiratory: Yes Asthma, Chronic Bronchitis, COPD Cardiac: Yes (CABG/STENTS. 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, Menopausal Genitourinary: No Gastrointestinal: Yes Gastroesophageal Reflux, Hiatal Hernia Musculoskeletal: Yes (ARTHRITIS IN KNEES) Arthritis Endocrine: Yes Hypothyroidsim, Diabetes, Non-Insulin dep HEENT: No (EDENTULOUS) Cancer: No Psychosocial: Yes Anxiety Integumentary: Yes Eczema Blood Disorders: No Family Medical History Alzheimer's disease 19 MOTHER FH: cancer G8 SISTER FH: heart disease 19 FATHER Kidney disease 19 MOTHER Myocardial infarction G8 BROTHER No Pertinent Family Hx Physical Exam Vital Signs - First Documented 02/05/23 10:51 Temp 36.5 Pulse 60 Resp 20 B/P (MAP) 131/60 (83) Pulse Ox 97 O2 Delivery Room Air Capillary Refill : Less Than 3 Seconds Height: 5'1.00" Weight: 141lbs. 8.0oz. 62.813929nd; 32.00 BMI Method:Stated General Appearance: WD/WN, no apparent distress Eyes: Bilateral Eye Normal Inspection, Bilateral Eye PERRL, Bilateral Eye EOMI HEENT: PERRL/EOMI, normal ENT inspection, TMs normal, pharynx normal Neck: non-tender, full range of motion, supple Respiratory: chest non-tender, lungs clear, normal breath sounds, no respiratory distress Cardiovascular: regular rate, rhythm, no edema, no gallop, no JVD Gastrointestinal: normal bowel sounds, non tender, soft, other (Bruising to the right lower abdomen. No tenderness to palpate. Normal bowel sounds throughout. Soft abdomen) Extremities: normal range of motion, non-tender, normal inspection, no pedal edema, no calf tenderness Neurologic/Psychiatric: lining closer II-XII nml as tested, no motor/sensory deficits, alert, normal mood/affect, oriented x 3 Progress/Results/Core Measures Suspected Sepsis SIRS Temperature: Pulse: 60 Respiratory Rate: 20 Laboratory Tests 02/05/23 10:58: White Blood Count 7.7 Blood Pressure 131 /60 Mean: 83 Laboratory Tests 02/05/23 10:58: Creatinine 1.23, INR Comment 0.9, Platelet Count 167, Total Bilirubin 0.2 Results/Orders Lab Results Laboratory Tests Test 02/05/23 10:58 Range/Units White Blood Count 7.7 4.3-11.0 10^3/uL Red Blood Count 4.72 3.80-5.11 10^6/uL Hemoglobin 13.9 11.5-16.0 g/dL Hematocrit 44 35-52 % Mean Corpuscular Volume 93 80-99 fL Mean Corpuscular Hemoglobin 29 25-34 pg Mean Corpuscular Hemoglobin Concent 32 32-36 g/dL Red Cell Distribution Width 14.0 10.0-14.5 % Platelet Count 167 130-400 10^3/uL Mean Platelet Volume 12.7 H 9.0-12.2 fL Immature Granulocyte % (Auto) 1 % Neutrophils (%) (Auto) 72 42-75 % Lymphocytes (%) (Auto) 16 12-44 % Monocytes (%) (Auto) 10 0-12 % Eosinophils (%) (Auto) 2 0-10 % Basophils (%) (Auto) 0 0-10 % Neutrophils # (Auto) 5.5 1.8-7.8 10^3/uL Lymphocytes # (Auto) 1.2 1.0-4.0 10^3/uL Monocytes # (Auto) 0.7 0.0-1.0 10^3/uL Eosinophils # (Auto) 0.2 0.0-0.3 10^3/uL Basophils # (Auto) 0.0 0.0-0.1 10^3/uL Immature Granulocyte # (Auto) 0.0 0.0-0.1 10^3/uL Prothrombin Time 13.1 12.2-14.7 SEC INR Comment 0.9 0.8-1.4 Activated Partial Thromboplast Time 37 H 24-35 SEC Sodium Level 144 135-145 MMOL/L Potassium Level 4.4 3.6-5.0 MMOL/L Chloride Level 111 H 98-107 MMOL/L Carbon Dioxide Level 23 21-32 MMOL/L Anion Gap 10 5-14 MMOL/L Blood Urea Nitrogen 23 H 7-18 MG/DL Creatinine 1.23 0.60-1.30 MG/DL Estimat Glomerular Filtration Rate 46 BUN/Creatinine Ratio 19 Glucose Level 101 70-105 MG/DL Calcium Level 9.6 8.5-10.1 MG/DL Corrected Calcium 9.6 8.5-10.1 MG/DL Magnesium Level 1.8 1.6-2.4 MG/DL Total Bilirubin 0.2 0.1-1.0 MG/DL Aspartate Amino Transf (AST/SGOT) 12 5-34 U/L Alanine Aminotransferase (ALT/SGPT) 16 0-55 U/L Alkaline Phosphatase 76 40-136 U/L Myoglobin 42.4 10.0-92.0 NG/ML Troponin I < 0.028 <0.028 NG/ML B-Type Natriuretic Peptide 82.0 <100.0 PG/ML Total Protein 6.8 6.4-8.2 GM/DL Albumin 4.0 3.2-4.5 GM/DL Lipase 17 8-78 U/L My Orders Orders - NEREYDA AGUILAR PA Cbc With Automated Diff (02/05/23 11:19) Magnesium (02/05/23 11:19) Chest 1 View, Ap/Pa Only (02/05/23 11:19) Ekg Tracing (02/05/23 11:19) Comprehensive Metabolic Panel (02/05/23 11:19) Myoglobin Serum (02/05/23 11:19) Protime With Inr (02/05/23 11:19) Partial Thromboplastin Time (02/05/23 11:19) Monitor-Rhythm Ecg Trace Only (02/05/23 11:19) Ed Iv/Invasive Line Start (02/05/23 11:19) Lipase (02/05/23 11:19) Bnp [place] (02/05/23 11:19) Troponin I [place] (02/05/23 11:19) Vital Signs/I&O 02/05/23 02/05/23 10:51 11:00 Temp 36.5 Pulse 60 Resp 20 B/P (MAP) 131/60 (83) Pulse Ox 97 O2 Delivery Room Air Room Air Capillary Refill : Less Than 3 Seconds Blood Pressure Mean: 83 ECG Comment Sinus rhythm, 55 bpm, QRS duration 89 MS, QTc 423 MS, Departure Communication (PCP) Reviewed previous ER visits, cardiology H&P's, echo, outpatient H&P's, lab testing, procedures. Patient had a cardiac cath performed at [facility] in December. Extensive cardiac history with a history of CABG. Was seen here on January 31 admitted for serial troponins and cardiac evaluation. Was seen by Dr. Burden who performed an echocardiogram which showed ejection fraction 65 to 70%. Mild concentric hypertrophy. Patient was cleared by cardiology. Reports continued dyspnea. No cough, chest pain or abdominal pain. She does have some bruising noted to the abdomen. No tenderness to palpate. Due to patient's current complaints CBC, CMP, cardiac work-up, chest x-ray was ordered. Due to no current abdominal pain or tenderness on palpation imaging was held at this time. Patient lab work was essentially unremarkable. Chest x-ray negative for pneumonia, pneumothorax, pleural effusion. Cardiac troponin and BNP was unremarkable. Discussed all results with son. Feel comfortable for patient to be discharged at this time. Recommend outpatient cardiac follow-up. EKG did not show any evidence of ST elevation, depression. Normal sinus rhythm. Due to recent admission with negative work-up and similar work-up today patient can be discharged with strict return precautions Impression Primary Impression: Dyspnea Disposition: 01 HOME, SELF-CARE Condition: Stable Departure-Patient Inst. Referrals: ASHA GREER DO (PCP/Family) Primary Care Physician Patient Instructions: Shortness of Breath (Dyspnea) Add. Discharge Instructions: Continue with your breathing treatments for the shortness of breath. Follow-up your primary care physician 2 to 3 days for reevaluation. If any worsening symptoms return back to ED. All discharge instructions reviewed with patient and/or family. Voiced understanding. NEREYDA AGUILAR Feb 05, 2023 11:25
[2023-02-05 11:34] LABS: POTASSIUM 4.4 MMOL/L (3.6-5.0)
[2023-02-05 11:36] LABS: CALCIUM 9.6 MG/DL (8.5-10.1)
[2023-02-05 11:37] LABS: TOTAL PROTEIN 6.8 GM/DL (6.4-8.2)
[2023-02-05 11:39] LABS: BILIRUBIN,TOTAL 0.2 MG/DL (0.1-1.0)
[2023-02-05 11:40] LABS: INR 0.9 (0.8-1.4); PROTHROMBIN TIME PATIENT 13.1 SEC (12.2-14.7)
[2023-02-05 11:41] LABS: CREATININE SERUM 1.23 MG/DL (0.60-1.30)
--- NOTE | 2023-02-05 11:42 | Diagnostic Imaging Report ---
Indication: Shortness of breath Portable chest 11:41 AM Heart size and pulmonary vascularity are normal. Lungs are clear. There are no effusions or pneumothoraces. There are postoperative changes from a median sternotomy. IMPRESSION: Unremarkable chest. Dictated by: Dictated on workstation # [id number]
[2023-02-05 11:43] LABS: MAGNESIUM 1.8 MG/DL (1.6-2.4)
[2023-02-05 12:37] VITALS: BP 149/70
== END 2023-02-05 12:37 | disposition home or self-care (01) ==
LOC: EDUNIT# 10:38 → ER 10:41
DX: S30.1XXA Contusion of abdominal wall, initial encounter (principal); R06.00 Dyspnea, unspecified; I51.7 Cardiomegaly; Z79.01 Long term (current) use of anticoagulants; Z87.891 Personal history of nicotine dependence; Z95.1 Presence of aortocoronary bypass graft; X58.XXXA Exposure to other specified factors, initial encounter
CPT/HCPCS: 36415; 71045; 80053; 83690; 83735; 83874; 83880; 84484; 85025; 85610; 85730; 93005; 93041

== ENCOUNTER → 2023-06-16 | Outpatient (CLI) | payer MEDICARE ==
[~2023-06-16] MED LIST changes: +POTA-185 PO; -POTA10TA PO; +SENN-341 PO; -SNN187T PO
--- NOTE | 2023-06-16 17:04 | Diagnostic Imaging Report ---
INDICATION: Postmenopausal state. COMPARISON: None available. FINDINGS: AP Spine L1-L4: [BMD (g/cm2): 0.933] [T-Score: -2.2] [Z-Score: -1.1] [BMD Previous: NA] [BMD % Change: NA] LT Hip Neck: [BMD (g/cm2): 0.658] [T-Score: -2.7] [Z-Score: -1.3] LT Hip Total: [BMD (g/cm2):0.660] [T-Score:-2.8] [Z-Score: -1.6] [BMD Previous: NA] [BMD % Change: NA] RT Hip Neck: [BMD (g/cm2):0.670] [T-Score:-2.6] [Z-Score:-1.2] RT Hip Total: [BMD (g/cm2):0.711] [T-score:-2.4] [Z-Score:-1.2] [BMD Previous:NA] [BMD % Change:NA] *Indicates significant change from prior examination based on 95% confidence level. World Health Organization criteria for BMD interpretation classify patients as Normal (T-score at or above -1.0), Osteopenic (T-score between -1.0 and -2.5) or Osteoporotic (T-score at or below -2.5). LIMITATIONS AND MODIFICATION: None. IMPRESSION: 1. Osteoporosis. 2. Baseline examination. 3. See below National Osteoporosis Foundation guidelines on when to potentially initiate pharmacologic therapy. Based on the National Osteoporosis Foundation Guidelines, pharmacologic treatment should be initiated in any of the following, unless clinical conditions suggest otherwise: * Any patient with prior fragility fracture of the hip or vertebrae. A spine fracture indicates 5X risk for subsequent spine fracture and 2X risk for subsequent hip fracture. * Osteoporosis (T-score <-2.5). * Postmenopausal women and men age 50 and older with low bone mass/osteopenia (T-score between -1.0 and -2.5) by DXA and 10-year major osteoporotic fracture greater than 20% or a 10-year probability of hip fracture greater than 3%. These fracture risks are supplied above in the FRAX score, if applicable. * Clinician judgement and/or patient preferences may indicate treatment for people with 10-year fracture probabilities above or below these levels. Dictated by: Dictated on workstation # [id number]
== END ==
LOC: RAD 14:26
PROVIDERS: ATTEND Pediatrics
DX: M81.0 Age-related osteoporosis without current pathological fracture (principal); Z78.0 Asymptomatic menopausal state
CPT/HCPCS: 77080